=== PATIENT | male | born 1975 | race Caucasian/White ===

== ENCOUNTER 2020-06-22 15:18 | Emergency (ER) | payer OTHER, SELFPAY ==
--- NOTE | 2020-06-22 | CT_ITS ---
EXAMINATION: CT HEAD WITHOUT CONTRAST CLINICAL INFORMATION: Dizziness. COMPARISON: CT head 04/28/2017 TECHNIQUE: Contiguous axial imaging was performed from the skull base to vertex without intravenous administration of contrast. Coronal and sagittal reformatted images are performed at the CT scanner This CT examination was performed using dose optimization techniques as appropriate, variously including the following: *Automated exposure control *Adjustment of mA and/or kV according to patient size (this includes techniques or standardized protocols for targeted exams where dose is matched to indication/reason for exam; i.e. extremities or head) *Use of iterative reconstruction technique DLP: 735 mGy-cm FINDINGS: There is no evidence of acute intracranial hemorrhage or territorial infarction. No abnormal mass effect or midline shift is seen. Flanagan to white matter differentiation is well preserved. No extra-axial fluid collections are identified. The ventricles are normal in size. There is no abnormal attenuation within the brain parenchyma. The osseous structures and soft tissues are normal. The mastoid air cells and visualized portions of the paranasal sinuses are well aerated. IMPRESSION: No acute intracranial pathology.
--- NOTE | 2020-06-22 | XR_ITS ---
EXAMINATION: PORTABLE CHEST 1 VIEW CLINICAL INFORMATION: dizziness . COMPARISON: 08/10/2018. TECHNIQUE: Portable frontal view of the chest was obtained. FINDINGS: The lungs are well expanded. No focal infiltrate, effusion, edema, or pneumothorax. Cardiac and mediastinal silhouettes are within normal limits for technique. No acute bony abnormality seen. IMPRESSION: No evidence of acute disease.
[2020-06-22 16:04] VITALS: BP 139/82; PULSE 79; RESP 16; TEMP 36.7; O2SAT 97; BMI 32.8
--- NOTE | 2020-06-22 16:35 | ED.DIZZY ---
HPI - Dizziness General Chief Complaint: Dizziness Stated Complaint: DIZZINESS Time Seen by Provider: 06/22/20 16:27 Source: patient Mode of arrival: ambulatory Limitations: no limitations History of Present Illness HPI Narrative: Patient states for the past 2-3 weeks has been feeling off. Patient states has been feeling dizzy as in walking unsteady. Denies wanting to pass out. Occasionally for the past couple weeks has also been having substernal chest pain nonradiating. Denies diaphoresis denies nausea vomiting or fevers. Patient states dizziness onset could occur while sitting or standing. Has not passed out or feeling of passing out MD elicited complaint: dizziness and disequilibrium Onset (ago): week(s) ( 2 weeks) Severity: mild Description: sense of movement History of similar symptoms: No Exacerbating factors: nothing Relieving factors: nothing Related Data Previous Rx's Medication Instructions Recorded meclizine 12.5 mg PO BID #10 tab 06/22/20 Allergies Allergy/AdvReac Type Severity Reaction Status Date / Time No Known Allergies Allergy Unverified 06/07/20 14:56 [No Known Allergies*] Codeine Sulfate Allergy Unknown Uncoded 01/24/20 00:00 none Allergy Unknown Uncoded 01/18/20 00:00 Review of Systems Review of Systems: Constitutional : No Weight loss, No Fever, No Chills, No Night Sweats, No Fatigue, No Malaise ENT/Mouth : No Hearing loss, No Ear Pain, No Nasal Congestion, No Sinus Pain, No Hoarseness, No sore throat, No Rhinorrhea, No Swallowing Difficulty Eyes: No Eye Pain, No Swelling, No Redness, No Foreign Body, No Discharge, No Vision Changes Cardiovascular : No Chest Pain, No SOB, No Dyspnea on Exertion, No Orthopnea, No Edema, No Palpitations Respiratory : No Cough, No Sputum, No Wheezing, No Smoke Exposure, No Dyspnea Gastrointestinal : No Nausea, No Vomiting, No Diarrhea, No Constipation, No abdominal Pain, No Hematochezia, No Melena Genitourinary : no irregular bleeding, No Dysuria, No Urinary Frequency, No Hematuria, No Urinary Incontinence, No Urgency, No Flank Pain, No Urinary Flow Changes, No Hesitancy Musculoskeletal : No joint pain, No Myalgias, No Joint Swelling Skin : No Skin Lesions, No rash Neuro : No Weakness, No Numbness, No Paresthesias, No Loss of Consciousness, No Dizziness, No Headache Psych : No Anxiety/Panic, No Depression, No SI/HI/AH/VH, No Social Issues, Heme/Lymph: No Bruising, No Bleeding,No Lymphadenopathy Endocrine : No Polyuria, No Polydipsia, No Temperature Intolerance Neurologic: Reports Abnormal speech present [facility] Past Medical History Medical History Anxiety Depressed High cholesterol HTN (hypertension) Social History Social History Alcohol intake: never Smoking Status: Never smoker Use of substances other than those prescribed or required for medical reasons: No Advance Directives: No Advance Directives Information Provided: No Physical Exam Vital Signs and I&O and Narrative: Vital Signs and I&O: Vital Signs Temp 98.0 F 06/22/20 16:04 Pulse 71 06/22/20 17:09 Resp 16 06/22/20 17:16 BP 125/73 06/22/20 17:09 Pulse Ox 97 06/22/20 16:04 Intake & Output 06/22/20 06/22/20 06/23/20 06:59 18:59 06:59 Weight 106.594 kg Body Mass Index 32.8 reviewed Const: General: cooperative, healthy appearing and comfortable; No ill appearing Nutritional Appearance: underweight Limitations: no limitations HENMT: Head: Yes normal to inspection, No No palpable skull fracture present, No Acrocyanosis present and No Albarado's sign Ears: TM's normal bilaterally Eyes: General: appearance normal, both eyes and all related structures Visual Gerber: normal visual gerber by confrontation Pupils: Equal, round and reactive pupils present Neck: Neck: Yes normal visual inspection Chest: Chest palpation & inspection: normal inspection of the chest and normal palpation of entire chest wall Resp: Effort & Inspection: normal respiratory effort, not able to speak in complete sentences and no cough Cardio: Jugular venous distension: no JVD Palpation: PMI normal Rate: regular rate Rhythm: regular rhythm Peripheral pulses: Peripheral pulses 2+ throughout GI: Inspection: Yes normal to inspection and Yes abdominal wall ecchymosis Back/Spine/Pelvis: Cervical Spine: normal cervical lordosis Skin: Lesions: no lesions Rashes: no rashes Neuro: General: CN's II-XI intact bilaterally Cranial nerves: Yes CN's II-XII intact bilaterally and Yes Equal, round and reactive pupils present Cognition (Neuro): normal cognition Speech: Abnormal speech present Gait exam (Neuro): Normal gait present Motor exam (neuro): 5/5 motor strength present throughout Extrem: General: Yes normal to inspection Psych: Appearance: grossly normal Course Course Hospital Course: throughout hospital stay patient had normal orthostatics. Laboratory work within normal limits. Laboratory work and x-rays negative. I discussed with the patient reasons to return to the emergency department. Patient reassured and feeling much better. MDM - Dizziness Lab Data Result diagrams: 06/22/20 17:08 Labs: Lab Results 06/22/20 06/22/20 06/22/20 Range/Units 17:08 17:08 17:08 WBC 5.8 (4.8-10.8) X10*3/uL RBC 5.12 (4.60-5.80) X10*6/uL Hgb 15.1 (14.0-18.0) g/dl Hct 44.9 (42-52) % MCV 87.7 (80-98) fL MCH 29.5 (27.0-33.0) pg MCHC 33.6 (31.0-36.0) g/dl RDW 12.2 (11.0-16.0) % Plt Count 212 (160-400) X10*3/uL MPV 10.2 (9.4-12.4) fL Immature Gran % (Auto) 0.2 (0.0-0.4) % Neut % (Auto) 52.4 (45-73) % Lymph % (Auto) 36.3 (20-40) % [place] % (Auto) 7.8 (2-11) % Eos % (Auto) 2.6 (0-4) % Baso % (Auto) 0.7 (0-2) % Neut # (Auto) 3.0 (2.0-8.3) X10*3/uL Lymph # (Auto) 2.1 (1.2-4.9) X10*3/uL [place] # (Auto) 0.5 (0.1-1.2) X10*3/uL Eos # (Auto) 0.2 (0.0-0.4) X10*3/uL Baso # (Auto) 0.0 (0.0-0.2) X10*3/uL Abs Immat Gran (auto) 0.01 (0.00-0.03) X10*3/uL Absolute Nucleated RBC 0.000 (0.0-0.012) X10*3/uL Nucleated RBC % (auto) 0.0 (0.0-0.2) /100WBC Total Bilirubin 0.8 (0.0-1.0) mg/dL Direct Bilirubin 0.3 (0.0-0.5) mg/dL AST 22 (5-37) U/L ALT 39 (0-40) U/L Alkaline Phosphatase 62 (39-117) U/L Troponin I High Sens < 3.5 (<3.5-35.0) ng/L Total Protein 6.9 (6.5-8.0) g/dL Albumin 4.6 (3.5-5.0) g/dL Lipase 22 (8-78) U/L ECG Data Attestation: I personally reviewed and interpreted this ECG as follows: Interpretation: EKG normal sinus rhythm at 75, normal axis. Normal S T segment. No STEMI normal NE intervals. Discharge Plan Discharge Clinical Impression: Benign paroxysmal positional vertigo Qualifiers: Laterality: bilateral Qualified Code(s): H81.13 - Benign paroxysmal vertigo, bilateral Patient Disposition: Home, Self-Care Instructions: Benign Paroxysmal Positional Vertigo (ED) Prescriptions: New meclizine 12.5 mg tablet 12.5 mg PO BID Qty: 10 RF: 0 Referrals: Po,Zulema Barrera MD [Primary Care Provider] - 2 days EKG EKG All charges added?: Yes EKG interpretations EKG EKG results cardiology: interpreted by DG Dysrhythmias Sinus rhythms and dysrhythmias: sinus rhythm (75)
[2020-06-22 17:09] VITALS: BP 125/73; PULSE 71
--- NOTE | 2020-06-22 17:15 | ECG_ITS ---
Test Reason : DIZZINESS Blood Pressure : / mmHG Vent. Rate : 075 BPM Atrial Rate : 075 BPM P-R Int : 192 ms QRS Dur : 112 ms QT Int : 390 ms P-R-T Axes : 065 031 049 degrees QTc Int : 435 ms Normal sinus rhythm Normal ECG When compared with ECG of 18-AUG-2018 08:58, No significant change was found Referred By: Petey Olguin Electronically Signed By:MUNIR CARR
[2020-06-22 17:16] VITALS: RESP 16
[2020-06-22 17:17] LABS: MANUAL DIFF FLAG NO
[2020-06-22 17:19] LABS: Basophils Percent Auto 0.7 % (0-2); Eosinophils Absolute Auto 0.2 X10*3/uL (0.0-0.4); Eosinophils Percent Auto 2.6 % (0-4); Hematocrit 44.9 % (42-52); Hemoglobin 15.1 g/dl (14.0-18.0); Imm Gran Abs Auto 0.01 X10*3/uL (0.00-0.03); Imm Gran Pct Auto 0.2 % (0.0-0.4); Lymphocytes Absolute Auto 2.1 X10*3/uL (1.2-4.9); Lymphocytes Percent Auto 36.3 % (20-40); Mean Corpuscular HGB Conc 33.6 g/dl (31.0-36.0); Mean Corpuscular Hemoglobin 29.5 pg (27.0-33.0); Mean Corpuscular Volume 87.7 fL (80-98); Mean Platelet Volume 10.2 fL (9.4-12.4); Monocytes Absolute Auto 0.5 X10*3/uL (0.1-1.2); Monocytes Percent Auto 7.8 % (2-11); Neutrophils Percent Auto 52.4 % (45-73); Platelet Count 212 X10*3/uL (160-400); Red Blood Count 5.12 X10*6/uL (4.60-5.80); Red Cell Distribution Width 12.2 % (11.0-16.0); White Blood Count 5.8 X10*3/uL (4.8-10.8)
[2020-06-22 17:45] LABS: Alanine Aminotransferase 39 U/L (0-40); Albumin Level 4.6 g/dL (3.5-5.0); Alkaline Phosphatase 62 U/L (39-117); Aspartate Amino Transferase 22 U/L (5-37); Bilirubin Direct 0.3 mg/dL (0.0-0.5); Bilirubin Total 0.8 mg/dL (0.0-1.0); Lipase 22 U/L (8-78); Total Protein 6.9 g/dL (6.5-8.0)
[2020-06-22 17:49] LABS: Troponin-I High Sensitivity < 3.5 ng/L (<3.5-35.0)
--- NOTE | 2020-06-22 18:34 | PC.NURSE ---
pt drinking po fluids instead of ivf per request of pt aware
== END 2020-06-22 20:05 | disposition home or self-care (01) ==
PROVIDERS: Emergency Provider Emergency Medicine; PCP Internal Medicine
DX: H81.13 Benign paroxysmal vertigo, bilateral (principal); I10 Essential (primary) hypertension
CPT/HCPCS: 36415; 70450; 71045; 80076; 83690; 84484; 85025; 93005; 93010; 99284

== ENCOUNTER 2020-08-13 09:32 | Outpatient (REF) | payer OTHER, SELFPAY | END 2020-08-13 09:33 | disposition home or self-care (01) | LOC: HO.LAB 09:32 | PROVIDERS: Visit Provider Internal Medicine | DX: Z20.828 Contact with and (suspected) exposure to other viral communicable diseases (principal) | CPT/HCPCS: C9803; U0003 ==

== ENCOUNTER 2020-10-16 15:31 | Outpatient (REF) | payer OTHER, SELFPAY ==
--- NOTE | 2020-10-16 15:36 | XR_ITS ---
EXAMINATION: XR WRIST, RIGHT CLINICAL INFORMATION: Pain. COMPARISON: Previous x-rays most recent November 2019 TECHNIQUE: Four views of the right wrist. FINDINGS: There is a volar placed plate and screws transfixing a right distal radius fracture. Orthopedic hardware appears intact. Distal radius fracture is appears healed. There is a nondisplaced ulnar styloid fracture that appears unchanged. There is an oblique lucency seen in the midportion of the scaphoid bone that is unchanged from multiple old exams. It is uncertain whether this could represent evidence of old remote trauma to the scaphoid bone. No acute fracture is seen. Carpal bones are otherwise normal. Soft tissues are normal. XR/XR wrist RT 2V IMPRESSION: ORIF of right distal radius fracture. Distal radius fracture appears healed. Ununited ulnar styloid fracture.
== END 2020-10-16 15:32 | disposition home or self-care (01) ==
LOC: HO.XRAY 15:31
PROVIDERS: PCP Internal Medicine; Visit Provider Internal Medicine
DX: M25.531 Pain in right wrist (principal)
CPT/HCPCS: 73100

== ENCOUNTER 2020-10-22 09:57 | Outpatient (REF) | payer OTHER, SELFPAY ==
[2020-10-22 10:22] LABS: MANUAL DIFF FLAG NO
[2020-10-22 10:26] LABS: Basophils Percent Auto 0.6 % (0-2); Eosinophils Absolute Auto 0.2 X10*3/uL (0.0-0.4); Eosinophils Percent Auto 2.9 % (0-4); Hemoglobin 16.2 g/dl (14.0-18.0); Imm Gran Abs Auto 0.01 X10*3/uL (0.00-0.03); Imm Gran Pct Auto 0.2 % (0.0-0.4); Lymphocytes Absolute Auto 1.8 X10*3/uL (1.2-4.9); Lymphocytes Percent Auto 33.6 % (20-40); Mean Corpuscular HGB Conc 33.8 g/dl (31.0-36.0); Mean Corpuscular Hemoglobin 29.5 pg (27.0-33.0); Mean Corpuscular Volume 87.4 fL (80-98); Mean Platelet Volume 10.3 fL (9.4-12.4); Monocytes Absolute Auto 0.5 X10*3/uL (0.1-1.2); Monocytes Percent Auto 8.6 % (2-11); Neutrophils Absolute Auto 2.8 X10*3/uL (2.0-8.3); Neutrophils Percent Auto 54.1 % (45-73); Platelet Count 239 X10*3/uL (160-400); Red Blood Count 5.49 X10*6/uL (4.60-5.80); Red Cell Distribution Width 12.1 % (11.0-16.0); White Blood Count 5.2 X10*3/uL (4.8-10.8)
[2020-10-22 11:28] LABS: Thyroid Stimulating Hormone 0.47 uIU/mL (0.32-4.0)
[2020-10-22 11:31] LABS: Alanine Aminotransferase 32 U/L (0-40); Albumin Level 4.7 g/dL (3.5-5.0); Alkaline Phosphatase 64 U/L (39-117); Anion Gap 12 (12-20); Aspartate Amino Transferase 18 U/L (5-37); Bilirubin Total 1.1 mg/dL (0.0-1.0); Blood Urea Nitrogen 8 mg/dL (9-16); Calcium 9.2 mg/dL (8.4-10.2); Carbon Dioxide 31 mmol/L (22-29); Chloride 101 mmol/L (96-108); Cholesterol 204 mg/dL; Estimated Glomerular Filt Rate > 60; Glucose Random 92 mg/dL (60-115); HDL Cholesterol 44 mg/dL; LDL Cholesterol Calculated 134 mg/dl; Sodium 140 mmol/L (135-145); Triglycerides 131 mg/dL
[2020-10-22 18:38] LABS: Folate 9.6 ng/mL (> or = 4.0); Vitamin B12 281 pg/mL (200-900)
== END 2020-10-22 09:58 | disposition home or self-care (01) ==
LOC: HO.LAB 09:57
PROVIDERS: PCP Internal Medicine; Visit Provider Internal Medicine
DX: I10 Essential (primary) hypertension (principal); E78.00 Pure hypercholesterolemia, unspecified
CPT/HCPCS: 36415; 80053; 80061; 82607; 82746; 84439; 84443; 85025

== ENCOUNTER 2020-10-23 15:03 | Outpatient (RCR) | payer OTHER, SELFPAY ==
[2020-10-23 15:07] VITALS: BP 128/90; PULSE 113; RESP 20
--- NOTE | 2020-10-23 16:27 | MHC.PT.EP ---
[facility] [place] Office [place] Office [place] Office [address] Grayson Vaughan [address] [phone] F: [phone] F: [phone] F: [phone] F: [phone] Physical Therapy Plan of Care Date of Evaluation: 10/23/20 Date of Surgery: Diagnosis: Dizziness and giddiness Assessment: 44 year old male referred for dizziness and giddiness . Pt reports of having symptoms of vertigo for the last 2-3 years. He describes his symptoms as feeling unsteady and occasional room spinning dizziness every time he moves from supine to sit, sit to supine, rolls in the bed and looks up or down. He also has occasional nausea. Per pt once his symptoms comes on they do not stop/ go away. He denies having any recent ear or sinus infection. Examination reveals smooth pursuit, saccades, visual tracking, static and dynamic balance WNL. His DVA was 3 lines (significant). Pt was negative in B [place] pikes and B roll test for nystagmus and vertigo. Pt is independent with all ADLs but does them slowly when he has severs symptoms. Pt's symptoms suggestive of mild vestibular hypofunction. He would benefit from therapy for vestibular rehab. Frequency and Duration: The patient will be seen 2/week for 5 weeks Short Term Goals: 1. Pt will be able to get in and out of the bed without any dizziness in 2 weeks. 2. Pt will be able to bend forward, look up and down without symptoms of unsteadiness in 3 weeks Cardiac Cath Lab Technologist Goals: 1. Pt will be able to perform all ADLS without symptoms of unsteadiness in 4 weeks. 2. Pt will return to PLOF in 5 weeks. Treatment Plan: Modalities to reduce pain, spasms and effusion. Manual therapy to restore motion and function. Therapeutic exercise to improve strength and flexibility. Neuromuscular re-education for posture and balance. Therapeutic activities to return to functional activities of daily living. Electronically signed by: Loren Andre DPT Please sign and return to therapist. Thank you for your referral.
--- NOTE | 2020-11-27 10:41 | MHC.PT.DC ---
[facility] [place] Office [place] Office [place] Office [address] Grayson Vaughan [address] [phone] F: [phone] F: [phone] F: [phone] F: [phone] Physical Therapy Discharge Report Diagnosis: Dizziness and giddiness Date of Surgery: Date of Evaluation: 10/23/20 Date of Discharge: 11/27/20 Treatments to Date: 1 Cancellations to Date: 0 No Shows to Date: 2 Discharge Status: Visit Non-compliance Discharge Summary: Pt d/c from therapy as he no showed for his appointments. Electronically signed by: Loren Andre DPT Please sign and return to therapist. Thank you for your referral.
== END 2020-11-27 10:42 | disposition other institution (70) ==
LOC: HO.PT 15:03
PROVIDERS: Visit Provider Internal Medicine
DX: R42 Dizziness and giddiness (principal)
CPT/HCPCS: 97112; 97161

== ENCOUNTER 2021-03-29 08:32 | Outpatient (REF) | payer OTHER, SELFPAY ==
--- NOTE | ~2021-03-29 | FL_ITS ---
EXAMINATION: FL UPPER GI SERIES CLINICAL INFORMATION: K21.9 - Gastro-esophageal reflux disease without esophagitis. Patient notes heartburn symptoms greatest at night. No difficulty swallowing. COMPARISON: Report upper GI series 07/12/2007. TECHNIQUE: Upper GI series is performed using fluoroscopic evaluation in addition to multiple fluoroscopic spot views. The patient is imaged both upright and prone and using both thick and thin barium sulfate along with effervescent granules. Fluoroscopy time: 1.5 minutes DAP: 16.038 Gycm2 Fluoroscopic spot images: 17 FINDINGS: There is normal esophageal motility. There is no obstruction, stricture, ulceration, or hernia. No gastroesophageal reflux is demonstrated. There is mild uniform thickening of the proximal to mid gastric body folds suggested on the double contrast images. There is no nodularity or ulcer crater. No gastric outlet obstruction. The pyloroduodenal region and post bulbar duodenum are unremarkable. FL/FL upper GI w air IMPRESSION: 1. Mild nonspecific thickening proximal to mid gastric body folds suggested on double contrast images, possibly related to gastritis. No ulcer crater. Unremarkable pyloroduodenum. 2. Unremarkable esophagus. No ulceration, stricture, hiatal hernia, or reflux during fluoroscopy.
== END 2021-03-29 08:33 | disposition home or self-care (01) ==
LOC: HO.XRAY 08:32
PROVIDERS: PCP Internal Medicine; Visit Provider Internal Medicine
DX: K21.9 Gastro-esophageal reflux disease without esophagitis (principal)
CPT/HCPCS: 74246

== ENCOUNTER 2021-06-14 04:29 | Inpatient (IN) | payer OTHER, SELFPAY ==
--- NOTE | ~2021-06-14 | CT_ITS ---
EXAMINATION: CT ABDOMEN AND PELVIS WITH CONTRAST CLINICAL INFORMATION: Elevated LFTs and. Evaluate for stone. COMPARISON: Ultrasound abdomen 06/14/2021 performed earlier today TECHNIQUE: Multidetector volumetric images were obtained from the superior aspect of the liver through the pubic symphysis following administration 85 mL of Omnipaque 350 intravenous contrast. Sagittal and coronal reformatted images were obtained on the technologist's workstation. Oral contrast: No This CT examination was performed using dose optimization techniques as appropriate, variously including the following: *Automated exposure control *Adjustment of mA and/or kV according to patient size (this includes techniques or standardized protocols for targeted exams where dose is matched to indication/reason for exam; i.e. extremities or head) *Use of iterative reconstruction technique DLP: 1132 mGy-cm FINDINGS: LUNG BASES: The visualized lung bases are unremarkable. LIVER, GALLBLADDER, AND BILIARY TREE: The liver is normal in size, shape, and diminished attenuation. There is a 7 mm hypodensity in the right hepatic lobe. No additional lesions seen.. There is mild thickening of the gallbladder wall with suspicion for radiolucent stones. No pericholecystic fluid collection seen. PANCREAS: Unremarkable. SPLEEN: Unremarkable. ADRENAL GLANDS: Unremarkable. KIDNEYS AND URETERS: The kidneys are normal in size, shape, and attenuation. No hydronephrosis, hydroureter, or calculi seen. No perinephric stranding. BLADDER: Unremarkable. GASTROINTESTINAL TRACT: The small and large bowel are unremarkable. The appendix is unremarkable. ABDOMINAL WALL: There is a small lumbar canal hernia containing fat. LYMPH NODES: Normal. VASCULAR: Unremarkable. PELVIC VISCERA: Unremarkable. OSSEOUS STRUCTURES: No lytic or sclerotic process seen. CT/CT abdomen pelvis w con IMPRESSION: No acute intra-abdominal process. There is a punctate hypodensity right hepatic lobe probable cysts. Suspect mild hepatic steatosis.
--- NOTE | ~2021-06-14 | US_ITS ---
EXAMINATION: US ABDOMEN LIMITED CLINICAL INFORMATION: Epigastric pain, elevated LFTs.. COMPARISON: None TECHNIQUE: Real-time imaging of the right upper quadrant abdominal viscera. FINDINGS: PANCREAS: Normal. LIVER: The liver is normal in size. The liver contour is normal. There is anechoic cyst right hepatic lobe measuring 0.7 x 0.5 x 0.7 cm. Parenchymal echogenicity is increased. No focal hepatic lesion. There is no intrahepatic biliary duct dilatation seen. GALLBLADDER: There are multiple echogenic stones and echogenic sludge ball. There is no wall thickening or pericholecystic fluid collection. Gallbladder wall thickness is 0.1 cm. COMMON BILE DUCT: Normal in caliber measuring 1.0 cm in diameter. RIGHT KIDNEY: Normal. No hydronephrosis. No renal calculi or focal parenchymal lesions. The kidney measures 11.8 cm in maximum dimension. FREE FLUID: None. US/US abdomen limited IMPRESSION: Diffuse hepatic steatosis without focal lesion. There is a small anechoic cyst right hepatic lobe measuring 0.7 cm. Gallstones, echogenic sludge without wall thickening. Rest of the visualized abdominal ultrasound is unremarkable.
--- NOTE | ~2021-06-14 | MR_ITS ---
EXAMINATION: MR ABDOMEN WITHOUT CONTRAST CLINICAL INFORMATION: Abdominal pain. Elevated liver function tests. Gallstones. Rule out common bile duct obstruction. COMPARISON: Previous CT of the abdomen and pelvis and abdominal ultrasound both from yesterday TECHNIQUE: MR abdomen is performed without gadolinium contrast. MRCP sequences were also performed. FINDINGS: LUNG BASES: The visualized lung bases are unremarkable. LIVER, GALLBLADDER, AND BILIARY TREE: The liver is normal in size and shape. There is mild fatty infiltration of the liver. There is a small low signal on T1 and high signal on T2-weighted sequences lesion in the right lobe the liver probably representing a cyst. This measures 8 x 8 x 1 cm. There are gallstones in the gallbladder. The gallbladder wall appears slightly thickened and edematous. The gallbladder is normal in size. The cystic duct appears markedly dilated measuring up to 1.3 cm. A stone in the cystic duct is not appreciated. A dilated cystic duct abuts the common hepatic duct however no intra or hepatic biliary duct dilatation is seen/evidence of Mirizzi syndrome. The common bile duct measures 4 mm. No common bile duct stone is seen. PANCREAS: Unremarkable. SPLEEN: Unremarkable. ADRENAL GLANDS: Unremarkable. KIDNEYS AND URETERS: The kidneys are normal in size and shape. No hydronephrosis. No perinephric stranding. GASTROINTESTINAL TRACT: No bowel obstruction. No ascites or fluid collection. ABDOMINAL WALL: No significant hernia is appreciated. LYMPH NODES: No lymphadenopathy. VASCULAR: Unremarkable. OSSEOUS STRUCTURES: Marrow signal normal. MR/MR MRCP IMPRESSION: Gallstones. Thickened edematous gallbladder wall suggestive of cholecystitis. The cystic duct is markedly dilated measuring up to 1.3 cm. A stone in the cystic duct is not seen. Normal caliber intrahepatic and extrahepatic bile ducts. No common bile duct stone seen. Mild fatty infiltration of the liver.
[2021-06-14 06:03] VITALS: BP 118/74; PULSE 70; RESP 16; TEMP 36.8; O2SAT 99; BMI 31.9
--- NOTE | 2021-06-14 06:19 | ED_ITS ---
HPI - Abdominal Pain General Chief Complaint: Abdominal Pain <Wily Tan MD - Last Filed: 06/14/21 07:23> Stated Complaint: stomach, back and ear pain <Wily Tan MD - Last Filed: 06/14/21 07:23> Time Seen by Provider: 06/14/21 06:19 <Wily Tan MD - Last Filed: 06/14/21 07:23> Source: patient <Wily Tan MD - Last Filed: 06/14/21 07:23> Mode of arrival: ambulatory <Wily Tan MD - Last Filed: 06/14/21 07:23> Limitations: no limitations <Wily Tan MD - Last Filed: 06/14/21 07:23> History of Present Illness HPI narrative: Patient with gastritis. Tonight started with epigastric pain that went up and then into his back. The feeling lasted for 20 minutes <Wily Tan MD - Last Filed: 06/14/21 07:23> MD elicited complaint: abdominal pain <Wily Tan MD - Last Filed: 06/14/21 07:23> Onset (ago): minute(s) <Wily Tan MD - Last Filed: 06/14/21 07:23> Pain Consistency: intermittent <Wily Tan MD - Last Filed: 06/14/21 07:23> Location: epigastric <Wily Tan MD - Last Filed: 06/14/21 07:23> Severity: mild <Wily Tan MD - Last Filed: 06/14/21 07:23> Migration to: no migration <Wily Tan MD - Last Filed: 06/14/21 07:23> Exacerbating factors: nothing <Wily Tan MD - Last Filed: 06/14/21 07:23> Relieving factors: nothing <Wily Tan MD - Last Filed: 06/14/21 07:23> Associated symptoms: denies other symptoms <Wily Tan MD - Last Filed: 06/14/21 07:23> Related Data Home Medications: Home Medications Medication Instructions Recorded Confirmed cyanocobalamin (vitamin B-12) 50 50 mcg PO DAILY 12/27/20 03/04/21 mcg tablet digestive enzymes 1 tab PO DAILY 12/27/20 03/04/21 lactobacillus comb no.10 20 20,000 mmu cells PO DAILY 12/27/20 03/04/21 billion cell capsule (Probiotic) Previous Rx's Medication Instructions Recorded meclizine 12.5 mg tablet 12.5 mg PO BID #30 tab 10/29/20 omeprazole 40 mg capsule,delayed 40 mg PO DAILY #30 cap 10/29/20 release blood pressure monitor #1 ea 12/27/20 fexofenadine 180 mg tablet 180 mg PO DAILY #90 tab 12/27/20 (Sun Allergy) fluticasone propionate 50 2 spray INTRANASAL DAILY #16 g 03/20/21 mcg/actuation nasal spray,suspension (Flonase Allergy Relief) clonazepam 0.5 mg tablet 0.5 mg PO BEDTIME #30 tab 04/09/21 escitalopram oxalate 10 mg tablet 10 mg PO DAILY 90 Days #90 tab 04/09/21 <Wily Tan MD - Last Filed: 06/14/21 07:23> Allergies/Adverse Reactions: Allergies Allergy/AdvReac Type Severity Reaction Status Date / Time codeine Allergy Unknown Unknown Verified 05/17/21 14:29 <Wily Tan MD - Last Filed: 06/14/21 07:23> Review of Systems Constitutional: Reports no additional constitutional complaints <Wily Tan MD - Last Filed: 06/14/21 07:23> Eyes: Reports no additional eye complaints <Wily Tan MD - Last Filed: 06/14/21 07:23> Denies dizziness <Wily Tan MD - Last Filed: 06/14/21 07:23> Cardiovascular: Reports no additional cardiovascular complaints <Wily Tan MD - Last Filed: 06/14/21 07:23> Respiratory: Reports as per HPI <Wily Tan MD - Last Filed: 06/14/21 07:23> Gastrointestinal: Reports no additional gastrointestinal complaints <Wily Tan MD - Last Filed: 06/14/21 07:23> Musculoskeletal: Reports no additional musculoskeletal complaints <Wily Tan MD - Last Filed: 06/14/21 07:23> Skin/Breast: Denies rash <Wily Tan MD - Last Filed: 06/14/21 07:23> Reports system reviewed and no additional complaints, except as documented, Denies dizziness and Denies Sensory deficit (Neuro) <Wily Tan MD - Last Filed: 06/14/21 07:23> Psychiatric: Denies anxiety <Wily Tan MD - Last Filed: 06/14/21 07:23> Physical Exam Vital Signs: Vital Signs: Last Vital Signs Temp 98.0 F 06/14/21 09:56 Pulse 70 06/14/21 09:56 Resp 14 06/14/21 09:56 BP 101/52 L 06/14/21 09:56 Pulse Ox 98 06/14/21 09:56 Body Mass Index 31.9 <Wily Tan MD - Last Filed: 06/14/21 07:23> Vital Signs: Last Vital Signs Temp 98.0 F 06/14/21 09:56 Pulse 70 06/14/21 09:56 Resp 14 06/14/21 09:56 BP 101/52 L 06/14/21 09:56 Pulse Ox 98 06/14/21 09:56 Body Mass Index 31.9 <Vida Webb DO - Last Filed: 06/14/21 10:34> Const: General: healthy appearing <Wily Tan MD - Last Filed: 06/14/21 07:23> Nutritional Appearance: average body habitus <Wily Tan MD - Last Filed: 06/14/21 07:23> Orientation/consciousness: oriented to person and patient oriented x3 <Wily Tan MD - Last Filed: 06/14/21 07:23> Limitations: no limitations <Wily Tan MD - Last Filed: 06/14/21 07:23> HENMT: Head: Yes normal to inspection <Wily Tan MD - Last Filed: 06/14/21 07:23> Ears: external ears normal <Wily Tan MD - Last Filed: 06/14/21 07:23> General nose exam: Normal external nose present <Wily Tan MD - Last Filed: 06/14/21 07:23> Mouth: Normal oral and palatal mucosa present and oropharynx normal <Wily Tan MD - Last Filed: 06/14/21 07:23> Throat: Yes posterior oropharynx normal <Wily Tan MD - Last Filed: 06/14/21 07:23> Eyes: General: appearance normal, both eyes and all related structures <Wily Tan MD - Last Filed: 06/14/21 07:23> Neck: Other: supple <Wily Tan MD - Last Filed: 06/14/21 07:23> Neck: Yes normal visual inspection <Wily Tan MD - Last Filed: 06/14/21 07:23> Chest: Chest palpation & inspection: normal inspection of the chest <Wily Tan MD - Last Filed: 06/14/21 07:23> Resp: Auscultation: clear to auscultation bilaterally <Wily Tan MD - Last Filed: 06/14/21 07:23> Cardio: Jugular venous distension: no JVD <Wily Tan MD - Last Filed: 06/14/21 07:23> Rate: regular rate <Wily Tan MD - Last Filed: 06/14/21 07:23> Rhythm: regular rhythm <Wily Tan MD - Last Filed: 06/14/21 07:23> Heart sounds: S1 normal heart sound present and S2 normal heart sound present <Wily Tan MD - Last Filed: 06/14/21 07:23> GI: Inspection: Yes normal to inspection <Wily Tan MD - Last Filed: 06/14/21 07:23> Palpation (GI): Soft to palpation, nontender and No hepatosplenomegaly present <Wily Tan MD - Last Filed: 06/14/21 07:23> Auscultation: normal bowel sounds <Wily Tan MD - Last Filed: 06/14/21 07:23> : General: Yes no CVA tenderness <Wily Tan MD - Last Filed: 06/14/21 07:23> Back/Spine/Pelvis: Back: no CVA tenderness <Wily Tan MD - Last Filed: 06/14/21 07:23> Skin: General skin exam: no rashes or lesions noted <Wily Tan MD - Last Filed: 06/14/21 07:23> Neuro: General: oriented to person and patient oriented x3 <Wily Tan MD - Last Filed: 06/14/21 07:23> Cranial nerves: Yes CN's II-XII intact bilaterally <Wily Tan MD - Last Filed: 06/14/21 07:23> Motor exam (neuro): 5/5 motor strength present throughout <Wily Tan MD - Last Filed: 06/14/21 07:23> Sensory Exam: No Sensory deficit (Neuro) <Wily Tan MD - Last Filed: 06/14/21 07:23> Extrem: General: Yes normal to inspection <Wily Tan MD - Last Filed: 06/14/21 07:23> Psych: Appearance: grossly normal <Wily Tan MD - Last Filed: 06/14/21 07:23> Course Course Course Narrative: assumed care - elevated LFTs, US gallstones and dilated CBD I am ordering CT scan to evaluate for possible duct stone, started on IVF, pain controlled at this time message sent to General surgery given GB findings as well as elevated LFTs - Dr. Pierre will admit for general surgery at this time <Vida Webb DO - Last Filed: 06/14/21 10:34> Reevaluation(s) Reevaluation #1: EKG normal no ischemia waiting on labs. patient feeling better on GI cocktail <Wily Tan MD - Last Filed: 06/14/21 07:23> Time: 07:21 <Wily Tan MD - Last Filed: 06/14/21 07:23> MDM - Abdominal Pain Lab Data Result diagrams: : 06/14/21 07:17 06/14/21 07:17 <Wiyl Tan MD - Last Filed: 06/14/21 07:23> Labs: Lab Results 06/14/21 06/14/21 06/14/21 Range/Units 07:17 07:17 09:56 WBC 7.4 (4.8-10.8) X10*3/uL RBC 4.89 (4.60-5.80) X10*6/uL Hgb 14.6 (14.0-18.0) g/dl Hct 43.3 (42-52) % MCV 88.5 (80-98) fL MCH 29.9 (27.0-33.0) pg MCHC 33.7 (31.0-36.0) g/dl RDW 12.6 (11.0-16.0) % Plt Count 196 (160-400) X10*3/uL MPV 9.9 (9.4-12.4) fL Immature Gran % (Auto) 0.4 (0.0-0.4) % Neut % (Auto) 82.7 H (45-73) % Lymph % (Auto) 9.6 L (20-40) % Hancock % (Auto) 6.9 (2-11) % Eos % (Auto) 0.1 (0-4) % Baso % (Auto) 0.3 (0-2) % Lymph # (Auto) 0.7 L (1.2-4.9) X10*3/uL Hancock # (Auto) 0.5 (0.1-1.2) X10*3/uL Eos # (Auto) 0.0 (0.0-0.4) X10*3/uL Baso # (Auto) 0.0 (0.0-0.2) X10*3/uL Abs Immat Gran (auto) 0.03 (0.00-0.03) X10*3/uL Absolute Neuts (auto) 6.1 (2.0-8.3) X10*3/uL Absolute Nucleated RBC 0.000 (0.0-0.012) X10*3/uL Nucleated RBC % (auto) 0.0 (0.0-0.2) /100WBC Sodium 140 (135-145) mmol/L Potassium 4.1 (3.3-5.1) mmol/L Chloride 105 (96-108) mmol/L Carbon Dioxide 29 (22-29) mmol/L Anion Gap 10 L (12-20) BUN 11 (9-16) mg/dL Creatinine 0.88 (0.5-1.4) mg/dL Estim Creat Clear Calc 130.0 Estimated GFR > 60 Random Glucose 82 (60-115) mg/dL Calcium 9.1 (8.4-10.2) mg/dL Total Bilirubin 2.3 H (0.0-1.0) mg/dL AST 370 H (5-37) U/L ALT 404 H (0-40) U/L Alkaline Phosphatase 77 D (39-117) U/L Total Protein 6.6 (6.5-8.0) g/dL Albumin 4.4 (3.5-5.0) g/dL Lipase 58 (8-78) U/L COVID-19 ([facility]) Negative (Negative) COVID-19 Clin Com See Note <Wily Tan MD - Last Filed: 06/14/21 07:23> Lab Results 06/14/21 06/14/21 06/14/21 Range/Units 07:17 07:17 09:56 WBC 7.4 (4.8-10.8) X10*3/uL RBC 4.89 (4.60-5.80) X10*6/uL Hgb 14.6 (14.0-18.0) g/dl Hct 43.3 (42-52) % MCV 88.5 (80-98) fL MCH 29.9 (27.0-33.0) pg MCHC 33.7 (31.0-36.0) g/dl RDW 12.6 (11.0-16.0) % Plt Count 196 (160-400) X10*3/uL MPV 9.9 (9.4-12.4) fL Immature Gran % (Auto) 0.4 (0.0-0.4) % Neut % (Auto) 82.7 H (45-73) % Lymph % (Auto) 9.6 L (20-40) % Hancock % (Auto) 6.9 (2-11) % Eos % (Auto) 0.1 (0-4) % Baso % (Auto) 0.3 (0-2) % Lymph # (Auto) 0.7 L (1.2-4.9) X10*3/uL Hancock # (Auto) 0.5 (0.1-1.2) X10*3/uL Eos # (Auto) 0.0 (0.0-0.4) X10*3/uL Baso # (Auto) 0.0 (0.0-0.2) X10*3/uL Abs Immat Gran (auto) 0.03 (0.00-0.03) X10*3/uL Absolute Neuts (auto) 6.1 (2.0-8.3) X10*3/uL Absolute Nucleated RBC 0.000 (0.0-0.012) X10*3/uL Nucleated RBC % (auto) 0.0 (0.0-0.2) /100WBC Sodium 140 (135-145) mmol/L Potassium 4.1 (3.3-5.1) mmol/L Chloride 105 (96-108) mmol/L Carbon Dioxide 29 (22-29) mmol/L Anion Gap 10 L (12-20) BUN 11 (9-16) mg/dL Creatinine 0.88 (0.5-1.4) mg/dL Estim Creat Clear Calc 130.0 Estimated GFR > 60 Random Glucose 82 (60-115) mg/dL Calcium 9.1 (8.4-10.2) mg/dL Total Bilirubin 2.3 H (0.0-1.0) mg/dL AST 370 H (5-37) U/L ALT 404 H (0-40) U/L Alkaline Phosphatase 77 D (39-117) U/L Total Protein 6.6 (6.5-8.0) g/dL Albumin 4.4 (3.5-5.0) g/dL Lipase 58 (8-78) U/L COVID-19 ([facility]) Negative (Negative) COVID-19 Clin Com See Note <Vida Webb DO - Last Filed: 06/14/21 10:34> ECG Data Attestation: I personally reviewed and interpreted this ECG as follows: <Wily Tan MD - Last Filed: 06/14/21 07:23> Interpretation: normal sinus rate of [address] or twave changes <Wily Tan MD - Last Filed: 06/14/21 07:23> Discharge Plan Discharge Clinical Impression: GERD (gastroesophageal reflux disease), Gastritis and duodenitis, Gallstones, Elevated LFTs <Wily Tan MD - Last Filed: 06/14/21 07:23> Patient Disposition: Admitted As Inpatient <Wily Tan MD - Last Filed: 06/14/21 07:23> Instructions: Gastritis (ED), Duodenitis (ED) <Wily Tan MD - Last Filed: 06/14/21 07:23> Prescriptions: No Action meclizine 12.5 mg tablet 12.5 mg PO BID Qty: 30 RF: 1 omeprazole 40 mg capsule,delayed release(DR/EC) 40 mg PO DAILY Qty: 30 RF: 5 escitalopram oxalate 10 mg tablet 10 mg PO DAILY 90 Days Qty: 90 RF: 1 clonazepam 0.5 mg tablet 0.5 mg PO BEDTIME Qty: 30 RF: 2 fluticasone propionate [Flonase Allergy Relief] 50 mcg/actuation spray,suspension 2 spray intranasal DAILY Qty: 16 RF: 3 Probiotic 20 billion cell capsule 20,000 mmu cells PO DAILY RF: 0 cyanocobalamin (vitamin B-12) 50 mcg tablet 50 mcg PO DAILY RF: 0 digestive enzymes Tablet 1 tab PO DAILY RF: 0 fexofenadine [Sun Allergy] 180 mg tablet 180 mg PO DAILY Qty: 90 RF: 2 (DME) blood pressure monitor Kit See Rx Instructions .ROUTE .MEDSUPPLY Qty: 1 RF: 0 <Wily Tan MD - Last Filed: 06/14/21 07:23> Referrals: Gita Brink MD [Primary Care Provider] - 1 week <Wily Tan MD - Last Filed: 06/14/21 07:23> [facility] Past Medical History Medical History: Medical History Anxiety and depression Cervical disc disease Cyst of epididymis Foreign body in lower extremity Hypercholesterolemia Hypertension Insomnia Irritable bowel syndrome Obesity (BMI 30-39.9) Obstructive sleep apnea Overweight (BMI 25.0-29.9) Vitamin D deficiency Wrist pain, right <Wily Tan MD - Last Filed: 06/14/21 07:23> Surgical History: Surgical History Closed fracture distal radius and ulna History of tonsillectomy <Wily Tan MD - Last Filed: 06/14/21 07:23> Family History Family History: Family History Father Hypertension CVD (cardiovascular disease) S/P triple vessel bypass Mother Breast cancer Depression Anxiety CVD (cardiovascular disease) Hypertension Paternal Aunt Liver cancer Maternal Aunt Breast cancer Brother No problems noted. Sister In good health <iWly Tan MD - Last Filed: 06/14/21 07:23> Social History Social History: Social History Housing: House Alcohol intake: unknown Patient Tobacco Use Status: Never used Tobacco e-Cigarette/Vaping Use: Never Used Second Hand Smoke Exposure: No Use of substances other than those prescribed or required for medical reasons: No Advance Directives: No Advance Directives Information Provided: Yes service: No Current occupational status: employed <Wily Tan MD - Last Filed: 06/14/21 07:23>
--- NOTE | 2021-06-14 06:23 | ECG_ITS ---
Test Reason : ABD PAIN Blood Pressure : / mmHG Vent. Rate : 075 BPM Atrial Rate : 075 BPM P-R Int : 190 ms QRS Dur : 112 ms QT Int : 390 ms P-R-T Axes : 052 035 045 degrees QTc Int : 435 ms Normal sinus rhythm Incomplete right bundle branch block Borderline ECG When compared with ECG of 22-JUN-2020 15:30, No significant change was found Referred By: Wily Tan Electronically Signed By:MUNIR CARR
[2021-06-14] MEDS: PHENobarb/Hyoscy/Atropine/Scop 10 ML ELIXIR PO (06:42)
[2021-06-14] MEDS: Magnesium Hydrox/Alum Hydrox 30 ML ORAL.SUSP PO (06:42)
[2021-06-14] MEDS: Lidocaine HCl Viscous 2 % 15 ML SOLUTION MUCOUS MEM (06:42)
[2021-06-14 07:23] LABS: MANUAL DIFF FLAG NO
[2021-06-14 07:30] LABS: Basophils Percent Auto 0.3 % (0-2); Eosinophils Percent Auto 0.1 % (0-4); Hematocrit 43.3 % (42-52); Hemoglobin 14.6 g/dl (14.0-18.0); Imm Gran Abs Auto 0.03 X10*3/uL (0.00-0.03); Imm Gran Pct Auto 0.4 % (0.0-0.4); Lymphocytes Absolute Auto 0.7 X10*3/uL (1.2-4.9); Lymphocytes Percent Auto 9.6 % (20-40); Mean Corpuscular HGB Conc 33.7 g/dl (31.0-36.0); Mean Corpuscular Hemoglobin 29.9 pg (27.0-33.0); Mean Corpuscular Volume 88.5 fL (80-98); Mean Platelet Volume 9.9 fL (9.4-12.4); Monocytes Absolute Auto 0.5 X10*3/uL (0.1-1.2); Monocytes Percent Auto 6.9 % (2-11); Neutrophils Absolute Auto 6.1 X10*3/uL (2.0-8.3); Neutrophils Percent Auto 82.7 % (45-73); Platelet Count 196 X10*3/uL (160-400); Red Blood Count 4.89 X10*6/uL (4.60-5.80); Red Cell Distribution Width 12.6 % (11.0-16.0); White Blood Count 7.4 X10*3/uL (4.8-10.8)
[2021-06-14 07:42] LABS: Alanine Aminotransferase 404 U/L (0-40); Albumin Level 4.4 g/dL (3.5-5.0); Alkaline Phosphatase 77 U/L (39-117); Anion Gap 10 (12-20); Aspartate Amino Transferase 370 U/L (5-37); Bilirubin Total 2.3 mg/dL (0.0-1.0); Blood Urea Nitrogen 11 mg/dL (9-16); Calcium 9.1 mg/dL (8.4-10.2); Carbon Dioxide 29 mmol/L (22-29); Chloride 105 mmol/L (96-108); Estimated Glomerular Filt Rate > 60; Glucose Random 82 mg/dL (60-115); Lipase 58 U/L (8-78); Potassium 4.1 mmol/L (3.3-5.1); Sodium 140 mmol/L (135-145); Total Protein 6.6 g/dL (6.5-8.0)
[2021-06-14] MEDS: 0.9 % Sodium Chloride 1,000 ML 999 ML IV (08:50)
--- NOTE | 2021-06-14 09:07 | PC.NURSE ---
ambulated to and from ct scan w smooth steady gait
[2021-06-14] MEDS: iohexoL 350 MG/ML 100 ML INFUS..BTL 85 ML IV (09:12)
[2021-06-14 09:56] VITALS: BP 101/52; PULSE 70; RESP 14; TEMP 36.7; O2SAT 98
--- NOTE | 2021-06-14 10:03 | PC.NURSE ---
pt asked to remain npo following ct scan, awaiting consult, no questions at this time
[2021-06-14 10:21] LABS: COVID-19 Test Negative (Negative); IDNOW Serial# 9DD0AD1C
--- NOTE | 2021-06-14 11:10 | PHA.MEDREC ---
Pharmacy Consult ? Medication Reconciliation Pharmacy has completed the medication reconciliation. There are no remarkable issues for provider's attention. Nikole Obrien, WinnieD
[2021-06-14] MEDS: Dextrose 5 % and Lactated Ring 1,000 ML 125 ML IVCONT ×2 (11:45→21:10)
[2021-06-14 13:48] VITALS: BP 100/59; PULSE 63; RESP 16; O2SAT 98
--- NOTE | 2021-06-14 13:56 | PM.HPGS ---
History of Present Illness History of Present Illness Date of Service: 06/14/21 Chief complaint: acute cholecystitis, possible common bile duct sto Narrative: Kory Hall is a 45 year old male presenting with complaints of abdominal pain in the right upper quadrant, epigastrium and back which began during the night and increased in severity in the morning. He denied nausea, vomiting, fever, but did report chills. He denies a previous history of similar symptoms. Because of the severity of the pain he presented to the emergency department. Laboratories on admission revealed elevated liver function tests. Subsequent ultrasound revealed echogenic sludge within the gallbladder without wall thickening. A fatty liver was also identified. Common bile duct was measured at [address] of the abdomen and pelvis revealed mild wall thickening of the gallbladder with a possible radiolucent stones. Review of Systems Review of Systems: Yes all other systems are reviewed and are negative Constitutional: Constitutional: Reports anorexia, Reports chills and Denies fever(s) Cardiovascular: Cardiovascular: Denies chest pain, Reports Epigastric Pain, Denies rapid heart rate, Denies irregular heart rhythm, Denies leg edema and Denies dyspnea Respiratory: Respiratory: Denies cough, Denies dyspnea and Denies wheezing Gastrointestinal: Gastrointestinal: Reports abdominal pain, Reports heartburn, Denies diarrhea, Denies vomiting and Denies hematemesis Genitourinary: Genitourinary: Reports no additional male genitourinary complaints Psychiatric: Psychiatric: Reports anxiety and Reports depression Hematologic/Lymphatic: Hematologic/Lymphatic: Denies lymphadenopathy Allergic/Immunologic: Allergic/Immunologic: Denies wheezing PMFSH Past Medical History Medical History Anxiety and depression Cervical disc disease Cyst of epididymis Foreign body in lower extremity Hypercholesterolemia Hypertension Insomnia Irritable bowel syndrome Obesity (BMI 30-39.9) Obstructive sleep apnea Overweight (BMI 25.0-29.9) Vitamin D deficiency Wrist pain, right Family History Family History Father Hypertension CVD (cardiovascular disease) S/P triple vessel bypass Mother Breast cancer Depression Anxiety CVD (cardiovascular disease) Hypertension Paternal Aunt Liver cancer Maternal Aunt Breast cancer Brother No problems noted. Sister In good health Surgical History Surgical History Closed fracture distal radius and ulna History of tonsillectomy Social History Social History Housing: House Alcohol intake: unknown Patient Tobacco Use Status: Never used Tobacco e-Cigarette/Vaping Use: Never Used Second Hand Smoke Exposure: No Use of substances other than those prescribed or required for medical reasons: No Advance Directives: No Advance Directives Information Provided: Yes service: No Current occupational status: employed Meds Allergies Allergy/AdvReac Type Severity Reaction Status Date / Time codeine Allergy Unknown Unknown Verified 05/17/21 14:29 Active Medications: Current Medications Acetaminophen (Acetaminophen Supp 650 Mg Supp.Rect) 650 mg AK Q6H PRN PRN Reason: Pain, Mild (Pain Scale 1-3) Dextrose/Lactated Ringer's (D5lr) 1,000 mls @ 125 mls/hr IVCONT .Q8H LORI Last Admin: 06/14/21 11:45 Dose: 125 mls/hr Documented by: Magnesium Hydroxide (Milk Of Magnesia 30 Ml Oral.Susp) 30 ml PO DAILY PRN PRN Reason: Constipation Morphine Sulfate (Morphine Sulfate 4 Mg/Ml Cartridge) 4 mg IVPUSH Q4H PRN; Protocol PRN Reason: Pain, Severe (Pain Scale 7-10) Ondansetron HCl (Ondansetron Hcl 4 Mg/2 Ml Vial) 4 mg IVPUSH Q8H PRN PRN Reason: Nausea and Vomiting Pharmacy Consult (Consult Rx Perform Med Rec) 1 each MISCELLANE ONCE PRN PRN Reason: Consult order Sodium Chloride (0.9 % Sodium Chloride Flush 3 Ml Syringe) 3 ml IVFLUSH QSHIFT [facility] Zolpidem Tartrate (Zolpidem Tartrate 5 Mg Tablet) 5 mg PO BEDTIME PRN PRN Reason: Insomnia Home Medications Medication Instructions Recorded Confirmed Last Taken Type cyanocobalamin (vitamin B-12) 50 50 mcg PO DAILY 12/27/20 06/14/21 06/13/21 History mcg tablet lactobacillus comb no.10 20 20,000 mmu cells PO DAILY 12/27/20 06/14/21 06/13/21 History billion cell capsule (Probiotic) clonazepam 0.5 mg tablet 0.5 mg PO BEDTIME PRN 06/14/21 06/14/21 06/13/21 History ibuprofen 200 mg capsule (Advil 400 mg PO Q6H PRN 06/14/21 06/14/21 06/13/21 History Liqui-Gel) multivitamin 1 tab PO DAILY 06/14/21 06/14/21 06/13/21 History Physical Exam Vital Signs: Vital Signs: Last Vital Signs Temp 98.0 F 06/14/21 09:56 Pulse 63 06/14/21 13:48 Resp 16 06/14/21 13:48 BP 100/59 L 06/14/21 13:48 Pulse Ox 98 06/14/21 13:48 Body Mass Index 31.9 Const: General: cooperative, comfortable and no acute distress Nutritional Appearance: well nourished Orientation/consciousness: patient oriented x3 Limitations: no limitations HENMT: Head: Yes normal to inspection, Yes normocephalic and Yes atraumatic Ears: hearing grossly normal bilaterally Neck: Neck: Yes trachea midline and Yes supple Resp: Effort & Inspection: normal respiratory effort, no audible wheezes and no cough GI: Inspection: Yes normal to inspection, No Abdominal wall edema and No incision Palpation (GI): Soft to palpation, nontender, no guarding, not rigid and No Rebound tenderness present Auscultation: normal bowel sounds Skin: General skin exam: no rashes or lesions noted Neuro: General: patient oriented x3 Extrem: General: Yes normal to inspection, Yes full ROM and Yes no clubbing, cyanosis or edema Results Results Labs: Short CBC 06/14/21 Range/Units 07:17 WBC 7.4 (4.8-10.8) X10*3/uL Hgb 14.6 (14.0-18.0) g/dl Hct 43.3 (42-52) % Plt Count 196 (160-400) X10*3/uL BMP 06/14/21 07:17 Sodium 140 Potassium 4.1 Chloride 105 Carbon Dioxide 29 BUN 11 Creatinine 0.88 Calcium 9.1 Liver Function 06/14/21 Range/Units 07:17 Total Bilirubin 2.3 H (0.0-1.0) mg/dL AST 370 H (5-37) U/L ALT 404 H (0-40) U/L Alkaline Phosphatase 77 D (39-117) U/L Albumin 4.4 (3.5-5.0) g/dL Assessment and Plan (1) Elevated LFTs: Status: Acute (2) Gallstones: Status: Acute (3) Gastritis and duodenitis: Status: Acute 45-year-old male patient presenting with complaints of epigastric abdominal pain extending into the back which began during the night. Evaluation in the emergency department revealed tenderness in the right upper quadrant and epigastric region. Laboratories revealed elevated bilirubin and transaminases. Subsequent ultrasound revealed biliary sludge and CT of the abdomen revealed thickened gallbladder wall with possible radiolucent stones. Patient's abdominal pain is now improved after receiving pain medication however with the elevated LFTs it may be best to trend his laboratories. GI consultation will be requested. (he is scheduled to see Dr. Larios for gastritis next month). Quality Stroke Does the patient have a stroke diagnosis?: No VTE Prior VTE?: No VTE Risk Level:: Surgical - moderate VTE Device Contraindication: N/A - Device Ordered VTE Drug Contraindication: Treatment Not Indicated Procedures Date of Service Date of Service: 06/14/21
[2021-06-14 15:09] VITALS: BP 108/70; PULSE 63; RESP 14; TEMP 36.4; O2SAT 99
[2021-06-14 16:55] VITALS: BP 128/73; PULSE 77; RESP 19; TEMP 36.8; O2SAT 100
--- NOTE | 2021-06-14 17:27 | PM.GICN ---
History of Present Illness Data of Consult Service Date: 06/14/21 Requesting physician: Timothy Pierre Primary Care Provider: Gita Mcclure MD HPI Reason for consult: abd pain, Elevated LFTs, gallstones 45 YM came to [facility] ED this morning with RUQ and epigastric pain radiating to the back since last night. Pain was constant, stabbing in character and 10/10 in intensity. Pain was accompanied by chills and nausea without vomiting. He noted worsening pain this morning and came to the ED.? He denied fever or a previous history of similar symptoms.? Labs revealed elevated liver function tests.? Pain improved to 2-3/10 today. Patient complains of foul smelling diarrhea and gas for the past few yrs. He has 3-4 loose to soft bowel movements a day. He has been taking probiotics for his symptoms. He also notes intermittent constipation. His symptoms have been attributed to IBS and he is scheduled to see Dr Larios on 07/10/21 for further evaluation and to schedule a screening colonoscopy. he admits to recent wt loss. Patient denies major cardiac or pulmonary problems, loud snoring or sleep apnea Denies problems with anesthesia in the past. Denies being on chronic anticoagulation. Two of his sisters had colon polyps and had their gallbladder removed due to gallstones. Patient denies known family history of colon cancer or other GI malignancies. Pt works for [employer] in [place] and has no children. IMAGING STUDIES: 06/14/[address] SCAN SHOWED: No acute intra-abdominal process. There is a punctate hypodensity right hepatic lobe probable cysts. Suspect mild hepatic steatosis.? 06/14/21 ABD US SHOWED: Diffuse hepatic steatosis without focal lesion. There is a small anechoic cyst right hepatic lobe measuring 0.7 cm. Gallstones, echogenic sludge without wall thickening. PAST GI HISTORY BY REVIEW OF MEDICAL RECORDS: Pt was seen in the past by ELZI Woody for GERD and IBS and treated with Vancomycin for equivocal stool C Diff toxin Review of Systems Constitutional: Constitutional: Denies fever(s), Reports headache(s) and Denies weight loss Eyes: Eyes: Denies eye discharge and Denies irritation ENT: Reports Normal hearing present, Denies dysphagia, Denies dizziness and Reports headache(s) Cardiovascular: Cardiovascular: Denies chest pain, Denies leg edema and Denies dyspnea on exertion Respiratory: Respiratory: Denies cough, Denies dyspnea on exertion and Denies wheezing Gastrointestinal: Gastrointestinal: Reports abdominal pain, Denies change in bowel habits, Denies dysphagia and Denies heartburn Genitourinary: Genitourinary: Denies dysuria Musculoskeletal: Musculoskeletal: Reports back pain, Reports arthralgias and Reports other (neck pain) Integumentary/Breasts: Skin/Breast: Denies pruritus, Denies rash and Denies jaundice Neurologic: Reports Normal hearing present, Denies Abnormal speech present, Denies dizziness, Reports headache(s) and Denies seizure-like activity Psychiatric: Psychiatric: Reports anxiety, Reports depression and Denies panic attacks Endocrine: Endocrine: Denies cold intolerance, Denies flushing and Denies heat intolerance Hematologic/Lymphatic: Hematologic/Lymphatic: Denies easy bleeding and Denies easy bruising Allergic/Immunologic: Allergic/Immunologic: Denies wheezing PMFSH Past Medical History Medical History Anxiety and depression Cervical disc disease Cyst of epididymis Foreign body in lower extremity Hypercholesterolemia Hypertension Insomnia Irritable bowel syndrome Obesity (BMI 30-39.9) Obstructive sleep apnea Overweight (BMI 25.0-29.9) Vitamin D deficiency Wrist pain, right Family History Family History Father Hypertension CVD (cardiovascular disease) S/P triple vessel bypass Mother Breast cancer Depression Anxiety CVD (cardiovascular disease) Hypertension Paternal Aunt Liver cancer Maternal Aunt Breast cancer Brother No problems noted. Sister In good health Surgical History Surgical History Closed fracture distal radius and ulna History of tonsillectomy Social History Social History Household Members: Family Housing: House Do you presently have visiting nurse or other home services: No Alcohol intake: unknown Patient Tobacco Use Status: Never used Tobacco e-Cigarette/Vaping Use: Never Used Second Hand Smoke Exposure: No service: No Current occupational status: employed Meds Allergies Allergy/AdvReac Type Severity Reaction Status Date / Time codeine Allergy Unknown Unknown Verified 05/17/21 14:29 Active Medications: Current Medications Acetaminophen (Acetaminophen Supp 650 Mg Supp.Rect) 650 mg [place] Q6H PRN PRN Reason: Pain, Mild (Pain Scale 1-3) Dextrose/Lactated Ringer's (D5lr) 1,000 mls @ 125 mls/hr IVCONT .Q8H [facility] Last Admin: 06/14/21 11:45 Dose: 125 mls/hr Documented by: Magnesium Hydroxide (Milk Of Magnesia 30 Ml Oral.Susp) 30 ml PO DAILY PRN PRN Reason: Constipation Morphine Sulfate (Morphine Sulfate 4 Mg/Ml Cartridge) 4 mg IVPUSH Q4H PRN; Protocol PRN Reason: Pain, Severe (Pain Scale 7-10) Ondansetron HCl (Ondansetron Hcl 4 Mg/2 Ml Vial) 4 mg IVPUSH Q8H PRN PRN Reason: Nausea and Vomiting Pharmacy Consult (Consult Rx Perform Med Rec) 1 each MISCELLANE ONCE PRN PRN Reason: Consult order Sodium Chloride (0.9 % Sodium Chloride Flush 3 Ml Syringe) 3 ml IVFLUSH QSHIFT [facility] Last Admin: 06/14/21 15:29 Dose: Not Given Documented by: Zolpidem Tartrate (Zolpidem Tartrate 5 Mg Tablet) 5 mg PO BEDTIME PRN PRN Reason: Insomnia Home Medications Medication Instructions Recorded Confirmed Last Taken Type cyanocobalamin (vitamin B-12) 50 50 mcg PO DAILY 12/27/20 06/14/21 06/13/21 History mcg tablet lactobacillus comb no.10 20 20,000 mmu cells PO DAILY 12/27/20 06/14/21 06/13/21 History billion cell capsule (Probiotic) clonazepam 0.5 mg tablet 0.5 mg PO BEDTIME PRN 06/14/21 06/14/21 06/13/21 History ibuprofen 200 mg capsule (Advil 400 mg PO Q6H PRN 06/14/21 06/14/21 06/13/21 History Liqui-Gel) multivitamin 1 tab PO DAILY 06/14/21 06/14/21 06/13/21 History Physical Exam Vital Signs: Vital Signs: Last Vital Signs Temp 98.3 F 06/14/21 16:55 Pulse 77 06/14/21 16:55 Resp 19 06/14/21 16:55 BP 128/73 06/14/21 16:55 Pulse Ox 100 06/14/21 16:55 Body Mass Index 31.9 Const: General: healthy appearing and no acute distress Nutritional Appearance: obese Orientation/consciousness: patient oriented x3 Limitations: no limitations HENMT: Head: Yes normal to inspection Ears: hearing grossly normal bilaterally Mouth: Normal oral and palatal mucosa present Eyes: Sclerae: sclerae normal Pupils: Equal, round and reactive pupils present Neck: Neck: Yes normal visual inspection Chest: Chest palpation & inspection: normal inspection of the chest Resp: Effort & Inspection: normal respiratory effort Auscultation: clear to auscultation bilaterally Cardio: Palpation: normal PMI Rate: regular rate Rhythm: regular rhythm Heart sounds: S1 normal heart sound present, S2 normal heart sound present and no murmurs GI: Palpation (GI): Soft to palpation, Tenderness to palpation present (GI) (mild to moderate epigastric and RUQ tenderness) and No hepatosplenomegaly present Auscultation: normal bowel sounds Rectal Exam - Male: Yes deferred Skin: General skin exam: no rashes or lesions noted Neuro: General: patient oriented x3, gait normal and moves all extremities Cranial nerves: Yes Equal, round and reactive pupils present and Yes Normal hearing present Speech: No Abnormal speech present Psych: Appearance: grossly normal Mental Status: mental status grossly normal Results Labs CBC & Chem 7: 06/14/21 07:17 06/14/21 07:17 Labs: Short CBC 06/14/21 Range/Units 07:17 WBC 7.4 (4.8-10.8) X10*3/uL Hgb 14.6 (14.0-18.0) g/dl Hct 43.3 (42-52) % Plt Count 196 (160-400) X10*3/uL BMP 06/14/21 07:17 Sodium 140 Potassium 4.1 Chloride 105 Carbon Dioxide 29 BUN 11 Creatinine 0.88 Calcium 9.1 Liver Function 06/14/21 Range/Units 07:17 Total Bilirubin 2.3 H (0.0-1.0) mg/dL AST 370 H (5-37) U/L ALT 404 H (0-40) U/L Alkaline Phosphatase 77 D (39-117) U/L Albumin 4.4 (3.5-5.0) g/dL Assessment and Plan (1) Elevated LFTs: Status: Acute (2) Gallstones: Status: Acute (3) GERD (gastroesophageal reflux disease): Qualifiers: Esophagitis presence: with esophagitis Esophagitis bleeding: without hemorrhage Qualified Code(s): K21.00 - Gastro-esophageal reflux disease with esophagitis, without bleeding Status: Acute 45 YM with htn, GERD, IBS, JAE admitted with upper abd pain with chills. Labs reveal elevated LFTs. Imaging studies showed fatty liver, gallstones echogenic sludge without wall thickening. Elevated LFTs are likely due to CBD obstruction from stone or sludge (he had normal LFTs in the past). RECOMMENDATIONS: 1. Repeat LFTs in the am - if LFTs improve indicating passage of stone or sludge, he can proceed with Lap Pat 2. If LFTs remain elevated, advise obtaining an MRCP for further evaluation. Procedures Date of Service Date of Service: 06/14/21
[2021-06-14 19:37] VITALS: BP 119/75; PULSE 66; RESP 18; TEMP 36.8; O2SAT 98
[2021-06-14] MEDS: 0.9 % Sodium Chloride Flush 3 ML SYRINGE IVFLUSH (21:10)
[2021-06-14] MEDS: Acetaminophen 325 MG TABLET 650 MG PO (22:09)
[2021-06-14] MEDS: clonazePAM 0.5 MG TABLET PO (22:09)
[2021-06-15] VITALS: BP 98/55; PULSE 67; RESP 16; TEMP 36.6; O2SAT 96
[2021-06-15 03:46] VITALS: BP 112/70; PULSE 65; RESP 18; TEMP 36.6; O2SAT 98
[2021-06-15] MEDS: Dextrose 5 % and Lactated Ring 1,000 ML 125 ML IVCONT ×2 (06:11→13:08)
[2021-06-15 08:00] VITALS: BP 127/77; PULSE 64; RESP 18; TEMP 36.3; O2SAT 98
--- NOTE | 2021-06-15 08:31 | MHC.CM.PN ---
PATIENT LIVES WITH FAMILY. NO DME OR VNA SERVICES. HE IS FULLY INDEPENDENT WITH ADLS. HE HOPES TO RETURN HOME - SELF CARE CASE MANAGEMENT FOLLOWING. HE IS AWARE THAT CASE MANAGEMENT CAN ASSIST WITH HCP IF HE DECIDES TO DESIGNATE AN AGENT.
[2021-06-15] MEDS: Escitalopram Oxalate 10 MG TABLET PO (09:52)
[2021-06-15] MEDS: Cyanocobalamin (Vitamin B-12) 100 MCG TABLET 50 MCG PO (09:52)
[2021-06-15] MEDS: Fluticasone Propionate Nasal 16 GM SPRAY 2 SPRAY NOSTRIL-B (09:53)
[2021-06-15 11:49] VITALS: BP 128/80; PULSE 68; RESP 18; TEMP 37.1; O2SAT 96
--- NOTE | 2021-06-15 12:05 | P.PNGS_ITS ---
Subjective Subjective Date of Service: 06/15/21 Interval history: feels better, still some flank pain, no n/v Physical Exam Vital Signs: Vital Signs: Last Vital Signs Temp 98.8 F 06/15/21 11:49 Pulse 68 06/15/21 11:49 Resp 18 06/15/21 11:49 BP 128/80 06/15/21 11:49 Pulse Ox 96 06/15/21 11:49 Body Mass Index 31.9 Const: General: cooperative, healthy appearing, comfortable and no acute distress Eyes: Sclerae: sclerae normal GI: Other: soft mild tenderness mid abdomen but no guarding or rebound or peritoneal signs Skin: Other: nonicteric Procedures Date of Service Date of Service: 06/15/21 Progress Note: A&P Assessment and plan (1) Gallstones: Status: Acute Assessment and Plan: 45 charito old male with probalbe choledocholithiasis doing better clinically - lab work not back yet but sx are improved - ? passed a stone. need to fu on his labs, on clear liquid diet, plan to do mrcp as per GI consult if labs still elevated. pt understands and agrees with plan. DW Dr Sorto as well Fall Risk Details Current Medications: Current Medications Acetaminophen (Acetaminophen Supp 650 Mg Supp.Rect) 650 mg [place] Q6H PRN PRN Reason: Pain, Mild (Pain Scale 1-3) Acetaminophen (Acetaminophen 325 Mg Tablet) 650 mg PO Q6H PRN PRN Reason: Pain, Moderate (Pain Scale 4-6 Last Admin: 06/14/21 22:09 Dose: 650 mg Documented by: Clonazepam (Clonazepam 0.5 Mg Tablet) 0.5 mg PO BEDTIME PRN PRN Reason: Insomnia Last Admin: 06/14/21 22:09 Dose: 0.5 mg Documented by: Cyanocobalamin (Cyanocobalamin (Vitamin B-12) 100 Mcg Tablet) 50 mcg PO DAILY [facility] Last Admin: 06/15/21 09:52 Dose: 50 mcg Documented by: Escitalopram Oxalate (Escitalopram Oxalate 10 Mg Tablet) 10 mg PO DAILY [facility] Last Admin: 06/15/21 09:52 Dose: 10 mg Documented by: Fluticasone Propionate (Fluticasone Propionate Nasal 16 Gm [place]) 2 spray NOSTRIL-B DAILY [facility] Last Admin: 06/15/21 09:53 Dose: 2 spray Documented by: Dextrose/Lactated Ringer's (D5lr) 1,000 mls @ 125 mls/hr IVCONT .Q8H [facility] Last Admin: 06/15/21 06:11 Dose: 125 mls/hr Documented by: Magnesium Hydroxide (Milk Of Magnesia 30 Ml Oral.Susp) 30 ml PO DAILY PRN PRN Reason: Constipation Morphine Sulfate (Morphine Sulfate 4 Mg/Ml Cartridge) 4 mg IVPUSH Q4H PRN; Protocol PRN Reason: Pain, Severe (Pain Scale 7-10) Ondansetron HCl (Ondansetron Hcl 4 Mg/2 Ml Vial) 4 mg IVPUSH Q8H PRN PRN Reason: Nausea and Vomiting Pharmacy Consult (Consult Rx Perform Med Rec) 1 each MISCELLANE ONCE PRN PRN Reason: Consult order Sodium Chloride (0.9 % Sodium Chloride Flush 3 Ml Syringe) 3 ml IVFLUSH QSHIFT [facility] Last Admin: 06/15/21 09:53 Dose: Not Given Documented by: Zolpidem Tartrate (Zolpidem Tartrate 5 Mg Tablet) 5 mg PO BEDTIME PRN PRN Reason: Insomnia Time Spent With Patient Time: Total time spent is greater than 50% in coordination of care (as documented) at patient's floor/unit and/or counseling patient: Time with patient: Greater than 35 minutes Quality Stroke Does the patient have a stroke diagnosis?: No VTE Prior VTE?: No VTE Risk Level:: Surgical - moderate VTE Device Contraindication: N/A - Device Ordered VTE Drug Contraindication: Treatment Not Indicated
[2021-06-15 13:03] LABS: MANUAL DIFF FLAG NO
[2021-06-15 13:04] LABS: Basophils Percent Auto 0.7 % (0-2); Eosinophils Absolute Auto 0.2 X10*3/uL (0.0-0.4); Eosinophils Percent Auto 4.2 % (0-4); Hematocrit 41.8 % (42-52); Hemoglobin 13.7 g/dl (14.0-18.0); Imm Gran Abs Auto 0.01 X10*3/uL (0.00-0.03); Imm Gran Pct Auto 0.2 % (0.0-0.4); Lymphocytes Absolute Auto 1.6 X10*3/uL (1.2-4.9); Lymphocytes Percent Auto 38.2 % (20-40); Mean Corpuscular HGB Conc 32.8 g/dl (31.0-36.0); Mean Corpuscular Hemoglobin 29.5 pg (27.0-33.0); Mean Corpuscular Volume 89.9 fL (80-98); Mean Platelet Volume 10.3 fL (9.4-12.4); Monocytes Absolute Auto 0.5 X10*3/uL (0.1-1.2); Monocytes Percent Auto 10.8 % (2-11); Neutrophils Absolute Auto 1.9 X10*3/uL (2.0-8.3); Neutrophils Percent Auto 45.9 % (45-73); Platelet Count 205 X10*3/uL (160-400); Red Blood Count 4.65 X10*6/uL (4.60-5.80); Red Cell Distribution Width 12.9 % (11.0-16.0); White Blood Count 4.2 X10*3/uL (4.8-10.8)
[2021-06-15 13:21] LABS: Alanine Aminotransferase 476 U/L (0-40); Albumin Level 3.8 g/dL (3.5-5.0); Alkaline Phosphatase 73 U/L (39-117); Anion Gap 10 (12-20); Aspartate Amino Transferase 156 U/L (5-37); Bilirubin Total 1.5 mg/dL (0.0-1.0); Blood Urea Nitrogen 5 mg/dL (9-16); Calcium 8.4 mg/dL (8.4-10.2); Carbon Dioxide 28 mmol/L (22-29); Chloride 107 mmol/L (96-108); Creatinine Clr Calc Pharmacy 144.8; Estimated Glomerular Filt Rate > 60; Glucose Random 80 mg/dL (60-115); Potassium 4.2 mmol/L (3.3-5.1); Sodium 141 mmol/L (135-145); Total Protein 5.8 g/dL (6.5-8.0)
[2021-06-15 15:21] VITALS: BP 125/75; PULSE 72; RESP 18; TEMP 36.9; O2SAT 96
[2021-06-15 20:00] VITALS: BP 130/76; PULSE 70; RESP 16; TEMP 36.6; O2SAT 98
[2021-06-15] MEDS: clonazePAM 0.5 MG TABLET PO (22:25)
[2021-06-15] MEDS: Acetaminophen 325 MG TABLET 650 MG PO (22:25)
[2021-06-16] VITALS: BP 123/73; PULSE 67; RESP 16; TEMP 36.2; O2SAT 98
[2021-06-16] MEDS: Dextrose 5 % and Lactated Ring 1,000 ML 125 ML IVCONT ×3 (00:53→17:41)
[2021-06-16 04:00] VITALS: BP 130/80; PULSE 65; RESP 16; TEMP 36.7; O2SAT 98
[2021-06-16 06:32] LABS: Alanine Aminotransferase 331 U/L (0-40); Albumin Level 3.6 g/dL (3.5-5.0); Alkaline Phosphatase 66 U/L (39-117); Anion Gap 10 (12-20); Aspartate Amino Transferase 68 U/L (5-37); Bilirubin Total 1.1 mg/dL (0.0-1.0); Blood Urea Nitrogen 4 mg/dL (9-16); Calcium 8.5 mg/dL (8.4-10.2); Carbon Dioxide 28 mmol/L (22-29); Chloride 108 mmol/L (96-108); Creatinine Clr Calc Pharmacy 144.8; Estimated Glomerular Filt Rate > 60; Glucose Random 94 mg/dL (60-115); Lipase 13 U/L (8-78); Potassium 3.8 mmol/L (3.3-5.1); Sodium 142 mmol/L (135-145); Total Protein 5.6 g/dL (6.5-8.0)
[2021-06-16 07:39] VITALS: BP 147/87; PULSE 65; RESP 18; TEMP 36.8; O2SAT 97
[2021-06-16] MEDS: Cyanocobalamin (Vitamin B-12) 100 MCG TABLET 50 MCG PO (09:29)
[2021-06-16] MEDS: Escitalopram Oxalate 10 MG TABLET PO (09:29)
[2021-06-16] MEDS: Fluticasone Propionate Nasal 16 GM SPRAY 2 SPRAY NOSTRIL-B (09:36)
--- NOTE | 2021-06-16 09:58 | PM.PNGS ---
Subjective Subjective Date of Service: 06/16/21 Interval history: feeling well, hungry Physical Exam Vital Signs: Vital Signs: Last Vital Signs Temp 98.2 F 06/16/21 07:39 Pulse 65 06/16/21 07:39 Resp 18 06/16/21 07:39 BP 147/87 H 06/16/21 07:39 Pulse Ox 97 06/16/21 07:39 Body Mass Index 31.9 GI: Other: abdo soft nontender nondistended passing gas and bowel sounds present Procedures Date of Service Date of Service: 06/16/21 Progress Note: A&P Assessment and plan (1) Gallstones: Status: Acute Assessment and Plan: labs improving and clinical exam is improving too. tolerating clear liquids . discussed with GI and they suggest MRCP to r.o bile duct stone - labs trending down is a good sign it passed. no evidence of cholecystitis . will advance his diet for today and see how he responds. (2) Elevated LFTs: Status: Acute Fall Risk Details Current Medications: Current Medications Acetaminophen (Acetaminophen Supp 650 Mg Supp.Rect) 650 mg [place] Q6H PRN PRN Reason: Pain, Mild (Pain Scale 1-3) Acetaminophen (Acetaminophen 325 Mg Tablet) 650 mg PO Q6H PRN PRN Reason: Pain, Moderate (Pain Scale 4-6 Last Admin: 06/15/21 22:25 Dose: 650 mg Documented by: Clonazepam (Clonazepam 0.5 Mg Tablet) 0.5 mg PO BEDTIME PRN PRN Reason: Insomnia Last Admin: 06/15/21 22:25 Dose: 0.5 mg Documented by: Cyanocobalamin (Cyanocobalamin (Vitamin B-12) 100 Mcg Tablet) 50 mcg PO DAILY [facility] Last Admin: 06/16/21 09:29 Dose: 50 mcg Documented by: Escitalopram Oxalate (Escitalopram Oxalate 10 Mg Tablet) 10 mg PO DAILY [facility] Last Admin: 06/16/21 09:29 Dose: 10 mg Documented by: Fluticasone Propionate (Fluticasone Propionate Nasal 16 Gm [place]) 2 spray NOSTRIL-B DAILY [facility] Last Admin: 06/16/21 09:36 Dose: 2 spray Documented by: Dextrose/Lactated Ringer's (D5lr) 1,000 mls @ 125 mls/hr IVCONT .Q8H [facility] Last Admin: 06/16/21 09:32 Dose: 125 mls/hr Documented by: Magnesium Hydroxide (Milk Of Magnesia 30 Ml Oral.Susp) 30 ml PO DAILY PRN PRN Reason: Constipation Morphine Sulfate (Morphine Sulfate 4 Mg/Ml Cartridge) 4 mg IVPUSH Q4H PRN; Protocol PRN Reason: Pain, Severe (Pain Scale 7-10) Ondansetron HCl (Ondansetron Hcl 4 Mg/2 Ml Vial) 4 mg IVPUSH Q8H PRN PRN Reason: Nausea and Vomiting Pharmacy Consult (Consult Rx Perform Med Rec) 1 each MISCELLANE ONCE PRN PRN Reason: Consult order Sodium Chloride (0.9 % Sodium Chloride Flush 3 Ml Syringe) 3 ml IVFLUSH QSHIFT [facility] Last Admin: 06/16/21 09:22 Dose: Not Given Documented by: Zolpidem Tartrate (Zolpidem Tartrate 5 Mg Tablet) 5 mg PO BEDTIME PRN PRN Reason: Insomnia Time Spent With Patient Time: Total time spent is greater than 50% in coordination of care (as documented) at patient's floor/unit and/or counseling patient: Time with patient: 25 - 35 minutes Quality Stroke Does the patient have a stroke diagnosis?: No VTE Prior VTE?: No VTE Risk Level:: Surgical - moderate VTE Device Contraindication: N/A - Device Ordered VTE Drug Contraindication: Treatment Not Indicated
[2021-06-16 11:45] VITALS: BP 131/84; PULSE 63; RESP 18; TEMP 36.6
[2021-06-16 15:23] VITALS: BP 142/82; PULSE 78; RESP 17; TEMP 37.2; O2SAT 96
--- NOTE | 2021-06-16 16:04 | P.EN_ITS ---
Event Note Date of Service: 06/16/21 Event Note: ? 45 YM with htn, GERD, IBS, JAE admitted with upper abd pain with chills. Labs reveal elevated LFTs.? Imaging studies showed fatty liver, gallstones? echogenic sludge without wall thickening. Elevated LFTs are likely due to CBD obstruction from stone or sludge (he had normal LFTs in the past). Pt notes improvement in abdominal pain. LFTs have improved:(TB 1.1 from 2.3 on admission) RECOMMENDATIONS: 1.? Schedule for an MRCP in the am - order placed. 2.? If MRCP does not show any CBD stone/obstruction , he can proceed with Lap Pat Pt prefers to have surgery during present hospitalization.
[2021-06-16 20:00] VITALS: BP 136/79; PULSE 78; RESP 17; TEMP 37; O2SAT 97
[2021-06-16] MEDS: clonazePAM 0.5 MG TABLET PO (23:24)
[2021-06-16] MEDS: Acetaminophen 325 MG TABLET 650 MG PO (23:24)
[2021-06-17] VITALS: BP 137/78; PULSE 76; RESP 17; TEMP 36.6; O2SAT 98
[2021-06-17] MEDS: Dextrose 5 % and Lactated Ring 1,000 ML 125 ML IVCONT ×2 (01:11→11:02)
[2021-06-17 04:00] VITALS: BP 135/75; PULSE 61; RESP 17; TEMP 36.1; O2SAT 97
[2021-06-17 05:36] LABS: Alanine Aminotransferase 220 U/L (0-40); Albumin Level 3.6 g/dL (3.5-5.0); Alkaline Phosphatase 64 U/L (39-117); Anion Gap 9 (12-20); Aspartate Amino Transferase 30 U/L (5-37); Bilirubin Total 0.7 mg/dL (0.0-1.0); Blood Urea Nitrogen 5 mg/dL (9-16); Calcium 8.6 mg/dL (8.4-10.2); Carbon Dioxide 29 mmol/L (22-29); Chloride 107 mmol/L (96-108); Estimated Glomerular Filt Rate > 60; Glucose Random 96 mg/dL (60-115); Potassium 3.6 mmol/L (3.3-5.1); Sodium 141 mmol/L (135-145); Total Protein 5.6 g/dL (6.5-8.0)
[2021-06-17] MEDS: Cyanocobalamin (Vitamin B-12) 100 MCG TABLET 50 MCG PO (07:24)
[2021-06-17] MEDS: Escitalopram Oxalate 10 MG TABLET PO (07:25)
[2021-06-17] MEDS: Fluticasone Propionate Nasal 16 GM SPRAY 2 SPRAY NOSTRIL-B (07:25)
[2021-06-17 07:41] VITALS: BP 122/86; PULSE 65; RESP 18; TEMP 36.4; O2SAT 97
--- NOTE | 2021-06-17 09:39 | PM.PNGS ---
Subjective Subjective Date of Service: 06/17/21 <Thelma Villegas PA-C - Last Filed: 06/17/21 09:44> 06/17/21 <Timothy Pierre MD - Last Filed: 06/17/21 14:08> Interval history: Patient feels ok this morning. Was given solid food yesterday and had some RUQ/right flank pain following dinner last night. Awaiting MRCP. <Thelma Villegas PA-C - Last Filed: 06/17/21 09:44> Physical Exam Vital Signs: Vital Signs: Last Vital Signs Temp 97.5 F 06/17/21 07:41 Pulse 65 06/17/21 07:41 Resp 18 06/17/21 07:41 BP 122/86 06/17/21 07:41 Pulse Ox 97 06/17/21 07:41 Body Mass Index 31.9 <Thelma Villegas PA-C - Last Filed: 06/17/21 09:44> Const: General: comfortable, no acute distress and alert <Thelma Villegas PA-C - Last Filed: 06/17/21 09:44> Orientation/consciousness: patient oriented x3 <VIRGINIA Hanson Last Filed: 06/17/21 09:44> Eyes: Sclerae: sclerae normal <VIRGINIA Hanson Last Filed: 06/17/21 09:44> Resp: Effort & Inspection: normal respiratory effort <Thelma Villegas PA-C - Last Filed: 06/17/21 09:44> GI: Inspection: No distended <Thelma Villegas PA-C - Last Filed: 06/17/21 09:44> Palpation (GI): Soft to palpation, Tenderness to palpation present (GI) (mild, RUQ/right flank) Negative for Kirk's sign negative, no guarding and not rigid <VIRGINIA Hanson Last Filed: 06/17/21 09:44> Percussion: Yes normal to percussion <VIRGINIA Hanson Last Filed: 06/17/21 09:44> Skin: Other: normal color, warm and dry <Thelma Villegas PA-Chao Hanna Last Filed: 06/17/21 09:44> General skin exam: no rashes or lesions noted <Thelma CazaresdeauAUDELIAChao Hanna Last Filed: 06/17/21 09:44> Neuro: General: patient oriented x3 <Thelma CazaresdeauAUDELIAChao Hanna Last Filed: 06/17/21 09:44> Procedures Date of Service Date of Service: 06/17/21 <Thelma MccollumbodeauAUDELIAChao - Last Filed: 06/17/21 09:44> Progress Note: A&P Assessment and plan (1) Elevated LFTs: Status: Acute <Thelma CazaresAUDELIA rothmanChao Hanna Last Filed: 06/17/21 09:44> (2) Gallstones: Status: Acute <Thelma CazaresAUDELIA rotmhanChao Hanna Last Filed: 06/17/21 09:44> (3) Gastritis and duodenitis: Status: Acute <Thelma MccollumELIZ danielleJaja Hanna Last Filed: 06/17/21 09:44> Assessment and Plan: 45 year old male admitted with epigastric pain associated with elevated LFTs, gallbladder wall thickening on CT. His LFTs have downtrended and bilirubin has normalized. Seen by GI who recommended MRCP which will happen today. Likely has passed stone/sludge. Patient would like to proceed with CCY during this stay. Further plan dependent on MRCP results. <Thelma Mccollumshashi V[place]IA - Last Filed: 06/17/21 09:44> 45 year old male admitted with epigastric pain associated with elevated LFTs, gallbladder wall thickening on CT. His LFTs have downtrended and bilirubin has normalized. Seen by GI who recommended MRCP which will happen today. Likely has passed stone/sludge. Patient would like to proceed with CCY during this stay. Further plan dependent on MRCP results. I reviewed the MRCP which revealed a dilated cystic duct without evidence of a gallstone. Common bile duct is also normal without intrahepatic or extrahepatic stones. Liver functions continue to improve as noted above. Overall the patient feels much improved but did have some increased pain after eating yesterday. I discussed proceeding to a laparoscopic or possible open cholecystectomy. After discussion of the procedure, risks, and alternatives, he consents to the laparoscopic or possible open cholecystectomy. He will be added onto the operative schedule for tomorrow. He should be NPO after midnight tonight. <Timothy Pierre MD - Last Filed: 06/17/21 14:08> Fall Risk Details Current Medications: Current Medications Acetaminophen (Acetaminophen Supp 650 Mg Supp.Rect) 650 mg NM Q6H PRN PRN Reason: Pain, Mild (Pain Scale 1-3) Acetaminophen (Acetaminophen 325 Mg Tablet) 650 mg PO Q6H PRN PRN Reason: Pain, Moderate (Pain Scale 4-6 Last Admin: 06/16/21 23:24 Dose: 650 mg Documented by: Clonazepam (Clonazepam 0.5 Mg Tablet) 0.5 mg PO BEDTIME PRN PRN Reason: Insomnia Last Admin: 06/16/21 23:24 Dose: 0.5 mg Documented by: Cyanocobalamin (Cyanocobalamin (Vitamin B-12) 100 Mcg Tablet) 50 mcg PO DAILY [facility] Last Admin: 06/17/21 07:24 Dose: 50 mcg Documented by: Escitalopram Oxalate (Escitalopram Oxalate 10 Mg Tablet) 10 mg PO DAILY [facility] Last Admin: 06/17/21 07:25 Dose: 10 mg Documented by: Fluticasone Propionate (Fluticasone Propionate Nasal 16 Gm [place]) 2 spray NOSTRIL-B DAILY [facility] Last Admin: 06/17/21 07:25 Dose: 2 spray Documented by: Dextrose/Lactated Ringer's ([email or web address]) 1,000 mls @ 125 mls/hr IVCONT .Q8H [facility] Last Admin: 06/17/21 01:11 Dose: 125 mls/hr Documented by: Magnesium Hydroxide (Milk Of Magnesia 30 Ml Oral.Susp) 30 ml PO DAILY PRN PRN Reason: Constipation Morphine Sulfate (Morphine Sulfate 4 Mg/Ml Cartridge) 4 mg IVPUSH Q4H PRN; Protocol PRN Reason: Pain, Severe (Pain Scale 7-10) Ondansetron HCl (Ondansetron Hcl 4 Mg/2 Ml Vial) 4 mg IVPUSH Q8H PRN PRN Reason: Nausea and Vomiting Pharmacy Consult (Consult Rx Perform Med Rec) 1 each MISCELLANE ONCE PRN PRN Reason: Consult order Sodium Chloride (0.9 % Sodium Chloride Flush 3 Ml Syringe) 3 ml IVFLUSH QSHIFT [facility] Last Admin: 06/17/21 07:26 Dose: Not Given Documented by: Zolpidem Tartrate (Zolpidem Tartrate 5 Mg Tablet) 5 mg PO BEDTIME PRN PRN Reason: Insomnia <VIRGINIA Hanson Last Filed: 06/17/21 09:44> Time Spent With Patient Time: Total time spent is greater than 50% in coordination of care (as documented) at patient's floor/unit and/or counseling patient: <Thelma Villegas PA-C - Last Filed: 06/17/21 09:44> Time with patient: 15 - 24 minutes <VIRGINIA Hanson Last Filed: 06/17/21 09:44> Quality Stroke Does the patient have a stroke diagnosis?: No <VIRGINIA Hanson Last Filed: 06/17/21 09:44> VTE Prior VTE?: No <VIRGINIA Hanson Last Filed: 06/17/21 09:44> VTE Risk Level:: Surgical - moderate <VIRGINIA Hanson Last Filed: 06/17/21 09:44> VTE Device Contraindication: N/A - Device Ordered <VIRGINIA Hanson Last Filed: 06/17/21 09:44> VTE Drug Contraindication: Treatment Not Indicated <VIRGINIA Hanson Last Filed: 06/17/21 09:44>
--- NOTE | 2021-06-17 11:48 | MHC.CLN ---
NUTRITION WEIGHT LOSS OF 2-13# REPORTED UPON ADMISSION. REVEIW OF RECENT WEIGHT HX SHOWS 2# WEIGHT LOSS X 4 MONTHS.
[2021-06-17 11:57] VITALS: BP 127/83; PULSE 62; RESP 18; TEMP 36.2; O2SAT 97
[2021-06-17 15:26] VITALS: BP 126/78; PULSE 77; RESP 17; TEMP 36.4; O2SAT 97
--- NOTE | 2021-06-17 18:07 | PC.NURSE ---
1445 Unable to obtain accurate BP reading. Dr Little at bedside and also Dr Lanier Ordered IV Narcan for her lethargy, and is diff to arrouse. IV Narcan given 0.8 with some effect. Able to answer a few questions and open eyes. F/C inserted for accurate I@O. Draining sm amt of yellow urine. Did not void all shift. prior to zhong. 1600 Dr Davila at bedside with Dr Little. Still unable to get accurate BP. Will be transferred to ICU. at bedside and aware.
[2021-06-17] MEDS: Omeprazole 40 MG CAPSULE.DR PO (18:23)
[2021-06-17 19:45] VITALS: BP 132/88; PULSE 76; RESP 18; TEMP 36.6; O2SAT 97
[2021-06-17] MEDS: 0.9 % Sodium Chloride Flush 3 ML SYRINGE IVFLUSH (20:51)
[2021-06-17] MEDS: clonazePAM 0.5 MG TABLET PO (22:07)
[2021-06-18] VITALS (13 sets, daily range): BP systolic 116–149; BP diastolic 69–98; PULSE 62–109; RESP 14–18; TEMP 36.1–37.2; O2SAT 94–99
--- NOTE | 2021-06-18 07:43 | MHC.SHP ---
Pre-Procedural Eval Section A Date of Service: 06/18/21 The patient is an INPATIENT: Yes Changes since office visit: Yes Patient answered all questions; No Cold of Flu in the past 2 weeks, No New Medical Problems and No Changes in Medication Section B Chief Complaint: acute cholecystitis, possible common bile duct sto Allergies: Allergies Allergy/AdvReac Type Severity Reaction Status Date / Time codeine Allergy Unknown Unknown Verified 05/17/21 14:29 Plan Diagnosis/Plan: Unchanged I have reviewed the history and physical and performed a pertinent physical examination on my patient. No changes have occurred unless specified.
[2021-06-18] MEDS: 0.9 % Sodium Chloride Flush 3 ML SYRINGE IVFLUSH ×2 (07:59→16:39)
[2021-06-18] MEDS: Fluticasone Propionate Nasal 16 GM SPRAY 2 SPRAY NOSTRIL-B (07:59)
[2021-06-18] MEDS: Lactated Ringers 1,000 ML 100 ML IVCONT (13:20)
--- NOTE | 2021-06-18 13:49 | P.CONAN_ITS ---
[facility] Active Problems Active Problems: All Active Problems (Updated 06/14/21 @ 10:34 by Vida marcus DO) Elevated LFTs (Acute) Gastritis and duodenitis (Acute) Gallstones (Acute) Colon cancer screening (Acute) Generalized anxiety disorder (Acute) Overweight (BMI 25.0-29.9) (Acute) Allergic rhinitis (Acute) Acute sinusitis (Acute) Lightheaded (Acute) Vitamin B12 deficiency (Acute) Ingrown toenail (Acute) Anxiety and depression (Acute) Vertigo (Acute) Obesity (BMI 30-39.9) (Acute) Hypercholesterolemia (Acute) Hypertension (Acute) Wrist pain, right (Acute) GERD (gastroesophageal reflux disease) (Acute) Past Medical History Medical History Anxiety and depression Cervical disc disease Cyst of epididymis Foreign body in lower extremity Hypercholesterolemia Hypertension Insomnia Irritable bowel syndrome Obesity (BMI 30-39.9) Obstructive sleep apnea Overweight (BMI 25.0-29.9) Vitamin D deficiency Wrist pain, right Family History Family History Father Hypertension CVD (cardiovascular disease) S/P triple vessel bypass Mother Breast cancer Depression Anxiety CVD (cardiovascular disease) Hypertension Paternal Aunt Liver cancer Maternal Aunt Breast cancer Brother No problems noted. Sister In good health Family history of problems with anesthesia: No Surgical History Surgical History Closed fracture distal radius and ulna History of tonsillectomy History of Problems with Anesthesia: No Social History Social History Household Members: Family Housing: House Do you presently have visiting nurse or other home services: No Alcohol intake: unknown Patient Tobacco Use Status: Never used Tobacco e-Cigarette/Vaping Use: Never Used Second Hand Smoke Exposure: No service: No Current occupational status: employed Meds Allergies Allergy/AdvReac Type Severity Reaction Status Date / Time codeine Allergy Unknown Unknown Verified 05/17/21 14:29 Active Medications: Current Medications Acetaminophen (Acetaminophen Supp 650 Mg Supp.Rect) 650 mg MA Q6H PRN PRN Reason: Pain, Mild (Pain Scale 1-3) Acetaminophen (Acetaminophen 325 Mg Tablet) 650 mg PO Q6H PRN PRN Reason: Pain, Moderate (Pain Scale 4-6 Last Admin: 06/16/21 23:24 Dose: 650 mg Documented by: Acetaminophen (Acetaminophen 325 Mg Tablet) 650 mg PO ONCE PRN PRN Reason: Pain, Mild (Pain Scale 1-3) Clonazepam (Clonazepam 0.5 Mg Tablet) 0.5 mg PO BEDTIME PRN PRN Reason: Insomnia Last Admin: 06/17/21 22:07 Dose: 0.5 mg Documented by: Cyanocobalamin (Cyanocobalamin (Vitamin B-12) 100 Mcg Tablet) 50 mcg PO DAILY [facility] Last Admin: 06/18/21 08:03 Dose: Not Given Documented by: Escitalopram Oxalate (Escitalopram Oxalate 10 Mg Tablet) 10 mg PO DAILY [facility] Last Admin: 06/18/21 08:03 Dose: Not Given Documented by: Fentanyl (Fentanyl Citrate/Pf 100 Mcg/2 Ml Vial) 50 mcg IVPUSH Q5M PRN; Protocol PRN Reason: Pain, Severe (Pain Scale 7-10) Fluticasone Propionate (Fluticasone Propionate Nasal 16 Gm [place]) 2 spray NOSTRIL-B DAILY [facility] Last Admin: 06/18/21 07:59 Dose: 2 spray Documented by: Lactated Ringer's (Lr) 1,000 mls @ 100 mls/hr IVCONT .Q10H [facility] Magnesium Hydroxide (Milk Of Magnesia 30 Ml Oral.Susp) 30 ml PO DAILY PRN PRN Reason: Constipation Morphine Sulfate (Morphine Sulfate 4 Mg/Ml Cartridge) 4 mg IVPUSH Q4H PRN; Protocol PRN Reason: Pain, Severe (Pain Scale 7-10) Omeprazole (Omeprazole 40 Mg Capsule.Dr) 40 mg PO DAILY@0630 [facility] Last Admin: 06/18/21 05:50 Dose: Not Given Documented by: Ondansetron HCl (Ondansetron Hcl 4 Mg/2 Ml Vial) 4 mg IVPUSH Q8H PRN PRN Reason: Nausea and Vomiting Ondansetron HCl (Ondansetron Hcl 4 Mg/2 Ml Vial) 4 mg IVPUSH ONCE PRN PRN Reason: Nausea and Vomiting Pharmacy Consult (Consult Rx Perform Med Rec) 1 each MISCELLANE ONCE PRN PRN Reason: Consult order Sodium Chloride (0.9 % Sodium Chloride Flush 3 Ml Syringe) 3 ml IVFLUSH QSHIFT [facility] Last Admin: 06/18/21 07:59 Dose: 3 ml Documented by: Zolpidem Tartrate (Zolpidem Tartrate 5 Mg Tablet) 5 mg PO BEDTIME PRN PRN Reason: Insomnia Home Medications Medication Instructions Recorded Confirmed Last Taken Type cyanocobalamin (vitamin B-12) 50 50 mcg PO DAILY 12/27/20 06/14/21 06/13/21 History mcg tablet lactobacillus comb no.10 20 20,000 mmu cells PO DAILY 12/27/20 06/14/21 06/13/21 History billion cell capsule (Probiotic) clonazepam 0.5 mg tablet 0.5 mg PO BEDTIME PRN 06/14/21 06/14/21 06/13/21 History ibuprofen 200 mg capsule (Advil 400 mg PO Q6H PRN 06/14/21 06/14/21 06/13/21 History Liqui-Gel) multivitamin 1 tab PO DAILY 06/14/21 06/14/21 06/13/21 History Exam Exam Date and Time: June 18, 2021 1349 Height,Weight and Vital Signs: Height 5 ft 11 in Weight 103.873 kg Last Vital Signs Temp 98.1 F 06/18/21 12:58 Pulse 71 06/18/21 12:58 Resp 16 06/18/21 12:58 BP 147/87 H 06/18/21 12:58 Pulse Ox 98 06/18/21 12:58 Pertinent Lab Results Pertinent Lab Results: Laboratory Tests 06/14/21 06/14/21 06/14/21 07:17 07:17 09:56 WBC 7.4 RBC 4.89 Hgb 14.6 Hct 43.3 MCV 88.5 MCH 29.9 MCHC 33.7 RDW 12.6 Plt Count 196 MPV 9.9 Immature Gran % (Auto) 0.4 Neut % (Auto) 82.7 H Lymph % (Auto) 9.6 L [place] % (Auto) 6.9 Eos % (Auto) 0.1 Baso % (Auto) 0.3 Lymph # (Auto) 0.7 L [place] # (Auto) 0.5 Eos # (Auto) 0.0 Baso # (Auto) 0.0 Abs Immat Gran (auto) 0.03 Absolute Neuts (auto) 6.1 Absolute Nucleated RBC 0.000 Nucleated RBC % (auto) 0.0 Sodium 140 Potassium 4.1 Chloride 105 Carbon Dioxide 29 Anion Gap 10 L BUN 11 Creatinine 0.88 Estim Creat Clear Calc 130.0 Estimated GFR > 60 Random Glucose 82 Calcium 9.1 Total Bilirubin 2.3 H AST 370 H ALT 404 H Alkaline Phosphatase 77 D Total Protein 6.6 Albumin 4.4 Lipase 58 COVID-19 (HERLINDA) Negative COVID-19 Clin Com See Note 06/15/21 06/15/21 06/16/21 12:09 12:09 05:36 WBC 4.2 L RBC 4.65 Hgb 13.7 L Hct 41.8 L MCV 89.9 MCH 29.5 MCHC 32.8 RDW 12.9 Plt Count 205 MPV 10.3 Immature Gran % (Auto) 0.2 Neut % (Auto) 45.9 Lymph % (Auto) 38.2 [place] % (Auto) 10.8 Eos % (Auto) 4.2 H Baso % (Auto) 0.7 Lymph # (Auto) 1.6 [place] # (Auto) 0.5 Eos # (Auto) 0.2 Baso # (Auto) 0.0 Abs Immat Gran (auto) 0.01 Absolute Neuts (auto) 1.9 L Absolute Nucleated RBC 0.000 Nucleated RBC % (auto) 0.0 Sodium 141 142 Potassium 4.2 3.8 Chloride 107 108 Carbon Dioxide 28 28 Anion Gap 10 L 10 L BUN 5 L D 4 L Creatinine 0.79 0.79 Estim Creat Clear Calc 144.8 144.8 Estimated GFR > 60 > 60 Random Glucose 80 94 Calcium 8.4 D 8.5 Total Bilirubin 1.5 H 1.1 H AST 156 H 68 H ALT 476 H 331 H Alkaline Phosphatase 73 66 Total Protein 5.8 L 5.6 L Albumin 3.8 3.6 Lipase 13 COVID-19 (HERLINDA) COVID-19 Clin Com 06/17/21 04:10 WBC RBC Hgb Hct MCV MCH MCHC RDW Plt Count MPV Immature Gran % (Auto) Neut % (Auto) Lymph % (Auto) [place] % (Auto) Eos % (Auto) Baso % (Auto) Lymph # (Auto) [place] # (Auto) Eos # (Auto) Baso # (Auto) Abs Immat Gran (auto) Absolute Neuts (auto) Absolute Nucleated RBC Nucleated RBC % (auto) Sodium 141 Potassium 3.6 Chloride 107 Carbon Dioxide 29 Anion Gap 9 L BUN 5 L Creatinine 0.86 Estim Creat Clear Calc 133.0 Estimated GFR > 60 Random Glucose 96 Calcium 8.6 Total Bilirubin 0.7 AST 30 D ALT 220 H Alkaline Phosphatase 64 Total Protein 5.6 L Albumin 3.6 Lipase COVID-19 (HERLINDA) COVID-19 Clin Com Airway Mallampati Class: I TM Dist: >3cm Neck ROM: Full Denture: Upper Loose/Missing/Broken Teeth: Yes and Lower Other: ok Assessment and Plan Assessment Anesthesia Assessment: Anesthesia Plan Discussed and Chart Reviewed Final Anesthetic Review Family History of Problems with Anesthesia: No History of Problems with Anesthesia: No NPO: Yes ASA Class: II Final Preanesthetic Review: No Changes in Pt Med Stat, Meds/Allgs Chart Reviewed, Consent Obtained/Reviewed and Anes Risks/Benef Reviewed Patient Risk: Low Procedure Risk: Intermediate Anesthetic Plan Anesthetic Plan: GA and Agree w/ Assess. and Plan Disposition: Standard PACU
--- NOTE | 2021-06-18 15:29 | W.PM.OPN ---
Operative Note Operative Note Date of Service: 06/18/21 Narrative: Preoperative diagnosis: Acute cholecystitis, cholelithiasis, choledocholithiasis Postoperative diagnosis: Same Procedure: Laparoscopic cholecystectomy Surgeon: Timothy Pierre MD Supervisor Residential: DENNYS Hanson Anesthesia: General endotracheal Indications for procedure: 45-year-old male patient presenting with abdominal pain in the epigastrium right upper quadrant found to have a thickened gallbladder wall with multiple gallstones. Patient also had elevated liver function tests suggestive of a passed stone. MRCP revealed a large cystic duct but normal common bile duct without obstruction. Operative findings: Evidence of acute and chronic cholecystitis with multiple gallstones. Specimen: Gallbladder Estimated blood loss: 10 mL Complications: None Procedure details: Patient was brought to the OR and placed in a supine position. After administering general anesthesia the patient's abdomen was prepped with ChloraPrep and draped in a sterile fashion. Local anesthesia consisting of 0.5% Sensorcaine without epinephrine was infiltrated in a periumbilical region. A 5 mm incision was made above the umbilicus in a transverse fashion. The Veress needle was then inserted while elevating abdominal cavity with towel clips. After positive drop test the abdomen was insufflated to a pressure of 15 mm of mercury. The Veress needle was then removed and a 5 mm trocar inserted. The camera was inserted in the abdomen explored. A 12 mm trocar was then placed in the epigastrium and 2 5 mm trocars placed in the right upper quadrant. The patient was placed in reverse Trendelenburg positioning and rotated to the left. The gallbladder was grasped with the fundus and retracted cephalad.. The infundibulum was then grasped and retracted away from the liver bed. The Dolphin dissected was then used to dissect the peritoneum off the infundibulum to reveal the junction with the cystic duct. Cystic artery was noted slightly medial and posterior to the cystic duct. After obtaining a critical view the cystic duct was doubly clipped and divided. The cystic artery was then doubly clipped and divided. The gallbladder was then dissected off the liver bed using electrocautery with an L hook. Hemostasis was assured all times using the electrocautery. When the gallbladder is completely dissected off the liver bed was placed in an Endo-Catch bag and brought out through the epigastric incision. The gallbladder was sent to pathology for further examination. The abdomen was then re-examined. The liver bed was irrigated and suctioned dry. No bleeding or bile leak could be identified. CO2 was then evacuated and all trocars removed. Fascia was closed at the epigastric incision using a [id number] 0 Polysorb suture. Skin was closed in all incisions using a subcuticular 4 0 Polysorb suture. Sterile dressings consisting of Steri-Strips, 2 x 2 gauze, and Tegaderm were then applied. The patient tolerated the procedure well. Sponge instrument and needle counts reported as correct. The patient was transferred to PACU in stable condition.
[2021-06-18] MEDS: ondansetron HCL 4 MG/2 ML VIAL IVPUSH (15:44)
[2021-06-18] MEDS: Morphine Sulfate 4 MG/ML CARTRIDGE IVPUSH ×2 (16:38→22:34)
[2021-06-19] MEDS: 0.9 % Sodium Chloride Flush 3 ML SYRINGE IVFLUSH ×3 (00:42→16:07)
[2021-06-19] MEDS: oxyCODONE HCl Immed Release 5 MG TABLET PO ×4 (02:34→19:38)
[2021-06-19 05:42] VITALS: BP 119/77; PULSE 104; RESP 16; TEMP 36.7; O2SAT 96
[2021-06-19] MEDS: Omeprazole 40 MG CAPSULE.DR PO (05:42)
[2021-06-19] MEDS: Morphine Sulfate 4 MG/ML CARTRIDGE IVPUSH ×2 (05:48→21:46)
[2021-06-19 08:00] VITALS: BP 152/88; PULSE 96; RESP 18; TEMP 36.7; O2SAT 96
--- NOTE | 2021-06-19 08:14 | PM.PNGS ---
Subjective Subjective Date of Service: 06/19/21 <Thelma Villegas PA-C - Last Filed: 06/19/21 08:18> 06/19/21 <Timothy Pierre MD - Last Filed: 06/19/21 08:22> Interval history: Feels very sore at incision sites, mainly in epigastric area. Tolerating solid diet. Has not been OOB yet. <Thelma Villegas PA-C - Last Filed: 06/19/21 08:18> Physical Exam Vital Signs: Vital Signs: Last Vital Signs Temp 98.1 F 06/19/21 08:00 Pulse 96 06/19/21 08:00 Resp 18 06/19/21 08:00 BP 152/88 H 06/19/21 08:00 Pulse Ox 96 06/19/21 08:00 Body Mass Index 31.9 <Thelma Villegas PA-C - Last Filed: 06/19/21 08:18> Const: General: healthy appearing, comfortable and alert <Thelma Villegas PA-C - Last Filed: 06/19/21 08:18> Orientation/consciousness: patient oriented x3 <Thelma Villegas PA-C - Last Filed: 06/19/21 08:18> Eyes: Sclerae: sclerae normal <VIRGINIA Hanson Last Filed: 06/19/21 08:18> Resp: Effort & Inspection: normal respiratory effort <Thelma Villegas PA-C - Last Filed: 06/19/21 08:18> GI: Inspection: No distended and Yes incision (dressings c/d/i) <Thelma Villegas PA-C - Last Filed: 06/19/21 08:18> Palpation (GI): Soft to palpation, Tenderness to palpation present (GI) (incisional), no guarding and not rigid <VIRGINIA Hanson Last Filed: 06/19/21 08:18> Percussion: Yes normal to percussion <VIRGINIA Hanson Last Filed: 06/19/21 08:18> Skin: General skin exam: no rashes or lesions noted <VIRGINIA Hanson Filed: 06/19/21 08:18> Neuro: General: patient oriented x3 <Thelma Villegas PA-C - Last Filed: 06/19/21 08:18> Extrem: General: Yes no clubbing, cyanosis or edema <Thelma Villegas PA-C - Last Filed: 06/19/21 08:18> Procedures Date of Service Date of Service: 06/19/21 <Thelma Villegas PA-C - Last Filed: 06/19/21 08:18> Progress Note: A&P Assessment and plan (1) Elevated LFTs: Status: Acute <VIRGINIA Hanson Last Filed: 06/19/21 08:18> (2) Gallstones: Status: Acute <VIRGINIA Hanson Last Filed: 06/19/21 08:18> (3) Status post laparoscopic cholecystectomy: Status: Acute <VIRGINIA Hanson Last Filed: 06/19/21 08:18> Assessment and Plan: 45 year old male admitted with acute cholecystitis, cholelithiasis, choledocolithiasis now POD #1 s/p lap mechelle. Patient doing well post op but only comfortable with morphine. Tolerating diet. VSS. Abd exam benign with appropriate post op tenderness, dressings c/d/i. Encouraged OOB/ambulation and IS use. Will reassess later today- if comfortable on PO analgesics, ambulating without difficulty, stable for discharge to home . <Thelma Villegas PA-C - Last Filed: 06/19/21 08:18> Fall Risk Details Current Medications: Current Medications Acetaminophen (Acetaminophen 325 Mg Tablet) 650 mg PO Q6H PRN PRN Reason: Pain, Moderate (Pain Scale 4-6 Last Admin: 06/16/21 23:24 Dose: 650 mg Documented by: Clonazepam (Clonazepam 0.5 Mg Tablet) 0.5 mg PO BEDTIME PRN PRN Reason: Insomnia Last Admin: 06/17/21 22:07 Dose: 0.5 mg Documented by: Cyanocobalamin (Cyanocobalamin (Vitamin B-12) 100 Mcg Tablet) 50 mcg PO DAILY LOR[facility] Last Admin: 06/18/21 08:03 Dose: Not Given Documented by: Escitalopram Oxalate (Escitalopram Oxalate 10 Mg Tablet) 10 mg PO DAILY [facility] Last Admin: 06/18/21 08:03 Dose: Not Given Documented by: Fluticasone Propionate (Fluticasone Propionate Nasal 16 Gm Baker) 2 spray NOSTRIL-B DAILY [facility] Last Admin: 06/18/21 07:59 Dose: 2 spray Documented by: Magnesium Hydroxide (Milk Of Magnesia 30 Ml Oral.Susp) 30 ml PO DAILY PRN PRN Reason: Constipation Morphine Sulfate (Morphine Sulfate 4 Mg/Ml Cartridge) 4 mg IVPUSH Q4H PRN; Protocol PRN Reason: Pain, Severe (Pain Scale 7-10) Last Admin: 06/19/21 05:48 Dose: 4 mg Documented by: Omeprazole (Omeprazole 40 Mg Capsule.Dr) 40 mg PO DAILY@0630 [facility] Last Admin: 06/19/21 05:42 Dose: 40 mg Documented by: Ondansetron HCl (Ondansetron Hcl 4 Mg/2 Ml Vial) 4 mg IVPUSH Q8H PRN PRN Reason: Nausea and Vomiting Ondansetron HCl (Ondansetron Hcl 4 Mg/2 Ml Vial) 4 mg IVPUSH ONCE PRN PRN Reason: Nausea and Vomiting Last Admin: 06/18/21 15:44 Dose: 4 mg Documented by: Oxycodone HCl (Oxycodone Hcl Immed Release 5 Mg Tablet) 5 mg PO Q4H PRN PRN Reason: Pain, Moderate (Pain Scale 4-6 Last Admin: 06/19/21 02:34 Dose: 5 mg Documented by: Pharmacy Consult (Consult Rx Perform Med Rec) 1 each MISCELLANE ONCE PRN PRN Reason: Consult order Sodium Chloride (0.9 % Sodium Chloride Flush 3 Ml Syringe) 3 ml IVFLUSH QSHIFT [facility] Last Admin: 06/19/21 00:42 Dose: 3 ml Documented by: Zolpidem Tartrate (Zolpidem Tartrate 5 Mg Tablet) 5 mg PO BEDTIME PRN PRN Reason: Insomnia <Thelma Villegas PA-C - Last Filed: 06/19/21 08:18> Time Spent With Patient Time: Total time spent is greater than 50% in coordination of care (as documented) at patient's floor/unit and/or counseling patient: <Thelma Villegas PA-C - Last Filed: 06/19/21 08:18> Time with patient: 15 - 24 minutes <Thelma Villegas PA-C - Last Filed: 06/19/21 08:18> Quality Stroke Does the patient have a stroke diagnosis?: No <Thelma Villegas PA-C - Last Filed: 06/19/21 08:18> VTE Prior VTE?: No <Thelma Villegas PA-C - Last Filed: 06/19/21 08:18> VTE Risk Level:: Surgical - moderate <Thelma Villegas PA-C - Last Filed: 06/19/21 08:18> VTE Device Contraindication: N/A - Device Ordered <Thelma Villegas PA-C - Last Filed: 06/19/21 08:18> VTE Drug Contraindication: Treatment Not Indicated <Thelma Villegas PA-C - Last Filed: 06/19/21 08:18>
--- NOTE | 2021-06-19 08:17 | PM.PNGS ---
Subjective Subjective Date of Service: 06/19/21 Interval history: Reports pain in the incision at the epigastric region. Has not gotten out of bed yet. Denies nausea or vomiting. Physical Exam Vital Signs: Vital Signs: Last Vital Signs Temp 98.1 F 06/19/21 08:00 Pulse 96 06/19/21 08:00 Resp 18 06/19/21 08:00 BP 152/88 H 06/19/21 08:00 Pulse Ox 96 06/19/21 08:00 Body Mass Index 31.9 Const: General: no acute distress Nutritional Appearance: well nourished Orientation/consciousness: patient oriented x3 Limitations: no limitations Eyes: Sclerae: sclerae normal EOM: EOMs intact bilaterally Resp: Effort & Inspection: normal respiratory effort GI: Other: Trocar incisions are clean, dry, and intact. Normal incisional tenderness especially in the epigastrium. Inspection: Yes normal to inspection Neuro: General: patient oriented x3 Extrem: General: Yes no clubbing, cyanosis or edema Procedures Date of Service Date of Service: 06/19/21 Progress Note: A&P Assessment and plan (1) Status post laparoscopic cholecystectomy: Status: Acute Assessment and Plan: 45-year-old male patient with acute cholecystitis due to cholelithiasis, choledocholithiasis, status post laparoscopic cholecystectomy postoperative day 1. I recommended patient ambulate in the hallways today. He will try a regular diet as well. I will check back later to see if he is ready for discharge. Fall Risk Details Current Medications: Current Medications Acetaminophen (Acetaminophen 325 Mg Tablet) 650 mg PO Q6H PRN PRN Reason: Pain, Moderate (Pain Scale 4-6 Last Admin: 06/16/21 23:24 Dose: 650 mg Documented by: Clonazepam (Clonazepam 0.5 Mg Tablet) 0.5 mg PO BEDTIME PRN PRN Reason: Insomnia Last Admin: 06/17/21 22:07 Dose: 0.5 mg Documented by: Cyanocobalamin (Cyanocobalamin (Vitamin B-12) 100 Mcg Tablet) 50 mcg PO DAILY [facility] Last Admin: 06/18/21 08:03 Dose: Not Given Documented by: Escitalopram Oxalate (Escitalopram Oxalate 10 Mg Tablet) 10 mg PO DAILY [facility] Last Admin: 06/18/21 08:03 Dose: Not Given Documented by: Fluticasone Propionate (Fluticasone Propionate Nasal 16 Gm [place]) 2 spray NOSTRIL-B DAILY [facility] Last Admin: 06/18/21 07:59 Dose: 2 spray Documented by: Magnesium Hydroxide (Milk Of Magnesia 30 Ml Oral.Susp) 30 ml PO DAILY PRN PRN Reason: Constipation Morphine Sulfate (Morphine Sulfate 4 Mg/Ml Cartridge) 4 mg IVPUSH Q4H PRN; Protocol PRN Reason: Pain, Severe (Pain Scale 7-10) Last Admin: 06/19/21 05:48 Dose: 4 mg Documented by: Omeprazole (Omeprazole 40 Mg Capsule.Dr) 40 mg PO DAILY@0630 [facility] Last Admin: 06/19/21 05:42 Dose: 40 mg Documented by: Ondansetron HCl (Ondansetron Hcl 4 Mg/2 Ml Vial) 4 mg IVPUSH Q8H PRN PRN Reason: Nausea and Vomiting Ondansetron HCl (Ondansetron Hcl 4 Mg/2 Ml Vial) 4 mg IVPUSH ONCE PRN PRN Reason: Nausea and Vomiting Last Admin: 06/18/21 15:44 Dose: 4 mg Documented by: Oxycodone HCl (Oxycodone Hcl Immed Release 5 Mg Tablet) 5 mg PO Q4H PRN PRN Reason: Pain, Moderate (Pain Scale 4-6 Last Admin: 06/19/21 02:34 Dose: 5 mg Documented by: Pharmacy Consult (Consult Rx Perform Med Rec) 1 each MISCELLANE ONCE PRN PRN Reason: Consult order Sodium Chloride (0.9 % Sodium Chloride Flush 3 Ml Syringe) 3 ml IVFLUSH QSHIFT [facility] Last Admin: 06/19/21 00:42 Dose: 3 ml Documented by: Zolpidem Tartrate (Zolpidem Tartrate 5 Mg Tablet) 5 mg PO BEDTIME PRN PRN Reason: Insomnia Time Spent With Patient Time: Total time spent is greater than 50% in coordination of care (as documented) at patient's floor/unit and/or counseling patient: Time with patient: 15 - 24 minutes Quality Stroke Does the patient have a stroke diagnosis?: No VTE Prior VTE?: No VTE Risk Level:: Surgical - moderate VTE Device Contraindication: N/A - Device Ordered VTE Drug Contraindication: Treatment Not Indicated
[2021-06-19] MEDS: Cyanocobalamin (Vitamin B-12) 100 MCG TABLET 50 MCG PO (08:25)
[2021-06-19] MEDS: Fluticasone Propionate Nasal 16 GM SPRAY 2 SPRAY NOSTRIL-B (08:25)
[2021-06-19] MEDS: Escitalopram Oxalate 10 MG TABLET PO (08:25)
--- NOTE | 2021-06-19 11:16 | HO.POSTANES ---
Post Anesthesia Evaluation Post Anesthesia Evaluation Vital Signs: Vital Signs Temp Pulse Resp BP Pulse Ox 06/19/21 08:00 98.1 F 96 18 152/88 H 96 06/19/21 05:42 98.1 F 104 H 16 119/77 96 06/18/21 23:55 97.3 F 109 H 16 143/85 H 95 Anesthesia: General Endotracheal-GETA Mental Status: Awake Pain Control: Satisfactory Nausea/Vomiting: None Hydration: Adequate Anesthesia-Related Issues: No Anes. Related Issues
[2021-06-19 11:59] VITALS: BP 136/75; PULSE 99; RESP 18; TEMP 36.3; O2SAT 96
[2021-06-19] MEDS: Acetaminophen 325 MG TABLET 650 MG PO (14:22)
[2021-06-19 15:41] VITALS: BP 134/74; PULSE 91; RESP 15; TEMP 36.6; O2SAT 96
[2021-06-19 19:33] VITALS: BP 124/83; PULSE 92; RESP 16; TEMP 37.2; O2SAT 98
[2021-06-20] VITALS: BP 139/78; PULSE 82; RESP 16; TEMP 36.7; O2SAT 98
[2021-06-20] MEDS: 0.9 % Sodium Chloride Flush 3 ML SYRINGE IVFLUSH ×2 (02:04→08:08)
[2021-06-20 04:00] VITALS: BP 110/58; PULSE 73; RESP 16; TEMP 36.6; O2SAT 98
[2021-06-20] MEDS: Omeprazole 40 MG CAPSULE.DR PO (07:04)
[2021-06-20] MEDS: oxyCODONE HCl Immed Release 5 MG TABLET PO (07:04)
[2021-06-20 07:54] VITALS: BP 135/80; PULSE 73; RESP 18; TEMP 36.1; O2SAT 98
[2021-06-20] MEDS: Fluticasone Propionate Nasal 16 GM SPRAY 2 SPRAY NOSTRIL-B (08:08)
[2021-06-20] MEDS: Escitalopram Oxalate 10 MG TABLET PO (08:08)
[2021-06-20] MEDS: Cyanocobalamin (Vitamin B-12) 100 MCG TABLET 50 MCG PO (08:08)
--- NOTE | 2021-06-20 08:42 | MHC.CM.PN ---
PATIENT IS DISCHARGED HOME - SELF CARE. HE IS ABLE TO ARRANGE TRANSPORTATION.
--- NOTE | 2021-06-20 10:37 | P.DS_ITS ---
DS: Providers Provider Date of Service: 06/20/21 Date of admission: 06/14/21 10:39 Primary care physician: Zulema Carrera MD Attending physician on admission: Timothy Pierre Consults: 06/14/21 10:34 Consult to General Surgery Routine Consulting Provider: Virgilio Larios Reason for consultation: abdominal pain, gallstones, elevated LFTs Has provider been notified: Yes 06/14/21 14:07 Consult to Gastroenterology Routine Consulting Provider: Virgilio Larios Reason for consultation: Elevated liver function tests, gallstones DS: Diagnosis Discharge Diagnosis (1) Elevated LFTs: Status: Acute (2) Gallstones: Status: Acute (3) Status post laparoscopic cholecystectomy: Status: Acute DS: Summary Hospital Course Hospital Course: BRIEF HPI:Kory Hall is a 45 year old male presenting with complaints of abdominal pain in the right upper quadrant, epigastrium and back which began during the night and increased in severity in the morning.? He denied nausea, vomiting, fever, but did report chills.? He denies a previous history of similar symptoms.? Because of the severity of the pain he presented to the emergency department.? Evaluation in the emergency department revealed tenderness in the right upper quadrant and epigastric region.?Laboratories on admission revealed e levated liver function tests.? Subsequent ultrasound revealed echogenic sludge within the gallbladder without wall thickening.? A fatty liver was also identified.? Common bile duct was measured at [address] of the abdomen and pelvis revealed mild wall thickening of the gallbladder with a possible radiolucent stones.? HOSPITAL COURSE: The patient was admitted to the surgical service for further e valuation and treatment of the cholelithiasis, elevated LFTs and to r/o CBD stone. He was started on IVF, analgesics PRN, and GI consult for evaluation, possible ERCP with plan to trend his live function studies.? During his stay, his abdominal pain improved and his LFTs slowly improved. He was seen by Dr. Sorto of GI who recommended MRCP. This was performed during his stay which revealed gallstones and a thickened, edematous gallbladder wall suggestive with a markedly dilated cystic duct and normal caliber intrahepatic and extrahepatic bile ducts without CBD stone. The patient wanted to proceed with cholecystectomy during his stay to prevent recurrence. Technique of the procedure and risks and benefits were discussed. He was added onto the OR schedule for the following day. On 06/18/21, a laparoscopic cholecystectomy was performed by Dr. Pierre without complication. The patient tolerated the procedure well, completed recovery in PACU and admitted back to the medical/surgical floor for observation post operatively. He had an uncomplicated recovery course. On POD #1, he was doing well but was very sore and required IV analgesics. His abdomen was benign with appropriate post op tenderness and dressings c/d/i. He was tolerating a solid diet without nausea or vomiting. He was ambulated. The following day he felt improved with better pain control. He was OOB without difficulty. His incisions were clean. He felt ready for discharge. He was discharged to home on 06/20/21 in stable condition. Status at Discharge Functional status at discharge: independent ambulation Overall status at discharge: patient is progressing back to baseline Time Spent with Patient Time attestation: Total time spent providing and/or coordinating discharge services: Discharge coordination time: Less than 30 minutes Quality: Stroke Does the patient have a stroke diagnosis?: No Physical Exam Vital Signs: Vital Signs: Last Vital Signs Temp 97.0 F 06/20/21 07:54 Pulse 73 06/20/21 07:54 Resp 18 06/20/21 07:54 BP 135/80 06/20/21 07:54 Pulse Ox 98 06/20/21 07:54 Body Mass Index 31.9 DS: Data Data Completed and Pending Pending studies at discharge: Pending at discharge 06/18/21 14:44 Surgical [PTH] Routine Discharge Plan Discharge Patient Disposition: Home, Self-Care Discharge Diagnosis: acute cholecystitis, cholelithiasis, choledocolithiasis Referrals: Timothy Pierre MD [Physician] - 1 Week Po,Zulema Barrera MD [Primary Care Provider] - 1 Week Gita Brink MD [Physician] - 1 week Discharge Medications: New docusate sodium [Colace] 100 mg capsule 100 mg PO BID Qty: 30 RF: 0 oxycodone 5 mg tablet 5 mg PO Q4H PRN (Reason: pain (scale score 7-10)) Qty: 24 RF: 0 Continued omeprazole 40 mg capsule,delayed release(DR/EC) 40 mg PO DAILY Qty: 30 RF: 5 escitalopram oxalate 10 mg tablet 10 mg PO DAILY 90 Days Qty: 90 RF: 1 multivitamin Tablet 1 tab PO DAILY RF: 0 ibuprofen [Advil Liqui-Gel] 200 mg Capsule 400 mg PO Q6H PRN (Reason: pain/fever) RF: 0 clonazepam 0.5 mg tablet 0.5 mg PO BEDTIME PRN (Reason: Insomnia) RF: 0 fluticasone propionate [Flonase Allergy Relief] 50 mcg/actuation spray,suspension 2 spray intranasal DAILY Qty: 16 RF: 3 Probiotic 20 billion cell capsule 20,000 mmu cells PO DAILY RF: 0 cyanocobalamin (vitamin B-12) 50 mcg tablet 50 mcg PO DAILY RF: 0 fexofenadine [Sun Allergy] 180 mg tablet 180 mg PO DAILY Qty: 90 RF: 2 (DME) blood pressure monitor Kit See Rx Instructions .ROUTE .MEDSUPPLY Qty: 1 RF: 0 Discharge Orders: Discharge Order (Routine); Ordered 06/20/21 Ordered By: Thelma Villegas Diet: low fat, low cholesterol Activity on Discharge: No heavy lifting Stand Alone Forms: Patient Portal Discharge page, Work/School Release Activity Restrictions/Additional Instructions: If the incision area is tender, you may apply an ice pack for short intervals (No more than 20 minutes on, followed by at least 20 minutes off). Do not apply heat. Do not use creams, lotions, or topical antibiotics unless instructed to do so by your surgeon. These can cause infection or allergic reaction. Ok to shower. Remove clear dressings 3 days following your procedure. You have steri strips (small white cloth strips) covering your incision- these will fall off ~1 week. No heavy lifting (>10lbs)! Follow up in office with Dr. Pierre in 1 week. ([phone]) Call Your Doctor If: -Your temperature exceeds 101.5? F -You experience excessive pain or swelling -You have an unexpected reaction to medication -You have excessive bleeding -You experience continued vomiting/nausea -Your incision begins to separate -Your incision shows signs of infection such as increased redness, swelling, excessive pain, drainage (light blood or clear fluid is normal) or heat Care Plan Goals: Return to baseline health and gradual return to activity following recovery period. Health Concerns: acute cholecystitis, s/p lap CCY Plan of Treatment: discharge to home, f/u in office Assessment: Doing well post op Patient Instructions: Gastritis (ED), Duodenitis (ED) Discharge Date/Time: 06/20/21 10:45
== END 2021-06-20 10:45 | disposition home or self-care (01) | DRG 263 ==
LOC: HO.ED 10:34 → HO.EDOVER 10:50 → HO.S3 16:19
PROVIDERS: Emergency Medicine; Surgery; Admitting Provider Surgery; Emergency Provider Emergency Medicine; PCP Internal Medicine; Visit Provider Surgery
PROC: 0FT44ZZ Resection of Gallbladder, Percutaneous Endoscopic Approach (ICD-10-PCS; CPT 47562; principal; 2021-06-18 13:40)
DX: K80.00 Calculus of gallbladder with acute cholecystitis without obstruction (principal); K21.00 Gastro-esophageal reflux disease with esophagitis, without bleeding; K29.70 Gastritis, unspecified, without bleeding; K29.80 Duodenitis without bleeding; Z20.822 Contact with and (suspected) exposure to COVID-19; Z23 Encounter for immunization; Z79.1 Long term (current) use of non-steroidal anti-inflammatories (NSAID); Z79.51 Long term (current) use of inhaled steroids; Z79.899 Other long term (current) drug therapy
CPT/HCPCS: 36415; 74177; 74181; 76705; 80053; 83690; 85025; 87086; 87635; 88304; 93005; 96360; 99024; 99285; J1100; J2250; J2270; J2405; J3010; Q9967

== ENCOUNTER → 2021-06-28 10:08 | Outpatient (BNVA) | payer OTHER, SELFPAY | PROVIDERS: PCP Internal Medicine; Referring Provider Internal Medicine; Visit Provider Surgery | DX: Z48.815 Encounter for surgical aftercare following surgery on the digestive system (principal); Z87.19 Personal history of other diseases of the digestive system | CPT/HCPCS: 99212 ==

== ENCOUNTER 2021-07-16 11:02 | Day surgery (SDC) | payer OTHER, SELFPAY ==
--- NOTE | 2021-07-15 11:45 | P.CONAN_ITS ---
Documented by User: Latisha Nolen NP 07/15/21 11:48 HPI - Anesthesia Eval Consult details Narrative: 45yo M for Upper Endoscopy and Colonoscopy s/p lap mechelle 06/18/21 with GETA - 7 [facility] Active Problems Active Problems: All Active Problems (Updated 07/02/21 @ 10:24 by DALE Berman-C) GERD (gastroesophageal reflux disease) (Acute) Wrist pain, right (Acute) Hypertension (Acute) Hypercholesterolemia (Acute) Anxiety and depression (Acute) Obesity (BMI 30-39.9) (Acute) Vertigo (Acute) Ingrown toenail (Acute) Vitamin B12 deficiency (Acute) Lightheaded (Acute) Acute sinusitis (Acute) Allergic rhinitis (Acute) Overweight (BMI 25.0-29.9) (Acute) Generalized anxiety disorder (Acute) Colon cancer screening (Acute) Gastritis and duodenitis (Acute) Status post cholecystectomy (Acute) Fatty liver (Acute) Past Medical History Medical History Anxiety and depression Cervical disc disease Cyst of epididymis Foreign body in lower extremity Hypercholesterolemia Hypertension Insomnia Irritable bowel syndrome Obesity (BMI 30-39.9) Obstructive sleep apnea Overweight (BMI 25.0-29.9) Vitamin D deficiency Wrist pain, right Family History Family History Father Hypertension CVD (cardiovascular disease) S/P triple vessel bypass Mother Breast cancer Depression Anxiety CVD (cardiovascular disease) Hypertension Paternal Aunt Liver cancer Maternal Aunt Breast cancer Brother No problems noted. Sister In good health Other Mental health disorder Family history of problems with anesthesia: No Surgical History Surgical History Closed fracture distal radius and ulna History of laparoscopic cholecystectomy History of tonsillectomy Status post laparoscopic cholecystectomy History of Problems with Anesthesia: No Social History Social History Household Members: Family Housing: House Do you presently have visiting nurse or other home services: No Alcohol intake: unknown Patient Tobacco Use Status: Never used Tobacco e-Cigarette/Vaping Use: Never Used Second Hand Smoke Exposure: No Use of substances other than those prescribed or required for medical reasons: No Are you DNR?: No Advance Directives: No Advance Directives Information Provided: Yes service: No Current occupational status: employed Meds Allergies Allergy/AdvReac Type Severity Reaction Status Date / Time codeine Allergy Unknown Unknown Verified 07/02/21 09:56 Home Medications Medication Instructions Recorded Confirmed Last Taken Type cyanocobalamin (vitamin B-12) 50 50 mcg PO DAILY 12/27/20 07/02/21 06/13/21 History mcg tablet lactobacillus comb no.10 20 20,000 mmu cells PO DAILY 12/27/20 07/02/21 06/13/21 History billion cell capsule (Probiotic) clonazepam 0.5 mg tablet 0.5 mg PO BEDTIME PRN 06/14/21 07/02/21 06/13/21 History ibuprofen 200 mg capsule (Advil 400 mg PO Q6H PRN 06/14/21 07/02/21 06/13/21 History Liqui-Gel) multivitamin 1 tab PO DAILY 06/14/21 07/02/21 06/13/21 History Exam Exam Date and Time: July 15, 2021 1145 Pertinent Lab Results Pertinent Lab Results: Laboratory Tests 06/15/21 06/17/21 12:09 04:10 WBC 4.2 L Hgb 13.7 L Hct 41.8 L Plt Count 205 Sodium 141 Potassium 3.6 Chloride 107 Carbon Dioxide 29 BUN 5 L Creatinine 0.86 Narrative Narrative: EKG 05/2021 Vent. Rate : 075 BPM ? ? Atrial Rate : 075 BPM ?? P-R Int : 190 ms? QRS Dur : 112 ms ? ? QT Int : 390 ms ? ? ? P-R-T Axes : 052 035 045 degrees ?? QTc Int : 435 ms ? Normal sinus rhythm Incomplete right bundle branch block Borderline ECG When compared with ECG of 22-JUN-2020 15:30, No significant change was found Assessment and Plan Assessment Anesthesia Assessment: Chart Reviewed Final Anesthetic Review Family History of Problems with Anesthesia: No History of Problems with Anesthesia: No Documented by User: Mejia Fontanez MD 07/16/21 11:42 [facility] Past Medical History Medical History Anxiety and depression Cervical disc disease Cyst of epididymis Foreign body in lower extremity Hypercholesterolemia Hypertension Insomnia Irritable bowel syndrome Obesity (BMI 30-39.9) Obstructive sleep apnea Overweight (BMI 25.0-29.9) Vitamin D deficiency Wrist pain, right Family History Family History Father Hypertension CVD (cardiovascular disease) S/P triple vessel bypass Mother Breast cancer Depression Anxiety CVD (cardiovascular disease) Hypertension Paternal Aunt Liver cancer Maternal Aunt Breast cancer Brother No problems noted. Sister In good health Other Mental health disorder Surgical History Surgical History Closed fracture distal radius and ulna History of laparoscopic cholecystectomy History of tonsillectomy Status post laparoscopic cholecystectomy Social History Social History Household Members: Family Housing: House Do you presently have visiting nurse or other home services: No Alcohol intake: unknown Patient Tobacco Use Status: Never used Tobacco e-Cigarette/Vaping Use: Never Used Second Hand Smoke Exposure: No Use of substances other than those prescribed or required for medical reasons: No Are you DNR?: No Advance Directives: No Advance Directives Information Provided: Yes service: No Current occupational status: employed Meds Allergies Allergy/AdvReac Type Severity Reaction Status Date / Time codeine Allergy Unknown Unknown Verified 07/02/21 09:56 Home Medications Medication Instructions Recorded Confirmed Last Taken Type cyanocobalamin (vitamin B-12) 50 50 mcg PO DAILY 12/27/20 07/02/21 06/13/21 History mcg tablet lactobacillus comb no.10 20 20,000 mmu cells PO DAILY 12/27/20 07/02/21 06/13/21 History billion cell capsule (Probiotic) clonazepam 0.5 mg tablet 0.5 mg PO BEDTIME PRN 06/14/21 07/02/21 06/13/21 History ibuprofen 200 mg capsule (Advil 400 mg PO Q6H PRN 06/14/21 07/02/21 06/13/21 History Liqui-Gel) multivitamin 1 tab PO DAILY 06/14/21 07/02/21 06/13/21 History Exam Airway Mallampati Class: II TM Dist: >3cm Neck ROM: Full Denture: Upper Assessment and Plan Final Anesthetic Review NPO: Yes ASA Class: III Final Preanesthetic Review: No Changes in Pt Med Stat, Meds/Allgs Chart Reviewed, Consent Obtained/Reviewed and Anes Risks/Benef Reviewed Patient Risk: Intermediate Procedure Risk: Low Anesthetic Plan Anesthetic Plan: MAC: Disposition: Standard PACU
[2021-07-16 11:34] VITALS: BP 125/81; PULSE 76; RESP 16; TEMP 36.3; O2SAT 96; BMI 32.6
[2021-07-16] MEDS: Lactated Ringers 1,000 ML 100 ML IVCONT (11:41)
--- NOTE | 2021-07-16 11:47 | MHC.SHP ---
Pre-Procedural Eval Section A Date of Service: 07/16/21 The patient is an INPATIENT: No Changes since office visit: No Cold of Flu in the past 2 weeks, No New Medical Problems, No Changes in Medication and No Patient answered all questions The History & Physical has been completed within 30 days and I have reviewed it.: Yes Section B Chief Complaint: Screening, GERD Allergies: Allergies Allergy/AdvReac Type Severity Reaction Status Date / Time codeine Allergy Unknown Unknown Verified 07/02/21 09:56 Plan I have reviewed the history and physical and performed a pertinent physical examination on my patient. No changes have occurred unless specified.
--- NOTE | 2021-07-16 12:24 | PM.OP ---
Brief Operative Note Date of Service: 07/16/21 Pre-op diagnosis: gerd,screening Post-op diagnosis: same (gastritis) Procedure: egd,colon Surgeon: Virgilio Larios Anesthesia: MAC Was an Polish Compounder used for this Procedure?: No Estimated blood loss (mL): 2 Pathology: other (multiple bxs) Condition: stable Disposition: PACU
[2021-07-16 12:26] VITALS: BP 100/66; PULSE 77; RESP 16; TEMP 36.6; O2SAT 96
[2021-07-16 12:41] VITALS: BP 109/69; PULSE 81; RESP 17; TEMP 36.6; O2SAT 96
--- NOTE | 2021-07-16 13:05 | OP_ITS ---
SURGEON: Virgilio Larios MD INDICATIONS: 1. Gastroesophageal reflux disease. 2. Colon cancer screening. PREOPERATIVE DIAGNOSIS: POSTOPERATIVE DIAGNOSIS: PROCEDURE PERFORMED: Upper endoscopy with biopsy, colonoscopy to the terminal ileum with biopsy. ESTIMATED BLOOD LOSS: COMPLICATIONS: ANESTHESIA: ASSISTANTS: SPECIMENS: MEDICATIONS: Monitored anesthesia care. DESCRIPTION OF PROCEDURE: History and physical performed. The risks and benefits of the procedure were explained to the patient. Informed consent was obtained. The patient was placed in the left lateral decubitus position. The Olympus video gastroscope was introduced into the esophagus, stomach, and duodenum. Examination was performed and the scope was removed. He was repositioned for colonoscopy. A digital rectal exam was performed and was found to be normal. The Olympus pediatric video colonoscope was introduced into the rectum and advanced to the cecum without difficulty. The cecum was identified by transillumination, palpation, and identification of ileocecal valve. Examination was performed and the scope was removed. He tolerated both procedures well and was taken to recovery area in stable condition. FINDINGS: UPPER ENDOSCOPY: Esophagus: The esophagus was normal. There was no esophagitis. Biopsies were obtained from the EG junction. Stomach: The stomach showed no evidence of masses or ulcers. Antral biopsies were obtained to rule out H pylori. There was mild erythema consistent with gastritis present in the body. There were 2 polyps identified in the fundus. Both measuring less than 5 mm that were biopsied. These appeared consistent with fundic gland polyps. Duodenum: The bulb and second portion were normal. This was biopsied. COLONOSCOPY: The terminal ileum was normal. The visualized colonic mucosa was within normal limits without evidence of masses or ulcers. The quality of the prep was good. Random sigmoid biopsies were obtained to rule out microscopic colitis given the patient's symptoms. No colitis was identified endoscopically. Quality of the prep was good. Retroflexed examination showed small internal hemorrhoids. IMPRESSION: 1. Gastritis. 2. Gastric polyps. 3. Normal colonoscopy. RECOMMENDATIONS: 1. Follow up the biopsy results. 2. Repeat colonoscopy is recommended in 10 years for average risk individuals. MD OWEN Burgess/MATTHEW / [id number]
== END 2021-07-16 13:37 | disposition home or self-care (01) ==
PROVIDERS: PCP Internal Medicine; Visit Provider Internal Medicine Gastroenterology
PROC: (CPT 45380; principal; 2021-07-16 12:00)
DX: Z12.11 Encounter for screening for malignant neoplasm of colon (principal); Z83.71 Family history of colonic polyps; K64.8 Other hemorrhoids; K92.89 Other specified diseases of the digestive system; K21.9 Gastro-esophageal reflux disease without esophagitis; K29.70 Gastritis, unspecified, without bleeding; K31.7 Polyp of stomach and duodenum; I10 Essential (primary) hypertension; Z90.49 Acquired absence of other specified parts of digestive tract; Z79.899 Other long term (current) drug therapy
CPT/HCPCS: 45380; 43239; 88305; 88342; J3010

== ENCOUNTER 2021-10-04 14:37 | Outpatient (REF) | payer OTHER, SELFPAY ==
[2021-10-05 13:20] LABS: Rubella IgG Antibody 6.83 Index; Rubeola IgG (Measles) >300.00 AU/mL
[2021-10-06 15:12] LABS: TS Negative Control Passed; TS Panel A 0; TS Panel B 1; TS Positive Control Passed; TSpotTB Negative (Negative)
[2021-10-07 05:08] LABS: HBc Num1 0.08 S/CO (0.00-0.79); HBsAGNum1 0.24 S/CO (0.00-0.99); Hepatitis B Core Antibody Nonreactive (Nonreactive); Hepatitis B Surface Antigen Negative (Negative); ~Hepatitis B Surface Antibody REACTIVE (Nonreactive)
== END 2021-10-04 14:38 | disposition home or self-care (01) ==
LOC: HO.LAB 14:37
PROVIDERS: PCP Internal Medicine; Visit Provider Internal Medicine
DX: Z01.84 Encounter for antibody response examination (principal)
CPT/HCPCS: 36415; 86481; 86704; 86706; 86735; 86762; 86765; 86787; 87340

== ENCOUNTER 2022-05-13 06:59 | Outpatient (REF) | payer OTHER, SELFPAY ==
[2022-05-13 07:14] LABS: MANUAL DIFF FLAG NO
[2022-05-13 07:28] LABS: Basophils Percent Auto 0.7 % (0-2); Eosinophils Absolute Auto 0.1 X10*3/uL (0.0-0.4); Eosinophils Percent Auto 3.1 % (0-4); Hematocrit 44.9 % (42.0-52.0); Hemoglobin 15.1 g/dl (14.0-18.0); Imm Gran Abs Auto 0.02 X10*3/uL (0.00-0.03); Imm Gran Pct Auto 0.4 % (0.0-0.4); Immature Retic Fraction 6.8 % (2.3-13.4); Lymphocytes Absolute Auto 1.6 X10*3/uL (1.2-4.9); Lymphocytes Percent Auto 36.4 % (20-40); Mean Corpuscular HGB Conc 33.6 g/dl (31.0-36.0); Mean Corpuscular Hemoglobin 29.9 pg (27.0-33.0); Mean Corpuscular Volume 88.9 fL (80.0-98.0); Mean Platelet Volume 10.2 fL (9.4-12.4); Monocytes Absolute Auto 0.4 X10*3/uL (0.1-1.2); Monocytes Percent Auto 9.8 % (2-11); Neutrophils Absolute Auto 2.2 x10*3/uL (2.0-8.3); Neutrophils Percent Auto 49.6 % (45-73); Platelet Count 229 X10*3/uL (160-400); Red Blood Count 5.05 X10*6/uL (4.60-5.80); Red Cell Distribution Width 12.7 % (11.0-16.0); Retic HGB Equivalent 35.1 pg (30.0-35.0); Reticulocyte Percent 1.5 % (0.5-1.8); Reticulocytes Absolute 0.075 X10*6/uL (0.026-0.095); White Blood Count 4.5 X10*3/uL (4.8-10.8)
[2022-05-13 08:05] LABS: Alanine Aminotransferase 47 U/L (0-40); Albumin Level 4.4 g/dL (3.5-5.0); Alkaline Phosphatase 59 U/L (39-117); Anion Gap 13 (12-20); Aspartate Amino Transferase 22 U/L (5-37); Bilirubin Total 0.9 mg/dL (0.0-1.0); Blood Urea Nitrogen 9 mg/dL (9-16); Calcium 9.2 mg/dL (8.4-10.2); Carbon Dioxide 29 mmol/L (22-29); Chloride 106 mmol/L (96-108); Cholesterol 213 mg/dL; Estimated Glomerular Filt Rate > 60; Glucose Random 97 mg/dL (60-115); HDL Cholesterol 53 mg/dL; Iron 111 mcg/dL (45-160); LDL Cholesterol Calculated 144 mg/dl; Percent Iron Saturation 34 % (15-50); Potassium 4.9 mmol/L (3.3-5.1); Sodium 143 mmol/L (135-145); Total Iron Binding Capacity 327 mcg/dL (228-428); Total Protein 6.7 g/dL (6.5-8.0); Triglycerides 81 mg/dL; Unsaturated Iron Binding 216 ug/dL
[2022-05-13 08:32] LABS: Ferritin 115 ng/mL (20-250); Free T4 (Free Thyroxine) 0.88 ng/dL (0.71-1.85); Thyroid Stimulating Hormone 1.07 uIU/mL (0.32-4.0)
[2022-05-13 09:18] LABS: Folate 16.1 ng/mL (> or = 4.0); Vitamin B12 545 pg/mL (200-900)
== END 2022-05-13 07:00 | disposition home or self-care (01) ==
LOC: HO.LAB 06:59
PROVIDERS: PCP Internal Medicine; Visit Provider Internal Medicine
DX: E78.00 Pure hypercholesterolemia, unspecified (principal); I10 Essential (primary) hypertension; K21.00 Gastro-esophageal reflux disease with esophagitis, without bleeding
CPT/HCPCS: 36415; 80053; 80061; 82607; 82728; 82746; 83540; 84439; 84443; 85025; 85045

== ENCOUNTER → 2022-07-28 10:22 | Outpatient (REF) | payer OTHER, SELFPAY ==
--- NOTE | 2022-07-28 10:26 | CA_ITS ---
Acquisition Time: 2022-07-28 10:30:10 Total Exercise Time: 00:06:50 Test Indications: Cough Medications: See H Protocol: VANDANA Max HR: 157 BPM 90% of Pred: 174 BPM Max BP: 170/084 mmHG Max Work Load: 8.2 METS Exercise stress test with exercise 6 min 50 sec of Vandana protocol, achieving 90% MPHR, 8.2 METs, with a constant ache discomfort in left chest at baseline and throughout test ( atypical for angina), with mild sob during exercise and occassional cough, without arrythmia, with normotensive response to exercise, without EKG changes meeting criteria for ischemia. Test reviewed with Dr Ley Referred By: Zulema Carrera Overread By: KIMANI DURAN
== END ==
LOC: HO.CARD 10:22
PROVIDERS: PCP Internal Medicine; Visit Provider Internal Medicine
DX: R05.9 Cough, unspecified (principal)
CPT/HCPCS: 93017

== ENCOUNTER 2023-10-13 10:19 | Emergency (ER) | payer OTHER, SELFPAY ==
[2023-10-13 10:24] VITALS: BP 127/95; PULSE 95; RESP 17; TEMP 36.6; O2SAT 97; BMI 33.8
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
== END 2023-10-13 14:03 | disposition home or self-care (01) ==
PROVIDERS: Emergency Provider Emergency Medicine Emergency Medical Services
DX: S16.1XXA Strain of muscle, fascia and tendon at neck level, initial encounter (principal); S46.912A Strain of unspecified muscle, fascia and tendon at shoulder and upper arm level, left arm, initial encounter; V43.52XA Car driver injured in collision with other type car in traffic accident, initial encounter; Y93.89 Activity, other specified; Y92.415 Exit ramp or entrance ramp of street or highway as the place of occurrence of the external cause; Y99.9 Unspecified external cause status
CPT/HCPCS: 99283; 99284

== ENCOUNTER 2023-10-18 15:24 | Emergency (ER) | payer OTHER, SELFPAY ==
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
[2023-10-18 15:36] VITALS: BP 156/87; PULSE 103; RESP 20; TEMP 36.6; O2SAT 96; BMI 27.4
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
[2023-10-18 17:26] VITALS: BP 137/90; PULSE 88; RESP 16; TEMP 36.8; O2SAT 97
== END 2023-10-18 19:06 | disposition home or self-care (01) ==
PROVIDERS: Emergency Provider Internal Medicine
DX: S13.4XXA Sprain of ligaments of cervical spine, initial encounter (principal); M54.2 Cervicalgia; M47.812 Spondylosis without myelopathy or radiculopathy, cervical region; M54.50 Low back pain, unspecified; M54.6 Pain in thoracic spine; V43.52XA Car driver injured in collision with other type car in traffic accident, initial encounter; Y93.9 Activity, unspecified; Y92.410 Unspecified street and highway as the place of occurrence of the external cause; Y99.8 Other external cause status
CPT/HCPCS: 72040; 72072; 72100; 99283

== ENCOUNTER 2023-11-08 13:49 | Emergency (ER) | payer OTHER, SELFPAY ==
--- NOTE | ~2023-11-08 | CT_ITS ---
EXAMINATION: CT ABDOMEN AND PELVIS WITHOUT CONTRAST CLINICAL INFORMATION: RLQ/LLQ pain. COMPARISON: 06/14/2021. TECHNIQUE: Multidetector volumetric imaging was performed from the superior aspect of the liver through the pubic symphysis without contrast per request. Sagittal and coronal reformatted images were obtained on the technologist workstation. This CT examination was performed using dose optimization techniques as appropriate, variously including the following: *Automated exposure control *Adjustment of mA and/or kV according to patient size (this includes techniques or standardized protocols for targeted exams where dose is matched to indication/reason for exam; i.e. extremities or head) *Use of iterative reconstruction technique DLP: 1149 mGy-cm. FINDINGS: LUNG BASES: The visualized lung bases are unremarkable. LIVER, GALLBLADDER, BILIARY TREE: The non-contrast liver is normal in size, shape, and attenuation. Tiny low-attenuation cyst in segment 5 again noted. No suspicious focal hepatic lesion or biliary ductal dilatation is present. The gallbladder surgically absent. PANCREAS: Unremarkable. SPLEEN: Unremarkable. ADRENAL GLANDS: Unremarkable. KIDNEYS AND URETERS: The kidneys are normal in size, shape, and attenuation. No hydronephrosis, hydroureter, or perinephric stranding. No calculi. BLADDER: Partially decompressed but otherwise unremarkable GASTROINTESTINAL TRACT: The small and large bowel are unremarkable. The appendix is unremarkable. ABDOMINAL WALL: No significant hernia is appreciated. LYMPHOVASCULAR STRUCTURES: No lymphadenopathy. The aorta is unremarkable. Incidental circumaortic left renal vein. PELVIC VISCERA: Unremarkable. OSSEUS STRUCTURES: Unremarkable. CT/CT abdomen pelvis wo IV con IMPRESSION: No acute intra-abdominal process seen.
[2023-11-08 14:26] VITALS: BP 118/79; PULSE 120; RESP 16; TEMP 36.8; O2SAT 98; BMI 34.6
--- NOTE | 2023-11-08 14:26 | ED.NAVMDI ---
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 He denies any associated fever, chills or dysuria Related Data Home Medications Medication Instructions Recorded Confirmed lactobacillus comb no.10 20 20,000 mmu cells PO DAILY 12/27/20 10/28/22 billion cell capsule (Probiotic) cetirizine 10 mg tablet 10 mg PO DAILY PRN 10/13/22 10/28/22 multivitamin 1 tab PO DAILY 10/13/22 10/28/22 vitamin b12 PO .QD 10/13/22 10/28/22 Previous Rx's Medication Instructions Recorded blood pressure monitor #1 ea 12/27/20 fluticasone propionate 50 2 spray intranasal DAILY #16 grams 03/20/21 mcg/actuation nasal spray,suspension (Flonase Allergy Relief) albuterol sulfate 90 mcg/actuation 2 puff inhalation Q6H PRN 06/13/22 aerosol inhaler shortness of breath or wheezing #6.7 grams benzonatate 200 mg capsule 200 mg PO BID-TID PRN cough #20 08/05/22 caps bupropion HCl 300 mg 24 hr tablet, 300 mg PO QAM 90 days #90 tabs 10/13/22 extended release escitalopram oxalate 20 mg tablet 20 mg PO DAILY #90 tabs 11/17/22 omeprazole 40 mg capsule,delayed 40 mg PO DAILY #90 caps 12/20/22 release clonazepam 0.5 mg tablet 0.5 mg PO BEDTIME PRN Insomnia #30 12/28/22 tabs cyclobenzaprine 5 mg tablet 5 mg PO TID PRN muscle spasm #10 10/13/23 tabs lidocaine 5 % topical patch 1 patch topical DAILY #15 ea 10/13/23 acetaminophen 500 mg tablet 500 mg PO .Q8 PRN pain 5 days #21 10/18/23 (Acetaminophen Extra Strength) tabs ondansetron 4 mg disintegrating 4 mg PO Q8H PRN nausea and 11/08/23 tablet vomiting 4 days #7 tabs Allergies Allergy/AdvReac Type Severity Reaction Status Date / Time codeine Allergy Unknown Unknown Verified 10/18/23 15:40 Review of Systems Review of Systems: Pertinent positives and negatives as stated in [facility] Past Medical History Source: nursing notes reviewed Medical History Annual physical exam Chest pain Cough Acute sinus infection Annual physical exam Gastritis and duodenitis Colon cancer screening Generalized anxiety disorder Overweight (BMI 25.0-29.9) Allergic rhinitis Acute sinusitis Lightheaded Ingrown toenail Vertigo Cyst of epididymis Foreign body in lower extremity Obstructive sleep apnea Cervical disc disease Irritable bowel syndrome Vitamin D deficiency Obesity (BMI 30-39.9) Insomnia Anxiety and depression Hypercholesterolemia Wrist pain, right Surgical History Status post laparoscopic cholecystectomy History of laparoscopic cholecystectomy History of tonsillectomy Closed fracture distal radius and ulna Family History Family History Father Hypertension CVD (cardiovascular disease) S/P triple vessel bypass Mother Breast cancer Depression Anxiety CVD (cardiovascular disease) Hypertension Paternal Aunt Liver cancer Maternal Aunt Breast cancer Brother No problems noted. Sister In good health Other Mental health disorder Social History Social History Household Members: Family Housing: House Do you presently have visiting nurse or other home services: No Alcohol intake: current Alcohol intake frequency: holidays/special occasions only Patient Tobacco Use Status: Never used Tobacco e-Cigarette/Vaping Use: Never Used Second Hand Smoke Exposure: No service: No Current occupational status: employed Cognitive needs: No Hearing needs: No Vision needs: Yes Physical Exam Vital Signs: Vital Signs: Last Vital Signs Temp 98.2 F 11/08/23 16:49 Pulse 132 H 11/08/23 16:49 Resp 16 11/08/23 16:49 BP 130/83 11/08/23 16:49 Pulse Ox 98 11/08/23 16:49 O2 Del Method Room Air 11/08/23 16:49 BMI result Body Mass Index 34.6 VITAL SIGNS: Reviewed. GENERAL: Well developed, well nourished, in no acute distress. HEAD: Normocephalic/atraumatic EYES: PERRLA, EOMI EARS: Ext canals without abnormality NOSE: Nares patent bilateral OROPHARYNX: no oral lesions noted, posterior pharynx clear NECK: Supple, no adenopathy LUNGS: Normal breath sounds. No adventitious sounds or accessory muscle use. SpO2<98> CARDIOVASCULAR: Regular rate and rhythm without noted murmurs ABDOMEN: Soft, lower abdominal discomfort with maximal pain at right lower quadrant, non-distended with bowel sounds. MUSCULOSKELETAL: No tenderness, deformities, or effusions noted on gross inspection. EXTREMITIES: No cyanosis, clubbing or edema. SKIN: Inspection of the skin reveals no rashes NEUROLOGIC: Alert and oriented x 4. Strength and sensation to light touch were grossly intact x 4. Course Course Course Narrative: RME:?47 yo male hx of GERD, JAE, here for eval of N/V/D since 0500 this morning. no sick contacts. ate [place] fries, mariel sticks and hot dog at his brothers house last night. brother had stomach flu last week. s/p mechelle. tachy to 130s in triage. ekg, viral swabs, labs ordered. Full HPI, ROS and PE to be performed by the primary ED provider. Medical Decision Making Medical Decision Making [facility] Narrative: 1744: 47-year-old male with history and clinical presentation,DDX: Viral gastroenteritis, renal colic, possible appendicitis or urinary tract infection. I reviewed all investigations and hematologic indices demonstrate a leukocytosis without anemia or thrombocytopenia. Chemistry indices negative for DANIELLE or electrolyte/liver enzyme derangements other than a slight bump in total bilirubin but is status post cholecystectomy and lipase values are within normal limits. Viral testing negative for influenza/RSV/COVID. CT scan negative for any acute intra-abdominal pathology and my interpretation is that patient has viral gastroenteritis and is currently tolerating oral intake and is otherwise discharged home with a prescription for Zofran and instructions to rehydrate. Heart rate is noted to still be somewhat elevated, patient given Tylenol/ibuprofen and suspect that the elevation heart rate is multifactorial as a combination of discomfort and mild dehydration though patient is tolerating oral intake at this time and will be sent home with a script for antinausea medication with strict return precautions. Differential Diagnosis Differential Diagnoses: The differential diagnosis associated with the presentation includes Please see the discussion above Admission/Observation Consideration of admission/observation: Escalation of care including admission/observation considered Please see the discussion above Lab Data MDM Lab Attestation statement: I reviewed the patient's lab results. Please see the discussion above 11/08/23 14:46 11/08/23 14:46 Labs: Lab Results 11/08/23 Range/Units 14:46 WBC 16.8 H (4.8-10.8) X10*3/uL RBC 5.62 (4.60-5.80) X10*6/uL Hgb 16.9 (14.0-18.0) g/dl Hct 48.8 (42.0-52.0) % MCV 86.8 (80.0-98.0) fL MCH 30.1 (27.0-33.0) pg MCHC 34.6 (31.0-36.0) g/dl RDW 12.8 (11.0-16.0) % Plt Count 252 (160-400) X10*3/uL MPV 9.7 (9.4-12.4) fL Immature Gran % (Auto) Cancelled Neut % (Auto) Cancelled Lymph % (Auto) Cancelled [place] % (Auto) Cancelled Eos % (Auto) Cancelled Baso % (Auto) Cancelled Lymph # (Auto) Cancelled [place] # (Auto) Cancelled Eos # (Auto) Cancelled Baso # (Auto) Cancelled Abs Immat Gran (auto) Cancelled Absolute Neuts (auto) Cancelled Absolute Nucleated RBC 0.000 (0.0-0.012) X10*3/uL Nucleated RBC % (auto) 0.0 (0.0-0.2) /100WBC Neutrophils % (Manual) 89 H (45-73) % Band Neutrophils % 3 (3-5) % Lymphocytes % (Manual) 2 L (20-40) % Monocytes % (Manual) 6 (2-11) % Abs Neuts (Manual) 15.5 H (2.0-8.3) X10*3/uL Lymphocytes # (Manual) 0.3 L (1.2-4.9) X10*3/uL Monocytes # (Manual) 1.0 (0.1-1.2) X10*3/uL Toxic Vacuolation PRESENT Platelet Estimate NORMAL (NORMAL) Plt Morphology Comment NORMAL RBC Morphology NORMAL Sodium 139 (135-145) mmol/L Potassium 3.7 (3.3-5.1) mmol/L Chloride 104 (96-108) mmol/L Carbon Dioxide 26 (22-29) mmol/L Anion Gap 13 (12-20) BUN 15 (9-16) mg/dL Creatinine 1.03 (0.5-1.4) mg/dL Estim Creat Clear Calc 113.0 Estimated GFR > 60 Random Glucose 147 H (60-115) mg/dL Calcium 8.8 (8.4-10.2) mg/dL Magnesium 1.7 (1.6-2.6) mg/dL Total Bilirubin 1.1 H (0.0-1.0) mg/dL AST 16 (5-37) U/L ALT 34 (0-40) U/L Alkaline Phosphatase 74 (39-117) U/L Total Protein 7.1 (6.5-8.0) g/dL Albumin 4.4 (3.5-5.0) g/dL Lipase 12 (8-78) U/L Influenza Type A (PCR) NEGATIVE (Negative) Influenza Type B (PCR) NEGATIVE (Negative) RSV RNA Qual (PCR) NEGATIVE (Negative) SARS-CoV-2 RNA (RT-PCR) NEGATIVE (Negative) Independent Interpretation I performed an independent interpretation of an: EKG Interpretation: Sinus tachycardia, HR-121, no STEMI, UT/QRS/QTC is within normal limits. Radiology Impression Discussion of test interpretation with radiology: I have reviewed the radiologist's reading. Radiologist Impression: Please see the discussion above External Record Review External record reviewed: Outpatient record, Prior outpatient labs and Prior outpatient radiology Critical Care Time Critical Care Time Critical Care Time: Yes Total Critical Care Time: 30 Attestation: I personally attest to this time spent taking care of the patient. Discharge Plan Discharge Clinical Impression: Viral gastroenteritis Patient Disposition: Home, Self-Care Instructions: Gastroenteritis (ED), Nutrition Tips for Relief of Diarrhea (ED) Additional Instructions: 1. Resume all home medications as prescribed. 2. Stick to a bland diet, continue to drink plenty of water. 3. I have provided you with a prescription for antinausea medication. 4. Follow-up with primary care doctor. Return to the ER for any worsening symptoms. Prescriptions: New ondansetron 4 mg tablet,disintegrating 4 mg PO Q8H PRN (Reason: nausea and vomiting) 4 Days Qty: 7 0RF No Action escitalopram oxalate 20 mg tablet 20 mg PO DAILY Qty: 90 0RF omeprazole 40 mg capsule,delayed release(DR/EC) 40 mg PO DAILY Qty: 90 3RF clonazepam 0.5 mg tablet 0.5 mg PO BEDTIME PRN (Reason: Insomnia) Qty: 30 1RF multivitamin Tablet 1 tab PO DAILY Rx Instructions: ULTRA 360 cyclobenzaprine 5 mg tablet 5 mg PO TID PRN (Reason: muscle spasm) Qty: 10 0RF lidocaine 5 % adhesive patch,medicated 1 patch topical DAILY Qty: 15 0RF Rx Instructions: leave on most painful area for up to 12 hrs acetaminophen [Acetaminophen Extra Strength] 500 mg tablet 500 mg PO .Q8 PRN (Reason: pain) 5 Days Qty: 21 0RF fluticasone propionate [Flonase Allergy Relief] 50 mcg/actuation spray,suspension 2 spray intranasal DAILY Qty: 16 3RF Rx Instructions: administer into each nostril Probiotic 20 billion cell capsule 20,000 mmu cells PO DAILY Rx Instructions: administer with a meal (DME) blood pressure monitor Kit See Rx Instructions .ROUTE .MEDSUPPLY Qty: 1 0RF Rx Instructions: As directed benzonatate 200 mg capsule 200 mg PO BID-TID PRN (Reason: cough) Qty: 20 0RF vitamin b12 2,500 mcg tablet PO .QD cetirizine 10 mg tablet 10 mg PO DAILY PRN bupropion HCl 300 mg tablet extended release 24 hr 300 mg PO QAM 90 Days Qty: 90 1RF albuterol sulfate 90 mcg/actuation HFA aerosol inhaler 2 puff inhalation Q6H PRN (Reason: shortness of breath or wheezing) Qty: 6.7 0RF
--- NOTE | 2023-11-08 14:29 | ECG_ITS ---
Test Reason : TACHY Blood Pressure : / mmHG Vent. Rate : 121 BPM Atrial Rate : 121 BPM P-R Int : 170 ms QRS Dur : 096 ms QT Int : 308 ms P-R-T Axes : 038 000 028 degrees QTc Int : 437 ms Sinus tachycardia Minimal voltage criteria for LVH, may be normal variant ( R in aVL ) Borderline ECG When compared with ECG of 14-JUN-2021 06:37, Vent. rate has increased BY 46 BPM Referred By: Lori Selby Electronically Signed By:CRISTOBAL BESS MD
[2023-11-08 14:52] LABS: Hematocrit 48.8 % (42.0-52.0)
[2023-11-08 14:56] LABS: Hemoglobin 16.9 g/dl (14.0-18.0); Mean Corpuscular HGB Conc 34.6 g/dl (31.0-36.0); Mean Corpuscular Hemoglobin 30.1 pg (27.0-33.0); Mean Corpuscular Volume 86.8 fL (80.0-98.0); Mean Platelet Volume 9.7 fL (9.4-12.4); Platelet Count 252 X10*3/uL (160-400); Red Blood Count 5.62 X10*6/uL (4.60-5.80); Red Cell Distribution Width 12.8 % (11.0-16.0)
[2023-11-08 14:57] LABS: WBC ABN SCTR FOR CBC 1
[2023-11-08 14:58] LABS: White Blood Count 16.8 X10*3/uL (4.8-10.8)
[2023-11-08 15:11] LABS: Alanine Aminotransferase 34 U/L (0-40); Albumin Level 4.4 g/dL (3.5-5.0); Alkaline Phosphatase 74 U/L (39-117); Anion Gap 13 (12-20); Aspartate Amino Transferase 16 U/L (5-37); Bilirubin Total 1.1 mg/dL (0.0-1.0); Blood Urea Nitrogen 15 mg/dL (9-16); Calcium 8.8 mg/dL (8.4-10.2); Carbon Dioxide 26 mmol/L (22-29); Chloride 104 mmol/L (96-108); Estimated Glomerular Filt Rate > 60; Glucose Random 147 mg/dL (60-115); Lipase 12 U/L (8-78); Magnesium 1.7 mg/dL (1.6-2.6); Potassium 3.7 mmol/L (3.3-5.1); Sodium 139 mmol/L (135-145); Total Protein 7.1 g/dL (6.5-8.0)
[2023-11-08 15:16] LABS: Band Neutrophils Percent 3 % (3-5); Lymphocytes Absolute Manual 0.3 X10*3/uL (1.2-4.9); Lymphocytes Percent Manual 2 % (20-40); Monocytes Percent Manual 6 % (2-11); Neutrophils Absolute Manual 15.5 X10*3/uL (2.0-8.3); Neutrophils Percent Manual 89 % (45-73); Platelet Estimate NORMAL (NORMAL); Platelet Morphology Comment NORMAL; RBC Morphology NORMAL; Toxic Vacuolation PRESENT
[2023-11-08 15:28] LABS: Influenza A PCR NEGATIVE (Negative); Influenza B PCR NEGATIVE (Negative); Resp Syncy Virus RNA Qual PCR NEGATIVE (Negative); SARS COV2 PCR INHOUSE NEGATIVE (Negative)
[2023-11-08 16:49] VITALS: BP 130/83; PULSE 132; RESP 16; TEMP 36.8; O2SAT 98
[2023-11-08 18:18] VITALS: BP 128/85; PULSE 113; RESP 18; TEMP 37; O2SAT 96
[2023-11-08] MEDS: Ibuprofen 400 MG TABLET PO (18:29)
[2023-11-08] MEDS: Acetaminophen 325 MG TABLET 975 MG PO (18:30)
== END 2023-11-08 18:58 | disposition home or self-care (01) ==
PROVIDERS: Physician Assistant Medical; Emergency Provider Student in an Organized Health Care Education/Training Program
DX: A08.4 Viral intestinal infection, unspecified (principal); R11.2 Nausea with vomiting, unspecified; R19.7 Diarrhea, unspecified; R10.31 Right lower quadrant pain; R00.0 Tachycardia, unspecified; Z11.52 Encounter for screening for COVID-19; Z20.828 Contact with and (suspected) exposure to other viral communicable diseases; E78.00 Pure hypercholesterolemia, unspecified; Z90.49 Acquired absence of other specified parts of digestive tract; Z79.899 Other long term (current) drug therapy
CPT/HCPCS: 0241U; 36415; 74176; 80053; 83690; 83735; 85007; 85025; 85027; 93005; 99284; 99285

== ENCOUNTER → 2023-11-08 14:29 | Outpatient (BNV) | payer OTHER, SELFPAY | PROVIDERS: Emergency Provider Student in an Organized Health Care Education/Training Program; Visit Provider Internal Medicine Cardiovascular Disease | DX: R00.0 Tachycardia, unspecified (principal) | CPT/HCPCS: 93010 ==

== ENCOUNTER 2023-11-30 20:08 | Emergency (ER) | payer OTHER, SELFPAY ==
[2023-11-30 20:28] VITALS: BP 151/92; PULSE 102; RESP 14; TEMP 36.7; O2SAT 98; BMI 35.0
--- NOTE | 2023-11-30 20:37 | ED.GENADULT ---
HPI - General Adult General Chief complaint: General Medical Stated complaint: throat pain History of Present Illness HPI narrative: Left without completiont of treatment Related Data Home Medications Medication Instructions Recorded Confirmed lactobacillus comb no.10 20 20,000 mmu cells PO DAILY 12/27/20 10/28/22 billion cell capsule (Probiotic) cetirizine 10 mg tablet 10 mg PO DAILY PRN 10/13/22 10/28/22 multivitamin 1 tab PO DAILY 10/13/22 10/28/22 vitamin b12 PO .QD 10/13/22 10/28/22 Previous Rx's Medication Instructions Recorded blood pressure monitor #1 ea 12/27/20 fluticasone propionate 50 2 spray intranasal DAILY #16 grams 03/20/21 mcg/actuation nasal spray,suspension (Flonase Allergy Relief) albuterol sulfate 90 mcg/actuation 2 puff inhalation Q6H PRN 06/13/22 aerosol inhaler shortness of breath or wheezing #6.7 grams benzonatate 200 mg capsule 200 mg PO BID-TID PRN cough #20 08/05/22 caps bupropion HCl 300 mg 24 hr tablet, 300 mg PO QAM 90 days #90 tabs 10/13/22 extended release escitalopram oxalate 20 mg tablet 20 mg PO DAILY #90 tabs 11/17/22 omeprazole 40 mg capsule,delayed 40 mg PO DAILY #90 caps 12/20/22 release clonazepam 0.5 mg tablet 0.5 mg PO BEDTIME PRN Insomnia #30 12/28/22 tabs cyclobenzaprine 5 mg tablet 5 mg PO TID PRN muscle spasm #10 10/13/23 tabs lidocaine 5 % topical patch 1 patch topical DAILY #15 ea 10/13/23 acetaminophen 500 mg tablet 500 mg PO .Q8 PRN pain 5 days #21 10/18/23 (Acetaminophen Extra Strength) tabs ondansetron 4 mg disintegrating 4 mg PO Q8H PRN nausea and 11/08/23 tablet vomiting 4 days #7 tabs Allergies Allergy/AdvReac Type Severity Reaction Status Date / Time codeine Allergy Unknown Unknown Verified 11/30/23 20:28 [facility] Past Medical History Medical History Annual physical exam Chest pain Cough Acute sinus infection Annual physical exam Gastritis and duodenitis Colon cancer screening Generalized anxiety disorder Overweight (BMI 25.0-29.9) Allergic rhinitis Acute sinusitis Lightheaded Ingrown toenail Vertigo Cyst of epididymis Foreign body in lower extremity Obstructive sleep apnea Cervical disc disease Irritable bowel syndrome Vitamin D deficiency Obesity (BMI 30-39.9) Insomnia Anxiety and depression Hypercholesterolemia Wrist pain, right Surgical History Status post laparoscopic cholecystectomy History of laparoscopic cholecystectomy History of tonsillectomy Closed fracture distal radius and ulna Family History Family History Father Hypertension CVD (cardiovascular disease) S/P triple vessel bypass Mother Breast cancer Depression Anxiety CVD (cardiovascular disease) Hypertension Paternal Aunt Liver cancer Maternal Aunt Breast cancer Brother No problems noted. Sister In good health Other Mental health disorder Social History Social History Household Members: Family Housing: House Do you presently have visiting nurse or other home services: No Alcohol intake: current Alcohol intake frequency: holidays/special occasions only Patient Tobacco Use Status: Never used Tobacco e-Cigarette/Vaping Use: Never Used Second Hand Smoke Exposure: No Advance Directives: No Advance Directives Information Provided: No service: No Current occupational status: employed Cognitive needs: No Hearing needs: No Vision needs: Yes Physical Exam ED Vital Signs: Vital Signs - 24 hr 11/30/23 20:28 Temperature 98.0 F Pulse Rate 102 H Respiratory Rate 14 Blood Pressure 151/92 H Pulse Oximetry 98 Oxygen Delivery Method Room Air BMI result Body Mass Index 35.0 Course Course Course Narrative: RME: 47-year-old male presents to ED for sore throat and bilateral ear pain. SARs strep test ordered. Patient not in distress. Medical Decision Making Lab Data Labs: Lab Results 11/30/23 Range/Units 20:45 Influenza Type A (PCR) NEGATIVE (Negative) Influenza Type B (PCR) NEGATIVE (Negative) RSV RNA Qual (PCR) NEGATIVE (Negative) SARS-CoV-2 RNA (RT-PCR) NEGATIVE (Negative) S. pyogenes GrpA KIEL Negative (Negative) Discharge Plan Discharge Clinical Impression: Diagnosis unknown Patient Disposition: Left W/O Completing Treatment Prescriptions: No Action escitalopram oxalate 20 mg tablet 20 mg PO DAILY Qty: 90 0RF omeprazole 40 mg capsule,delayed release(DR/EC) 40 mg PO DAILY Qty: 90 3RF clonazepam 0.5 mg tablet 0.5 mg PO BEDTIME PRN (Reason: Insomnia) Qty: 30 1RF multivitamin Tablet 1 tab PO DAILY Rx Instructions: ULTRA 360 cyclobenzaprine 5 mg tablet 5 mg PO TID PRN (Reason: muscle spasm) Qty: 10 0RF lidocaine 5 % adhesive patch,medicated 1 patch topical DAILY Qty: 15 0RF Rx Instructions: leave on most painful area for up to 12 hrs acetaminophen [Acetaminophen Extra Strength] 500 mg tablet 500 mg PO .Q8 PRN (Reason: pain) 5 Days Qty: 21 0RF ondansetron 4 mg tablet,disintegrating 4 mg PO Q8H PRN (Reason: nausea and vomiting) 4 Days Qty: 7 0RF fluticasone propionate [Flonase Allergy Relief] 50 mcg/actuation spray,suspension 2 spray intranasal DAILY Qty: 16 3RF Rx Instructions: administer into each nostril Probiotic 20 billion cell capsule 20,000 mmu cells PO DAILY Rx Instructions: administer with a meal (DME) blood pressure monitor Kit See Rx Instructions .ROUTE .MEDSUPPLY Qty: 1 0RF Rx Instructions: As directed benzonatate 200 mg capsule 200 mg PO BID-TID PRN (Reason: cough) Qty: 20 0RF vitamin b12 2,500 mcg tablet PO .QD cetirizine 10 mg tablet 10 mg PO DAILY PRN bupropion HCl 300 mg tablet extended release 24 hr 300 mg PO QAM 90 Days Qty: 90 1RF albuterol sulfate 90 mcg/actuation HFA aerosol inhaler 2 puff inhalation Q6H PRN (Reason: shortness of breath or wheezing) Qty: 6.7 0RF Discharge Date/Time: 12/01/23 00:05
[2023-11-30 21:07] LABS: IDNOW Serial# 6674DD1D; Strep A Nucleic Acid Negative (Negative)
[2023-11-30 21:36] LABS: Influenza A PCR NEGATIVE (Negative); Influenza B PCR NEGATIVE (Negative); Resp Syncy Virus RNA Qual PCR NEGATIVE (Negative); SARS COV2 PCR INHOUSE NEGATIVE (Negative)
== END 2023-12-01 00:05 | disposition left against medical advice (07) ==
PROVIDERS: Emergency Provider Emergency Medicine
DX: Z53.21 Procedure and treatment not carried out due to patient leaving prior to being seen by health care provider (principal); R07.0 Pain in throat
CPT/HCPCS: 0241U; 87651; 99281; 99283

== ENCOUNTER 2024-02-10 16:00 | Outpatient (RCR) | payer OTHER, SELFPAY | END 2024-02-11 07:45 | disposition home or self-care (01) | LOC: HO.PTCHIC 16:00 | PROVIDERS: PCP Internal Medicine Infectious Disease; Visit Provider Physician Assistant Medical | DX: M54.2 Cervicalgia (principal); M54.6 Pain in thoracic spine; M54.50 Low back pain, unspecified | CPT/HCPCS: 97012; 97014; 97110; 97140; 97162 ==

== ENCOUNTER 2024-03-09 12:05 | Emergency (ER) | payer OTHER, SELFPAY ==
--- NOTE | ~2024-03-09 | XR_ITS ---
EXAMINATION: XR CHEST CLINICAL INFORMATION: Chest pain. COMPARISON: Chest radiograph 06/22/2020. TECHNIQUE: Frontal view of the chest was obtained. FINDINGS: No significant abnormality is noted involving the heart, lungs, mediastinum, bony thorax or soft tissues. XR/XR chest 1V IMPRESSION: Unremarkable examination.
--- NOTE | 2024-03-09 12:08 | ECG_ITS ---
Test Reason : chest pain Blood Pressure : / mmHG Vent. Rate : 080 BPM Atrial Rate : 080 BPM P-R Int : 180 ms QRS Dur : 102 ms QT Int : 376 ms P-R-T Axes : 038 -01 032 degrees QTc Int : 433 ms Normal sinus rhythm Minimal voltage criteria for LVH, may be normal variant ( R in aVL ) Borderline ECG When compared with ECG of 08-NOV-2023 14:41, Vent. rate has decreased BY 41 BPM Referred By: Eden Carter Electronically Signed By:Blair Ley
[2024-03-09 12:19] VITALS: BP 137/86; PULSE 84; RESP 18; TEMP 36.6; O2SAT 98; BMI 34.0
--- NOTE | 2024-03-09 12:19 | ED.GENADULT ---
HPI - General Adult General Chief complaint: Chest Pain Stated complaint: CHEST PAIN SOB Time Seen by Provider: 03/09/24 13:52 Source: patient Mode of arrival: ambulatory Limitations: no limitations History of Present Illness ED Provider: Dr. Yordy Chaney HPI narrative: 48-year-old male with a history of depression, anxiety, GERD who presents emergency department for evaluation of chest tightness. The patient states that he woke up this morning at 09:30 hours with a tightness in the center of his chest. He states the pain was initially 6.5/10 and at the time my evaluation the patient's pain improved to 3 0.5/10. The patient did take ibuprofen 400 mg orally at home. Is a constant tightness. Associated with diaphoresis and lightheadedness. He denied so breath, dyspnea on exertion, nausea, vomiting, radiation of the pain to his neck, jaw or arms. He states that he had a similar episode of pain about 2 years ago and it was secondary to stress and anxiety. Patient states he has been under increased stress since his nephew who was in his 40s had an accidental narcotic overdose 2-3 weeks prior. His nephew use mother and sister also overdosed 7 years prior which is been stressful on the patient as well. Patient states he does not exercise regularly but he does lot of walking at work and states he has had no chest pain with exertion or significant shortness of breath with exertion. He states that occasionally when he walks up a hill he does get winded. Patient has not had any lower extremity pain or swelling in his not gone on any long trips recently. Related Data Home Medications ?Medication ?Instructions ?Recorded ?Confirmed lactobacillus comb no.10 20 20,000 mmu cells PO DAILY 12/27/20 10/28/22 billion cell capsule (Probiotic) cetirizine 10 mg tablet 10 mg PO DAILY PRN 10/13/22 10/28/22 multivitamin 1 tab PO DAILY 10/13/22 10/28/22 vitamin b12 PO .QD 10/13/22 10/28/22 Previous Rx's ?Medication ?Instructions ?Recorded blood pressure monitor #1 ea 12/27/20 fluticasone propionate 50 2 spray intranasal DAILY #16 grams 03/20/21 mcg/actuation nasal spray,suspension (Flonase Allergy Relief) albuterol sulfate 90 mcg/actuation 2 puff inhalation Q6H PRN 06/13/22 aerosol inhaler shortness of breath or wheezing #6.7 grams benzonatate 200 mg capsule 200 mg PO BID-TID PRN cough #20 08/05/22 caps bupropion HCl 300 mg 24 hr tablet, 300 mg PO QAM 90 days #90 tabs 10/13/22 extended release escitalopram oxalate 20 mg tablet 20 mg PO DAILY #90 tabs 11/17/22 omeprazole 40 mg capsule,delayed 40 mg PO DAILY #90 caps 12/20/22 release clonazepam 0.5 mg tablet 0.5 mg PO BEDTIME PRN Insomnia #30 12/28/22 tabs cyclobenzaprine 5 mg tablet 5 mg PO TID PRN muscle spasm #10 10/13/23 tabs lidocaine 5 % topical patch 1 patch topical DAILY #15 ea 10/13/23 acetaminophen 500 mg tablet 500 mg PO .Q8 PRN pain 5 days #21 10/18/23 (Acetaminophen Extra Strength) tabs ondansetron 4 mg disintegrating 4 mg PO Q8H PRN nausea and 11/08/23 tablet vomiting 4 days #7 tabs Allergies Allergy/AdvReac Type Severity Reaction Status Date / Time codeine Allergy Unknown Unknown Verified 03/09/24 12:21 Review of Systems Review of Systems: Yes all other systems are reviewed and are negative [facility] Past Medical History [facility] Narrative: Social history: Patient has had no history of previous tobacco use or current tobacco use. 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 He denies drug use. Medical History Annual physical exam Chest pain Cough Acute sinus infection Annual physical exam Gastritis and duodenitis Colon cancer screening Generalized anxiety disorder Overweight (BMI 25.0-29.9) Allergic rhinitis Acute sinusitis Lightheaded Ingrown toenail Vertigo Cyst of epididymis Foreign body in lower extremity Obstructive sleep apnea Cervical disc disease Irritable bowel syndrome Vitamin D deficiency Obesity (BMI 30-39.9) Insomnia Anxiety and depression Hypercholesterolemia Wrist pain, right Surgical History Status post laparoscopic cholecystectomy History of laparoscopic cholecystectomy History of tonsillectomy Closed fracture distal radius and ulna Family History Family History Father Hypertension CVD (cardiovascular disease) S/P triple vessel bypass Mother Breast cancer Depression Anxiety CVD (cardiovascular disease) Hypertension Paternal Aunt Liver cancer Maternal Aunt Breast cancer Brother No problems noted. Sister In good health Other Mental health disorder Social History Social History Household Members: Family Housing: House Do you presently have visiting nurse or other home services: No Alcohol intake: current Alcohol intake frequency: holidays/special occasions only Patient Tobacco Use Status: Never used Tobacco Smoked in Last 30 Days: No e-Cigarette/Vaping Use: Never Used Second Hand Smoke Exposure: No Advance Directives: No Advance Directives Information Provided: Yes service: No Current occupational status: employed Cognitive needs: No Hearing needs: No Vision needs: Yes Physical Exam ED Vital Signs: Vital Signs - 24 hr 03/09/24 12:19 03/09/24 13:58 Temperature 97.9 F 98.2 F Pulse Rate 84 77 Respiratory Rate 18 20 Blood Pressure 137/86 132/92 H Pulse Oximetry 98 99 Oxygen Delivery Method Room Air Room Air BMI result Body Mass Index 34.0 Vital signs were normal except for an elevated blood pressure of 137/86. Exam: General: Awake, alert in no distress Head: Normocephalic, atraumatic EENT: PERRL, Lids normal, sclera normal, conjunctiva normal, nose normal , ears normal, throat without erythema or exudates Neck: Supple, no adenopathy Lung: breath sounds symmetric, no wheezing, rales or rhonchi Chest: symmetric movement, nontender Heart: regular rate and rhythm, normal S1, S2 no murmurs or rubs Abdomen: soft, non-tender, nondistended, normal bowel sounds Back: no vertebral tenderness, no CVAT Extremities: no deformities, moves all extremities symmetrically Neuro: Awake, alert, oriented, normal speech, cranial nerves intact, moves all extremities symmetrically Psych: Pleasant, cooperative Course Course Course Narrative: This is an RME done by ELIZ Carter: Additional HPI, ROS, PE not included below will be deferred to primary provider. 48 year old male hx of obeisty, hld, gerd, anxiety presents w/ cp w/ radiation into back since this morning. Pain is constant in nautre and he describes it as a tightening ,Reports pain is 6/10. Denies n/v, jaw pain, abd pain, numbness, tingling, fevers, chills, URI sx. Medical Decision Making Medical Decision Making [facility] Narrative: 48-year-old male with a history of depression, anxiety, GERD who presents emergency department for evaluation of chest tightness. The patient states that he woke up this morning at 09:30 hours with a tightness in the center of his chest which she has been constant for at least 5 hours. The pain was associated with diaphoresis and lightheadedness, had no nausea, vomiting, radiation of the pain. He did take 400 mg of ibuprofen at home and his pain improved from 6.5/10 to 4.5/10 at the time of my evaluation. Patient had no reported dyspnea on exertion or chest pain with exertion. Patient's vital signs did reveal an elevated blood pressure otherwise was unremarkable. Differential diagnosis: ?Includes but is not limited to myocardial infarction, myocardial ischemia, pulmonary embolism, costochondritis, chest wall pain, anxiety, stress, anemia, electrolyte abnormalities Following evaluation was ordered: CBC, CMP, troponin, magnesium, PT/INR, BNP, chest x-ray one view, 12 EKG Course: 14:55 My interpretation patient's laboratory evaluation as follows: CBC was normal. CMP did reveal an elevated glucose of 142. High sensitive troponin I was below detectable limits (patient had approximately 3 hours of chest pain prior to this test). BNP was normal. Magnesium was normal. PT/INR was normal. Given the patient's 3 hours of constant chest pain and his negative workup especially his troponin which was below detectable limits I do not think that this pain is caused by myocardial infarction or myocardial injury. I did discuss this with the patient and the patient's pain is most likely caused by musculoskeletal/joint pain and may also be stress related. Patient was advised to take ibuprofen 40 mg every 6 hours as needed for pain. He was given printed and verbal instructions. Admission/Observation Consideration of admission/observation: Escalation of care including admission/observation considered Lab Data [facility] Lab Attestation statement: I reviewed the patient's lab results. 03/09/24 12:29 03/09/24 12:30 Labs: Lab Results 03/09/24 03/09/24 Range/Units 12:29 12:30 WBC 4.9 (4.8-10.8) X10*3/uL RBC 5.37 (4.60-5.80) X10*6/uL Hgb 15.7 (14.0-18.0) g/dl Hct 47.0 (42.0-52.0) % MCV 87.5 (80.0-98.0) fL MCH 29.2 (27.0-33.0) pg MCHC 33.4 (31.0-36.0) g/dl RDW 12.7 (11.0-16.0) % Plt Count 228 (160-400) X10*3/uL MPV 9.6 (9.4-12.4) fL Immature Gran % (Auto) 0.4 (0.0-0.4) % Neut % (Auto) 64.0 (45-73) % Lymph % (Auto) 26.3 (20-40) % [place] % (Auto) 5.6 (2-11) % Eos % (Auto) 2.9 (0-4) % Baso % (Auto) 0.8 (0-2) % Lymph # (Auto) 1.3 (1.2-4.9) X10*3/uL [place] # (Auto) 0.3 (0.1-1.2) X10*3/uL Eos # (Auto) 0.1 (0.0-0.4) X10*3/uL Baso # (Auto) 0.0 (0.0-0.2) X10*3/uL Abs Immat Gran (auto) 0.02 (0.00-0.03) X10*3/uL Absolute Neuts (auto) 3.1 (2.0-8.3) x10*3/uL Absolute Nucleated RBC 0.000 (0.0-0.012) X10*3/uL Nucleated RBC % (auto) 0.0 (0.0-0.2) /100WBC PT 11.6 (11.1-13.3) SEC INR 1.0 (0.9-1.1) Sodium 140 (135-145) mmol/L Potassium 4.2 (3.3-5.1) mmol/L Chloride 106 (96-108) mmol/L Carbon Dioxide 29 (22-29) mmol/L Anion Gap 9 L (12-20) BUN 11 (9-16) mg/dL Creatinine 0.98 (0.5-1.4) mg/dL Estim Creat Clear Calc 116.6 Estimated GFR > 60 Random Glucose 142 H (60-115) mg/dL Calcium 9.2 (8.4-10.2) mg/dL Magnesium 1.9 (1.6-2.6) mg/dL Total Bilirubin 0.9 (0.0-1.0) mg/dL AST 20 (5-37) U/L ALT 39 (0-40) U/L Alkaline Phosphatase 68 (39-117) U/L Troponin I High Sens < 2.7 (<3.5-35.0) ng/L B-Natriuretic Peptide 17 (<100) pg/mL Total Protein 7.0 (6.5-8.0) g/dL Albumin 4.4 (3.5-5.0) g/dL Independent Interpretation I performed an independent interpretation of an: EKG and Plain X-Ray Interpretation: My independent interpretation patient's one-view chest x-ray is as follows: No acute disease My independent interpretation of the patient's 12 EKG done at 12:20 hours is as follows: Normal sinus rhythm rate of 80, normal [place] interval, prolonged QRS of 102 milliseconds, normal QTC of [address] segment elevation, no ST segment depression, no Q-waves, no significant T-wave abnormalities, no PACs, no PVCs increased QRS complexes lead 1 and V1 through V5 consistent with LVH Radiology Impression Discussion of test interpretation with radiology: I have reviewed the radiologist's reading. Radiologist Impression: XR chest 1V IMPRESSION: Unremarkable examination. Dictated By: Susan Patrick Chronic Conditions Patient?s care impacted by: Other (Depression/anxiety) Discharge Plan Discharge Clinical Impression: Chest pain Patient Disposition: Home, Self-Care Instructions: Chest Pain (ED) Additional Instructions: You had a CBC (complete blood count) and CMP ( comprehensive metabolic panel) which were normal Your high sensitivity troponin (a marker of heart damage/heart) was below detectable limits which is reassuring Your chest x-ray was normal. Your EKG did not reveal any evidence for heart attack or heart ischemia (he has your heart not getting enough blood). At this time I do not think that your pain is due to heart pain. Heart pain is often more associated with pain with exertion or shortness of breath with exertion which then resolve with rest. If you start to get these symptoms then I would want you to return to the emergency department for re-evaluation. Take ibuprofen 200 mg pills, 2 pills every 6 hours as needed for pain Follow-up with your doctor in 2 days. Please return to the emergency department if your symptoms get worse or if you develop any symptoms that are concerning to you. Prescriptions: No Action escitalopram oxalate 20 mg tablet 20 mg PO DAILY Qty: 90 0RF omeprazole 40 mg capsule,delayed release(DR/EC) 40 mg PO DAILY Qty: 90 3RF clonazepam 0.5 mg tablet 0.5 mg PO BEDTIME PRN (Reason: Insomnia) Qty: 30 1RF multivitamin Tablet 1 tab PO DAILY Rx Instructions: ULTRA 360 cyclobenzaprine 5 mg tablet 5 mg PO TID PRN (Reason: muscle spasm) Qty: 10 0RF lidocaine 5 % adhesive patch,medicated 1 patch topical DAILY Qty: 15 0RF Rx Instructions: leave on most painful area for up to 12 hrs acetaminophen [Acetaminophen Extra Strength] 500 mg tablet 500 mg PO .Q8 PRN (Reason: pain) 5 Days Qty: 21 0RF ondansetron 4 mg tablet,disintegrating 4 mg PO Q8H PRN (Reason: nausea and vomiting) 4 Days Qty: 7 0RF fluticasone propionate [Flonase Allergy Relief] 50 mcg/actuation spray,suspension 2 spray intranasal DAILY Qty: 16 3RF Rx Instructions: administer into each nostril Probiotic 20 billion cell capsule 20,000 mmu cells PO DAILY Rx Instructions: administer with a meal (DME) blood pressure monitor Kit See Rx Instructions .ROUTE .MEDSUPPLY Qty: 1 0RF Rx Instructions: As directed benzonatate 200 mg capsule 200 mg PO BID-TID PRN (Reason: cough) Qty: 20 0RF vitamin b12 2,500 mcg tablet PO .QD cetirizine 10 mg tablet 10 mg PO DAILY PRN bupropion HCl 300 mg tablet extended release 24 hr 300 mg PO QAM 90 Days Qty: 90 1RF albuterol sulfate 90 mcg/actuation HFA aerosol inhaler 2 puff inhalation Q6H PRN (Reason: shortness of breath or wheezing) Qty: 6.7 0RF Print Language: Colombian
[2024-03-09 12:34] LABS: MANUAL DIFF FLAG NO
[2024-03-09 12:36] LABS: Basophils Percent Auto 0.8 % (0-2); Eosinophils Absolute Auto 0.1 X10*3/uL (0.0-0.4); Eosinophils Percent Auto 2.9 % (0-4); Hemoglobin 15.7 g/dl (14.0-18.0); Imm Gran Abs Auto 0.02 X10*3/uL (0.00-0.03); Imm Gran Pct Auto 0.4 % (0.0-0.4); Lymphocytes Absolute Auto 1.3 X10*3/uL (1.2-4.9); Lymphocytes Percent Auto 26.3 % (20-40); Mean Corpuscular HGB Conc 33.4 g/dl (31.0-36.0); Mean Corpuscular Hemoglobin 29.2 pg (27.0-33.0); Mean Corpuscular Volume 87.5 fL (80.0-98.0); Mean Platelet Volume 9.6 fL (9.4-12.4); Monocytes Absolute Auto 0.3 X10*3/uL (0.1-1.2); Monocytes Percent Auto 5.6 % (2-11); Neutrophils Absolute Auto 3.1 x10*3/uL (2.0-8.3); Platelet Count 228 X10*3/uL (160-400); Red Blood Count 5.37 X10*6/uL (4.60-5.80); Red Cell Distribution Width 12.7 % (11.0-16.0); White Blood Count 4.9 X10*3/uL (4.8-10.8)
[2024-03-09 12:50] LABS: Alanine Aminotransferase 39 U/L (0-40); Albumin Level 4.4 g/dL (3.5-5.0); Alkaline Phosphatase 68 U/L (39-117); Anion Gap 9 (12-20); Aspartate Amino Transferase 20 U/L (5-37); Bilirubin Total 0.9 mg/dL (0.0-1.0); Blood Urea Nitrogen 11 mg/dL (9-16); Calcium 9.2 mg/dL (8.4-10.2); Carbon Dioxide 29 mmol/L (22-29); Chloride 106 mmol/L (96-108); Creatinine Clr Calc Pharmacy 116.6; Estimated Glomerular Filt Rate > 60; Glucose Random 142 mg/dL (60-115); Magnesium 1.9 mg/dL (1.6-2.6); Potassium 4.2 mmol/L (3.3-5.1); Sodium 140 mmol/L (135-145)
[2024-03-09 12:56] LABS: B Type Natriuretic Peptide 17 pg/mL (<100)
[2024-03-09 12:57] LABS: Prothrombin Time 11.6 SEC (11.1-13.3)
[2024-03-09 12:59] LABS: Troponin-I High Sensitivity < 2.7 ng/L (<3.5-35.0)
[2024-03-09 13:58] VITALS: BP 132/92; PULSE 77; RESP 20; TEMP 36.8; O2SAT 99
[2024-03-09 14:07] VITALS: PULSE 78
--- NOTE | 2024-03-09 14:12 | PC.NURSE ---
Pt a/ox4, cp started this morning around 9-10 am with 4/10 pain that radiates mid sternal to back that feels like pressure and tightness. Denies dizziness, headache, n/v/d. Pt states he was SOB when this started. New stressors in life, recent family . Pt reporting he moved bedroom dresser yesterday less than 6 inches across the room, potential for muscular pull. Lung sounds cta bilat, S1 and S2 heard, abdomen soft, non-tender. Pt placed on electronic device monitor, normal sinus at this time. Awaiting further orders, call mccall within reach.
[2024-03-09 15:02] VITALS: BP 134/90; PULSE 72; RESP 19; TEMP 36.7; O2SAT 98
== END 2024-03-09 15:03 | disposition home or self-care (01) ==
PROVIDERS: Physician Assistant; Emergency Provider Emergency Medicine Emergency Medical Services
DX: R07.89 Other chest pain (principal); R06.02 Shortness of breath; Z79.899 Other long term (current) drug therapy
CPT/HCPCS: 36415; 71045; 80053; 83735; 83880; 84484; 85025; 85610; 93005; 99283; 99285

== ENCOUNTER → 2024-03-09 12:08 | Outpatient (BNV) | payer OTHER, SELFPAY | PROVIDERS: Emergency Provider Emergency Medicine Emergency Medical Services; Visit Provider Internal Medicine Cardiovascular Disease | DX: R07.9 Chest pain, unspecified (principal); R94.31 Abnormal electrocardiogram [ECG] [EKG] | CPT/HCPCS: 93010 ==

== ENCOUNTER 2024-05-31 12:38 | Outpatient (REF) | payer OTHER, SELFPAY ==
[2024-06-01 04:54] LABS: HBS Num1 86.83 mIU/mL (0-7.99); ~Hepatitis B Surface Antibody REACTIVE (Nonreactive)
[2024-06-01 13:39] LABS: Varicella IgG Antibody >4000.00 index
[2024-06-02 15:48] LABS: Rubella IgG Antibody 7.81 Index; Rubeola IgG (Measles) >300.00 AU/mL
[2024-06-03 09:12] LABS: TS Negative Control Passed; TS Panel A 0; TS Panel B 0; TS Positive Control Passed; TSpotTB Negative (Negative)
== END 2024-05-31 12:39 | disposition home or self-care (01) ==
LOC: HO.LNP 12:38
PROVIDERS: Visit Provider Internal Medicine
DX: Z02.1 Encounter for pre-employment examination (principal)
CPT/HCPCS: 86481; 86706; 86735; 86762; 86765; 86787

== ENCOUNTER 2024-06-02 10:06 | Outpatient (AMB) | payer OTHER, SELFPAY ==
[2024-06-02 10:10] VITALS: BP 130/80; PULSE 120; O2SAT 98; BMI 34.0
--- NOTE | 2024-06-02 10:10 | MHC.OFFWIV ---
Intake Vital Signs 06/02/24 10:10 Height 5 ft 11 in Weight 244 lb BMI 34.0 BP 130/80 Blood Pressure Location Lt brachial Position Sitting Pulse 120 H Pulse Source Pulse Oximeter Pulse Oximetry (%) 98 Oxygen Delivery Method Room Air Intake Visit Reasons: EP-swollen button lip/pain Intake Note: Patient here for swollen bottom lip which has been present for a couple of days. Patient Tobacco Use Status: Never used Tobacco Allergies codeine Allergy (Unknown, Verified 06/02/24 10:15) Unknown Do you need a note to return to daycare/school/sports/work: No HPI HPI Comments History of Present Illness Details 48 y/o male patient who presents to the walk in clinic with c/o lower/bottom lip swelling and redness. He noticed the swelling ~ 2 weeks ago, and thinks it might be getting worse. He has been treating the area with Abreva OTC and rubbing Alcohol with no improvement. Denies facial swelling or Tongue. Denies fevers or chills. Denies any changes to his diet, medications or cosmetic products. The bottom lip is tender and swollen. [facility] Medical History Annual physical exam Chest pain Cough Acute sinus infection Annual physical exam Gastritis and duodenitis Colon cancer screening Generalized anxiety disorder Overweight (BMI 25.0-29.9) Allergic rhinitis Acute sinusitis Lightheaded Ingrown toenail Vertigo Cyst of epididymis Foreign body in lower extremity Obstructive sleep apnea Cervical disc disease Irritable bowel syndrome Vitamin D deficiency Obesity (BMI 30-39.9) Insomnia Anxiety and depression Hypercholesterolemia Wrist pain, right Surgical History Status post laparoscopic cholecystectomy History of laparoscopic cholecystectomy History of tonsillectomy Closed fracture distal radius and ulna Family History Father Hypertension CVD (cardiovascular disease) S/P triple vessel bypass Mother Breast cancer Depression Anxiety CVD (cardiovascular disease) Hypertension Paternal Aunt Liver cancer Maternal Aunt Breast cancer Brother No problems noted. Sister In good health Other Mental health disorder Social History Household Members: Family Housing: House Do you presently have visiting nurse or other home services: No Alcohol intake: current Alcohol intake frequency: holidays/special occasions only Patient Tobacco Use Status: Never used Tobacco e-Cigarette/Vaping Use: Never Used Second Hand Smoke Exposure: No service: No Current occupational status: employed Cognitive needs: No Hearing needs: No Vision needs: Yes Review of Systems Const All systems reviewed & are unremarkable except as noted in HPI and below Physical Exam Vital Signs: Last Vital Signs Pulse 120 H 06/02/24 10:10 BP 130/80 06/02/24 10:10 Pulse Ox 98 06/02/24 10:10 Oxygen Delivery Method Room Air 06/02/24 10:10 BMI result Body Mass Index 34.0 Const Orientation/consciousness: patient oriented x3 HEENT Head: Yes normocephalic Nose image: 1. Swelling and redness, tender to touch, dry and no drainage. Face and sinus: Yes sinuses nontender and Yes erythema Mouth: tongue normal and moist mucous membranes Teeth and gingiva: dentures Throat: Yes postnasal drainage Resp Effort & Inspection: normal respiratory effort Auscultation: clear to auscultation bilaterally Cardio Heart sounds: S1 normal heart sound present and S2 normal heart sound present Neuro General: patient oriented x3, gait normal and moves all extremities Psych Speech and movement: Normal speech and movement present Assessment & Plan Assessment & Plan (1) Oral cellulitis: Code(s): K12.2 - Cellulitis and abscess of mouth Plan: Will treat as Cellulitis for now, ordered Keflex Ordered Prednisone for swelling RTC if develops facial, tongue and mouth swelling. Medications: New cephalexin 500 mg PO BID 7 days 14 caps 0RF K12.2 - Cellulitis and abscess of mouth prednisone 50 mg PO DAILY 5 days 5 tabs 0RF K12.2 - Cellulitis and abscess of mouth Coding Level of Care Code Est Pt Level 3 (70266) Diagnoses Oral cellulitis K12.2 Time Spent (min) 15
== END 2024-06-02 10:50 | disposition home or self-care (01) ==
PROVIDERS: Visit Provider Nurse Practitioner Family
DX: K12.2 Cellulitis and abscess of mouth (principal)
CPT/HCPCS: 99213

== ENCOUNTER 2024-06-30 12:33 | Outpatient (AMB) | payer OTHER, SELFPAY ==
--- NOTE | 2024-06-30 12:36 | MHC.OFFWIV ---
Intake Vital Signs 06/30/24 12:38 Height 5 ft 11 in Weight 248 lb BMI 34.6 BP 120/82 Blood Pressure Location Rt brachial Position Sitting Pulse 104 H Pulse Source Pulse Oximeter Pulse Oximetry (%) 98 Oxygen Delivery Method Room Air Intake Visit Reasons: EP Stomach (feeling on fire) Intake Note: Patient here for fire sensation in stomach, he did mention he does not currently have a pcp so he is unable to get his regular meds. He would also like to talk about a cough that has been present on and off for a few weeks. Patient Tobacco Use Status: Never used Tobacco Allergies codeine Allergy (Unknown, Verified 06/02/24 10:15) Unknown Do you need a note to return to daycare/school/sports/work: Yes HPI EP Stomach (feeling on fire) HPI Details This note is constructed using voice recognition software. While every effort has been made to ensure accuracy, pension examiner errors may have been included. The patient is a 48 year old male who presents to the clinic today with fire sensation in his abdomen as well as cough for the past 3-4 weeks since rapidly stopping his omeprazole. He stopped his omeprazole because of a primary care change and not having access to a prescriber. He recently started working for the hospital and has obtained the insurance here, as well as signed up for a new primary care provider. He reports having a history of the gallbladder being removed several years ago. He denies fever, chills, nausea, vomiting. REPLACED BY [facility] Medical History Annual physical exam Chest pain Cough Acute sinus infection Annual physical exam Gastritis and duodenitis Colon cancer screening Generalized anxiety disorder Overweight (BMI 25.0-29.9) Allergic rhinitis Acute sinusitis Lightheaded Ingrown toenail Vertigo Cyst of epididymis Foreign body in lower extremity Obstructive sleep apnea Cervical disc disease Irritable bowel syndrome Vitamin D deficiency Obesity (BMI 30-39.9) Insomnia Anxiety and depression Hypercholesterolemia Wrist pain, right Surgical History Status post laparoscopic cholecystectomy History of laparoscopic cholecystectomy History of tonsillectomy Closed fracture distal radius and ulna Family History Father Hypertension CVD (cardiovascular disease) S/P triple vessel bypass Mother Breast cancer Depression Anxiety CVD (cardiovascular disease) Hypertension Paternal Aunt Liver cancer Maternal Aunt Breast cancer Brother No problems noted. Sister In good health Other Mental health disorder Social History Household Members: Family Housing: House Do you presently have visiting nurse or other home services: No Alcohol intake: current Alcohol intake frequency: holidays/special occasions only Patient Tobacco Use Status: Never used Tobacco e-Cigarette/Vaping Use: Never Used Second Hand Smoke Exposure: No service: No Current occupational status: employed Cognitive needs: No Hearing needs: No Vision needs: Yes Review of Systems Const All systems reviewed & are unremarkable except as noted in HPI and below Physical Exam Vital Signs: Last Vital Signs Pulse 104 H 06/30/24 12:38 BP 120/82 06/30/24 12:38 Pulse Ox 98 06/30/24 12:38 Oxygen Delivery Method Room Air 06/30/24 12:38 BMI result Body Mass Index 34.6 Const General: cooperative, healthy appearing, comfortable, no acute distress and alert Orientation/consciousness: patient oriented x3 Limitations: no limitations HEENT Head: Yes normal to inspection and Yes normocephalic Ears: hearing grossly normal bilaterally General nose exam: Normal external nose present Face and sinus: Yes normal facial exam and Yes sinuses nontender Mouth: Normal oral and palatal mucosa present and tongue normal Teeth and gingiva: dentition normal Throat: Yes posterior oropharynx normal Eyes General: appearance normal, both eyes and all related structures Neck Neck: Yes normal visual inspection, Yes full ROM and Yes no lymphadenopathy Resp Effort & Inspection: normal respiratory effort and able to speak in complete sentences Auscultation: clear to auscultation bilaterally Cardio Jugular venous distension: no JVD Palpation: normal PMI Rate: regular rate Heart sounds: S1 normal heart sound present, S2 normal heart sound present, no click, no gallops, no murmurs and no rubs Bruits: no abdominal aortic bruits GI Inspection: Yes normal to inspection Palpation (GI): No Abdominal aortic bruit present, Soft to palpation and Tenderness to palpation present (GI) in the epigastrum (Mild) Percussion: Yes normal to percussion Auscultation: normal bowel sounds Skin General skin exam: no rashes or lesions noted, elasticity normal and turgor normal Neuro General: patient oriented x3 Psych Appearance: grossly normal Mental Status: mental status grossly normal Speech and movement: Normal speech and movement present Affect: normal affect Assessment & Plan Assessment & Plan (1) GERD (gastroesophageal reflux disease): Code(s): K21.9 - Gastro-esophageal reflux disease without esophagitis Qualifiers: Esophagitis presence: with esophagitis Esophagitis bleeding: without hemorrhage Qualified Code(s): K21.00 - Gastro-esophageal reflux disease with esophagitis, without bleeding Plan: History and physical examination consistent with ongoing GERD, likely worsened by sudden cessation of PPI. Cough likely also related given lack of coordinating symptoms of any URI. We will restart his omeprazole, and advised him to follow up with his new primary care in terms of ongoing monitoring of his symptoms. Advised patient that should he have any instances where he is running out of his omeprazole, that this is a medication he may also obtain [id number]. Plan See above for full details and plan. Medications: Refilled omeprazole 40 mg PO DAILY 30 caps 0RF K21.9 - Gastro-esophageal reflux disease without esophagitis Coding Level of Care Code Est Pt Level 3 (76836) Diagnoses Gastroesophageal reflux disease without esophagitis K21.00 Esophagitis presence: with esophagitis Esophagitis bleeding: without hemorrhage
[2024-06-30 12:38] VITALS: BP 120/82; PULSE 104; O2SAT 98; BMI 34.6
== END 2024-06-30 12:58 | disposition home or self-care (01) ==
PROVIDERS: Visit Provider Registered Nurse
DX: K21.00 Gastro-esophageal reflux disease with esophagitis, without bleeding (principal)

== ENCOUNTER → 2024-06-30 12:33 | Outpatient (BNVA) | payer OTHER, SELFPAY | PROVIDERS: Visit Provider Registered Nurse ==

== ENCOUNTER 2024-07-18 15:32 | Outpatient (AMB) | payer OTHER, SELFPAY ==
--- NOTE | 2024-07-18 15:43 | MHC.PC.OV ---
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 Intake Note: New patient visit Literacy Specialist Required: No Allergies codeine Allergy (Unknown, Verified 07/18/24 15:43) Unknown Tobacco use date assessed: 07/18/24 Dental Screening Dental Screen Date: 07/18/24 Did you have a dental visit in the last 12 months?: No Did you have a dental problem in the last 6 months where you did not have access to dental care?: No Was dental information given to patient?: Patient declined HPI HPI Comments History of Present Illness Details 48 year old male with pmhx hypertension, hyperlipidemia, vitamin B12 deficiency, fatty liver, GERD generalized anxiety disorder presenting to [facility]-internal transfer Depression/anxiety: feels less than optimal control of symptoms. Currently not on any medications. Tells me he has tried multiple SSRIs in the past. Is having significant trouble sleeping through the night. GI: GERD, fatty liver. Very PPI dependent. Still getting some break through symptoms on the medication ROS see HPI PHYSICAL EXAM: GENERAL: Alert and oriented x 3. NAD EYES: EOMI. Anicteric. HENT: Moist mucous membranes. No scleral icterus. No cervical lymphadenopathy. LUNGS: Clear to auscultation bilaterally. CARDIOVASCULAR: Regular rate and rhythm. No murmur. No JVD. ABDOMEN: Soft, non-tender +bs EXTREMITIES: No edema. Non-tender. SKIN: No rashes or lesions. Warm. NEUROLOGIC: No focal neurological deficits. CN II-XII grossly intact PSYCHIATRIC: Cooperative. Appropriate mood and affect [facility] Medical History Annual physical exam Chest pain Cough Acute sinus infection Annual physical exam Gastritis and duodenitis Colon cancer screening Generalized anxiety disorder Overweight (BMI 25.0-29.9) Allergic rhinitis Acute sinusitis Lightheaded Ingrown toenail Vertigo Cyst of epididymis Foreign body in lower extremity Obstructive sleep apnea Cervical disc disease Irritable bowel syndrome Vitamin D deficiency Obesity (BMI 30-39.9) Insomnia Anxiety and depression Hypercholesterolemia Wrist pain, right Surgical History Status post laparoscopic cholecystectomy History of laparoscopic cholecystectomy History of tonsillectomy Closed fracture distal radius and ulna Family History Father Hypertension CVD (cardiovascular disease) S/P triple vessel bypass Mother Breast cancer Depression Anxiety CVD (cardiovascular disease) Hypertension Paternal Aunt Liver cancer Maternal Aunt Breast cancer Brother No problems noted. Sister In good health Other Mental health disorder Social History Household Members: Family Housing: House Do you presently have visiting nurse or other home services: No Alcohol intake: current Alcohol intake frequency: holidays/special occasions only Patient Tobacco Use Status: Never used Tobacco e-Cigarette/Vaping Use: Never Used Second Hand Smoke Exposure: No service: No Current occupational status: employed Cognitive needs: No Hearing needs: No Vision needs: Yes Questionnaire PHQ-9 Over the last 2 weeks, how often have you been bothered by any of the following problems? 1. Little interest or pleasure in doing things: more than half the days 2. Feeling down, depressed, or hopeless: more than half the days 3. Trouble falling or staying asleep, or sleeping too much: more than half the days 4. Feeling tired or having little energy: more than half the days 5. Poor appetite or overeating: more than half the days 6. Feeling bad about yourself - or that you are a failure or have let yourself or your family down: more than half the days 7. Trouble concentrating on things, such as reading the newspaper or watching television: more than half the days 8. Moving or speaking so slowly that other people could have noticed. Or the opposite - being so fidgety or restless that you have been moving around a lot more than usual: more than half the days 9. Thoughts that you would be better off or of hurting yourself in some way: several days Total score: 17 Depression Screening Interpretation: Positive Depression Screening Follow-up: New Medication prescribed and Community Mental Health Worker F/U Depression Screening Done: Yes 81004 - PHQ-9 Billing: Yes Source: Developed by Drs. Salvatore Art, Eduardo Mondragon and colleagues, with an educational chantel from [employer] Thrive Questionnaire Date Thrive assessed: 07/15/24 I am a: Patient What is your living situation today?: I have a steady place to live Within the past 12 months, did the food you bought not last and you didn't have the money to get more?: Sometimes True Within the past 12 months, did you worry whether your food would run out before you got money to buy more?: Never true Do you have trouble paying for medicines?: No Do you have trouble getting transportation to medical appointments?: No Do you have trouble paying your heating and electricity bill?: No Do you have trouble taking care of your child, family member or friend?: No Do you have trouble with day-to-day activities such as bathing, preparing meals, shopping, managing finances, etc.?: No Are you currently unemployed and looking for a job?: No Are you interested in more education?: No Please select the resources that you would like help with: None Currently or been in a relationship where the following occur: I choose not to answer THRIVE Score: 1 AUDIT C Alcohol Use Questionnaire (AUDIT-C) 1. How often do you have a drink containing alcohol?: Monthly or less 2. How many drinks containing alcohol do you have on a typical day when you are drinking?: 1 or 2 3. How often do you have six or more drinks on one occasion?: Never Total Score: 1 JAE-7 AMB Questionnaire JAE-7 Date JAE - 7 assessed: 07/18/24 Feeling nervous, anxious, or on edge: 3 = Nearly every day Not being able to stop or control worryin = Nearly every day Worrying too much about different things: 3 = Nearly every day Trouble relaxin = Nearly every day Being so restless that it is hard to sit still: 3 = Nearly every day Becoming easily annoyed or irritable: 0 = Not at all Feeling afraid as if something awful might happen: 3 = Nearly every day Total JAE-7 score (0-4 normal; 5-9 mild; 10-14 moderate; 15-21 severe): 18 Source: Developed by Drs. Salvatore Art, Eduardo Mondragon and colleagues, with an educational chantel from [employer] JAE-7 Assessment Billing JAE-7 Assessment Tool: JAE-7 Assessment 73517 Physical exam (Primary Care) Vital Signs: Last Vital Signs Pulse 111 H 07/18/24 15:47 BP 118/88 07/18/24 15:47 Pulse Ox 98 07/18/24 15:47 Oxygen Delivery Method Room Air 07/18/24 15:47 BMI result Body Mass Index 34.7 Tobacco/Smoking Status: Tobacco use Status Tobacco use date assessed 07/18/24 07/18/24 15:47 Patient Tobacco Use Status Never used Tobacco 07/18/24 15:47 e-Cigarette/Vaping Use Never Used 07/18/24 15:47 PHQ-9: PHQ-9 Score PHQ-9: Total score 17 07/21/24 10:15 Depression Screening Interpretation: Positive Depression Screening Follow-up: New Medication prescribed and Community Mental Health Worker F/U Thrive Assessment: Date of Thrive Assessment Date Thrive assessed 07/15/24 07/18/24 15:47 Currently or been in a relationship where the following occur: I choose not to answer Coding Level of Care Code Est Pt Level 4 (32879) Diagnoses Moderate episode of recurrent major depressive disorder F33.1 Active/Remission status: currently active Major depression episode severity: moderate Major depression recurrence: recurrent Gastroesophageal reflux disease without esophagitis K21.00 Esophagitis bleeding: without hemorrhage Esophagitis presence: with esophagitis Additional Codes JAE-7 Assessment Billing - JAE-7 Assessment Tool: JAE-7 Assessment 33467 ([id number]) Assessment & Plan Assessment & Plan (1) MDD (major depressive disorder): Code(s): F32.9 - Major depressive disorder, single episode, unspecified Category: Medical Qualifiers: Active/Remission status: currently active Major depression episode severity: moderate Major depression recurrence: recurrent Qualified Code(s): F33.1 - Major depressive disorder, recurrent, moderate Plan: start prozac-10mg x one week then increase to 20mg daily Start trazodone nightly clonazepam sparing (2) GERD (gastroesophageal reflux disease): Code(s): K21.9 - Gastro-esophageal reflux disease without esophagitis Category: Medical Qualifiers: Esophagitis bleeding: without hemorrhage Esophagitis presence: with esophagitis Qualified Code(s): K21.00 - Gastro-esophageal reflux disease with esophagitis, without bleeding Plan: continue PPI referral to GI Orders: Orders Hemoglobin A1c 07/18/24 R73.09 - Other abnormal glucose Lipid Panel 07/18/24 E53.8 - Deficiency of other specified B group vitamins, E78.00 - Pure hypercholesterolemia, unspecified, F41.1 - Generalized anxiety disorder TSH reflex Free T4 07/18/24 E53.8 - Deficiency of other specified B group vitamins, E78.00 - Pure hypercholesterolemia, unspecified, F41.1 - Generalized anxiety disorder Vitamin B12 and Folate 07/18/24 E53.8 - Deficiency of other specified B group vitamins, E78.00 - Pure hypercholesterolemia, unspecified, F41.1 - Generalized anxiety disorder Referrals Gastroenterology Referral K21.00 - Gastro-esophageal reflux disease with esophagitis, without bleeding Psychiatry Referral F32.9 - Major depressive disorder, single episode, unspecified, F41.1 - Generalized anxiety disorder Medications: New fluoxetine 10 mg PO DAILY 7 tabs 0RF 7 days clonazepam 0.5 mg PO BID PRN 45 tabs 0RF anxiety fluoxetine 20 mg PO DAILY 90 tabs 3RF trazodone 50 - 100 mg (1 - 2 x 50 mg) PO BEDTIME PRN 180 tabs 0RF sleep 90 days Refilled omeprazole 40 mg PO DAILY 90 caps 3RF K21.9 - Gastro-esophageal reflux disease without esophagitis
[2024-07-18 15:47] VITALS: BP 118/88; PULSE 111; O2SAT 98; BMI 34.7
== END 2024-07-18 16:24 | disposition home or self-care (01) ==
LOC: HO.HMCFM 15:33
PROVIDERS: PCP Internal Medicine; Visit Provider Internal Medicine
DX: F33.1 Major depressive disorder, recurrent, moderate (principal); K21.00 Gastro-esophageal reflux disease with esophagitis, without bleeding

== ENCOUNTER → 2024-07-18 15:32 | Outpatient (BNVA) | payer OTHER, SELFPAY | PROVIDERS: PCP Nurse Practitioner Family; Visit Provider Internal Medicine | DX: F33.1 Major depressive disorder, recurrent, moderate (principal); K21.00 Gastro-esophageal reflux disease with esophagitis, without bleeding; Z79.899 Other long term (current) drug therapy | CPT/HCPCS: 96127 ==

== ENCOUNTER 2024-07-30 07:05 | Outpatient (REF) | payer OTHER, SELFPAY ==
[2024-07-30 08:12] LABS: Estimated Average Glucose 103 mg/dL; Hemoglobin A1C 140.7104 umol/L; Hemoglobin A1c % 5.2 % (<6.0); Total Hemoglobin (HGBA1C) 4223.8246 umol/L
[2024-07-30 08:43] LABS: Cholesterol 190 mg/dL (<200); HDL Cholesterol 46 mg/dL (>40); LDL Cholesterol Calculated 124 mg/dL (<100); Triglycerides 102 mg/dL (<150)
[2024-07-30 09:07] LABS: Folate 7.2 ng/mL (> or = 4.0); Vitamin B12 327 pg/mL (200-900)
== END 2024-07-30 07:06 | disposition home or self-care (01) ==
LOC: HO.LAB 07:05
PROVIDERS: PCP Internal Medicine; Visit Provider Internal Medicine
DX: R73.09 Other abnormal glucose (principal); F41.1 Generalized anxiety disorder; E53.8 Deficiency of other specified B group vitamins; E78.00 Pure hypercholesterolemia, unspecified
CPT/HCPCS: 36415; 80061; 82607; 82746; 83036; 84443

== ENCOUNTER 2024-09-23 08:08 | Outpatient (AMB) | payer OTHER, SELFPAY ==
--- NOTE | 2024-09-23 08:52 | A.OFFPC_ITS ---
Intake Visit Reasons: Sinus infection. Allergies codeine Allergy (Unknown, Verified 07/18/24 15:43) Unknown Tobacco use date assessed: 07/18/24 Dental Screening Dental Screen Date: 07/18/24 HPI HPI Comments History of Present Illness Details 48 year old male with pmhx hypertension, hyperlipidemia, vitamin B12 deficiency, fatty liver, GERD generalized anxiety disorder presenting for sinus congestion Patient had sinus congestion, pain, low grade temp for the past two weeks. Started on doxycycline last week with improvement in symptoms. Depression/anxiety: some interval improvement of prozac which he is tolerating well but still having anxiety and depression . He was having significant trouble sleeping through the night and trazodone has helped tremendously GI: GERD, fatty liver. Very PPI dependent. Still getting some break through symptoms on the medication. Was referred to GI. stable ROS see HPI PHYSICAL EXAM: Telehealth [facility] Medical History Annual physical exam Chest pain Cough Acute sinus infection Annual physical exam Gastritis and duodenitis Colon cancer screening Generalized anxiety disorder Overweight (BMI 25.0-29.9) Allergic rhinitis Acute sinusitis Lightheaded Ingrown toenail Vertigo Cyst of epididymis Foreign body in lower extremity Obstructive sleep apnea Cervical disc disease Irritable bowel syndrome Vitamin D deficiency Obesity (BMI 30-39.9) Insomnia Anxiety and depression Hypercholesterolemia Wrist pain, right Surgical History Status post laparoscopic cholecystectomy History of laparoscopic cholecystectomy History of tonsillectomy Closed fracture distal radius and ulna Family History Father Hypertension CVD (cardiovascular disease) S/P triple vessel bypass Mother Breast cancer Depression Anxiety CVD (cardiovascular disease) Hypertension Paternal Aunt Liver cancer Maternal Aunt Breast cancer Brother No problems noted. Sister In good health Other Mental health disorder Social History Household Members: Family Housing: House Do you presently have visiting nurse or other home services: No Alcohol intake: current Alcohol intake frequency: holidays/special occasions only Patient Tobacco Use Status: Never used Tobacco e-Cigarette/Vaping Use: Never Used Second Hand Smoke Exposure: No service: No Current occupational status: employed Cognitive needs: No Hearing needs: No Vision needs: Yes Questionnaire Thrive Questionnaire Date Thrive assessed: 07/15/24 JAE-7 AMB Questionnaire JAE-7 Date JAE - 7 assessed: 07/18/24 Source: Developed by Drs. Salvatore Art, Brianna Fuentes, Eduardo Brady and colleagues, with an educational chantel from [employer]. Physical exam (Primary Care) Tobacco/Smoking Status: Tobacco use Status Tobacco use date assessed 07/18/24 09/23/24 08:54 Patient Tobacco Use Status Never used Tobacco 09/23/24 08:54 e-Cigarette/Vaping Use Never Used 09/23/24 08:54 Thrive Assessment: Date of Thrive Assessment Date Thrive assessed 07/15/24 09/23/24 08:54 Telehealth Telehealth Telehealth Platform: [facility] Location of provider rendering services: practice address Location of patient: address on file Patient Identification confirmed using: Name, : Yes Telehealth method: voice only Patient verbally consented to treatment: Yes Patient verbally consented to billing insurance company: Yes Patient informed of any privacy concerns related to visit: Yes Minutes spent on Phone/Video with Pt.: 25 Coding Level of Care Code Tele Est Pt Level 3 (81597) Diagnoses Acute non-recurrent maxillary sinusitis J01.00 Sinusitis location: maxillary Chronicity: acute Recurrence: non-recurrent Assessment & Plan Assessment & Plan (1) Sinusitis: Code(s): J32.9 - Chronic sinusitis, unspecified Category: Medical Qualifiers: Sinusitis location: maxillary Chronicity: acute Recurrence: non- recurrent Qualified Code(s): J01.00 - Acute maxillary sinusitis, unspecified Plan: Complete doxycycline course. Call for persistent or worsening symptoms
== END 2024-09-23 09:10 | disposition home or self-care (01) ==
LOC: HO.HMCFM 08:08
PROVIDERS: PCP Internal Medicine; Visit Provider Internal Medicine
DX: J01.00 Acute maxillary sinusitis, unspecified (principal)

== ENCOUNTER → 2024-09-23 08:08 | Outpatient (BNVA) | payer OTHER, SELFPAY | PROVIDERS: PCP Internal Medicine; Visit Provider Internal Medicine ==

== ENCOUNTER 2024-10-06 13:33 | Outpatient (AMB) | payer OTHER, SELFPAY ==
--- NOTE | 2024-10-06 14:20 | MHC.OFFWIV ---
Intake Vital Signs 10/06/24 14:21 Height 5 ft 11 in Weight 249 lb BMI 34.7 BP 138/84 Blood Pressure Location Lt brachial Position Sitting Pulse 91 Pulse Source Pulse Oximeter Temp 98.5 F Temp Source Oral Pulse Oximetry (%) 97 Oxygen Delivery Method Room Air Intake Visit Reasons: EP-cough, chest congestion, headaches Intake Note: Pt is here today for a walk in visit. Pt c/o cough, congestion, headaches for couple days. Pt also states that he has tingling sensation in his nose. Patient Tobacco Use Status: Never used Tobacco Allergies codeine Allergy (Unknown, Verified 10/06/24 14:23) Unknown HPI HPI Comments History of Present Illness Details History - The patient is a 48-year-old male presenting with symptoms of ear and sinus infections and a recent history of a sinus infection. - He has experienced sore throat, cough with sputum, sinus pain, and ear pain, following a recent sinus infection. - Multiple household members have respiratory symptoms; no testing has been performed for COVID-19, influenza, or RSV. 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 - Reports chronic history of ear and sinus infections, with ongoing ear pain and headaches, and a family history of ear infections requiring interventions such as ear tubes. - Current symptomatic treatment involves [id number] cold remedies, and he avoids unnecessary medications due to his history as a recovering alcoholic. Physical Exam General: Cooperative, healthy appearing, comfortable and no acute distress Orientation/consciousness: Patient oriented x3 Limitations: No limitations Head: Normal to inspection Ears: Hearing grossly normal bilaterally, external ears infected and TM's with erythema, bulging TM and purulent effusions Nose: Normal external nose present, Normal nares present and clear nasal discharge present Face and sinus: Normal facial exam and Sinuses tender Mouth: Normal oral and palatal mucosa present and moist mucous membranes Throat: Yes tonsils normal, Yes uvula midline. Posterior oropharynx erythema, no exudates Eyes: Appearance normal, both eyes and all related structures Neck: Normal visual inspection Respiratory: Clear to auscultation bilaterally. Normal respiratory effort, able to speak in complete sentences, Actively coughing, no respiratory distress, not tachypneic, no tripod positioning and no use of accessory muscles Cardiovascular: Regular rate and rhythm. Normal S1 and S2 Skin: No rashes or lesions noted Neuro: Patient oriented x3 Extremities: Normal to inspection and Yes no clubbing, cyanosis or edema PFSH Medical History Annual physical exam Chest pain Cough Acute sinus infection Annual physical exam Gastritis and duodenitis Colon cancer screening Generalized anxiety disorder Overweight (BMI 25.0-29.9) Allergic rhinitis Acute sinusitis Lightheaded Ingrown toenail Vertigo Cyst of epididymis Foreign body in lower extremity Obstructive sleep apnea Cervical disc disease Irritable bowel syndrome Vitamin D deficiency Obesity (BMI 30-39.9) Insomnia Anxiety and depression Hypercholesterolemia Wrist pain, right Surgical History Status post laparoscopic cholecystectomy History of laparoscopic cholecystectomy History of tonsillectomy Closed fracture distal radius and ulna Family History Father Hypertension CVD (cardiovascular disease) S/P triple vessel bypass Mother Breast cancer Depression Anxiety CVD (cardiovascular disease) Hypertension Paternal Aunt Liver cancer Maternal Aunt Breast cancer Brother No problems noted. Sister In good health Other Mental health disorder Social History Household Members: Family Housing: House Do you presently have visiting nurse or other home services: No Alcohol intake: current Alcohol intake frequency: holidays/special occasions only Patient Tobacco Use Status: Never used Tobacco e-Cigarette/Vaping Use: Never Used Second Hand Smoke Exposure: No service: No Current occupational status: employed Cognitive needs: No Hearing needs: No Vision needs: Yes Review of Systems Const All systems reviewed & are unremarkable except as noted in HPI and below Physical Exam Vital Signs: Last Vital Signs Temp 98.5 F 10/06/24 14:21 Pulse 107 H 10/06/24 14:21 BP 138/84 10/06/24 14:21 Pulse Ox 97 10/06/24 14:21 Oxygen Delivery Method Room Air 10/06/24 14:21 BMI result Body Mass Index 34.7 Assessment & Plan Assessment & Plan (1) URI, acute: Code(s): J06.9 - Acute upper respiratory infection, unspecified Plan: An expanded viral panel test will be administered to check for influenza, COVID-19, and RSV due to the patient?s work environment and family health concerns. Antibiotic therapy with Augmentin is prescribed to treat the acute otitis media and any bacterial component of the sinusitis. The upper respiratory tract symptoms are suspected to be predominantly viral, but bacterial coverage through Augmentin will aid in the ear infection. Patient was informed and verbally consented to the use of an ambient scribe for clinic note documentation during this visit (2) Otitis media: Code(s): H66.90 - Otitis media, unspecified, unspecified ear Qualifiers: Otitis media type: mucoid Chronicity: acute Laterality: bilateral Qualified Code(s): H65.193 - Other acute nonsuppurative otitis media, bilateral Plan: as above Orders: [place]ogen [place] [facility] [place] J06.9 - Acute upper respiratory infection, unspecified Medications: New amoxicillin-pot clavulanate 875-125 mg 1 tab PO Q12H 14 tabs 0RF Coding Level of Care Code Est Pt Level 3 (52019) Diagnoses URI, acute J06.9 Acute mucoid otitis media of both ears H65.193 Otitis media type: mucoid Chronicity: acute Laterality: bilateral
[2024-10-06 14:21] VITALS: BP 138/84; PULSE 91; TEMP 36.9; O2SAT 97; BMI 34.7
== END 2024-10-06 15:12 | disposition home or self-care (01) ==
PROVIDERS: PCP Internal Medicine; Visit Provider Physician Assistant
DX: J06.9 Acute upper respiratory infection, unspecified (principal); H65.193 Other acute nonsuppurative otitis media, bilateral

== ENCOUNTER 2024-10-13 12:22 | Outpatient (AMB) | payer OTHER, SELFPAY ==
[2024-10-13 12:49] VITALS: BP 121/80; PULSE 121; TEMP 36.8; O2SAT 98
--- NOTE | 2024-10-13 12:49 | MHC.OFFWIV ---
Intake Vital Signs 10/13/24 12:49 Weight 245 lb BP 121/80 Blood Pressure Location Rt brachial Position Sitting Pulse 121 H Pulse Source Pulse Oximeter Temp 98.2 F Temp Source Oral Pulse Oximetry (%) 98 Oxygen Delivery Method Room Air Intake Visit Reasons: EP Bad cough Intake Note: Patient here for severe cough that has been present for 1 week. Patient Tobacco Use Status: Never used Tobacco Allergies codeine Allergy (Unknown, Verified 10/13/24 12:59) Unknown Do you need a note to return to daycare/school/sports/work: Yes HPI HPI Comments History of Present Illness Details 48 y/o male patient who presents to the walk in clinic with c/o Persistent cough. Pt was diagnosed with RSV back in 10/06/24. He was also diagnosed with Otitis media, and treated with Augmentin. [facility] Medical History Annual physical exam Chest pain Cough Acute sinus infection Annual physical exam Gastritis and duodenitis Colon cancer screening Generalized anxiety disorder Overweight (BMI 25.0-29.9) Allergic rhinitis Acute sinusitis Lightheaded Ingrown toenail Vertigo Cyst of epididymis Foreign body in lower extremity Obstructive sleep apnea Cervical disc disease Irritable bowel syndrome Vitamin D deficiency Obesity (BMI 30-39.9) Insomnia Anxiety and depression Hypercholesterolemia Wrist pain, right Surgical History Status post laparoscopic cholecystectomy History of laparoscopic cholecystectomy History of tonsillectomy Closed fracture distal radius and ulna Family History Father Hypertension CVD (cardiovascular disease) S/P triple vessel bypass Mother Breast cancer Depression Anxiety CVD (cardiovascular disease) Hypertension Paternal Aunt Liver cancer Maternal Aunt Breast cancer Brother No problems noted. Sister In good health Other Mental health disorder Social History Household Members: Family Housing: House Do you presently have visiting nurse or other home services: No Alcohol intake: current Alcohol intake frequency: holidays/special occasions only Patient Tobacco Use Status: Never used Tobacco e-Cigarette/Vaping Use: Never Used Second Hand Smoke Exposure: No service: No Current occupational status: employed Cognitive needs: No Hearing needs: No Vision needs: Yes Review of Systems Const All systems reviewed & are unremarkable except as noted in HPI and below Physical Exam Vital Signs: Last Vital Signs Temp 98.2 F 10/13/24 12:49 Pulse 121 H 10/13/24 12:49 BP 121/80 10/13/24 12:49 Pulse Ox 98 10/13/24 12:49 Oxygen Delivery Method Room Air 10/13/24 12:49 Const General: cooperative and no acute distress Nutritional Appearance: obese Orientation/consciousness: patient oriented x3 HEENT Head: Yes normocephalic Ears: external ears normal and TM abnormal with fluid behind the TM bilateral General nose exam: Nasal discharge present Face and sinus: Yes sinuses nontender Mouth: moist mucous membranes Resp Effort & Inspection: normal respiratory effort, able to speak in complete sentences and Actively coughing Auscultation: clear to auscultation bilaterally, no crackles, no rales, no rhonchi and no wheezes Cardio Heart sounds: S1 normal heart sound present and S2 normal heart sound present Neuro General: patient oriented x3, gait normal and moves all extremities Psych Speech and movement: Normal speech and movement present Assessment & Plan Assessment & Plan (1) Cough: Code(s): R05.9 - Cough, unspecified Qualifiers: Cough type: acute Qualified Code(s): R05.1 - Acute cough Plan: Warm fluids with Honey Ordered Cough remedies Ordered Prednisone Rest. (2) RSV (respiratory syncytial virus infection): Code(s): B33.8 - Other specified viral diseases Qualifiers: RSV infection type: acute bronchitis Qualified Code(s): J20.5 - Acute bronchitis due to respiratory syncytial virus Plan: Warm fluids with Honey Ordered Cough remedies Ordered Prednisone Rest. Medications: New prednisone 20 mg PO DAILY 10 tabs 0RF R05.1 - Acute cough benzonatate 100 mg PO TID 90 caps 0RF R05.1 - Acute cough dextromethorphan-guaifenesin 5-100 mg/5 mL (Robitussin Cough-Chest Congestion DM) 10 mL PO Q4-8H PRN 500 mL 0RF cough J20.5 - Acute bronchitis due to respiratory syncytial virus, R05.1 - Acute cough Coding Level of Care Code Est Pt Level 3 (34693) Diagnoses Acute cough R05.1 Cough type: acute Respiratory syncytial virus (RSV) as cause of acute bronchitis J20.5 RSV infection type: acute bronchitis Time Spent (min) 15
== END 2024-10-13 13:30 | disposition home or self-care (01) ==
PROVIDERS: PCP Internal Medicine; Visit Provider Nurse Practitioner Family
DX: R05.1 Acute cough (principal); J20.5 Acute bronchitis due to respiratory syncytial virus

== ENCOUNTER 2024-10-18 13:31 | Outpatient (AMB) | payer OTHER, SELFPAY ==
--- NOTE | 2024-10-18 14:16 | MHC.PC.OV ---
Intake Visit Reasons: Tested positive for rsv Allergies codeine Allergy (Unknown, Verified 10/13/24 12:59) Unknown Tobacco use date assessed: 07/18/24 Dental Screening Dental Screen Date: 07/18/24 HPI HPI Comments History of Present Illness Details 48 year old male with pmhx hypertension, hyperlipidemia, vitamin B12 deficiency, fatty liver, GERD generalized anxiety disorder presenting for RSV, recent illness Patient has been sick for the past month started last week of Aug Initially had sinus infection-seen 09/23/23-Patient had sinus congestion, pain, low grade temp for the past two weeks. Completed doxycycline course Seen in 10/06/24 with cough, bilateral otitis and treated with antibiotics at that time Then evaluated 10/13/24 at walk in and tested positive for RSV. Prescribed 10 day prednisone course. He has used up his one week of sick time but tells me he has been advised not to return to work until his symptoms improve. He plans to start the prednisone tomorrow for 5 days. It agitates his mood. Depression/anxiety: some interval improvement of prozac which he is tolerating well but still having anxiety and depression . He was having significant trouble sleeping through the night and trazodone has helped tremendously GI: GERD, fatty liver. Very PPI dependent. Still getting some break through symptoms on the medication. Was referred to GI. stable ROS see HPI PHYSICAL EXAM: Telehealth [facility] Medical History Annual physical exam Chest pain Cough Acute sinus infection Annual physical exam Gastritis and duodenitis Colon cancer screening Generalized anxiety disorder Overweight (BMI 25.0-29.9) Allergic rhinitis Acute sinusitis Lightheaded Ingrown toenail Vertigo Cyst of epididymis Foreign body in lower extremity Obstructive sleep apnea Cervical disc disease Irritable bowel syndrome Vitamin D deficiency Obesity (BMI 30-39.9) Insomnia Anxiety and depression Hypercholesterolemia Wrist pain, right Surgical History Status post laparoscopic cholecystectomy History of laparoscopic cholecystectomy History of tonsillectomy Closed fracture distal radius and ulna Family History Father Hypertension CVD (cardiovascular disease) S/P triple vessel bypass Mother Breast cancer Depression Anxiety CVD (cardiovascular disease) Hypertension Paternal Aunt Liver cancer Maternal Aunt Breast cancer Brother No problems noted. Sister In good health Other Mental health disorder Social History Household Members: Family Housing: House Do you presently have visiting nurse or other home services: No Alcohol intake: current Alcohol intake frequency: holidays/special occasions only Patient Tobacco Use Status: Never used Tobacco e-Cigarette/Vaping Use: Never Used Second Hand Smoke Exposure: No service: No Current occupational status: employed Cognitive needs: No Hearing needs: No Vision needs: Yes Questionnaire Thrive Questionnaire Date Thrive assessed: 07/15/24 JAE-7 AMB Questionnaire JAE-7 Date JAE - 7 assessed: 07/18/24 Source: Developed by Drs. Salvatore Art, Brianna Fuentes, Eduardo Brady and colleagues, with an educational chantel from [employer]. Physical exam (Primary Care) Tobacco/Smoking Status: Tobacco use Status Tobacco use date assessed 07/18/24 10/18/24 14:16 Patient Tobacco Use Status Never used Tobacco 10/18/24 14:16 e-Cigarette/Vaping Use Never Used 10/18/24 14:16 Thrive Assessment: Date of Thrive Assessment Date Thrive assessed 07/15/24 10/18/24 14:16 Telehealth Telehealth Telehealth Platform: [facility] Location of provider rendering services: practice address Location of patient: address on file Patient Identification confirmed using: Name, : Yes Telehealth method: voice only Patient verbally consented to treatment: Yes Patient verbally consented to billing insurance company: Yes Patient informed of any privacy concerns related to visit: Yes Minutes spent on Phone/Video with Pt.: 35 Coding Level of Care Code Tele Est Pt Level 4 (04849) Diagnoses URI, acute J06.9 Acute mucoid otitis media of both ears H65.193 Otitis media type: mucoid Chronicity: acute Laterality: bilateral Assessment & Plan Assessment & Plan (1) URI, acute: Code(s): J06.9 - Acute upper respiratory infection, unspecified Category: Medical Plan: Prolonged/recurrent illness. He will take 5 of 10 days of prescribed prednisone while he is still at home recovering. He may need to apply for FMLA or similar. He has had prior issues with frequent ear infections-referral to ENT will be placed (2) Otitis media: Code(s): H66.90 - Otitis media, unspecified, unspecified ear Category: Medical Qualifiers: Otitis media type: mucoid Chronicity: acute Laterality: bilateral Qualified Code(s): H65.193 - Other acute nonsuppurative otitis media, bilateral Plan: see above
== END 2024-10-18 14:23 | disposition home or self-care (01) ==
LOC: HO.HMCFM 13:31
PROVIDERS: PCP Internal Medicine; Visit Provider Internal Medicine
DX: J06.9 Acute upper respiratory infection, unspecified (principal); H65.193 Other acute nonsuppurative otitis media, bilateral

== ENCOUNTER → 2024-10-18 13:31 | Outpatient (BNVA) | payer OTHER, SELFPAY | PROVIDERS: PCP Internal Medicine; Visit Provider Internal Medicine ==

== ENCOUNTER 2024-10-24 12:01 | Outpatient (RCR) | payer OTHER, SELFPAY ==
--- NOTE | 2024-09-26 14:13 | MHC.PT.EP ---
[facility] [place] Office [place] Office [place] Office [address] Grayson Vaughan [address] [phone] F: [phone] F: [phone] F: [phone] F: [phone] Physical Therapy Plan of Care Date of Evaluation: 09/26/24 Date of Surgery: n/a Diagnosis: Radiculopathy, cervical region Cervical radiculopathy Assessment: Pt is a pleasant and motivated 48yo M who presents to PT with neck pain radiating into L UE. He presents to PT with current impairments in pain, decreased ROM, decreased strength, soft tissue restrictions, and impaired posture. He is limited functionally by driving, bending, and lifting. He is a good candidate for skilled PT in order to address current impairments to facilitate return to PLOF. He is recommended to be seen 2x/week for 4 weeks and will be reassessed at that time Frequency and Duration: The patient will be seen 2x/week for 4 weeks Short Term Goals: Pt will be I with HEP to promote self management of symptoms Pt will demonstrate improvements in postural awareness throughout the day Pt will have centralization of symptoms Umbrella Repairer Goals: Pt will achieve full ROM all planes of cervical spine to assist with functional tasks Pt will drive > 30 minutes without pain or radicular symptoms Pt will demonstrate improvements in function as evidenced by statistically significant improvement in Neck Pain Disability Index Questionnaire Treatment Plan: Modalities to reduce pain, spasms and effusion. Manual therapy to restore motion and function. Therapeutic exercise to improve strength and flexibility. Neuromuscular re-education for posture and balance. Therapeutic activities to return to functional activities of daily living. Electronically signed by: Jessika Sexton, PT, DPT Please sign and return to therapist. Thank you for your referral.
== END 2024-12-05 08:28 | disposition home or self-care (01) ==
LOC: HO.PT 12:01
PROVIDERS: PCP Internal Medicine; Visit Provider Internal Medicine
DX: M54.12 Radiculopathy, cervical region (principal)
CPT/HCPCS: 97110; 97140; 97161

== ENCOUNTER 2024-11-04 15:47 | Outpatient (AMB) | payer OTHER, SELFPAY ==
--- OUTSIDE RECORDS SUMMARY | 2024-11-04 15:49 | XMS_ITS ---
Author Organization [facility] Address [address] [place] [id number] Care Team Providers Care Tin Can Feeder Name Role Phone Marzena Daugherty M.D. Primary Care Provider Yue Larios JrVirgilio Unavailable [phone] 3 ALLERGIES No Known Allergies REASON FOR VISIT Patient presents today for gerd, MEDICATIONS Medication SIG (Take, Route, Fr equency, Duration) Notes Start Date End Date Status traZODone HCl 50 MG Oral for 90 Active clonazePAM 0.5 MG Oral for 23 Active Omeprazole 40 MG 1 capsule 30 minutes before morning meal Orally Once a day for 30 day(s) Active Prozac 40 mg 2 tab Oral for 14 days Active SOCIAL HISTORY Tobacco Use: Social History Observation Description Date Details (start date - stop date) Never Smoker NA - NA Sex Assigned At : Social History Observation Description Sex Assigned At Unknown Tobacco Use/Smoking Question Answer Notes Patient is a nonsmoker Alcohol Screen Question Answer Notes Did you have a drink contain ing alcohol in the past year? Yes How often did you have a dri nk containing alcohol in the past year? Monthly or less (1 point) How many drinks did you have on a typical day when you were drinking in the past year? 1 or 2 drinks (0 point) How often did you have 6 or more drinks on one occasion in the past year? Never (0 point) Points 1 Interpretation Negative PROBLEMS Problem Type ICD Code Onset Dates Problem Status W/U Status Risk SNOMED Code Notes Problem Gastroesophageal reflux disease, unspecified whether esophagitis present (K21.9) Active confirmed [id number] VITAL SIGNS BMI 34.10 kg/m2 10/27/2024 Blood pressure systolic 000 mm Hg 10/27/19 25 Blood pressure diastolic 00 mm Hg 025 Height 71 in 10/27/2024 Temperature 98.4 degrees Fahrenheit 10/27/19 25 Weight 244 lb 8 oz lbs 10/27/2024 Encounters Encounter Location Date Provider Diagnosis [facility] [address] [place] [address] 10/27/2024 Virgilio Larios Jr Gastroesophageal reflux disease, unspecified whether esophagitis present K21.9 and Colon cancer screening Z12.11 ASSESSMENTS Encounter Date Diagnosis Assessment Notes Treatment Notes Treatment Clinical Notes 10/27/2024 Gastroesophageal reflux disease, unspecified whether esophagitis present (ICD-10 - K21.9) Fecal immunochemical test (FIT) material was printed 10/27/2024 Colon cancer screeni ng (ICD-10 - Z12.11) PLAN OF TREATMENT Treatment Notes Assessment Notes Gastroesophageal reflux dise ase, unspecified whether esophagitis present Fecal immunochemical test (FIT) material was printed Next Appt Details Follow Up: 1 Year, Reason: Provider Name:Virgilio aquino Jr, 10/30/2025 10:20:00 AM, [address], [address], [place], [address], Progress Notes * Examination Category Sub-Category Detail Notes General Examination GENERAL APPEARANCE: in no ac [place] distress HEAD: normocephalic EYES: sclera non-icteric NECK/THYROID: no lymphadenopathy HEART: S1, S2 normal, no mu rmurs CHEST: normal shape and exp ansion LUNGS: clear to auscultatio n bilaterally ABDOMEN: soft, nontender, non distended, bowel sounds present, no organomegaly SKIN: anicteric EXTREMITIES: no clubbing, cyanosi s, or edema PSYCH: cognitive function i ntact ORAL CAVITY: mucosa moist
--- NOTE | 2024-11-04 15:59 | MHC.PC.OV ---
Vital Signs 11/04/24 16:03 Height 5 ft 11 in Weight 246 lb 2 oz BMI 34.3 BP 116/78 Blood Pressure Location Rt brachial Position Sitting Pulse 96 Pulse Source Pulse Oximeter Pulse Oximetry (%) 95 Oxygen Delivery Method Room Air Intake Visit Reasons: f/u meds Intake Note: Medication follow up. Would like help with housing. Pl [employer] Required: No Allergies codeine Allergy (Unknown, Verified 11/04/24 15:59) Unknown Tobacco use date assessed: 07/18/24 Dental Screening Dental Screen Date: 07/18/24 HPI HPI Comments History of Present Illness Details 48 year old male with pmhx hypertension, hyperlipidemia, vitamin B12 deficiency, fatty liver, GERD generalized anxiety disorder presenting for follow up Depression/anxiety: Feeling well on prozac. Still has some bad days at times. Trazodone has aided sleep. Uses clonazepam sparingly as needed. GI: GERD, fatty liver. Very PPI dependent. Still getting some break through symptoms on the medication. Was referred to GI. stable Patient had prolonged illness mid August to late September. He is finally feeling back to baseline health Initially had sinus infection-seen 09/23/23-Patient had sinus congestion, pain, low grade temp for the past two weeks. Completed doxycycline course Seen in 10/06/24 with cough, bilateral otitis and treated with antibiotics at that time Then evaluated 10/13/24 at walk in and tested positive for RSV. Prescribed 10 day prednisone course. He has used up his one week of sick time but tells me he has been advised not to return to work until his symptoms improve. He plans to start the prednisone tomorrow for 5 days. It agitates his mood. Back to work. ROS see HPI PHYSICAL EXAM: GENERAL: Alert and oriented x 3. NAD EYES: EOMI. Anicteric. HENT: Moist mucous membranes. No scleral icterus. No cervical lymphadenopathy. LUNGS: Clear to auscultation bilaterally. CARDIOVASCULAR: Regular rate and rhythm. No murmur. No JVD. ABDOMEN: Soft, non-tender +bs EXTREMITIES: No edema. Non-tender. SKIN: No rashes or lesions. Warm. NEUROLOGIC: No focal neurological deficits. CN II-XII grossly intact PSYCHIATRIC: Cooperative. Appropriate mood and affect [facility] Medical History (Updated 11/06/24 @ 11:27 by Marzena Daugherty MD) Cough Annual physical exam Chest pain Acute sinus infection Annual physical exam Gastritis and duodenitis Colon cancer screening Generalized anxiety disorder Overweight (BMI 25.0-29.9) Allergic rhinitis Acute sinusitis Lightheaded Ingrown toenail Vertigo Cyst of epididymis Foreign body in lower extremity Obstructive sleep apnea Cervical disc disease Irritable bowel syndrome Vitamin D deficiency Obesity (BMI 30-39.9) Insomnia Anxiety and depression Hypercholesterolemia Wrist pain, right Surgical History Status post laparoscopic cholecystectomy History of laparoscopic cholecystectomy History of tonsillectomy Closed fracture distal radius and ulna Family History Father Hypertension CVD (cardiovascular disease) S/P triple vessel bypass Mother Breast cancer Depression Anxiety CVD (cardiovascular disease) Hypertension Paternal Aunt Liver cancer Maternal Aunt Breast cancer Brother No problems noted. Sister In good health Other Mental health disorder Social History Household Members: Family Housing: House Do you presently have visiting nurse or other home services: No Alcohol intake: current Alcohol intake frequency: holidays/special occasions only Patient Tobacco Use Status: Never used Tobacco e-Cigarette/Vaping Use: Never Used Second Hand Smoke Exposure: No Use of substances other than those prescribed or required for medical reasons: No service: No Current occupational status: employed Cognitive needs: No Hearing needs: No Vision needs: Yes Questionnaire PHQ-9 Over the last 2 weeks, how often have you been bothered by any of the following problems? 1. Little interest or pleasure in doing things: several days 2. Feeling down, depressed, or hopeless: more than half the days 3. Trouble falling or staying asleep, or sleeping too much: more than half the days 4. Feeling tired or having little energy: more than half the days 5. Poor appetite or overeating: more than half the days 6. Feeling bad about yourself - or that you are a failure or have let yourself or your family down: more than half the days 7. Trouble concentrating on things, such as reading the newspaper or watching television: more than half the days 8. Moving or speaking so slowly that other people could have noticed. Or the opposite - being so fidgety or restless that you have been moving around a lot more than usual: more than half the days 9. Thoughts that you would be better off or of hurting yourself in some way: more than half the days Total score: 17 Depression Screening Interpretation: Positive Depression Screening Done: Yes 12280 - PHQ-9 Billing: Yes Source: Developed by Drs. Salvatore Art, Brianna Fuentes, Eduardo Brady and colleagues, with an educational chantel from [employer]. Thrive Questionnaire Date Thrive assessed: 11/04/24 I am a: Patient What is your living situation today?: I have a place to live, but I am worried about losing it in the future Within the past 12 months, did the food you bought not last and you didn't have the money to get more?: Sometimes True Within the past 12 months, did you worry whether your food would run out before you got money to buy more?: Sometimes True Do you have trouble paying for medicines?: No Do you have trouble getting transportation to medical appointments?: No Do you have trouble paying your heating and electricity bill?: No Do you have trouble taking care of your child, family member or friend?: No Do you have trouble with day-to-day activities such as bathing, preparing meals, shopping, managing finances, etc.?: No Are you currently unemployed and looking for a job?: No Are you interested in more education?: No Please select the resources that you would like help with: None Currently or been in a relationship where the following occur: No concerns reported THRIVE Score: 3 AUDIT C Alcohol Use Questionnaire (AUDIT-C) 1. How often do you have a drink containing alcohol?: 2-4 times a month 2. How many drinks containing alcohol do you have on a typical day when you are drinking?: 1 or 2 3. How often do you have six or more drinks on one occasion?: Never Total Score: 2 JAE-7 AMB Questionnaire JAE-7 Date JAE - 7 assessed: 07/27/24 Feeling nervous, anxious, or on edge: 2 = More than half the days Not being able to stop or control worryin = More than half the days Worrying too much about different things: 2 = More than half the days Trouble relaxin = More than half the days Being so restless that it is hard to sit still: 2 = More than half the days Becoming easily annoyed or irritable: 2 = More than half the days Feeling afraid as if something awful might happen: 0 = Not at all Total JAE-7 score (0-4 normal; 5-9 mild; 10-14 moderate; 15-21 severe): 12 Source: Developed by Drs. Salvatore Art, Brianna Fuentes, Eduardo Brady and colleagues, with an educational chantel from [facility] [facility]. JAE-7 Assessment Billing JAE-7 Assessment Tool: JAE-7 Assessment 03807 Physical exam (Primary Care) Vital Signs: Last Vital Signs Pulse 96 11/04/24 16:03 BP 116/78 11/04/24 16:03 Pulse Ox 95 11/04/24 16:03 Oxygen Delivery Method Room Air 11/04/24 16:03 BMI result Body Mass Index 34.3 Tobacco/Smoking Status: Tobacco use Status Tobacco use date assessed 07/18/24 11/04/24 16:08 Patient Tobacco Use Status Never used Tobacco 11/04/24 16:08 e-Cigarette/Vaping Use Never Used 11/04/24 16:08 PHQ-9: PHQ-9 Score PHQ-9: Total score 17 11/06/24 11:28 Depression Screening Interpretation: Positive Thrive Assessment: Date of Thrive Assessment Date Thrive assessed 11/04/24 11/04/24 16:08 Currently or been in a relationship where the following occur: No concerns reported Coding Level of Care Code Est Pt Level 4 (11726) Diagnoses Recurrent major depressive disorder, in partial remission F33.41 Active/Remission status: in partial remission Major depression recurrence: recurrent Subacute cough R05.2 Cough type: subacute Additional Codes JAE-7 Assessment Billing - JAE-7 Assessment Tool: JAE-7 Assessment 56592 ([id number]) PHQ-9 - 72497 - PHQ-9 Billing: Yes ([id number]) Assessment & Plan Assessment & Plan (1) MDD (major depressive disorder): Code(s): F32.9 - Major depressive disorder, single episode, unspecified Category: Medical Qualifiers: Active/Remission status: in partial remission Major depression recurrence: recurrent Qualified Code(s): F33.41 - Major depressive disorder, recurrent, in partial remission Plan: stable on current medications. Still has some breakthrough flare in symptoms. (2) Cough: Code(s): R05.9 - Cough, unspecified Category: Medical Qualifiers: Cough type: subacute Qualified Code(s): R05.2 - Subacute cough Plan: Improving. Close to baseline Orders: Orders Complete Blood Count Auto Diff 11/04/24 E53.8 - Deficiency of other specified B group vitamins, E78.00 - Pure hypercholesterolemia, unspecified, F33.1 - Major depressive disorder, recurrent, moderate, K21.00 - Gastro-esophageal reflux disease with esophagitis, without bleeding, R73.09 - Other abnormal glucose, Z12.5 - Encounter for screening for malignant neoplasm of prostate Comprehensive Met. Panel 11/04/24 E53.8 - Deficiency of other specified B group vitamins, E78.00 - Pure hypercholesterolemia, unspecified, F33.1 - Major depressive disorder, recurrent, moderate, K21.00 - Gastro-esophageal reflux disease with esophagitis, without bleeding, R73.09 - Other abnormal glucose, Z12.5 - Encounter for screening for malignant neoplasm of prostate Prostate Specific Antigen 11/04/24 E53.8 - Deficiency of other specified B group vitamins, E78.00 - Pure hypercholesterolemia, unspecified, F33.1 - Major depressive disorder, recurrent, moderate, K21.00 - Gastro-esophageal reflux disease with esophagitis, without bleeding, R73.09 - Other abnormal glucose, Z12.5 - Encounter for screening for malignant neoplasm of prostate Hemoglobin A1c 11/04/24 E53.8 - Deficiency of other specified B group vitamins, E78.00 - Pure hypercholesterolemia, unspecified, F33.1 - Major depressive disorder, recurrent, moderate, K21.00 - Gastro-esophageal reflux disease with esophagitis, without bleeding, R73.09 - Other abnormal glucose, Z12.5 - Encounter for screening for malignant neoplasm of prostate Lipid Panel 11/04/24 E53.8 - Deficiency of other specified B group vitamins, E78.00 - Pure hypercholesterolemia, unspecified, F33.1 - Major depressive disorder, recurrent, moderate, K21.00 - Gastro-esophageal reflux disease with esophagitis, without bleeding, R73.09 - Other abnormal glucose, Z12.5 - Encounter for screening for malignant neoplasm of prostate Medications: Refilled clonazepam 0.5 mg PO BID PRN 45 tabs 0RF anxiety
[2024-11-04 16:03] VITALS: BP 116/78; PULSE 96; O2SAT 95; BMI 34.3
== END 2024-11-04 16:32 | disposition home or self-care (01) ==
PROVIDERS: PCP Internal Medicine; Visit Provider Internal Medicine
DX: F33.41 Major depressive disorder, recurrent, in partial remission (principal); R05.2 Subacute cough

== ENCOUNTER → 2024-11-04 15:47 | Outpatient (BNVA) | payer OTHER, SELFPAY | PROVIDERS: PCP Internal Medicine; Visit Provider Internal Medicine | DX: F33.41 Major depressive disorder, recurrent, in partial remission (principal); R05.2 Subacute cough; F41.1 Generalized anxiety disorder; I10 Essential (primary) hypertension; Z79.899 Other long term (current) drug therapy | CPT/HCPCS: 96127 ==

== ENCOUNTER 2025-01-29 15:10 | Emergency (ER) | payer OTHER, SELFPAY ==
--- NOTE | ~2025-01-29 | XR_ITS ---
CLINICAL HISTORY: chest pain Two views of the chest. COMPARISON: None FINDINGS: Normal heart and mediastinal contours. No consolidation. No pleural effusion or pneumothorax. No fracture identified. IMPRESSION: 1. No consolidation. This document has been electronically signed by: Luis Salas MD on 01/29/2025 17:07:42
--- NOTE | 2025-01-29 15:14 | ECG_ITS ---
Test Reason : chest pain Blood Pressure : */* mmHG Vent. Rate : 77 BPM Atrial Rate : 77 BPM P-R Int : 204 ms QRS Dur : 98 ms QT Int : 374 ms P-R-T Axes : 51 2 27 degrees QTcB Int : 423 ms Normal sinus rhythm Normal ECG When compared with ECG of 09-Mar-2024 12:20, No significant change was found Referred By: Vicenta Rubio Electronically Signed By: CRISTOBAL BESS MD
[2025-01-29 15:19] VITALS: BP 141/88; PULSE 79; RESP 18; TEMP 36.6; O2SAT 98; BMI 34.1
--- NOTE | 2025-01-29 15:21 | ED.GENADULT ---
HPI - General Adult General Chief complaint: Chest Pain Stated complaint: chest pain Time Seen by Provider: 01/29/25 16:06 Source: patient Mode of arrival: ambulatory Limitations: no limitations History of Present Illness ED Provider: STEFANY NEVAREZ PA-C HPI narrative: 49 year old male with pmhx significant for anxiety, depression, GERD presents to the ED today for evaluation of chest discomfort x3 days. Reports a tightness to the mid to left chest without radiation. No clear exacerbating or relieving factors. Pain is not worse with exertion, positional changes or deep breathing. Admits to increased stress recently related to work and housing situation. Has been taking his anxiety and depression medication as prescribed. He also has a therapist who he meets with regularly. Denies any SI or HI. Denies any illicit substance use. Reports history of ETOH abuse however has not consumed alcohol in years. No recent travel or long car rides. No calf pain. No shortness of breath or wheezing. No blunt injury or trauma to the chest. Also endorses sweats throat discomfort x2 days. Admits to history of sinus infections. No known sick contacts. Denies difficulty swallowing, fever, chills, nausea or vomiting. Admits to history of GERD. Takes omeprazole and Tums as prescribed. Related Data Previous Rx's ?Medication ?Instructions ?Recorded blood pressure monitor #1 ea 12/27/20 cyclobenzaprine 5 mg tablet 5 mg PO TID PRN muscle spasm #10 10/13/23 tabs omeprazole 40 mg capsule,delayed 40 mg PO DAILY #90 caps 07/18/24 release trazodone 50 mg tablet 50 - 100 mg (1 - 2 x 50 mg) PO 07/18/24 BEDTIME PRN sleep 90 days #180 tabs fluoxetine 40 mg capsule 40 mg PO DAILY #90 caps 08/30/24 dextromethorphan-guaifenesin 5 10 ml PO Q4-8H PRN cough #500 mL 10/13/24 mg-100 mg/5 mL oral liquid (Robitussin Cough-Chest Congestion DM) clonazepam 0.5 mg tablet 0.5 mg PO BID PRN anxiety #45 tabs 11/04/24 Allergies Allergy/AdvReac Type Severity Reaction Status Date / Time codeine Allergy Unknown Unknown Verified 01/29/25 15:20 Review of Systems Review of Systems: Yes all other systems are reviewed and are negative PMFSH Past Medical History Attestation statement: The following information was validated with the patient. Source: old records reviewed and nursing notes reviewed Medical History Cough Annual physical exam Chest pain Acute sinus infection Annual physical exam Gastritis and duodenitis Colon cancer screening Generalized anxiety disorder Overweight (BMI 25.0-29.9) Allergic rhinitis Acute sinusitis Lightheaded Ingrown toenail Vertigo Cyst of epididymis Foreign body in lower extremity Obstructive sleep apnea Cervical disc disease Irritable bowel syndrome Vitamin D deficiency Obesity (BMI 30-39.9) Insomnia Anxiety and depression Hypercholesterolemia Wrist pain, right Surgical History Status post laparoscopic cholecystectomy History of laparoscopic cholecystectomy History of tonsillectomy Closed fracture distal radius and ulna Family History Family History Father Hypertension CVD (cardiovascular disease) S/P triple vessel bypass Mother Breast cancer Depression Anxiety CVD (cardiovascular disease) Hypertension Paternal Aunt Liver cancer Maternal Aunt Breast cancer Brother No problems noted. Sister In good health Other Mental health disorder Social History Social History Household Members: Family Housing: House Do you presently have visiting nurse or other home services: No Alcohol intake: current Alcohol intake frequency: holidays/special occasions only Patient Tobacco Use Status: Never used Tobacco e-Cigarette/Vaping Use: Never Used Second Hand Smoke Exposure: No Advance Directives: No Advance Directives Information Provided: Yes Do you have a plan to hurt others: No Plan service: No Current occupational status: employed Cognitive needs: No Hearing needs: No Vision needs: Yes Physical Exam ED Vital Signs: Vital Signs - 24 hr 01/29/25 15:19 01/29/25 16:24 Temperature 98 F 97.2 F Pulse Rate 79 75 Respiratory Rate 18 14 Blood Pressure 141/88 H 130/74 Pulse Oximetry 98 95 Oxygen Delivery Method Room Air Room Air BMI result Body Mass Index 34.1 Hypertensive, not hypoxic, not tachycardic, afebrile General: Well appearing, in no acute distress. Skin: Warm, dry, intact. No rashes or lesions. Head: Normocephalic, atraumatic. EENT: Hearing is intact b/l. Conjunctiva clear. Sclera is anicteric. PERRLA. EOM intact. Moist mucous membranes.?Posterior oropharynx without erythema or edema, no tonsillar exudates, no peritonsillar masses, uvula midline, controlling secretions, speaking complete sentences. Neck: Supple without LAD Cardiac: Chest wall symmetric. RRR, no reproducible tenderness to palpation of chest wall Lungs: Normal respiratory effort without accessory muscle use. CTA bilaterally. Abdomen: Soft, non-tender, non-distended. No rebound tenderness or guarding. Positive BS x4. Back: No midline spinous or paraspinal tenderness. No step off deformity. Ext: Upper and lower extremities atraumatic, without tenderness, deformity, swelling or erythema. No pitting edema or calf tenderness bilaterally. Neuro: AOx3. Normal speech. Ambulating with steady gait. Course Course Course Narrative: RME performed by Vicenta Rubio PA-C. Patient is a 49 year old assigned male at presenting to the emergency department with chest pain and a sore throat. Detailed physical exam and review of systems are deferred to the painter aircraft. EKG, labs, imaging, swabs ordered. Patient placed back in the waiting room pending room availability and results. Reevaluation(s) Reevaluation #1: Patient's workup is unremarkable. CBC without leukocytosis or left shift. No anemia. H&H stable. Chemistry without acute electrolyte abnormality requiring intervention. No DANIELLE. Random glucose WNL. Liver function and lipase WNL. Troponin undetectable. Given onset of symptoms and timing to presentation, delta trop not warranted at this time. Negative COVID, flu, RSV, strep throat. Chest x-ray without infiltrate or consolidation to suggest pneumonia. No cardiomegaly. EKG showing normal sinus rhythm without acute ischemic changes. PERC 0 -PE unlikely, D-dimer not warranted at this time as I have low suspicion. > symptoms likely related to anxiety/recent stressors. Advised outpatient follow up. He was treated with Tylenol and Motrin in the ED today with good effect. Patient has remained stable throughout ED visit today. Discussed worrisome signs and symptoms and when to return to the ED. All questions answered at this time. Patient is agreeable with disposition and stable for discharge. Medications Administered Discontinued Medications Generic Name Dose Route Start Last Admin Trade Name Freq PRN Reason Stop Dose Admin Acetaminophen 975 mg 01/29/25 17:12 01/29/25 17:32 Acetaminophen 325 Mg Tablet PO 01/29/25 17:13 975 mg ONCE ONE Administration Ibuprofen 600 mg 01/29/25 17:39 01/29/25 17:45 Ibuprofen 600 Mg Tablet PO 01/29/25 17:40 600 mg ONCE ONE Administration Medical Decision Making Medical Decision Making [facility] Narrative: 49 year old male with pmhx significant for anxiety, depression, GERD presents to the ED today for evaluation of chest discomfort x3 days and sore throat x2 days. History without high risk features (not substernal, no exertional component, not relieved with rest).? Minimal CAD risk factors (including age). Exam without evidence of volume overload. EKG without signs of active ischemia. HEART score: 1. ? Given the timing of pain to ED presentation, plan to send single troponin to evaluate for NSTEMI. Differential diagnosis also includes anemia, electrolyte abnormality, costochondritis, msk pain, pneumonia, pleurisy, anxiety, strep throat, viral syndrome, pharyngitis. Presentation not consistent with acute PE (PERC 0), pneumothorax, thoracic aortic dissection, cardiac effusion or tamponade, myocarditis, pericarditis Plan for viral/ strep swabs, labs, ekg, cxr, pain control and re-evaluation. Differential Diagnosis Differential Diagnoses: The differential diagnosis associated with the presentation includes as above. Admission/Observation not indicated. Lab Data [facility] Lab Attestation statement: I reviewed the patient's lab results. as above. 01/29/25 15:37 01/29/25 15:37 Labs: Lab Results 01/29/25 01/29/25 Range/Units 15:37 17:08 WBC 5.6 (4.8-10.8) X10*3/uL RBC 5.00 (4.60-5.80) X10*6/uL Hgb 15.0 (14.0-18.0) g/dl Hct 43.6 (42.0-52.0) % MCV 87.2 (80.0-98.0) fL MCH 30.0 (27.0-33.0) pg MCHC 34.4 (31.0-36.0) g/dl RDW 12.9 (11.0-16.0) % Plt Count 229 (160-400) X10*3/uL MPV 10.0 (9.4-12.4) fL Immature Gran % (Auto) 0.2 (0.0-0.4) % Neut % (Auto) 51.0 (45-73) % Lymph % (Auto) 36.9 (20-40) % [place] % (Auto) 8.3 (2-11) % Eos % (Auto) 3.2 (0-4) % Baso % (Auto) 0.4 (0-2) % Lymph # (Auto) 2.1 (1.2-4.9) X10*3/uL [place] # (Auto) 0.5 (0.1-1.2) X10*3/uL Eos # (Auto) 0.2 (0.0-0.4) X10*3/uL Baso # (Auto) 0.0 (0.0-0.2) X10*3/uL Abs Immat Gran (auto) 0.01 (0.00-0.03) X10*3/uL Absolute Neuts (auto) 2.9 (2.0-8.3) x10*3/uL Absolute Nucleated RBC 0.000 (0.0-0.012) X10*3/uL Nucleated RBC % (auto) 0.0 (0.0-0.2) /100WBC Sodium 141 (135-145) mmol/L Potassium 4.1 (3.3-5.1) mmol/L Chloride 106 (96-108) mmol/L Carbon Dioxide 25 (22-29) mmol/L Anion Gap 14 (12-20) BUN 11 (9-16) mg/dL Creatinine 0.94 (0.5-1.4) mg/dL Estim Creat Clear Calc 120.4 Estimated GFR > 60 Random Glucose 95 (60-115) mg/dL Calcium 9.1 (8.4-10.2) mg/dL Magnesium 2.0 (1.6-2.6) mg/dL Total Bilirubin 0.7 (0.0-1.0) mg/dL AST 27 (5-37) U/L ALT 54 H (0-40) U/L Alkaline Phosphatase 65 (39-117) U/L Troponin I High Sens < 2.7 (<3.5-35.0) ng/L Total Protein 6.8 (6.5-8.0) g/dL Albumin 4.3 (3.5-5.0) g/dL Lipase 19 (8-78) U/L Influenza Type A (PCR) NEGATIVE (Negative) Influenza Type B (PCR) NEGATIVE (Negative) RSV RNA Qual (PCR) NEGATIVE (Negative) SARS-CoV-2 RNA (RT-PCR) NEGATIVE (Negative) S. pyogenes GrpA KIEL Negative (Negative) Independent Interpretation I performed an independent interpretation of an: EKG and Plain X-Ray Interpretation: cxr without infiltrate or consolidation ekg showing NSR w/ rate of 77 bpm, no acute ischemic changes or st elevations Radiology Impression Discussion of test interpretation with radiology: I have reviewed the radiologist's reading. Radiologist Impression: Procedure(s): XR chest 2V Accession Number(s): [id number] cc: Vicenta Rubio; Marzena Daugherty MD~ CLINICAL HISTORY: chest pain Two views of the chest. COMPARISON: None FINDINGS: Normal heart and mediastinal contours. No consolidation. No pleural effusion or pneumothorax. No fracture identified. IMPRESSION: 1. No consolidation. External Record Review External record reviewed: Inpatient record Prescription Management I considered prescription management with: Pain Medication (tylenol/motrin) Chronic Conditions Patient?s care impacted by: Other (anxiety/depression) Social Determinants Patient?s care significantly limited by Social Determinants of Health including: Other Social Determinant of Health Critical Care Time Critical Care Time Critical Care Time: No Discharge Plan Discharge Clinical Impression: Atypical chest pain Patient Disposition: Home, Self-Care Instructions: Noncardiac Chest Pain (ED) Additional Instructions: You were evaluated in the Emergency Department today for chest pain. Your evaluation has shown no signs of medical conditions requiring emergent intervention at this time. I recommend that you follow up with your primary care provider or your patient safety tech as soon as possible for further testing as an outpatient. If you do not have one, a referral has been provided. Please call them to make an appointment, they will not call you. Return to the Emergency Department if you experience worsening or uncontrolled chest pain, shortness of breath, light headedness, feeling faint, nausea, vomiting, or any other concerning symptoms. Prescriptions: No Action cyclobenzaprine 5 mg tablet 5 mg PO TID PRN (Reason: muscle spasm) Qty: 10 0RF (DME) blood pressure monitor Kit See Rx Instructions .ROUTE .MEDSUPPLY Qty: 1 0RF Rx Instructions: As directed omeprazole 40 mg capsule,delayed release(DR/EC) 40 mg PO DAILY Qty: 90 3RF trazodone 50 mg tablet 50 - 100 mg PO BEDTIME PRN (Reason: sleep) 90 Days Qty: 180 0RF fluoxetine 40 mg capsule 40 mg PO DAILY Qty: 90 3RF clonazepam 0.5 mg tablet 0.5 mg PO BID PRN (Reason: anxiety) Qty: 45 0RF dextromethorphan-guaifenesin [Robitussin Cough-Chest Rashid DM] 5-100 mg/5 mL liquid 10 ml PO Q4-8H PRN (Reason: cough) Qty: 500 0RF Referrals: [facility] [Provider Group] [facility] [Provider Group] [facility], Yevgeniy [Provider Group] [facility], Ricardo [Provider Group] Stand Alone Forms: Work/School Release Interventions: ED Discharge Assessment Last Done: 01/29/25 18:05 Print Language: Nicaraguan
[2025-01-29 15:48] LABS: MANUAL DIFF FLAG NO
[2025-01-29 15:56] LABS: Basophils Percent Auto 0.4 % (0-2); Eosinophils Absolute Auto 0.2 X10*3/uL (0.0-0.4); Eosinophils Percent Auto 3.2 % (0-4); Hematocrit 43.6 % (42.0-52.0); Imm Gran Abs Auto 0.01 X10*3/uL (0.00-0.03); Imm Gran Pct Auto 0.2 % (0.0-0.4); Lymphocytes Absolute Auto 2.1 X10*3/uL (1.2-4.9); Lymphocytes Percent Auto 36.9 % (20-40); Mean Corpuscular HGB Conc 34.4 g/dl (31.0-36.0); Mean Corpuscular Volume 87.2 fL (80.0-98.0); Monocytes Absolute Auto 0.5 X10*3/uL (0.1-1.2); Monocytes Percent Auto 8.3 % (2-11); Neutrophils Absolute Auto 2.9 x10*3/uL (2.0-8.3); Platelet Count 229 X10*3/uL (160-400); Red Cell Distribution Width 12.9 % (11.0-16.0); White Blood Count 5.6 X10*3/uL (4.8-10.8)
[2025-01-29 16:04] LABS: Alanine Aminotransferase 54 U/L (0-40); Albumin Level 4.3 g/dL (3.5-5.0); Alkaline Phosphatase 65 U/L (39-117); Anion Gap 14 (12-20); Aspartate Amino Transferase 27 U/L (5-37); Bilirubin Total 0.7 mg/dL (0.0-1.0); Blood Urea Nitrogen 11 mg/dL (9-16); Calcium 9.1 mg/dL (8.4-10.2); Carbon Dioxide 25 mmol/L (22-29); Chloride 106 mmol/L (96-108); Creatinine Clr Calc Pharmacy 120.4; Estimated Glomerular Filt Rate > 60; Glucose Random 95 mg/dL (60-115); Potassium 4.1 mmol/L (3.3-5.1); Sodium 141 mmol/L (135-145); Total Protein 6.8 g/dL (6.5-8.0)
[2025-01-29 16:19] LABS: Troponin-I High Sensitivity < 2.7 ng/L (<3.5-35.0)
[2025-01-29 16:24] VITALS: BP 130/74; PULSE 75; RESP 14; TEMP 36.2; O2SAT 95
[2025-01-29 16:28] LABS: Influenza A PCR NEGATIVE (Negative); Influenza B PCR NEGATIVE (Negative); Resp Syncy Virus RNA Qual PCR NEGATIVE (Negative); SARS COV2 PCR INHOUSE NEGATIVE (Negative)
[2025-01-29 16:30] LABS: Lipase 19 U/L (8-78)
[2025-01-29 17:23] LABS: IDNOW Serial# 55D5AD1C; Strep A Nucleic Acid Negative (Negative)
[2025-01-29] MEDS: Acetaminophen 325 MG TABLET 975 MG PO (17:32)
[2025-01-29] MEDS: Ibuprofen 600 MG TABLET PO (17:45)
[2025-01-29 18:05] VITALS: BP 130/74; PULSE 75; RESP 14; TEMP 36.2; O2SAT 95
== END 2025-01-29 18:06 | disposition home or self-care (01) ==
PROVIDERS: Physician Assistant Medical; Emergency Provider Emergency Medicine Emergency Medical Services; PCP Internal Medicine
DX: R07.89 Other chest pain (principal); J02.9 Acute pharyngitis, unspecified; Z79.899 Other long term (current) drug therapy; Z03.818 Encounter for observation for suspected exposure to other biological agents ruled out
CPT/HCPCS: 0241U; 71046; 80053; 83690; 83735; 84484; 85025; 87651; 93005; 99283; 99285

== ENCOUNTER → 2025-01-29 15:14 | Outpatient (BNV) | payer OTHER, SELFPAY | PROVIDERS: Emergency Provider Emergency Medicine Emergency Medical Services; PCP Internal Medicine; Visit Provider Internal Medicine Cardiovascular Disease | DX: R07.9 Chest pain, unspecified (principal) | CPT/HCPCS: 93010 ==

== ENCOUNTER → 2025-01-29 15:21 | Outpatient (BNV) | payer OTHER, SELFPAY | PROVIDERS: Emergency Provider Emergency Medicine Emergency Medical Services; PCP Internal Medicine; Visit Provider Radiology Diagnostic Radiology | DX: R07.9 Chest pain, unspecified (principal) | CPT/HCPCS: 71046 ==

== ENCOUNTER 2025-02-07 07:09 | Outpatient (REF) | payer OTHER, SELFPAY ==
--- OUTSIDE RECORDS SUMMARY | 2025-02-07 07:11 | XMS_ITS ---
Author Organization [facility] Address [address] [place] [id number] Care Team Providers Care Speech And Language Clinician Name Role Phone Marzena Daugherty M.D. Primary Care Provider Yue Larios JrVirgilio Unavailable Allergies No Known Allergies REASON FOR VISIT Patient presents today for gerd, Medications Medication SIG (Take, Route, Fr equency, Duration) Notes Start Date End Date Status traZODone HCl 50 MG Oral for 90 Active clonazePAM 0.5 MG Oral for 23 Active Omeprazole 40 MG 1 capsule 30 minutes before morning meal Orally Once a day for 30 day(s) Active Prozac 40 mg 2 tab Oral for 14 days Active Social History Tobacco Use: Social History Observation Description Date Details (start date - stop date) Never Smoker NA - NA Tobacco Use/Smoking Question Answer Notes Patient is [...] Never (0 point) Points 1 Interpretation Negative Problems Problem Type SNOMED Code ICD Code Onset Dates Problem Status W/U Status Risk Notes Problem [id number] Gastroesophageal reflux disease, unspecified whether esophagitis present (K21.9) Active confirmed Vital Signs Temperature 98.4 degrees Fahrenheit 10/27/19 25 Blood pressure systolic 000 mm Hg 10/27/19 25 Blood pressure diastolic 00 mm Hg 025 Height 71 in 10/27/2024 Weight 244 lb 8 oz lbs 10/27/2024 BMI 34.10 kg/m2 10/27/2024 Encounters Encounter Location Date Provider Diagnosis [facility] [address] [place] [address] 10/27/2024 Virgilio Larios Jr Gastroesophageal reflux disease, unspecified whether esophagitis present K21.9 and Colon cancer screening Z12.11 Assessments Encounter Date Diagnosis (ICD Code) Assessment Notes Treatment Notes Treatment Clinical Notes Section Notes 10/27/2024 Gastroesophageal reflux disease, unspecified whether esophagitis present (ICD-10 - K21.9) Fecal immunochemical test (FIT) material was printed We discussed gastroesophageal reflux disease today. We discussed colon cancer screening today. We discussed diet, lifestyle modifications, and weight management regarding the treatment of reflux. We discussed what to do for breakthrough symptoms, including OTC antacids as needed. We'll arrange followup office visit in one year. 10/27/2024 Colon cancer screening (ICD-10 - Z12.11) We discussed gastroesophageal reflux disease today. We discussed colon cancer screening today. We discussed diet, lifestyle modifications, and weight management regarding the treatment of reflux. We discussed what to do for breakthrough symptoms, including OTC antacids as needed. We'll arrange followup office visit in one year. Plan Of Treatment Treatment Notes Assessment Notes Gastroesophageal reflux dise ase, unspecified whether esophagitis present Fecal immunochemical test (FIT) material was printed Next Appt Details Follow Up: 1 Year, Reason: Provider Name:Virgilio aquino Jr, 10/30/2025 10:20:00 AM, [address], [address], [place], [address], Progress Notes * PEARL DALEYDOB:[birth year] (48 yo M)Acc No.[id number]:10/27/2024 Progress Notes Patient:?PEARL DALEY Provider:?Virgilio Larios MD :1975???Age:48 Y???Sex:Male Walt e:10/27/2024 Address:[address] [place] [address] Pcp:Marzena Daugherty M.D. Subjective: * Chief Complaints: * ???1. Patient presents today for gerd,. * HPI: ???New symptom(s):? The patient is a pleasant 48-year-old man seen today in consultation. He has a history of gastroesophageal reflux disease with substernal burning precipitated by typical foods. This concludes spicy foods and fatty foods. He has helped improve his symptoms but dietary measures including discontinuing carbonated beverages. He takes 40 mg of omeprazole daily basis. This controls his reflux symptoms well. He gets occasional breakthrough symptoms but denies dysphagia, hematemesis, or melena. Weight and appetite have been stable. ?Previous evaluation has included upper endoscopy and colonoscopy. Endoscopy showed gastritis but no H. pylori. Gastric polyps were benign. Colonoscopy was normal. We reviewed this today. He has no lower GI symptoms. * ROS:?General/Constitutional:?Change in appetite?denies.?Fatigue?denies.?ENT:?Patient denies?difficulty swallowing.?Respiratory:?Patient denies?shortness of breath.?Cardiovascular:?Patient denies?chest pain.?Gastrointestinal:?Comments?See HPI for details.?Genitourinary:?Difficulty urinating?denies.?Incontinence?denies.?Musculoskeletal:?Patient denies?muscle aches.?Skin:?Patient denies?pruritis.?Neurologic:?Patient denies?low back pain.?Psychiatric:?Patient denies?mental or physical abuse.? * Medical History:?Hypertensio n, Hyperlipidemia, Gastroesophageal reflux disease, EGD 2020, gastritis,, Anxiety/depression, Environmental allergies, Colonoscopy 2020, normal, ten-year followup. * Surgical History:?Cholecyste ctomy 2020, ORIF wrist 2009. * Family History:?Father: mathew marcus, diagnosed with Colon polyps, HTN (hypertension).?Mother: , diagnosed with HTN (hypertension), Colon polyps.? No family history of colon cancer. Father's sister had liver cancer. * Social History:?Tobacco Use:?Tobacco Use/Smoking?Patient is a?nonsmoker.?Drugs/Alcohol:?Alcohol Screen?Did you have a drink containing alcohol in the past year??Yes,?How often did you have a drink containing alcohol in the past year??Monthly or less (1 point), How many drinks did you have on a typical day when you were drinking in the past year??1 or 2 drinks (0 point),?How often did you have 6 or more drinks on one occasion in the past year??Never (0 point),?Points?1,?Interpretation?Negative.?Miscellaneous:?Marital status: single. Occupation: works full-time. * Medications:?Taking Prozac 4 0 mg 2 tab Oral , Taking Omeprazole 40 MG Capsule Delayed Release 1 capsule 30 minutes before morning meal Orally Once a day, Taking clonazePAM 0.5 MG Tablet Oral , Taking traZODone HCl 50 MG Tablet Oral , Discontinued Allergy (Cetirizine) 10 MG Tablet 1 tablet Orally Once a day, Discontinued Lorazepam 1 tab Oral , Discontinued Probiotic - Tablet Chewable as directed Orally , Discontinued B12 Fast Dissolve 5000 MCG Tablet Disintegrating as directed Orally , Discontinued Multivitamin - Tablet 1 tablet Orally Once a day, Discontinued MiraLax (colon prep) 17 GM/SCOOP Powder mixed with Gatorade or Crystal Light Orally begin at 5:00 p.m. the day before the procedure, Medication List reviewed and reconciled with the patient * Allergies:?N.K.D.A. Objective: * Vitals:?Wt: 244 lb 8 oz, Ht: 71 in, BMI:34.10 Index, BP: 000/00 mm Hg, Temp: 98.4. * Examination: ???General Examination: ?GENERAL APPEARANCE:?in no acute distress.?HEAD:?normocephalic.?EYES:?sclera non-icteric.?ORAL CAVITY:?mucosa moist.?NECK/THYROID:?no lymphadenopathy.?SKIN:?anicteric.?HEART:?S1, S2 normal, no murmurs.?LUNGS:?clear to auscultation bilaterally.?CHEST:?normal shape and expansion.?ABDOMEN:?soft, nontender, nondistended, bowel sounds present, no organomegaly .?EXTREMITIES:?no clubbing, cyanosis, or edema.?PSYCH:?cognitive function intact.? Assessment: * Assessment: 1.?Gastroesophageal reflux d isease, unspecified whether esophagitis present - K21.9 (Primary)?2.?Colon cancer screening - Z12.11? We discussed gastroesophagea l reflux disease today. We discussed colon cancer screening today. We discussed diet, lifestyle modifications, and weight management regarding the treatment of reflux. We discussed what to do for breakthrough symptoms, including OTC antacids as needed. We'll arrange followup office visit in one year. Plan: * Treatment: * Procedure Codes:?3017F COLOR ECTAL CA SCREEN DOC REV, G9903 Pt scrn tbco id as non user, G9744 PATIENT NOT ELIG D/T ACTIVE DX HTN * Preventive Medicine:? ??Counseling:?Care goal follow-up plan:?Above Normal BMI Follow-up?Giving encouragement to exercise,?BMI management provided?Yes.? * Follow Up:?1 Year * * Sign off status: Completed true * Provider:?Virgilio Larios MD Date:?0 10/27/2024 Generated for Zoey reeves/Suze/Mindy on:?02/07/2025 07:11 AM EDT History and Physical Notes * HPI (History of Present Illness) Category Sub-Category Detail Notes Category Not es New symptom(s) The patient is a pleasant 48-year-old man seen today in consultation. He has a history of gastroesophageal reflux disease with substernal burning precipitated by typical foods. This concludes spicy foods and fatty foods. He has helped improve his symptoms but dietary measures including discontinuing carbonated beverages. He takes 40 mg of omeprazole daily basis. This controls his reflux symptoms well. He gets occasional breakthrough symptoms but denies dysphagia, hematemesis, or melena. Weight and appetite have been stable. Previous evaluation has included upper endoscopy and colonoscopy. Endoscopy showed gastritis but no H. pylori. Gastric polyps were benign. Colonoscopy was normal. We reviewed this today. He has no lower GI symptoms. Examination Category Sub-Category Detail Notes Category Not es General Examination GENERAL APPEARANCE: in no acute di stress HEAD: normocephalic EYES: sclera non-icteric NECK/THYROID: no lymphadenopathy HEART: S1, S2 normal, no mu rmurs CHEST: normal shape and exp ansion LUNGS: clear to auscultatio n bilaterally ABDOMEN: soft, nontender, non distended, bowel sounds present, no organomegaly SKIN: anicteric EXTREMITIES: no clubbing, cyanosi s, or edema PSYCH: cognitive function i ntact ORAL CAVITY: mucosa moist
--- OUTSIDE RECORDS SUMMARY | 2025-02-07 07:11 | XMS_ITS | Clinical Summary ---
Author Organization 175 [facility] Address [address] [place] [address] Phone Care Team Providers Care Segment Block Layer Name Role Phone Zulema Carrera MD Primary Care Provider [phone] Allergies No known active allergies Medications silver sulfADIAZINE (SILVADENE, SSD) 1 % cream Apply topically to nail bed daily 2 Active meclizine (ANTIVERT) 12.5 mg tablet Take by mouth. Activ e omeprazole (PriLOSEC) [address] capsule Take 40 mg by mouth daily. Active escitalopram (LEXAPRO) 10 mg tablet Take 10 mg by mouth daily. Active clonazePAM (KlonoPIN) 0.5 mg tablet Take 0.5 mg by mouth 2 times daily as needed. Active CYANOCOBALAMIN, VITAMIN B-12, ORAL Take by mouth. Activ e enzymes,digestive (DIGESTIVE ENZYMES ORAL) Take by mouth. A ctive Lactobacillus acidophilus (PROBIOTIC ORAL) Take by mouth. Active Active Problems Problem Noted Date Diagnosed Date Ingrowing nail 01/04/2025 Disease of skin and subcutaneous tissue 01/05/20 25 Scar tissue 01/04/2025 Allergic rhinitis 11/26/2006 Esophageal reflux 10/16/2006 Asthma 09/19/2005 Encounters Date Type Department Care Team Description 01/04/2025 3:00 PM EDT Office Visit Orthopedic Surgery [facility] [address] [facility] [address] [place] [address] Shawn Vaughn, DPM Ingrowing nail (Primary Dx); Disease of skin and subcutaneous tissue; Scar tissue from Last 3 Months Surgical History Surgery Date Site/Laterality Comments TONSILLECTOMY PROCEDURE: HISTORICAL TONSILLECTOMY Medical History Medical History Date Comments Unspecified asthma(493.90) 09/19/2005 DX:Un specified asthma(493.90) Allergic rhinitis, cause unspecified 11/26/2006 DX:Allergic rhinitis, cause unspecified Family History Medical History Relation Name Comments Breast cancer Aunt 1 2 Breast cancer Mother Other: prostate cancer Paternal Grandfather Relation Name Status Comments Aunt 1 Aunt 2 Mother Paternal Grandfather Social History Tobacco Use Types Packs/Day Years Used Date Smoking Tobacco: Never Smokeless Tobacco: Never Alcohol Use Standard Drinks/Week Comments Not Asked 0 (1 standard drink = 0.6 oz pur e alcohol) Sex and Gender Information Value Date Recorded Sex Assigned at Not on file Legal Sex Male 10:56 AM EST Gender Identity Not on file Sexual Orientation Not on file Obstetrics History Last Filed Vital Signs Vital Sign Reading Time Taken Comments Blood Pressure - - Pulse - - Temperature - - Respiratory Rate - - Oxygen Saturation - - Inhaled Oxygen Concentration - - Weight 104 kg (230 lb) 01/04/2025 3:06 PM EDT Height 180.3 cm (5' 10.98 ) 01/04/2025 3:06 PM E DT Body Mass Index 32.09 01/04/2025 3:06 PM EDT Plan of Treatment Scheduled Procedures Name Priority Associated Diagnoses Date/Ti me EXCISION FINGERNAIL/TOENAIL Ingrowing nail Disease of skin and subcutaneous tissue Scar tissue Health Maintenance Due Date Last Done Comments Hepatitis B Vaccines (1 of 3 - 19+ 3-dose series) 12/17/1994 Pneumococcal Vaccine: Pediatrics (0 to 5 Years) and At-Risk Patients (6 to 64 Years) (1 of 2 - PCV) 12/17/1994 Cholesterol Screening (Lipid Panel) 08/19/2022 Colorectal Cancer Screening: Colonoscopy 08/19/2022 Depression Screening 08/19/2022 Hepatitis C Screening 08/19/2022 Social Influencers of Health Screening 08/19/2022 COVID-19 Vaccine ( season) 2024 09/17/2021, 01/26/2021, 01/05/2021 DTaP,Tdap,and Td Vaccines (2 - Td or Tdap) 08/14/2025 08/14/2015 HIV Screening Completed 11/26/2006 Influenza Vaccine Completed 06/24/2024, , 10/24/2021, Additional history exists HIB Vaccines Aged Out No longer eligi ble based on patient's age to complete this topic HPV Vaccines Aged Out No longer eligi ble based on patient's age to complete this topic Hepatitis A Vaccines Aged Out No long er eligible based on patient's age to complete this topic IPV Vaccines Aged Out No longer eligi ble based on patient's age to complete this topic MMR Vaccines Aged Out No longer eligi ble based on patient's age to complete this topic Meningococcal ACWY Vaccine Aged Out N o longer eligible based on patient's age to complete this topic Meningococcal B Vaccine Aged Out No l onger eligible based on patient's age to complete this topic RSV Immunization Patients Under 20 months Aged Out No longer eligible based on patient's age to complete this topic Varicella Vaccines Aged Out No longer eligible based on patient's age to complete this topic Procedures Procedure Name Priority Date/Time Associated Diagnosis Comments HIV SCREENING Routine 11/26/2006 from Last 3 Months or Most Recently Relevant to Health Maintenance Results * HIV Screening (11/26/2006) Pathologist [facility] HIV Screening ABSTRACTED Historical Provider HEALTH MAINTENANCE Final Result from Last 3 Months or Most Recently Relevant to Health Maintenance Insurance BENEFIT [facility] Care Teams Segment Block Layer Relationship Specialty Start Date End Date Zulema Carrera MD [address] [place] [address] [address] [facility] [place] [address] PCP - General Internal Medicine 11/12/20
--- OUTSIDE RECORDS SUMMARY | 2025-02-07 07:11 | XMS_ITS | Patient Health Record ---
Author Organization [facility] Address [address] [place] [address] Care Team Providers Care Car Sales Representative Name Role Phone Marzena Daugherty M.D. Primary Care Provider Unavail yaron Larios Jr Virgilio Unavailable Allergies No Known Allergies Reason For Referral No Information Medications Medication SIG (Take, Route, Fr equency, Duration) Notes Start Date End Date Status traZODone HCl 50 MG Oral for 90 Active clonazePAM 0.5 MG Oral for 23 Active Omeprazole 40 MG 1 capsule 30 minutes before morning meal Orally Once a day for 30 day(s) Active Prozac 40 mg 2 tab Oral for 14 days Active Immunizations Vaccine Route Administration Date Status Comme nts Influenza Unknown 07/03/2021 Administered Influenza Unknown 08/16/2024 Administered Social History Tobacco Use: Social History Observation [...] Problem Status W/U Status Risk Notes Problem 256996397 Colon cancer screening (Z12.11) Active confirmed Problem Gastritis (1167823) Gastritis (K29.70) Active confirmed Problem 504456818 Gas bloat syndro me (K92.89) Active confirmed Problem 233835669 Gastroesophageal reflux disease, unspecified whether esophagitis present (K21.9) Active confirmed Vital Signs Temperature 98.4 degrees Fahrenheit 10/27/2024 Blood pressure diastolic 00 mm Hg 10/27/2024 Height 71 in 10/27/2024 Blood pressure systolic 000 mm Hg 10/27/2024 Weight 244 lb 8 oz lbs 10/27/2024 BMI 34.10 kg/m2 10/27/2024 Encounters Encounter Location Date Provider Diagnosis [facility] [address] [place] [address] 10/27/2024 Virgilio Larios Jr Gastroesophageal reflux disease, unspecified whether esophagitis present K21.9 and Colon cancer screening Z12.11 Assessments Encounter Date Diagnosis (ICD Code) Assessment Notes Treatment Notes Treatment Clinical Notes Section Notes 10/27/2024 Colon cancer screening (ICD-10 - Z12.11) We discussed gastroesophageal reflux disease today. We discussed colon cancer screening today. We discussed diet, lifestyle modifications, and weight management regarding the treatment of reflux. We discussed what to do for breakthrough symptoms, including OTC antacids as needed. We'll arrange followup office visit in one year. 10/27/2024 Gastroesophageal reflux disease, unspecified whether esophagitis [...] visit in one year. Plan Of Treatment Future Test Test Name Order Date UPPER GI ENDOSCOPY 07/10/2021 COLONOSCOPY 07/10/2021 Next Appt Details Provider Name:Virgilio aquino Jr, 10/30/2025 10:20:00 AM, [address], [address], [place], [address], Insurance Providers Payer Name Payer Address Payer Phone Subscriber Number Group Number Insured Name Patient Relationship to Insured Coverage Start Date Coverage End Date [employer] [place] [address] [address] [place] [address] [id number] Self - patient is the insured Medical (General) History Medical History History ICD Code Hypertension Hyperlipidemia Gastroesophageal reflux disease, EGD , gastritis, Anxiety/depression Environmental allergies Colonoscopy 2020, normal, ten-year follo wup Surgical History Surgery Date(Month/Year) Cholecystectomy 2020 ORIF wrist 2009 Hospitalization History Reason Date(Month/Year)
[2025-02-07 07:22] LABS: MANUAL DIFF FLAG NO
[2025-02-07 07:54] LABS: Basophils Percent Auto 0.6 % (0-2); Eosinophils Absolute Auto 0.2 X10*3/uL (0.0-0.4); Eosinophils Percent Auto 3.6 % (0-4); Hematocrit 46.1 % (42.0-52.0); Hemoglobin 15.9 g/dl (14.0-18.0); Imm Gran Abs Auto 0.02 X10*3/uL (0.00-0.03); Imm Gran Pct Auto 0.3 % (0.0-0.4); Lymphocytes Absolute Auto 2.1 X10*3/uL (1.2-4.9); Mean Corpuscular HGB Conc 34.5 g/dl (31.0-36.0); Mean Corpuscular Hemoglobin 29.5 pg (27.0-33.0); Mean Corpuscular Volume 85.5 fL (80.0-98.0); Mean Platelet Volume 10.3 fL (9.4-12.4); Monocytes Absolute Auto 0.6 X10*3/uL (0.1-1.2); Monocytes Percent Auto 8.6 % (2-11); Neutrophils Absolute Auto 3.4 x10*3/uL (2.0-8.3); Neutrophils Percent Auto 53.9 % (45-73); Platelet Count 198 X10*3/uL (160-400); Red Blood Count 5.39 X10*6/uL (4.60-5.80); Red Cell Distribution Width 12.8 % (11.0-16.0); White Blood Count 6.4 X10*3/uL (4.8-10.8)
[2025-02-07 07:58] LABS: Estimated Average Glucose 103 mg/dL; Hemoglobin A1C 137.0328 umol/L; Hemoglobin A1c % 5.2 % (<6.0); Total Hemoglobin (HGBA1C) 4144.7569 umol/L
[2025-02-07 08:17] LABS: Alanine Aminotransferase 46 U/L (0-40); Albumin Level 4.7 g/dL (3.5-5.0); Alkaline Phosphatase 72 U/L (39-117); Anion Gap 11 (12-20); Aspartate Amino Transferase 25 U/L (5-37); Bilirubin Total 0.6 mg/dL (0.0-1.0); Blood Urea Nitrogen 12 mg/dL (9-16); Calcium 9.2 mg/dL (8.4-10.2); Carbon Dioxide 29 mmol/L (22-29); Chloride 103 mmol/L (96-108); Cholesterol 193 mg/dL (<200); Estimated Glomerular Filt Rate > 60; Glucose Random 88 mg/dL (60-115); HDL Cholesterol 44 mg/dL (>40); LDL Cholesterol Calculated 124 mg/dL (<100); Potassium 3.9 mmol/L (3.3-5.1); Sodium 139 mmol/L (135-145); Total Protein 7.3 g/dL (6.5-8.0); Triglycerides 127 mg/dL (<150)
== END 2025-02-07 07:10 | disposition home or self-care (01) ==
LOC: HO.LAB 07:09
PROVIDERS: PCP Internal Medicine; Visit Provider Internal Medicine
DX: E78.00 Pure hypercholesterolemia, unspecified (principal); F33.1 Major depressive disorder, recurrent, moderate; K21.00 Gastro-esophageal reflux disease with esophagitis, without bleeding; E53.8 Deficiency of other specified B group vitamins; R73.09 Other abnormal glucose; Z12.5 Encounter for screening for malignant neoplasm of prostate
CPT/HCPCS: 36415; 80053; 80061; 83036; 84153; 85025

== ENCOUNTER 2025-02-07 11:02 | Outpatient (AMB) | payer OTHER, SELFPAY ==
--- NOTE | 2025-02-07 11:08 | A.OFFPC_ITS ---
Vital Signs 02/07/25 11:09 Height 5 ft 11 in Weight 243 lb 6 oz BMI 33.9 BP 110/88 Blood Pressure Location Lt brachial Position Sitting Pulse 76 Pulse Source Pulse Oximeter Pulse Oximetry (%) 97 Oxygen Delivery Method Room Air Intake Visit Reasons: ED Follow-up /[facility] Intake Note: Emergency room follow up. Lab results, done today. Still getting heart burn, and feeling of food being stuck. [employer] Required: No Allergies codeine Allergy (Unknown, Verified 02/07/25 11:12) Unknown Tobacco use date assessed: 02/07/25 Dental Screening Dental Screen Date: 02/07/25 Did you have a dental visit in the last 12 months?: Yes Did you have a dental problem in the last 6 months where you did not have access to dental care?: No Was dental information given to patient?: Patient has dentist HPI HPI Comments History of Present Illness Details 48 year old male with pmhx hypertension, hyperlipidemia, vitamin B12 deficiency, fatty liver, GERD generalized anxiety disorder presenting for ER follow up Recently seen in [facility] for chest pain. ACS rule out. still having some GERD, chest pain. High anxiety-working 60+ hours weekly Depression/anxiety: Feeling well on prozac. Still has some bad days at times. Trazodone has aided sleep. Uses clonazepam sparingly as needed. GI: GERD, fatty liver. Very PPI dependent. Still getting some break through symptoms on the medication. Was referred to GI. stable Patient had prolonged illness mid August to late September. He is finally feeling back to baseline health Initially had sinus infection-seen 09/23/23-Patient had sinus congestion, pain, low grade temp for the past two weeks. Completed doxycycline course Seen in 10/06/24 with cough, bilateral otitis and treated with antibiotics at that time Then evaluated 10/13/24 at walk in and tested positive for RSV. Prescribed 10 day prednisone course. He has used up his one week of sick time but tells me he has been advised not to return to work until his symptoms improve. He plans to start the prednisone tomorrow for 5 days. It agitates his mood. Back to work. ROS see HPI PHYSICAL EXAM: GENERAL: Alert and oriented x 3. NAD EYES: EOMI. Anicteric. HENT: Moist mucous membranes. No scleral icterus. No cervical lymphadenopathy. LUNGS: Clear to auscultation bilaterally. CARDIOVASCULAR: Regular rate and rhythm. No murmur. No JVD. ABDOMEN: Soft, non-tender +bs EXTREMITIES: No edema. Non-tender. SKIN: No rashes or lesions. Warm. NEUROLOGIC: No focal neurological deficits. CN II-XII grossly intact PSYCHIATRIC: Cooperative. Appropriate mood and affect [facility] Medical History Chest pain Gastritis and duodenitis Cough Annual physical exam Acute sinus infection Annual physical exam Colon cancer screening Generalized anxiety disorder Overweight (BMI 25.0-29.9) Allergic rhinitis Acute sinusitis Lightheaded Ingrown toenail Vertigo Cyst of epididymis Foreign body in lower extremity Obstructive sleep apnea Cervical disc disease Irritable bowel syndrome Vitamin D deficiency Obesity (BMI 30-39.9) Insomnia Anxiety and depression Hypercholesterolemia Wrist pain, right Surgical History Status post laparoscopic cholecystectomy History of laparoscopic cholecystectomy History of tonsillectomy Closed fracture distal radius and ulna Family History Father Hypertension CVD (cardiovascular disease) S/P triple vessel bypass Mother Breast cancer Depression Anxiety CVD (cardiovascular disease) Hypertension Paternal Aunt Liver cancer Maternal Aunt Breast cancer Brother No problems noted. Sister In good health Other Mental health disorder Social History Household Members: Family Housing: House Do you presently have visiting nurse or other home services: No Alcohol intake: current Alcohol intake frequency: holidays/special occasions only Patient Tobacco Use Status: Never used Tobacco e-Cigarette/Vaping Use: Never Used Second Hand Smoke Exposure: No service: No Current occupational status: employed Cognitive needs: No Hearing needs: No Vision needs: Yes Questionnaire Thrive Questionnaire Date Thrive assessed: 02/07/25 I am a: Patient What is your living situation today?: I have a place to live, but I am worried about losing it in the future Within the past 12 months, did the food you bought not last and you didn't have the money to get more?: Sometimes True Within the past 12 months, did you worry whether your food would run out before you got money to buy more?: Sometimes True Do you have trouble paying for medicines?: No Do you have trouble getting transportation to medical appointments?: No Do you have trouble paying your heating and electricity bill?: No Do you have trouble taking care of your child, family member or friend?: No Do you have trouble with day-to-day activities such as bathing, preparing meals, shopping, managing finances, etc.?: No Are you currently unemployed and looking for a job?: No Are you interested in more education?: No Please select the resources that you would like help with: None Currently or been in a relationship where the following occur: No concerns reported THRIVE Score: 3 JAE-7 AMB Questionnaire JAE-7 Date JAE - 7 assessed: 07/27/24 Feeling afraid as if something awful might happen: 1 = Several days Source: Developed by Drs. Salvatore Art, Brianna Fuentes, Eduardo Brady and colleagues, with an educational chantel from [employer]. Physical exam (Primary Care) Vital Signs: Last Vital Signs Pulse 76 02/07/25 11:09 BP 110/88 02/07/25 11:09 Pulse Ox 97 02/07/25 11:09 Oxygen Delivery Method Room Air 02/07/25 11:09 BMI result Body Mass Index 33.9 Tobacco/Smoking Status: Tobacco use Status Tobacco use date assessed 02/07/25 02/07/25 11:09 Patient Tobacco Use Status Never used Tobacco 02/07/25 11:09 e-Cigarette/Vaping Use Never Used 02/07/25 11:09 Thrive Assessment: Date of Thrive Assessment Date Thrive assessed 02/07/25 02/07/25 11:09 Currently or been in a relationship where the following occur: No concerns reported Coding Level of Care Code Est Pt Level 4 (19172) Diagnoses Chest pain, unspecified type R07.9 Chest pain type: unspecified Generalized anxiety disorder F41.1 Gastroesophageal reflux disease without esophagitis K21.00 Esophagitis presence: with esophagitis Esophagitis bleeding: without hemorrhage Assessment & Plan Assessment & Plan (1) Chest pain: Code(s): R07.9 - Chest pain, unspecified Category: Medical Qualifiers: Chest pain type: unspecified Qualified Code(s): R07.9 - Chest pain, unspecified (2) Generalized anxiety disorder: Comment: Private therapist Code(s): F41.1 - Generalized anxiety disorder Category: Medical (3) GERD (gastroesophageal reflux disease): Code(s): K21.9 - Gastro-esophageal reflux disease without esophagitis Category: Medical Qualifiers: Esophagitis presence: with esophagitis Esophagitis bleeding: without hemorrhage Qualified Code(s): K21.00 - Gastro-esophageal reflux disease with esophagitis, without bleeding Plan 49 y/o for ER follow up Intermittent chest pain-stress test ordered Anxiety-add propranolol GERD-continue omeprazole. Dietary changes. Orders: Orders CA stress test Today R07.9 - Chest pain, unspecified Medications: New propranolol 10 mg PO BID PRN 180 tabs 3RF anxiety
[2025-02-07 11:09] VITALS: BP 110/88; PULSE 76; O2SAT 97; BMI 33.9
--- OUTSIDE RECORDS SUMMARY | 2025-02-07 12:21 | XMS_ITS | Clinical Summary ---
Author Organization 175 [facility] Address [address] [place] [address] Phone Care Team Providers Care Electric Power Line Examiner Name Role Phone Zulema Carrera MD Primary Care Provider [phone] Allergies No known active allergies Medications silver [...] 3:00 PM EDT Office Visit Orthopedic Surgery [facility] [address] [facility] [address] [place] [address] Shawn Vaughn, DPM Ingrowing nail [...] Maintenance Results * HIV Screening (11/26/2006) Pathologist [facility] HIV Screening ABSTRACTED Historical Provider HEALTH MAINTENANCE Final Result from Last 3 Months or Most Recently Relevant to Health Maintenance Insurance BENEFIT [facility] Care Teams Electric Power Line Examiner Relationship Specialty Start Date End Date Zulema Carrera MD [address] [place] [address] [address] [facility] [place] [address] PCP - General Internal Medicine 11/12/20
== END 2025-02-07 11:56 | disposition home or self-care (01) ==
LOC: HO.HMCFM 11:02
PROVIDERS: PCP Internal Medicine; Visit Provider Internal Medicine
DX: R07.9 Chest pain, unspecified (principal); F41.1 Generalized anxiety disorder; K21.00 Gastro-esophageal reflux disease with esophagitis, without bleeding

== ENCOUNTER 2025-03-14 08:20 | Outpatient (AMB) | payer OTHER, SELFPAY ==
--- NOTE | 2025-03-14 08:24 | MHC.PC.OV ---
Vital Signs 03/14/25 08:29 Height 5 ft 11 in Weight 249 lb 2 oz BMI 34.7 BP 126/88 Blood Pressure Location Lt brachial Position Sitting Respiration 16 Pulse 77 Pulse Source Pulse Oximeter Temp 98.5 F Temp Source Oral Pulse Oximetry (%) 98 Oxygen Delivery Method Room Air Intake Visit Reasons: cpe Intake Note: Physical. Hurt lower back at work last week. Pain at left hip down to the left knee. Experiencing fatigued and achy for about a week. Banquet Houseperson Required: No Allergies codeine Allergy (Unknown, Verified 03/14/25 08:27) Unknown Tobacco use date assessed: 03/14/25 Dental Screening Dental Screen Date: 02/07/25 HPI HPI Comments History of Present Illness Details 48 year old male with pmhx hypertension, hyperlipidemia, vitamin B12 deficiency, fatty liver, GERD generalized anxiety disorder presenting for physical exam CV: On propranolol for anxiety. He was seen last year in [facility] for chest pain. ACS rule out. still having some GERD, chest pain. High anxiety-working 60+ hours weekly Depression/anxiety: Feeling well on prozac, propranolol. Still has some bad days at times. Trazodone has aided sleep. Uses clonazepam sparingly as needed. Is looking for a new apartment, trying to work through financial issues. GI: GERD, fatty liver. Very PPI dependent. Still getting some break through symptoms on the medication. Was referred to GI. stable Patient had prolonged illness mid August to late September. Back to baseline Initially had sinus infection-seen 09/23/23-Patient had sinus congestion, pain, low grade temp for the past two weeks. Completed doxycycline course Seen in 10/06/24 with cough, bilateral otitis and treated with antibiotics at that time Then evaluated 10/13/24 at walk in and tested positive for RSV. Prescribed 10 day prednisone course. He has used up his one week of sick time but tells me he has been advised not to return to work until his symptoms improve. He plans to start the prednisone tomorrow for 5 days. It agitates his mood. Back to work. Colonoscopy 2020-has appt with GI October Tdap due 07/2025 ROS see HPI PHYSICAL EXAM: GENERAL: Alert and oriented x 3. NAD EYES: EOMI. Anicteric. HENT: Moist mucous membranes. No scleral icterus. No cervical lymphadenopathy. LUNGS: Clear to auscultation bilaterally. CARDIOVASCULAR: Regular rate and rhythm. No murmur. No JVD. ABDOMEN: Soft, non-tender +bs EXTREMITIES: No edema. Non-tender. SKIN: No rashes or lesions. Warm. NEUROLOGIC: No focal neurological deficits. CN II-XII grossly intact PSYCHIATRIC: Cooperative. Appropriate mood and affect [facility] Medical History Chest pain Gastritis and duodenitis Cough Annual physical exam Acute sinus infection Annual physical exam Colon cancer screening Generalized anxiety disorder Overweight (BMI 25.0-29.9) Allergic rhinitis Acute sinusitis Lightheaded Ingrown toenail Vertigo Cyst of epididymis Foreign body in lower extremity Obstructive sleep apnea Cervical disc disease Irritable bowel syndrome Vitamin D deficiency Obesity (BMI 30-39.9) Insomnia Anxiety and depression Hypercholesterolemia Wrist pain, right Surgical History Status post laparoscopic cholecystectomy History of laparoscopic cholecystectomy History of tonsillectomy Closed fracture distal radius and ulna Family History Father Hypertension CVD (cardiovascular disease) S/P triple vessel bypass Mother Breast cancer Depression Anxiety CVD (cardiovascular disease) Hypertension Paternal Aunt Liver cancer Maternal Aunt Breast cancer Brother No problems noted. Sister In good health Other Mental health disorder Social History Household Members: Family Housing: House Do you presently have visiting nurse or other home services: No Alcohol intake: current Alcohol intake frequency: holidays/special occasions only Patient Tobacco Use Status: Never used Tobacco e-Cigarette/Vaping Use: Never Used Second Hand Smoke Exposure: No service: No Current occupational status: employed Cognitive needs: No Hearing needs: No Vision needs: Yes Questionnaire Thrive Questionnaire Date Thrive assessed: 11/04/24 I am a: Patient What is your living situation today?: I have a place to live, but I am worried about losing it in the future Within the past 12 months, did the food you bought not last and you didn't have the money to get more?: Sometimes True Within the past 12 months, did you worry whether your food would run out before you got money to buy more?: Sometimes True Do you have trouble paying for medicines?: No Do you have trouble getting transportation to medical appointments?: No Do you have trouble paying your heating and electricity bill?: No Do you have trouble taking care of your child, family member or friend?: No Do you have trouble with day-to-day activities such as bathing, preparing meals, shopping, managing finances, etc.?: No Are you currently unemployed and looking for a job?: No Are you interested in more education?: No Please select the resources that you would like help with: None Currently or been in a relationship where the following occur: No concerns reported THRIVE Score: 3 AUDIT C Alcohol Use Questionnaire (AUDIT-C) 1. How often do you have a drink containing alcohol?: Never 3. How often do you have six or more drinks on one occasion?: Never Total Score: 0 JAE-7 AMB Questionnaire JAE-7 Date JAE - 7 assessed: 07/27/24 Source: Developed by Drs. Salvatore Art, Brianna Fuentes, Eduardo Brady and colleagues, with an educational chantel from [employer]. Physical exam (Primary Care) Vital Signs: Last Vital Signs Temp 98.5 F 03/14/25 08:29 Pulse 77 03/14/25 08:29 Resp 16 03/14/25 08:29 BP 126/88 03/14/25 08:29 Pulse Ox 98 03/14/25 08:29 Oxygen Delivery Method Room Air 03/14/25 08:29 BMI result Body Mass Index 34.7 Tobacco/Smoking Status: Tobacco use Status Tobacco use date assessed 03/14/25 03/14/25 08:32 Patient Tobacco Use Status Never used Tobacco 03/14/25 08:32 e-Cigarette/Vaping Use Never Used 03/14/25 08:32 Thrive Assessment: Date of Thrive Assessment Date Thrive assessed 11/04/24 03/14/25 08:25 Currently or been in a relationship where the following occur: No concerns reported Coding Level of Care Code Est Pt Prev Care 40-64y(17850) Diagnoses Physical exam Z00.00 Recurrent major depressive disorder, in partial remission F33.41 Major depression recurrence: recurrent Active/Remission status: in partial remission Generalized anxiety disorder F41.1 Gastroesophageal reflux disease without esophagitis K21.00 Esophagitis presence: with esophagitis Esophagitis bleeding: without hemorrhage Assessment & Plan Assessment & Plan (1) Physical exam: Code(s): Z00.00 - Encounter for general adult medical examination without abnormal findings (2) MDD (major depressive disorder): Code(s): F32.9 - Major depressive disorder, single episode, unspecified Category: Medical Qualifiers: Major depression recurrence: recurrent Active/Remission status: in partial remission Qualified Code(s): F33.41 - Major depressive disorder, recurrent, in partial remission (3) Generalized anxiety disorder: Comment: Private therapist Code(s): F41.1 - Generalized anxiety disorder Category: Medical (4) GERD (gastroesophageal reflux disease): Code(s): K21.9 - Gastro-esophageal reflux disease without esophagitis Category: Medical Qualifiers: Esophagitis presence: with esophagitis Esophagitis bleeding: without hemorrhage Qualified Code(s): K21.00 - Gastro-esophageal reflux disease with esophagitis, without bleeding Plan CPE Interval history reviewed. Preventive measures for age discussed Depression/anxiety/insomnia is stable GERD-awaiting GI. Fairly stable on PPI Orders: Orders Vitamin B12 and Folate Today L60.9 - Nail disorder, unspecified Medications: New lidocaine 5% leave on most painful area for up to 12 hrs 1 patch topical DAILY 30 ea 3RF M54.50 - Low back pain, unspecified prednisone 40 mg (2 x 20 mg) PO DAILY 10 tabs 0RF
[2025-03-14 08:29] VITALS: BP 126/88; PULSE 77; RESP 16; TEMP 36.9; O2SAT 98; BMI 34.7
--- OUTSIDE RECORDS SUMMARY | 2025-03-14 08:30 | XMS_ITS | Patient Health Record ---
Author Organization [facility] Address [address] [place] [address] Care Team Providers Care Ware Server Name Role Phone Marzena Daugherty M.D. Primary [...] Problem Status W/U Status Risk Notes Problem [id number] Colon cancer screening (Z12.11) Active confirmed Problem Gastritis (3616935) Gastritis (K29.70) Active confirmed Problem 825919509 Gas bloat syndro me (K92.89) Active confirmed Problem 651684126 Gastroesophageal reflux disease, unspecified whether esophagitis present (K21.9) Active confirmed Vital Signs Temperature 98.4 degrees Fahrenheit 10/27/2024 Blood pressure diastolic 00 mm Hg 10/27/2024 Height 71 in 10/27/2024 Blood pressure systolic 000 mm Hg 10/27/2024 Weight 244 lb 8 oz lbs 10/27/2024 BMI 34.10 kg/m2 10/27/2024 Encounters Encounter Location Date Provider Diagnosis [facility] [address] [place] [address] 10/27/2024 Virgilio Larios Jr Gastroesophageal reflux disease, [...] Name:Virgilio aquino Jr, 10/30/2025 10:20:00 AM, [address], [address], [place], [address], Insurance Providers Payer Name Payer Address Payer Phone Subscriber Number Group Number Insured Name Patient Relationship to Insured Coverage Start Date Coverage End Date [employer] OF [place] [address] [address] [place] [address] [id number] Self - patient is the insured Medical (General) History Medical History History ICD Code Hypertension Hyperlipidemia Gastroesophageal reflux disease, EGD , gastritis, Anxiety/depression Environmental allergies Colonoscopy 2020, normal, ten-year follo wup Surgical History Surgery Date(Month/Year) Cholecystectomy 2020 ORIF wrist 2009 Hospitalization History Reason Date(Month/Year)
== END 2025-03-14 09:00 | disposition home or self-care (01) ==
LOC: HO.HMCFM 08:20
PROVIDERS: PCP Internal Medicine; Visit Provider Internal Medicine
DX: Z00.00 Encounter for general adult medical examination without abnormal findings (principal); F33.41 Major depressive disorder, recurrent, in partial remission; F41.1 Generalized anxiety disorder; K21.00 Gastro-esophageal reflux disease with esophagitis, without bleeding

== ENCOUNTER → 2025-03-21 07:41 | Outpatient (REF) | payer OTHER, SELFPAY ==
--- OUTSIDE RECORDS SUMMARY | 2025-02-28 09:00 | XMS_ITS ---
Author Organization [facility] [place] Address [address] [place] [address] Care Team Providers Care Fish Net Stringer Name Role Phone ChinaMarzena lewis Primary Care Provider UnavailYumiko Brown Unavailable [phone] Anastacio Amato Unavailable [phone] Medications Medication SIG (Take, Route, Fr equency, [...] 02/28/2025 Encounters Encounter Location Date Provider Diagnosis [facility] [place] [address] [place] [address] 02/28/2025 Anastacio Amato Plan Of Treatment Next Appt Details Provider Name:Yumiko benson, 03/30/2025 08:30:00 AM, [address] [place], [address], Progress Notes * Kory HALLDOB:[birth year] (49 yo M)Acc No.[id number]:02/28/2025 Progress Notes Patient: Kory MCLEAN Provider: Pamela Amato DPM :1975 A ge:49 Y S ex:Male Date:02/28/2025 Address:[address] [place], [place] [address] Pcp:Marzena Atkinson Subjective: * Chief Complaints: * [...] enies. C ardiovascular: Pacemaker d enies. M SECURITY TEST ENGINEER d enies. W PW d enies. C [...] Pending * Provider: Pamela Amato DPM Date: 02/28/2025 Generated for Zoey Abraham on: 03/21/2025 07:43 AM EDT
--- OUTSIDE RECORDS SUMMARY | 2025-03-21 07:43 | XMS_ITS | Encounter Summary ---
Author Organization [facility] Address [address] [place] [address] Care Team Providers Care Child Care Leader Name Role Phone Zulema Carrera MD Primary Care Provider [phone] Reason for Visit * Reason Onset Date Comments Surgical Scheduling 03/01/2025 Encounter Details Date Type Department Care Team (Late st Contact Info) Description 03/01/2025 Telephone Orthopedic Surgery - [place] [address] [phone] Shawn Vaughn, DPM [address] [address] Surgical Scheduling Social History Tobacco Use Types Packs/Day Years Used Date Smoking Tobacco: Never Smokeless Tobacco: Never Alcohol Use Standard Drinks/Week Comments Not Asked 0 (1 standard drink = 0.6 oz pur e alcohol) Sex and Gender Information Value Date Recorded Sex Assigned at Not on file Legal Sex Male 10:56 AM EST Gender Identity Not on file Sexual Orientation Not on file documented as of this encounter Progress Notes * Gala Vaughn - 03/10/2025 3:43 PM EDT I tried reaching him again with no success. I will try again. * Gala Vaughn - 03/01/2025 4:10 PM EDT I tried calling him to schedule his surgery. Both phones do not have any voicemails. I will try again. documented in this encounter Plan of Treatment Scheduled Procedures Name Priority Associated Diagnoses Date/Ti me EXCISION FINGERNAIL/TOENAIL Ingrowing nail Disease of skin and subcutaneous tissue Scar tissue documented as of this encounter Visit Diagnoses Not on filedocumented in this encounter Care Teams Child Care Leader Relationship Specialty Start Date End Date Deandre, MD Zulema [address] [place] [address] Dr [address] [facility] [place] [address] PCP - General Internal Medicine 11/12/20 documented as of this encounter
--- OUTSIDE RECORDS SUMMARY | 2025-03-21 07:43 | XMS_ITS | Patient Health Record ---
Author Organization [facility] Address [address] [place] [address] Care Team Providers Care Professor Of Engineering Name Role Phone Marzena Daugherty M.D. Primary Care Provider Unavail yaron Larios Jr Virgilio Unavailable [phone] Allergies No Known Allergies Reason For Referral [...] Problem Status W/U Status Risk Notes Problem [id number] Colon cancer screening (Z12.11) Active confirmed Problem Gastritis (6223427) Gastritis (K29.70) Active confirmed Problem 145021104 Gas bloat syndro me (K92.89) Active confirmed Problem 690576439 Gastroesophageal reflux disease, unspecified whether esophagitis present (K21.9) Active confirmed Vital Signs Temperature 98.4 degrees Fahrenheit 10/27/2024 Blood pressure diastolic 00 mm Hg 10/27/2024 Height 71 in 10/27/2024 Blood pressure systolic 000 mm Hg 10/27/2024 Weight 244 lb 8 oz lbs 10/27/2024 BMI 34.10 kg/m2 10/27/2024 Encounters Encounter Location Date Provider Diagnosis [facility] [address] [place] [address] 10/27/2024 Virgiilo Larios Jr Gastroesophageal reflux disease, unspecified whether [...] Name:Virgilio aquino Jr, 10/30/2025 10:20:00 AM, [address], [address], [place], [address], Insurance Providers Payer Name Payer Address Payer Phone Subscriber Number Group Number Insured Name Patient Relationship to Insured Coverage Start Date Coverage End Date [employer] [place] [address] [address] [place] [address] [id number] Self - patient is the insured Medical (General) History Medical History History ICD Code Hypertension Hyperlipidemia Gastroesophageal reflux disease, EGD , gastritis, Anxiety/depression Environmental allergies Colonoscopy 2020, normal, ten-year follo wup Surgical History Surgery Date(Month/Year) Cholecystectomy 2020 ORIF wrist 2009 Hospitalization History Reason Date(Month/Year)
--- NOTE | 2025-03-21 07:45 | CA_ITS ---
Acquisition Time: 2025-03-21 08:04:40 Total Exercise Time: 00:08:08 Test Indications: CP Medications: Protocol: VANDANA Max HR: 139 BPM 81% of Pred: 171 BPM Max BP: 158/84 mmHG Max Work Load: 7.7 METS Exercise stress test with exercise 8 mins 8 secs of Vandana Protocol, reduced speed at 2.5mph, achieving 81% MPHR, with reports of SOB, 4/10 left sided chest tightness, and lightheadedness, without any arrythmias, with normotensive response to exercise. Without EKG changes meeting criteria for ischemia. In recovery, chest tightness gradually improved and breathing returned to baseline. Will recommend nuclear stress test. Test reviewed with Dr. Mckinnon. Referred By: Marzena Daugherty Electronically Signed By: David Roy
== END ==
LOC: HO.CARD 07:41
PROVIDERS: PCP Internal Medicine; Visit Provider Internal Medicine
DX: R07.9 Chest pain, unspecified (principal)
CPT/HCPCS: 93017

== ENCOUNTER → 2025-03-21 07:45 | Outpatient (BNV) | payer OTHER, SELFPAY | PROVIDERS: PCP Internal Medicine | DX: R07.2 Precordial pain (principal); R06.02 Shortness of breath | CPT/HCPCS: 93016; 93018 ==

== ENCOUNTER → 2025-05-23 08:36 | Outpatient (REF) | payer OTHER, SELFPAY ==
--- OUTSIDE RECORDS SUMMARY | 2025-02-28 09:00 | XMS_ITS ---
Author Organization [facility] [place] Address [address] [place] [address] Care Team Providers Care Manufacturing Leader Name Role Phone ChinaMarzena lewis Primary Care Provider UnavailYumiko Brown Unavailable [phone] Anastacio Amato Unavailable [phone] Medications Medication SIG (Take, Route, Fr equency, [...] 02/28/2025 Encounters Encounter Location Date [facility] [address] [place] [address] 02/28/2025 Anastacio Amato Plan Of Treatment No Information Progress Notes * Kory HALLDOB:[birth year] (49 yo M)Acc No.[id number]:02/28/2025 Progress Notes Patient: Kory MCLEAN Provider: Pamela Amato DPM :1975 A ge:49 Y S ex:Male Date:02/28/2025 Address:[address] [place] [phone] Pcp:Marzena Atkinson Subjective: * Chief Complaints: * [...] enies. C ardiovascular: Pacemaker d enies. M CHANGE ROOM ATTENDANT d enies. W PW d enies. C [...] 0 02/28/2025 Generated for Zoey reeves/Suze/eTransmitting on: 0 05/23/2025 09:18 AM EDT
--- NOTE | ~2025-05-23 | NM_ITS ---
EXERCISE MYOCARDIAL PERFUSION STUDY INDICATION: Chest pain TECHNIQUE: The patient was brought in for an exercise perfusion study on 05/23/2025. Patient performed exercise as per Rich protocol and was injected 40 mCi of sestamibi once target heart rate was achieved. Images were obtained using the SPECT gamma camera interlaced with the gating device. Images were obtained in supine position. Resting perfusion study was performed on 05/24/2025. Patient was administered 40 mCi of sestamibi intravenously at rest. Images were then obtained in supine position. Total DLP 107 mGy-cm. Images were processed with the software and compared side to side in short axis, horizontal long axis and vertical long axis views. FINDINGS: Raw aquisition reviewed. The stress perfusion study showed mildly depressed tracer uptake in the distal lateral wall. With CT attenuation correction, there is some improvement suggestive of possibly soft tissue attenuation artifact. The gated study shows normal LV systolic function with calculated LVEF of 59%. LV cavity is normal in size. The gated study shows normal wall thickening and contraction of segments. Resting study shows mildly depressed tracer uptake in the distal part of lateral wall. Improvement with CT attenuation correction suggestive of soft tissue attenuation artifact. Gating at rest reveals normal wall motion with ejection fraction at 57%. The findings are consistent with mild partially reversible distal lateral defect. Possibly artifactual. Cannot exclude ischemia. NM/NM cardiolite stress test IMPRESSION: 1. Myocardial perfusion imaging study shows mild, partially reversible defect in the distal lateral wall. Possibly artifactual but cannot exclude small area of ischemia. 2. Gated LVEF is 59% during stress and 57% during rest. 3. Transient ischemic dilatation not present. EKG component of the test reported separately. Electronically signed by: Asa Reese MD 05/25/2025 12:28 PM EDT
--- NOTE | 2025-05-23 08:39 | CA_ITS ---
Acquisition Time: 2025-05-23 08:48:40 Total Exercise Time: 00:07:05 Test Indications: CP Medications: SEE H&P Protocol: VANDANA Max HR: 157 BPM 91% of Pred: 171 BPM Max BP: 172/80 mmHG Max Work Load: 8.6 METS Exercise stress test with exercise 7 mins 5 secs of Vandana Protocol, achieving 91% MPHR, with reports of 2/10 mid chest pressure adn SOB, with isolated PACs, with normotensive response to exercise. Without any EKG changes meeting criteria for ischemia. In recovery, breathing improved and chest pressure resolved. Nuclear images pending. Test reviewed with Dr. Ley. Referred By: Marzena Daugherty Electronically Signed By: David Roy
--- OUTSIDE RECORDS SUMMARY | 2025-05-23 09:18 | XMS_ITS | Patient Health Record ---
Author Organization [facility] chelsea [place] Address [address] [place] [address] Care Team Providers Care Forensic Pathologist Name Role Phone Marzena Atkinson Primary Care Provider Yumiko Mora Unavailable [phone] Anastacio Amato Unavailable [phone] Allergies No Known Allergies Reason For Referral No Information Medications Medication SIG (Take, Route, Fr equency, Duration) Notes Start Date End Date Status clonazePAM Active Propranolol HCl Acti ve traZODone HCl Active Omeprazole Active Fluoxetine Active Immunizations Vaccine Route Administration Date Status Comme nts Influenza Unknown 06/21/2024 Administered Social History Tobacco Use: Social History Observation Description Date Details (start date - stop date) Never Smoker NA - NA Tobacco use other than smoking: Question Answer Notes Are you an other tobacco user? No Tobacco Control (Standard) Question Answer Notes Tobacco use: Nonsmoker AUDIT-C (Standard) Question Answer Notes Did you have a drink contain ing alcohol in the past year? Yes How often did you have a dri nk containing alcohol in the past year? Never (0 point) How many drinks did you have on a typical day when you were drinking in the past year? 1 or 2 drinks (0 point) How often did you have six o r more drinks on one occasion in the past year? Never (0 point) Points 0 Interpretation Negative Problems Problem Type SNOMED Code ICD Code Onset Dates Problem Status W/U Status Risk Notes Problem Acquired hallux valgus (22556387) Hallux valgus (acquired), right foot (M20.11) Active confirmed Problem Skin ulcer of toe of right foot with fat layer exposed (L97.512) Active confirmed Problem Skin ulcer of toe of left foot with fat layer exposed (L97.522) Active confirmed Vital Signs Blood pressure diastolic 65 mm Hg 05/04/2025 Height 6ft in 05/04/2025 Blood pressure systolic 128 mm Hg 05/04/2025 Weight 248 lbs 05/04/2025 BMI 33.63 kg/m2 05/04/2025 Procedures Procedure Date Ordered Date Performed Result Body Sit e 61450-LKD 03/30/2025 N/A [id number] 04/13/2025 N/A [id number] SKIN/TISSUE 04/13/2025 N/A 20309-FLP 05/04/2025 N/A [id number] SKIN/TISSUE 05/04/2025 N/A Encounters Encounter Location Date Provider Diagnosis [address] [address] 03/30/2025 Yumiko Begum Ingrown nail L60.0 ; Pain in right foot M79.671 ; Pain in right ankle and joints of right foot M25.571 ; Bursitis of right foot M77.51 and Hallux valgus (acquired), right foot M20.[address] [address] 04/13/2025 Yumiko Begum Ingrown nail L60.0 and Skin ulcer of toe of right foot with fat layer exposed L97.[address] [address] 05/04/2025 Yumiko Begum Ingrown nail L60.0 and Skin ulcer of toe of left foot with fat layer exposed L97.[address] [address] 02/08/2025 Yumiko Begum [address] [address] 02/28/2025 Yumiko Begum [address] [address] 05/02/2025 Yumiko Begum [address] [address] 05/04/2025 Yumiko Begum Assessments Encounter Date Diagnosis (ICD Code) Assessment Notes Treatment Notes Treatment Clinical Notes Section Notes 03/30/2025 Pain in right foot (ICD-10 - M79.671) 03/30/2025 Ingrown nail (ICD-10 - L60.0) 04/13/2025 Ingrown nail (ICD-10 - L60.0) 05/04/2025 Ingrown nail (ICD-10 - L60.0) 05/04/2025 Skin ulcer of toe of left foot with fat layer exposed (ICD-10 - L97.522) Patient Educated with: WOUND CARE INSTRUCTIONS.p df (WOUND CARE INSTRUCTIONS.p df) 04/13/2025 Skin ulcer of toe of right foot with fat layer exposed (ICD-10 - L97.512) Patient Educated with: WOUND CARE INSTRUCTIONS.p df (WOUND CARE INSTRUCTIONS.p df) 03/30/2025 Pain in right ankle and joints of right foot (ICD-10 - M25.571) 03/30/2025 Bursitis of right foot (ICD-10 - M77.51) 03/30/2025 Hallux valgus (acquired), right foot (ICD-10 - M20.11) 04/13/2025 Other Patient Educated with: WOUND CARE INSTRUCTIONS.p df (WOUND CARE INSTRUCTIONS.p df) Plan Of Treatment Pending Test Test Name Order Date X ray : Foot, right 3V 03/30/2025 [id number] 04/13/2025 [id number] 05/04/2025 [id number] 03/30/2025 [id number] SKIN/TISSUE 05/04/2025 [id number] SKIN/TISSUE 04/13/2025 Insurance Providers Payer Name Payer Address Payer Phone Subscriber Number Group Number Insured Name Patient Relationship to Insured Coverage Start Date Coverage End Date Blue Benefits [address] [address] [place] [address] [phone] [id number] Self - patient is the insured Medical (General) History Medical History History ICD Code Anxiety Broken bones covid-19 Depression Gall bladder problems sinusitis Chicken pox Joint implants/screws Surgical History Surgery Date(Month/Year) Right wrist 09/12/2019 Gall bladder removal 05/2021
--- OUTSIDE RECORDS SUMMARY | 2025-05-23 09:18 | XMS_ITS | Patient Health Record ---
Author Organization [facility] Address [address] [place] [address] Care Team Providers Care Assistant Statistician Name Role Phone Marzena Daugherty M.D. Primary Care Provider Unavail yaron Larios Jr Virgilio Unavailable [phone] Allergies No Known Allergies Reason For Referral [...] Problem Status W/U Status Risk Notes Problem [id number] Colon cancer screening (Z12.11) Active confirmed Problem Gastritis (2641764) Gastritis (K29.70) Active confirmed Problem 294555929 Gas bloat syndro me (K92.89) Active confirmed Problem 854371349 Gastroesophageal reflux disease, unspecified whether esophagitis present (K21.9) Active confirmed Vital Signs Temperature 98.4 degrees Fahrenheit 10/27/2024 Blood pressure diastolic 00 mm Hg 10/27/2024 Height 71 in 10/27/2024 Blood pressure systolic 000 mm Hg 10/27/2024 Weight 244 lb 8 oz lbs 10/27/2024 BMI 34.10 kg/m2 10/27/2024 Encounters Encounter Location Date Provider Diagnosis [facility] [address] [place] [address] 10/27/2024 Virgilio Larios Jr Gastroesophageal reflux disease, [...] Name:Virgilio aquino Jr, 10/30/2025 10:20:00 AM, [address], [address], [place], [address], Insurance Providers Payer Name Payer Address Payer Phone Subscriber Number Group Number Insured Name Patient Relationship to Insured Coverage Start Date Coverage End Date [employer] [place] [address] [address] [place] [address] [id number] Self - patient is the insured Medical (General) History Medical History History ICD Code Hypertension Hyperlipidemia Gastroesophageal reflux disease, EGD , gastritis, Anxiety/depression Environmental allergies Colonoscopy 2020, normal, ten-year follo wup Surgical History Surgery Date(Month/Year) Cholecystectomy 2020 ORIF wrist 2009 Hospitalization History Reason Date(Month/Year)
--- OUTSIDE RECORDS SUMMARY | 2025-05-23 09:19 | XMS_ITS | Clinical Summary ---
Author Organization [address] [facility] Address [address] [place] [address] Phone Care Team Providers Care Can Bander Operator Name Role Phone Zulema Carrera MD Primary Care Provider [phone] Allergies No known active allergies Medications silver [...] Encounters Date Type Department Care Team Description 03/15/2025 Telephone Orthopedic Surgery [facility] [address] [facility] [address] [place] [address] Praris Bravo 03/01/2025 Telephone Orthopedic Surgery [facility] [address] [facility] [address] [place] [address] Shawn Vaughn DPM from Last 3 Months Surgical History Surgery [...] 01/04/2025 3:06 PM EDT Plan of Treatment Health Maintenance Due Date Last Done Comments Hepatitis B Vaccines (1 of 3 - 19+ 3-dose series) 12/17/1994 Pneumococcal Vaccine: Pediatrics (0 to 5 Years) and At-Risk Patients (6 to 49 Years) (1 of 2 - PCV) 12/17/1994 Cholesterol Screening (Lipid Panel) 08/19/2022 Colorectal Cancer Screening: Colonoscopy 08/19/2022 Hepatitis C Screening 08/19/2022 Social Influencers of Health Screening 08/19/2022 COVID-19 Vaccine ( season) 2024 09/17/2021, 01/26/2021, 01/05/2021 Depression Screening 09/21/2024 Influenza Vaccine (#1) 2025 , 07/23/2023, 10/24/2021, Additional history exists DTaP,Tdap,and Td Vaccines (2 - Td or Tdap) 08/14/2025 08/14/2015 HIV Screening Completed 11/26/2006 HIB Vaccines Aged Out No longer eligi [...] Health Maintenance Results * HIV Screening (11/26/2006) [facility] HIV Screening ABSTRACTED Historical Provider HEALTH MAINTENANCE Final Result from Last 3 Months or Most Recently Relevant to Health Maintenance Insurance BENEFIT [facility] Care Teams Can Bander Operator Relationship Specialty Start Date End Date Zulema Carrera MD [address] [place] [address] [address] [facility] [place] [address] PCP - General Internal Medicine 11/12/20
== END ==
LOC: HO.CARD 08:36
PROVIDERS: PCP Internal Medicine; Visit Provider Internal Medicine
DX: R94.39 Abnormal result of other cardiovascular function study (principal); R07.9 Chest pain, unspecified
CPT/HCPCS: 78452; 93017; A9500; J0280; J2785

== ENCOUNTER → 2025-05-23 08:39 | Outpatient (BNV) | payer OTHER, SELFPAY | PROVIDERS: PCP Internal Medicine | DX: R07.9 Chest pain, unspecified (principal) | CPT/HCPCS: 78452; 93016; 93018 ==

== ENCOUNTER 2025-05-27 11:03 | Outpatient (AMB) | payer OTHER, SELFPAY ==
--- OUTSIDE RECORDS SUMMARY | 2025-02-28 09:00 | XMS_ITS ---
Author Organization [facility] [place] Address [address] [place] [address] Care Team Providers Care Rn Transitional Care Name Role Phone ChinaMarzena lewis Primary Care Provider UnavailYumiko Brown Unavailable [phone] Anastacio Amato Unavailable [phone] Medications Medication SIG (Take, Route, Fr equency, [...] 02/28/2025 Encounters Encounter Location Date [facility] [address] [place] [address] 02/28/2025 Anastacio Amato Plan Of Treatment No Information Progress Notes * Kory HALLDOB:[birth year] (49 yo M)Acc No.[id number]:02/28/2025 Progress Notes Patient: Kory MCLEAN Provider: Pamela Amato DPM :1975 A ge:49 Y S ex:Male Date:02/28/2025 Address:[address] [place] [phone] Pcp:Marzena Atkinson Subjective: * Chief Complaints: * [...] enies. C ardiovascular: Pacemaker d enies. M ARTIFICIAL FLOWERS STARCHER d enies. W PW d enies. C [...] 02/28/2025 Generated for Zoey reeves/Suze/eTransmitting on: 0 05/27/2025 11:06 AM EDT
--- OUTSIDE RECORDS SUMMARY | 2025-05-27 11:06 | XMS_ITS | Patient Health Record ---
Author Organization [facility] Address [address] [place] [address] Care Team Providers Care Bowling Floor Manager Name Role Phone Marzena Daugherty M.D. Primary [...] Problem Status W/U Status Risk Notes Problem [id number] Colon cancer screening (Z12.11) Active confirmed Problem Gastritis (0095662) Gastritis (K29.70) Active confirmed Problem 931759499 Gas bloat syndro me (K92.89) Active confirmed Problem 981642760 Gastroesophageal reflux disease, unspecified whether esophagitis present (K21.9) Active confirmed Vital Signs Temperature 98.4 degrees Fahrenheit 10/27/2024 Blood pressure diastolic 00 mm Hg 10/27/2024 Height 71 in 10/27/2024 Blood pressure systolic 000 mm Hg 10/27/2024 Weight 244 lb 8 oz lbs 10/27/2024 BMI 34.10 kg/m2 10/27/2024 Encounters Encounter Location Date Provider Diagnosis [facility] [address] [place] [address] 10/27/2024 Virgilio Larios Jr Gastroesophageal reflux disease, [...] Name:Virgilio aquino Jr, 10/30/2025 10:20:00 AM, [address], [address], [place], [address], Insurance Providers Payer Name Payer Address Payer Phone Subscriber Number Group Number Insured Name Patient Relationship to Insured Coverage Start Date Coverage End Date [employer] [place] [address] [address] [place] [address] [id number] Self - patient is the insured Medical (General) History Medical History History ICD Code Hypertension Hyperlipidemia Gastroesophageal reflux disease, EGD , gastritis, Anxiety/depression Environmental allergies Colonoscopy 2020, normal, ten-year follo wup Surgical History Surgery Date(Month/Year) Cholecystectomy 2020 ORIF wrist 2009 Hospitalization History Reason Date(Month/Year)
--- OUTSIDE RECORDS SUMMARY | 2025-05-27 11:07 | XMS_ITS | Clinical Summary ---
Author Organization [address] [facility] Address [address] [place] [address] Phone Care Team Providers Care Poultry Husbandman Name Role Phone Zulema Carrera MD Primary Care Provider [phone] Allergies No known active allergies Medications silver [...] Care Team Description 03/15/2025 Telephone Orthopedic Surgery [facility] [address] [facility] [address] [place] [address] Parris Bravo 03/01/2025 Telephone Orthopedic Surgery [facility] 250 [address] [facility] [address] [place] [address] Shawn Vaughn DPM from Last [...] 08/19/2022 Social Influencers of Health Screening 08/19/2022 Depression Screening 09/21/2024 COVID-19 Vaccine ( season) 2025 09/17/2021, 01/26/2021, 01/05/2021 Influenza Vaccine (#1) 2025 , 07/23/2023, 10/24/2021, [...] Health Maintenance Results * HIV Screening (11/26/2006) [facility] HIV Screening ABSTRACTED Historical Provider HEALTH MAINTENANCE Final Result from Last 3 Months or Most Recently Relevant to Health Maintenance Insurance BENEFIT [facility] [address] Care Teams Poultry Husbandman Relationship Specialty Start Date End Date Zulema Carrera MD [address] [place] [address] [address] [facility] [place] [address] PCP - General Internal Medicine 11/12/20
--- OUTSIDE RECORDS SUMMARY | 2025-05-27 11:07 | XMS_ITS | Patient Health Record ---
Author Organization [facility] [place]sea [place] Address [address] [place] [address] Care Team Providers Care Paper Bag Machine Operator Name Role Phone Marzena Atkinson Primary Care Provider Yumiko Mora Unavailable [phone] Anastacio Amato Unavailable [phone] Allergies No Known Allergies Reason For Referral [...] Status Risk Notes Problem Acquired hallux valgus (66447808) Hallux valgus (acquired), right foot (M20.11) Active [...] Ordered Date Performed Result Body Sit e 34503-PIW 03/30/2025 N/A [id number] 04/13/2025 N/A [id number] SKIN/TISSUE 04/13/2025 N/A [id number] 05/04/2025 N/A [id number] SKIN/TISSUE 05/04/2025 N/A Encounters Encounter Location Date Provider Diagnosis [address] [address] 03/30/2025 Yumiko Begum Ingrown nail L60.0 ; Pain in right foot M79.671 ; Pain in right ankle and joints of right foot M25.571 ; Bursitis of right foot M77.51 and Hallux valgus (acquired), right foot M20.[address] [address] 04/13/2025 Yumiko Begum Ingrown nail L60.0 and Skin ulcer of toe of right foot with fat layer exposed L97.[address] [address] 05/04/2025 Yumiko Begum Ingrown nail L60.0 and Skin ulcer of toe of left foot with fat layer exposed L97.[address] [address] 02/08/2025 Yumiko Begum [address] [address] 02/28/2025 Yumiko Begum [address] [address] 05/02/2025 Yumiko Begum [address] [address] 05/04/2025 Yumiko Begum Assessments Encounter Date Diagnosis [...] X ray : Foot, right 3V 03/30/2025 [id number] 04/13/2025 [id number] 05/04/2025 [id number] 03/30/2025 [id number] SKIN/TISSUE 05/04/2025 [id number] SKIN/TISSUE 04/13/2025 Insurance Providers Payer Name Payer Address Payer Phone Subscriber Number Group Number Insured Name Patient Relationship to Insured Coverage Start Date Coverage End Date Blue Benefits [address] [address] [place] [address] [phone] [id number] Self - patient is the insured Medical (General) History Medical History History ICD Code Anxiety Broken bones covid-19 Depression Gall bladder problems sinusitis Chicken pox Joint implants/screws Surgical History Surgery Date(Month/Year) Right wrist 09/12/2019 Gall bladder removal 05/2021
[2025-05-27 11:09] VITALS: BP 100/72; PULSE 82; RESP 15; TEMP 36.7; O2SAT 98; BMI 35.4
--- NOTE | 2025-05-27 11:09 | AM.OFFWIN_ITS ---
Intake Vital Signs 3 05/27/25 11:09 Height 5 ft 11 in Weight 254 lb BMI 35.4 BP 100/72 Blood Pressure Location Lt brachial Position Sitting Respiration 15 Pulse 82 Pulse Source Pulse Oximeter Temp 98.0 F Temp Source Oral Pulse Oximetry (%) 98 Oxygen Delivery Method Room Air Intake Visit Reasons: EP - swollen lip Intake Note: Pt is here today c/o lower lip red and swollen x3days Patient Tobacco Use Status: Never used Tobacco Allergies codeine Allergy (Unknown, Verified 05/27/25 11:36) Unknown Medication List - Last Reconciled 05/27/25 by DALE Baird- blood pressure monitor As directed clonazepam 0.5 mg PO BID PRN fluoxetine 40 mg PO DAILY lidocaine 5% 1 patch topical DAILY omeprazole 40 mg PO DAILY propranolol 10 mg PO BID PRN trazodone 50 - 100 mg (1 - 2 x 50 mg) PO BEDTIME PRN 90 days HPI HPI Comments 2 History of Present Illness0 Details History of Present Illness - The patient is a 49-year-old male pres enting with swelling of the lower lip - Lip swelling onset was three days ago, with a possible related cut and initial thought of a cold sore. - Cold sore history, generally at lip co rners. - Possible irritation from razor use cau sing small cuts. - No new medications; denies difficulty swallowing or breathing. - Reports diminished taste and smell, in itially considering mild sinus infection or allergies. - Uses Abreva for symptomatic relief; no ticed tingling. - Wearing a mask due to self-consciousne ss about appearance. - Due for Tdap Review of Systems - Skin: Reports swelling and cut on lips . - Head/Ears/Nose/Throat: Denies difficul ty swallowing or breathing; reports altered taste and smell. - Respiratory: Denies difficulty breathi ng. - Allergies/Immunological: Known allergy to codeine. Physical Exam General: Well developed, well nourished, in no acute distress. Appears stated age. Head: Normocephalic, atraumatic. MMM, see image below. Pharynx WNL. Nares patent Eyes: Pupils are equal, round and reactive to light and accommodation. Conjunctivae are clear. Vision grossly normal. Lungs: Clear to auscultation bilaterally. No rales, rhonchi or wheeze noted. Good air flow in all lamb. Heart: Regular rate and rhythm. No murmurs, click, rubs or gallops are noted. Psych: Mood and affect appropriate. Discussion Notes We discussed the treatment plan, including the use of prednisone to decrease swelling and cephalexin to address any bacterial infection risk. I advised the dosing regimen for both medications and explained the importance of completing the antibiotic course. The patient was informed about Valacyclovir as an option to treat cold sores effectively. We discussed obtaining vaccines, including a tetanus shot, and I clarified the pharmacy options for pickup as it is not avail. today at the walk in. I advised the patient to follow up with his primary care provider, Dr. Marzena Daugherty, if symptoms worsen. Patient was given time to ask questions. All questions were answered to their satisfaction. Assessment and Plan - Start prednisone 50 mg daily for 5 day s with food. - Prescribe Valacyclovir. - Continue Abreva for sores. - Prescribe cephalexin 500 mg bid for 7 days. - Obtain tetanus @ pharmacy - Follow up with Dr. Daugherty if worsening Patient Instructions - Take prednisone with food once a day f or 5 days to help with swelling. - Take antibiotics as prescribed to prev ent infection; finish all the pills. - Use Abreva on cold sores; start Valacy clovir if needed for outbreak. - Check if the tetanus shot is available at your pharmacy. - If symptoms worsen or you have new pro blems, contact Dr. Daugherty or visit walk- in. Consent Patient was informed and verbally consented to the use of an ambient scribe for clinic note documentation during this visit. [facility] Medical History Chest pain Gastritis and duodenitis Cough Annual physical exam Acute sinus infection Annual physical exam Colon cancer screening Generalized anxiety disorder Overweight (BMI 25.0-29.9) Allergic rhinitis Acute sinusitis Lightheaded Ingrown toenail Vertigo Cyst of epididymis Foreign body in lower extremity Obstructive sleep apnea Cervical disc disease Irritable bowel syndrome Vitamin D deficiency Obesity (BMI 30-39.9) Insomnia Anxiety and depression Hypercholesterolemia Wrist pain, right Surgical History Status post laparoscopic cholecystectomy History of laparoscopic cholecystectomy History of tonsillectomy Closed fracture distal radius and ulna Family History Father Hypertension CVD (cardiovascular disease) S/P triple vessel bypass Mother Breast cancer Depression Anxiety CVD (cardiovascular disease) Hypertension Paternal Aunt Liver cancer Maternal Aunt Breast cancer Brother No problems noted. Sister In good health Other Mental health disorder Social History Household Members: Family Housing: House Do you presently have visiting nurse or other home services: No Alcohol intake: current Alcohol intake frequency: holidays/special occasions only Patient Tobacco Use Status: Never used Tobacco e-Cigarette/Vaping Use: Never Used Second Hand Smoke Exposure: No service: No Current occupational status: employed Cognitive needs: No Hearing needs: No Vision needs: Yes Physical Exam Vital Signs: Last Vital Signs Temp 98.0 F 05/27/25 11:09 Pulse 82 05/27/25 11:09 Resp 15 05/27/25 11:09 BP 100/72 05/27/25 11:09 Pulse Ox 98 05/27/25 11:09 Oxygen Delivery Method Room Air 05/27/25 11:09 BMI result Body Mass Index 35.4 Assessment & Plan Assessment & Plan (1) Lip swelling: Code(s): R22.0 - Localized swelling, mass and lump, head (2) Herpes: Code(s): B00.9 - Herpesviral infection, unspecified (3) Need for Tdap vaccination: Code(s): Z23 - Encounter for immunization Plan . Medications: New 2 prednisone 50 mg PO DAILY 5 tabs 0RF 5 days cephalexin 500 mg PO Q12H 14 caps 0RF 7 days valacyclovir 1,000 mg PO Q8H 21 tabs 0RF 7 days Coding Level of Care Code Est Pt Level 3 (19318) Diagnoses Lip swelling R22.0 Herpes B00.9 Need for Tdap vaccination Z23
== END 2025-05-27 11:53 | disposition home or self-care (01) ==
LOC: HO.HMCWIC 11:03
PROVIDERS: PCP Internal Medicine; Visit Provider Nurse Practitioner Family
DX: R22.0 Localized swelling, mass and lump, head (principal); B00.9 Herpesviral infection, unspecified; Z23 Encounter for immunization

== ENCOUNTER 2025-06-13 09:58 | Outpatient (AMB) | payer OTHER, SELFPAY ==
--- OUTSIDE RECORDS SUMMARY | 2025-02-28 09:00 | XMS_ITS ---
Author Organization [facility] [place] Address [address] [place] [address] Care Team Providers Care Refractory Tile Helper Name Role Phone ChinaMarzena lewis Primary Care Provider UnavailYumiko Brown Unavailable [phone] Anastacio Amato Unavailable [phone] Medications Medication SIG (Take, Route, Fr equency, [...] 02/28/2025 Encounters Encounter Location Date [facility] [address] [place] [address] 02/28/2025 Anastacio Amato Plan Of Treatment No Information Progress Notes * Kory HALLDOB:[birth year] (49 yo M)Acc No.[id number]:02/28/2025 Progress Notes Patient: Kory MCLEAN Provider: Pamela Amato DPM :1975 A ge:49 Y S ex:Male Date:02/28/2025 Address:[address] [place] [address] Pcp:Marzena Atkinson Subjective: * Chief Complaints: * [...] enies. C ardiovascular: Pacemaker d enies. M ACCOUNTS RECEIVABLE ACCOUNTANT d enies. W PW d enies. C [...] 02/28/2025 Generated for Zoey reeves/Suze/eTransmitting on: 0 06/13/2025 12:02 PM EDT
--- NOTE | 2025-06-13 10:13 | A.OFFPC_ITS ---
Vital Signs 06/13/25 10:14 Height 5 ft 11.2 in Weight 253 lb 2 oz BMI 35.1 BP 120/78 Blood Pressure Location Rt brachial Position Sitting Respiration 16 Pulse 73 Pulse Source Pulse Oximeter Pulse Oximetry (%) 97 Oxygen Delivery Method Room Air Intake Visit Reasons: stress test results Intake Note: Discuss stress test results. Moving Van Driver Required: No Allergies codeine Allergy (Unknown, Verified 06/13/25 10:15) Unknown Tobacco use date assessed: 06/13/25 Dental Screening Dental Screen Date: 02/07/25 HPI HPI Comments History of Present Illness Details 48 year old male with pmhx hypertension, hyperlipidemia, vitamin B12 deficiency, fatty liver, GERD generalized anxiety disorder presenting for follow up We reviewed his recent nuclear stress test results IMPRESSION: 1. Myocardial perfusion imaging study s hows mild, partially reversible defect in the distal lateral wall. Possibly artifactual but cannot exclude small area of ischemia. 2. Gated LVEF is 59% during stress and 57% during rest. 3. Transient ischemic dilatation not pre sent. CV: On propranolol for anxiety. He was seen last year in [facility] for chest pain. ACS rule out. still having some GERD, chest pain. High anxiety-working 60+ hours weekly Depression/anxiety: Feeling well on prozac, propranolol. Still has some bad days at times. Trazodone has aided sleep. Uses clonazepam sparingly as needed. Is looking for a new apartment, trying to work through financial issues. GI: GERD, fatty liver. Very PPI dependent. Still getting some break through symptoms on the medication. Was referred to GI. stable Patient had prolonged illness mid August to late September. Back to baseline Initially had sinus infection-seen 09/23/23-Patient had sinus congestion, pain, low grade temp for the past two weeks. Completed doxycycline course Seen in 10/06/24 with cough, bilateral otitis and treated with antibiotics at that time Then evaluated 10/13/24 at walk in and tested positive for RSV. Prescribed 10 day prednisone course. He has used up his one week of sick time but tells me he has been advised not to return to work until his symptoms improve. He plans to start the prednisone tomorrow for 5 days. It agitates his mood. Back to work. Colonoscopy 2020-has appt with GI October Tdap due 07/2025 ROS see HPI PHYSICAL EXAM: GENERAL: Alert and oriented x 3. NAD EYES: EOMI. Anicteric. HENT: Moist mucous membranes. No scleral icterus. No cervical lymphadenopathy. LUNGS: Clear to auscultation bilaterally. CARDIOVASCULAR: Regular rate and rhythm. No murmur. No JVD. ABDOMEN: Soft, non-tender +bs EXTREMITIES: No edema. Non-tender. SKIN: No rashes or lesions. Warm. NEUROLOGIC: No focal neurological deficits. CN II-XII grossly intact PSYCHIATRIC: Cooperative. Appropriate mood and affect [facility] Medical History Chest pain Gastritis and duodenitis Cough Annual physical exam Acute sinus infection Annual physical exam Colon cancer screening Generalized anxiety disorder Overweight (BMI 25.0-29.9) Allergic rhinitis Acute sinusitis Lightheaded Ingrown toenail Vertigo Cyst of epididymis Foreign body in lower extremity Obstructive sleep apnea Cervical disc disease Irritable bowel syndrome Vitamin D deficiency Obesity (BMI 30-39.9) Insomnia Anxiety and depression Hypercholesterolemia Wrist pain, right Surgical History Status post laparoscopic cholecystectomy History of laparoscopic cholecystectomy History of tonsillectomy Closed fracture distal radius and ulna Family History Father Hypertension CVD (cardiovascular disease) S/P triple vessel bypass Mother Breast cancer Depression Anxiety CVD (cardiovascular disease) Hypertension Paternal Aunt Liver cancer Maternal Aunt Breast cancer Brother No problems noted. Sister In good health Other Mental health disorder Social History (Updated 06/13/25 @ 10:20 by Zakia Dao CMA) Household Members: Family Housing: House Do you presently have visiting nurse or other home services: No Alcohol intake: current Alcohol intake frequency: holidays/special occasions only Patient Tobacco Use Status: Never used Tobacco e-Cigarette/Vaping Use: Never Used Second Hand Smoke Exposure: No Use of substances other than those prescribed or required for medical reasons: No service: No Current occupational status: employed Cognitive needs: No Hearing needs: No Vision needs: Yes Questionnaire Thrive Questionnaire Date Thrive assessed: 11/04/24 I am a: Patient What is your living situation today?: I have a place to live, but I am worried about losing it in the future Within the past 12 months, did the food you bought not last and you didn't have the money to get more?: Sometimes True Within the past 12 months, did you worry whether your food would run out before you got money to buy more?: Sometimes True Do you have trouble paying for medicines?: No Do you have trouble getting transportation to medical appointments?: No Do you have trouble paying your heating and electricity bill?: No Do you have trouble taking care of your child, family member or friend?: No Do you have trouble with day-to-day activities such as bathing, preparing meals, shopping, managing finances, etc.?: No Are you currently unemployed and looking for a job?: No Are you interested in more education?: No Please select the resources that you would like help with: None Currently or been in a relationship where the following occur: No concerns reported THRIVE Score: 3 JAE-7 AMB Questionnaire JAE-7 Date JAE - 7 assessed: 07/27/24 Source: Developed by Drs. Salvatore Art, Brianna Fuentes, Eduardo Brady and colleagues, with an educational chantel from [employer]. Physical exam (Primary Care) Vital Signs: Last Vital Signs Pulse 73 06/13/25 10:14 Resp 16 06/13/25 10:14 BP 120/78 06/13/25 10:14 Pulse Ox 97 06/13/25 10:14 Oxygen Delivery Method Room Air 06/13/25 10:14 BMI result Body Mass Index 35.1 Tobacco/Smoking Status: Tobacco use Status Tobacco use date assessed 06/13/25 06/13/25 10:22 Patient Tobacco Use Status Never used Tobacco 06/13/25 10:20 e-Cigarette/Vaping Use Never Used 06/13/25 10:20 Thrive Assessment: Date of Thrive Assessment Date Thrive assessed 11/04/24 06/13/25 10:15 Currently or been in a relationship where the following occur: No concerns reported Coding Level of Care Code Est Pt Level 4 (89292) Diagnoses Abnormal stress test R94.39 Assessment & Plan Assessment & Plan (1) Abnormal stress test: Code(s): R94.39 - Abnormal result of other cardiovascular function study Category: Medical Plan 49 year old with h/o chest pain, GERD Reviewed recent nuclear stress test Will refer to cardiology to discuss further management Orders: Referrals Cardiology Referral R94.39 - Abnormal result of other cardiovascular function study
[2025-06-13 10:14] VITALS: BP 120/78; PULSE 73; RESP 16; O2SAT 97; BMI 35.1
--- OUTSIDE RECORDS SUMMARY | 2025-06-13 12:03 | XMS_ITS | Patient Health Record ---
Author Organization [facility] Address [address] [place] [address] Care Team Providers Care Edge Stainer Name Role Phone Marzena Daugherty M.D. Primary [...] Problem Status W/U Status Risk Notes Problem [id number] Colon cancer screening (Z12.11) Active confirmed Problem Gastritis (7830127) Gastritis (K29.70) Active confirmed Problem 539151772 Gas bloat syndro me (K92.89) Active confirmed Problem 027645981 Gastroesophageal reflux disease, unspecified whether esophagitis present (K21.9) Active confirmed Vital Signs Temperature 98.4 degrees Fahrenheit 10/27/2024 Blood pressure diastolic 00 mm Hg 10/27/2024 Height 71 in 10/27/2024 Blood pressure systolic 000 mm Hg 10/27/2024 Weight 244 lb 8 oz lbs 10/27/2024 BMI 34.10 kg/m2 10/27/2024 Encounters Encounter Location Date Provider Diagnosis [facility] [address] [place] [address] 10/27/2024 Virgilio Larios Jr Gastroesophageal reflux disease, [...] Name:Virgilio aquino Jr, 10/30/2025 10:20:00 AM, [address], [address], [place], [address], Insurance Providers Payer Name Payer Address Payer Phone Subscriber Number Group Number Insured Name Patient Relationship to Insured Coverage Start Date Coverage End Date [employer] [place] [address] [address] [place] [address] [id number] Self - patient is the insured Medical (General) History Medical History History ICD Code Hypertension Hyperlipidemia Gastroesophageal reflux disease, EGD , gastritis, Anxiety/depression Environmental allergies Colonoscopy 2020, normal, ten-year follo wup Surgical History Surgery Date(Month/Year) Cholecystectomy 2020 ORIF wrist 2009 Hospitalization History Reason Date(Month/Year)
--- OUTSIDE RECORDS SUMMARY | 2025-06-13 12:03 | XMS_ITS | Clinical Summary ---
Author Organization [address] [place] [address] Address [address] [place] [address] Phone Care Team Providers Care Machine Castings Plasterer Name Role Phone Zulema Carrera MD Primary Care Provider [phone] Allergies No known active allergies Medications silver [...] Care Team Description 03/15/2025 Telephone Orthopedic Surgery - [address] [address] Parris Bravo from Last 3 Months Surgical History Surgery [...] Health Maintenance Results * HIV Screening (11/26/2006) [facility] HIV Screening ABSTRACTED Historical Provider MD HEALTH MAINTENANCE Final Result from Last 3 Months or Most Recently Relevant to Health Maintenance Insurance Care Teams Machine Castings Plasterer Relationship Specialty Start Date End Date Zulema Carrera MD [address] [place] [address] [address] [facility] [place] [address] PCP - General Internal Medicine 11/12/20
--- OUTSIDE RECORDS SUMMARY | 2025-06-13 12:03 | XMS_ITS | Patient Health Record ---
Author Organization [facility] chelsea [place] Address [address] [place] [address] Care Team Providers Care Magazine Publisher Name Role Phone Marzena Atkinson Primary Care Provider Yumiko Mroa Unavailable [phone] Anastacio Amato Unavailable [phone] Allergies No Known Allergies Reason For Referral [...] Status Risk Notes Problem Acquired hallux valgus (64792224) Hallux valgus (acquired), right foot (M20.11) Active [...] Ordered Date Performed Result Body Sit e 73831-AGT 03/30/2025 N/A 24646-LFR 04/13/2025 N/A 33895-DPIKIEP SKIN/TISSUE 04/13/2025 N/A 71546-CJJ 05/04/2025 N/A 28605-WUBCCZF SKIN/TISSUE 05/04/2025 N/A Encounters Encounter Location Date Provider Diagnosis [address] [address] 03/30/2025 Yumiko Begum Ingrown nail L60.0 ; Pain in right foot M79.671 ; Pain in right ankle and joints of right foot M25.571 ; Bursitis of right foot M77.51 and Hallux valgus (acquired), right foot M20.[address] [address] 04/13/2025 Yumiko Begum Ingrown nail L60.0 and Skin ulcer of toe of right foot with fat layer exposed L97.[address] [address] 05/04/2025 Yumiko Begum Ingrown nail L60.0 and Skin ulcer of toe of left foot with fat layer exposed L97.[address] [address] 02/08/2025 Yumiko Begum [address] [address] 02/28/2025 Yumiko Begum [address] [address] 05/02/2025 Yumiko Begum [address] [address] 05/04/2025 [facility] [place] [address] [facility] [address] [place] [address] 05/30/2025 Yumiko Begum Assessments Encounter Date Diagnosis (ICD [...] X ray : Foot, right 3V 03/30/2025 61084-MNU 04/13/2025 74624-PRF 05/04/2025 43053-LHB 03/30/2025 05675-[id number] SKIN/TISSUE 05/04/2025 31712-[id number] SKIN/TISSUE 04/13/2025 Insurance Providers Payer Name Payer Address Payer Phone Subscriber Number Group Number Insured Name Patient Relationship to Insured Coverage Start Date Coverage End Date Blue Benefits [address] [address] [place] [address] [id number] Self - patient is the insured Medical (General) History Medical History History ICD Code Anxiety Broken bones covid-19 Depression Gall bladder problems sinusitis Chicken pox Joint implants/screws Surgical History Surgery Date(Month/Year) Right wrist 09/12/2019 Gall bladder removal 05/2021
== END 2025-06-13 11:22 | disposition home or self-care (01) ==
LOC: HO.HMCFM 09:59
PROVIDERS: PCP Internal Medicine; Visit Provider Internal Medicine
DX: Z23 Encounter for immunization (principal); R94.39 Abnormal result of other cardiovascular function study

== ENCOUNTER → 2025-06-13 09:58 | Outpatient (BNVA) | payer OTHER, SELFPAY | PROVIDERS: PCP Internal Medicine; Visit Provider Internal Medicine | DX: Z23 Encounter for immunization (principal); R94.39 Abnormal result of other cardiovascular function study | CPT/HCPCS: 90471; 90656 ==

== ENCOUNTER 2025-06-23 12:27 | Outpatient (AMB) | payer OTHER, SELFPAY ==
--- OUTSIDE RECORDS SUMMARY | 2025-02-28 09:00 | XMS_ITS ---
Author Organization [facility] [place] Address [address] [place] [address] Care Team Providers Care Metal Stud Framer Name Role Phone ChinaMarzena lewis Primary Care Provider UnavailYumiko Brown Unavailable [phone] Anastacio Amato Unavailable [phone] Medications Medication SIG (Take, Route, Fr equency, [...] 02/28/2025 Encounters Encounter Location Date [facility] [address] [place] [address] 02/28/2025 Anastacio Amato Plan Of Treatment No Information Progress Notes * Kory HALLDOB:[birth year] (49 yo M)Acc No.[id number]:02/28/2025 Progress Notes Patient: Kory MCLEAN Provider: Pamela Amato DPM :1975 A ge:49 Y S ex:Male Date:02/28/2025 Address:[address] [place] [address] Pcp:Marzena Atkinson Subjective: * Chief Complaints: * [...] enies. C ardiovascular: Pacemaker d enies. M OPERATIONS OFFICER TRUST DEPARTMENT d enies. W PW d enies. C [...] 02/28/2025 Generated for Zoey reeves/Suze/eTransmitting on: 1 01:09 PM EDT
[2025-06-23 13:03] VITALS: BP 128/68; PULSE 80; BMI 35.0
--- NOTE | 2025-06-23 13:03 | MHC.OFFVIS ---
Vital Signs 06/23/25 13:03 Height 5 ft 11 in Weight 251 lb 5.231 oz BMI 35.0 BP 128/68 Blood Pressure Location Lt brachial Position Sitting Pulse 80 Pulse Source Monitor Intake Visit Reasons: MEDICAL REFERRAL COORDINATOR/ Marzena China/ abn stress test Allergies codeine Allergy (Unknown, Verified 06/13/25 10:15) Unknown Medication List - Last Reconciled 06/23/25 by Asa Reese MD blood pressure monitor As directed clonazepam 0.5 mg PO BID PRN fluoxetine 40 mg PO DAILY lidocaine 5% 1 patch topical DAILY PRN omeprazole 40 mg PO DAILY propranolol 10 mg PO BID PRN trazodone 50 - 100 mg (1 - 2 x 50 mg) PO BEDTIME PRN 90 days HPI Comments Details: The patient is a 49-year-old male presenting with chest pain. The patient reports experiencing chest tightening and pressure for several months, which he attributes to stress, as he describes himself as a stress box. He notes a family history of cardiovascular disease, including his father who underwent a triple bypass and his mother who had stents placed. The chest pain is described as intermittent, occurring both at rest and during activity, without a clear pattern of exacerbation. The patient denies current pain but mentions shortness of breath with exertion, which he attributes to his obesity. He has a history of gastroesophageal reflux disease (GERD) and admits to inconsistent use of omeprazole due to concerns about potential side effects. [facility] Medical History Chest pain Gastritis and duodenitis Cough Annual physical exam Acute sinus infection Annual physical exam Colon cancer screening Generalized anxiety disorder Overweight (BMI 25.0-29.9) Allergic rhinitis Acute sinusitis Lightheaded Ingrown toenail Vertigo Cyst of epididymis Foreign body in lower extremity Obstructive sleep apnea Cervical disc disease Irritable bowel syndrome Vitamin D deficiency Obesity (BMI 30-39.9) Insomnia Anxiety and depression Hypercholesterolemia Wrist pain, right Surgical History Status post laparoscopic cholecystectomy History of laparoscopic cholecystectomy History of tonsillectomy Closed fracture distal radius and ulna Family History Father Hypertension CVD (cardiovascular disease) S/P triple vessel bypass Mother Breast cancer Depression Anxiety CVD (cardiovascular disease) Hypertension Paternal Aunt Liver cancer Maternal Aunt Breast cancer Brother No problems noted. Sister In good health Other Mental health disorder Social History (Updated 06/23/25 @ 13:07 by Soo Patiño) Household Members: Family Housing: House Do you presently have visiting nurse or other home services: No Alcohol intake: former Patient Tobacco Use Status: Never used Tobacco e-Cigarette/Vaping Use: Never Used Second Hand Smoke Exposure: No service: No Current occupational status: employed Cognitive needs: No Hearing needs: No Vision needs: Yes Review of Systems Const Reports fatigue and Denies weakness ENT Denies dizziness Card Reports chest pain, Reports chest pain at rest, Reports chest pain with activity, Denies syncope, Denies rapid heart rate, Denies pedal edema, Denies edema, Denies leg edema, Denies lightheadedness, Reports palpitations, Reports dyspnea, Reports dyspnea on exertion and Denies orthopnea Resp Denies cough, Reports dyspnea and Reports dyspnea on exertion GI Denies hematochezia and Denies change in stool character Musc Denies abnormal gait, Denies muscle cramps, Denies muscle weakness, Denies numbness, Denies radiating pain into limb and Denies tingling Neuro Denies abnormal gait, Denies dizziness, Denies syncope, Denies numbness, Denies tingling and Denies weakness Endo Reports fatigue and Reports palpitations Physical Exam Vital Signs: Last Vital Signs Pulse 80 06/23/25 13:03 BP 128/68 06/23/25 13:03 BMI result Body Mass Index 35.0 Const General: comfortable and no acute distress Orientation/consciousness: patient oriented x3 HEENT Other: Unremarkable Head: Yes normal to inspection Neck Neck: Yes normal visual inspection Chest Chest palpation & inspection: normal inspection of the chest Resp Auscultation: clear to auscultation bilaterally Cardio Palpation: normal PMI Heart sounds: S1 normal heart sound present, S2 normal heart sound present, no gallops, no murmurs and no rubs GI Palpation (GI): Soft to palpation Back/Spine/Pelvis Other: unremarkable Skin General skin exam: no rashes or lesions noted Neuro General: patient oriented x3 Extrem General: Yes normal to inspection Psych Mental Status: mental status grossly normal Office Procedures EKG Details: EKG with underlying sinus rhythm at 80/Min; no significant ST-T changes; normal MO and corrected QT. sinus arrhythmia noted. 45347-Gcxqlnvmphvfxlgnk, Complete Assessment & Plan Assessment & Plan (1) Chest pain: Code(s): R07.9 - Chest pain, unspecified Category: Medical Qualifiers: Chest pain type: unspecified Qualified Code(s): R07.9 - Chest pain, unspecified (2) SOB (shortness of breath): Code(s): R06.02 - Shortness of breath Category: Medical Plan In the stress test, he was able to exercise for 8.6 METS on Rich protocol and reported to by 10 minutes chest pressure with shortness of breath but no EKG evidence of ischemia. In the perfusion imaging part, mild, partially reversible distal lateral defect, thought to be artifactual versus small area of ischemia. Symptoms are somewhat atypical but based on the above stress test results we will do a coronary CTA for further evaluation. We will get an echocardiogram for cardiac function assessment. Otherwise, reassured him as much as possible. Follow-up after the above. Discussion Notes I discussed with the patient the need for an echocardiogram to evaluate heart function and a CT scan to further investigate chest pain. I explained that these tests would help rule out significant cardiac issues and provide reassurance. The patient was informed about the low suspicion of significant cardiac problems and the plan to reassess based on test results. Patient was informed and verbally consented to the use of an ambient scribe for clinic note documentation during this visit. Orders: Orders CA echo transthoracic complete Today Asa Reese MD R07.9 - Chest pain, unspecified Basic Metabolic Panel Today Asa Reese MD R07.9 - Chest pain, unspecified CT Cardiac Coronary Angio Today Asa Reese MD I25.10 - Atherosclerotic heart disease of [place] coronary artery without angina pectoris, R07.9 - Chest pain, unspecified Medications: Changed From lidocaine 5% leave on most painful area for up to 12 hrs 1 patch topical DAILY 30 ea 3RF M54.50 - Low back pain, unspecified To lidocaine 5% leave on most painful area for up to 12 hrs 1 patch topical DAILY PRN M54.50 - Low back pain, unspecified Marzena Daugherty MD Patient Instructions: - Schedule and complete the echocardiogram and CT scan as recommended. - Monitor for any new or worsening symptoms and report them promptly. Coding Level of Care Code New Pt Level 4 (40658) Complex EM visit Add On G2211 Diagnoses Chest pain, unspecified type R07.9 Chest pain type: unspecified SOB (shortness of breath) R06.02 CPT Codes EKG - CPT: 82665-Zwtkojpglttjnguey, Complete ([id number])
--- OUTSIDE RECORDS SUMMARY | 2025-06-23 13:10 | XMS_ITS | Patient Health Record ---
Author Organization [facility] Address [address] [place] [address] Care Team Providers Care Imaging Nurse Name Role Phone Marzena Daugherty M.D. Primary [...] Problem Status W/U Status Risk Notes Problem 048239277 Colon cancer screening (Z12.11) Active confirmed Problem Gastritis (7057993) Gastritis (K29.70) Active confirmed Problem 824010346 Gas bloat syndro me (K92.89) Active confirmed Problem 702841404 Gastroesophageal reflux disease, unspecified whether esophagitis present (K21.9) Active confirmed Vital Signs Temperature 98.4 degrees Fahrenheit 10/27/2024 Blood pressure diastolic 00 mm Hg 10/27/2024 Height 71 in 10/27/2024 Blood pressure systolic 000 mm Hg 10/27/2024 Weight 244 lb 8 oz lbs 10/27/2024 BMI 34.10 kg/m2 10/27/2024 Encounters Encounter Location Date Provider Diagnosis [facility] [address] [place] [address] 10/27/2024 Virgilio aLrios Jr Gastroesophageal reflux disease, unspecified whether esophagitis [...] Name:Virgilio aquino Jr, 10/30/2025 10:20:00 AM, [address], [address], [place], [address], Insurance Providers Payer Name Payer Address Payer Phone Subscriber Number Group Number Insured Name Patient Relationship to Insured Coverage Start Date Coverage End Date [employer] [place] [address] [address] [place] [address] [id number] Self - patient is the insured Medical (General) History Medical History History ICD Code Hypertension Hyperlipidemia Gastroesophageal reflux disease, EGD , gastritis, Anxiety/depression Environmental allergies Colonoscopy 2020, normal, ten-year follo wup Surgical History Surgery Date(Month/Year) Cholecystectomy 2020 ORIF wrist 2009 Hospitalization History Reason Date(Month/Year)
--- OUTSIDE RECORDS SUMMARY | 2025-06-23 13:10 | XMS_ITS | Patient Health Record ---
Author Organization [facility] che[place]sea [place] Address [address] [place] [address] Care Team Providers Care Fabrication Lead Name Role Phone Marzena Atkinson Primary Care Provider Yumiko Mora Unavailable [phone] Anastacio Amato Unavailable [phone] Allergies No Known Allergies Reason For Referral [...] Status Risk Notes Problem Acquired hallux valgus (04582866) Hallux valgus (acquired), right foot (M20.11) Active [...] Ordered Date Performed Result Body Sit e 18294-CAO 03/30/2025 N/A 50988-WDW 04/13/2025 N/A 96034-EBEXDTU SKIN/TISSUE 04/13/2025 N/A [id number] 05/04/2025 N/A 16382-[id number] SKIN/TISSUE 05/04/2025 N/A Encounters Encounter Location Date Provider Diagnosis [address] [address] 03/30/2025 Yumiko Begum Ingrown nail L60.0 ; Pain in right foot M79.671 ; Pain in right ankle and joints of right foot M25.571 ; Bursitis of right foot M77.51 and Hallux valgus (acquired), right foot M20.[address] [address] 04/13/2025 Yumiko Begum Ingrown nail L60.0 and Skin ulcer of toe of right foot with fat layer exposed L97.[address] [address] 05/04/2025 Yumiko Begum Ingrown nail L60.0 and Skin ulcer of toe of left foot with fat layer exposed L97.[address] [address] 02/08/2025 Yumiko Begum [address] [address] 02/28/2025 Yumiko Begum [address] [address] 05/02/2025 Yumiko Begum [address] [address] 05/04/2025 [facility] [place] [address] [facility] [address] [place] [address] 05/30/2025 Yumiko Begum Assessments Encounter Date Diagnosis [...] X ray : Foot, right 3V 03/30/2025 [id number] 04/13/2025 [id number] 05/04/2025 [id number] 03/30/2025 [id number] SKIN/TISSUE 05/04/2025 22469-RBYCYZJ SKIN/TISSUE 04/13/2025 Insurance Providers Payer Name Payer Address Payer Phone Subscriber Number Group Number Insured Name Patient Relationship to Insured Coverage Start Date Coverage End Date [employer] Benefits [address] [address] [place] [address] [id number] Self - patient is the insured Medical (General) History Medical History History ICD Code Anxiety Broken bones covid-19 Depression Gall bladder problems sinusitis Chicken pox Joint implants/screws Surgical History Surgery Date(Month/Year) Right wrist 09/12/2019 Gall bladder removal 05/2021
--- OUTSIDE RECORDS SUMMARY | 2025-06-23 13:10 | XMS_ITS | Clinical Summary ---
Author Organization 175 [facility] Address [address] [place] [address] Phone Care Team Providers Care Tetryl Boiling Tub Operator Name Role Phone Zulema Carrera MD Primary Care Provider [phone] Allergies No known active allergies Medications silver [...] rhinitis 11/26/2006 Esophageal reflux 10/16/2006 Asthma 09/19/2005 Surgical History Surgery Date Site/Laterality Comments TONSILLECTOMY [...] Health Maintenance Due Date Last Done Comments Colorectal Cancer Screening: Colonoscopy 1975 Hepatitis B Vaccines (1 of 3 - 19+ 3-dose series) 12/17/1994 Pneumococcal Vaccine: Pediatrics (0 to 5 Years) and At-Risk Patients (6 to 49 Years) (1 of 2 - PCV) 12/17/1994 Cholesterol Screening (Lipid Panel) 08/19/2022 Hepatitis C Screening 08/19/2022 Social Influencers of Health Screening 08/19/2022 Depression Screening 09/21/2024 COVID-19 Vaccine ( season) 2025 09/17/2021, 01/26/2021, 01/05/2021 Influenza Vaccine (#1) 2025 , 07/23/2023, 10/24/2021, Additional history exists DTaP,Tdap,and Td Vaccines (2 - Td or Tdap) 08/14/2025 08/14/2015 RSV Immunization Adult Patients (1 - 1-dose 75+ series) 12/17/2050 HIV Screening Completed 11/26/2006 HIB Vaccines Aged [...] Health Maintenance Results * HIV Screening (11/26/2006) [facility] HIV Screening ABSTRACTED Historical Provider MD HEALTH MAINTENANCE Final Result from Last 3 Months or Most Recently Relevant to Health Maintenance Insurance [place] [address] BENEFIT [facility] Care Teams Tetryl Boiling Tub Operator Relationship Specialty Start Date End Date Zulema Carrera MD [address] [place] [address] Dr Yarbrough [address] [facility] [place] [address] PCP - General Internal Medicine 11/12/20
== END 2025-06-23 13:26 | disposition home or self-care (01) ==
LOC: HO.HCS 12:28
PROVIDERS: PCP Internal Medicine; Visit Provider Internal Medicine
DX: R07.9 Chest pain, unspecified (principal); R06.02 Shortness of breath
CPT/HCPCS: 93010; 99214

== ENCOUNTER → 2025-06-23 12:27 | Outpatient (BNVA) | payer OTHER, SELFPAY | PROVIDERS: PCP Internal Medicine; Visit Provider Internal Medicine | DX: R06.02 Shortness of breath (principal); R07.9 Chest pain, unspecified | CPT/HCPCS: 93005 ==

== ENCOUNTER → 2025-07-06 10:29 | Outpatient (REF) | payer OTHER, SELFPAY ==
--- OUTSIDE RECORDS SUMMARY | 2025-02-28 09:00 | XMS_ITS ---
Author Organization [facility] [place] Address [address] [place] [address] Care Team Providers Care District Captain Name Role Phone ChinaMarzena lewis Primary Care Provider UnavailYumiko Brown Unavailable [phone] Anastacio Amato Unavailable [phone] Medications Medication SIG (Take, Route, Fr equency, [...] 02/28/2025 Encounters Encounter Location Date Provider [facility] [address] [place] [address] 02/28/2025 Anastacio Amato Plan Of Treatment No Information Progress Notes * Kory HALLDOB:[birth year] (49 yo M)Acc No.[id number]:02/28/2025 Progress Notes Patient: Kory MCLEAN Provider: Pamela Amato DPM :1975 A ge:49 Y S ex:Male Date:02/28/2025 Address:[address] [place] [phone] Pcp:Marzena Atkinson Subjective: * Chief Complaints: * [...] enies. C ardiovascular: Pacemaker d enies. M SENIOR DIRECTOR OF STRATEGY d enies. W PW d enies. C [...] 02/28/2025 Generated for Zoey reeves/Suze/eTransmitting on: 1 12:59 PM EDT
--- NOTE | 2025-07-06 10:34 | CA_ITS ---
Transthoracic Echocardiogram Patient (Last, First, Middle): Kory Hall J Gender: M Date of : 1975 Age: 49 Procedure Date: 07/06/2025 Procedure Type: Transthoracic Echocardiogram Location: OP Height: 180.34 cm Weight: 114.76 kg BSA: 2.33 m2 Heart Rate: bpm BP: 130 / 72 mmHg Denture Laboratory Technician: TO/RC Referring MD: Asa Reese MD Symptoms: R07.9 - Chest pain, unspecified Study Quality: Fair/Contrast Conclusions: - 1. Low normal LVEF of 50-55% 2. Interatrial septal aneurysm with PFO 3. Normal cardiac valvular Dopplers 4. No pericardial effusion 5. Upper limits of normal ascending aortic size Findings Procedure Information Contrast agent, definity, is being given per protocol without apparent complications. Left Ventricle Normal left ventricular cavity size. There is normal left ventricular wall thickness. The left ventricular systolic function is low normal. The visually estimated ejection fraction is between 50-55%. Spectral Doppler is indicative of a normal filling pattern. Right Ventricle Normal right ventricular cavity size and systolic function. Atria Both atria are normal in size. There is a highly mobile atrial septum noted. Contrast study for right to left shunting is mildly positive. Contrast study for right to left shunting is moderately positive with Valsalva maneuver. Patent foramen ovale detected using by contrast. Patent foramen ovale detected by bubble study. Aortic Valve Normal aortic valve structure and function. There is no aortic valve stenosis. There is no aortic valve regurgitation. Mitral Valve Normal mitral valve structure and function. There is no mitral valve regurgitation. There is no mitral valve stenosis. Pulmonic Valve The pulmonic valve is likely normal. There is trace pulmonic valve regurgitation. Tricuspid Valve Normal tricuspid valve structure. Tricuspid regurgitation envelope is inadequate for calculation of right ventricular systolic pressure. Normal right atrial pressure. Great Vessels All visible segments of the aorta are normal in size. The pulmonary artery was not well visualized. Small plaque is seen in the sino tubular ridge. Venous The inferior vena cava is normal in size and collapses greater than 50% with inspiration. Pericardium/Pleural There is no evidence of pericardial effusion. Prior Study Comparison No prior study available for comparison. Measurements 2D Linear Measurements IVSd: 1.01 0.6-0.9/0.6-1.0 cm LVIDd: 4.07 3.9-5.3/4.2-5.9 cm LVIDd Index: 1.75 2.4-3.2/2.2-3.1 cm/m2 LVIDs: 2.67 2.0-3.6 cm LVPWd: 0.97 0.7-1.1 cm LA Diam: 3.10 2.7-3.8/3.0-4.0 cm LAIDs Index: 1.33 1.5-2.3 cm/m2 LV Mass: 159.84 67-162/88-224 g LV Mass Index: 68.60 43-95/49-115 g/m2 LVOT Diam: 2.60 3.0+(-)1.3 cm Mitral Valve MV Pk E: 0.85 MV PK A: 0.55 MV Decel Time: 115.00 E/A: 1.60 E'Lateral: 10.80 E'Medial: 3.26 E/E' Med: 26.20 E/E' Lat: 7.90 PHT: 34.00 MVA PHT: 6.47 Decel Bandera: 7.43 Aortic Valve AoV Pk Abdulkadir: 1.21 AoV Mn Abdulkadir: 0.93 AoV VTI: 0.22 AoV Pk Grad: 6.00 Aov Mn Grad: 4.00 NATALIE Cont.VTI: 3.99 LVOT LVOT Pk Abdulkadir: 0.95 LVOT Mn Abdulkadir: 0.64 LVOT VTI: 0.16 LVOT Pk Grad: 4.00 LVOT Mn Grad: 2.00 LVOT Diam: 2.60 LVOT Area: 5.31 Diastolic Function MV Pk E: 0.85 MV Pk A: 0.55 E/A: 1.60 E'Medial: 3.26 E/E' Med: 26.20 E' Laterial: 10.80 E/E' Lat: 7.90 Right Ventricle TAPSE (mm): 20.40 TVS' Abdulkadir: 9.03 Great Vessels Aorta Sinus of Valsalva: 3.80 2.0-3.5 cm Ao Asc: 3.50 2.1-3.4 cm Pulmonary Veins Pulm Vein S/D 2.00 Pulmonary Valve PV Pk Abdulkadir: 0.86 Peak PV Grad: 3.00 Updated in Other Vendor System with Status of Final Marcelo Mckinnon MD electronically signed on 07/06/2025 3:43:11 PM with status of Final
--- OUTSIDE RECORDS SUMMARY | 2025-07-06 13:00 | XMS_ITS | Patient Health Record ---
Author Organization [facility] [place] Address [address] [place] [address] Care Team Providers Care Optical Lens Manufacturing Tech Name Role Phone Marzena Atkinson Primary Care Provider Yumiko Mora Unavailable [phone] Anastacio Amato Unavailable [phone] Allergies No Known Allergies Reason For Referral [...] Status Risk Notes Problem Acquired hallux valgus (36693210) Hallux valgus (acquired), right foot (M20.11) Active [...] Ordered Date Performed Result Body Sit e 07996-YBY 03/30/2025 N/A 10834-SIG 04/13/2025 N/A [id number] SKIN/TISSUE 04/13/2025 N/A [id number] 05/04/2025 N/A 51246-[id number] SKIN/TISSUE 05/04/2025 N/A Encounters Encounter Location Date Provider Diagnosis [address] [address] 03/30/2025 Yumiko Begum Ingrown nail L60.0 ; Pain in right foot M79.671 ; Pain in right ankle and joints of right foot M25.571 ; Bursitis of right foot M77.51 and Hallux valgus (acquired), right foot M20.[address] [address] 04/13/2025 Yumiko Begum Ingrown nail L60.0 and Skin ulcer of toe of right foot with fat layer exposed L97.[address] [address] 05/04/2025 Yumiko Begum Ingrown nail L60.0 and Skin ulcer of toe of left foot with fat layer exposed L97.[address] [address] 02/08/2025 Yumiko Begum [address] [address] 02/28/2025 Yumiko Begum [address] [address] 05/02/2025 Yumiko Begum [address] [address] 05/04/2025 [facility] [place] [address] [facility] [address] [place] [address] 05/30/2025 Yumiko Begum Assessments Encounter Date Diagnosis [...] X ray : Foot, right 3V 03/30/2025 [id number] 04/13/2025 [id number] 05/04/2025 [id number] 03/30/2025 [id number] SKIN/TISSUE 05/04/2025 [id number] SKIN/TISSUE 04/13/2025 Insurance Providers Payer Name Payer Address Payer Phone Subscriber Number Group Number Insured Name Patient Relationship to Insured Coverage Start Date Coverage End Date Blue Benefits [address] [address] [place] [address] [id number] Self - patient is the insured Medical (General) History Medical History History ICD Code Anxiety Broken bones covid-19 Depression Gall bladder problems sinusitis Chicken pox Joint implants/screws Surgical History Surgery Date(Month/Year) Right wrist 09/12/2019 Gall bladder removal 05/2021
--- OUTSIDE RECORDS SUMMARY | 2025-07-06 13:00 | XMS_ITS | Clinical Summary ---
Author Organization 175 [facility] Address [address] [place] [address] Phone Care Team Providers Care Traffic Circuit Engineer Name Role Phone Zulema Carrera MD Primary Care Provider [phone] Allergies No known active allergies Medications silver [...] Health Maintenance Results * HIV Screening (11/26/2006) [facility] HIV Screening ABSTRACTED Historical Provider MD HEALTH MAINTENANCE Final Result from Last 3 Months or Most Recently Relevant to Health Maintenance [place] [address] [address] BENEFIT [facility] Care Teams Traffic Circuit Engineer Relationship Specialty Start Date End Date Zulema Carrera MD [address] [place] [address] Dr Yarbrough [address] [facility] [place] [address] PCP - General Internal Medicine 11/12/20
--- OUTSIDE RECORDS SUMMARY | 2025-07-06 13:00 | XMS_ITS | Patient Health Record ---
Author Organization [facility] Address [address] [place] [address] Care Team Providers Care Quantitative Consultant Name Role Phone Marzena Daugherty M.D. Primary Care Provider Yue Larios JrVirgilio Unavailable Allergies No Known Allergies Reason For Referral No Information Medications Medication SIG (Take, Route, Fr equency, Duration) Notes Start Date End Date Status traZODone HCl 50 MG Oral; Duration: 90 Active clonazePAM 0.5 MG Oral; Duration: 23 Active Omeprazole 40 MG 1 capsule 30 minutes before morning meal Orally Once a day; Duration: 30 day(s) Active Prozac 40 mg 2 tab Oral; Duration: 14 days Active Immunizations Vaccine Route Administration [...] Problem Status W/U Status Risk Notes Problem Colon cancer screening (636711511) Colon cancer screening (Z12.11) Active confirmed Problem Gastritis (9413375) Gastritis (K29.70) Active c onfirmed Problem Abdominal bloating (finding) (173097666) Gas bloat syndrome (K92.89) Active confirmed Problem Gastroesophageal reflux disease (812644339) Gastroesophageal reflux disease, unspecified whether esophagitis present (K21.9) Active confirmed Vital Signs Temperature 98.4 degrees Fahrenheit 10/27/2024 Blood pressure diastolic 00 mm Hg 10/27/2024 Height 71 in 10/27/2024 Blood pressure systolic 000 mm Hg 10/27/2024 Weight 244 lb 8 oz lbs 10/27/2024 BMI 34.10 kg/m2 10/27/2024 Encounters Encounter Location Date Provider Diagnosis [facility] [address] [place] [address] 10/27/2024 Virgilio Larios Jr Gastroesophageal reflux disease, [...] Name:Virgilio aquino Jr, 10/30/2025 10:20:00 AM, [address], [address], [place], [address], Insurance Providers Payer Name Payer Address Payer Phone Subscriber Number Group Number Insured Name Patient Relationship to Insured Coverage Start Date Coverage End Date [employer] [address] [address] [place] [address] [id number] Self - patient is the insured Medical (General) History Medical History History ICD Code Hypertension Hyperlipidemia Gastroesophageal reflux disease, EGD , gastritis, Anxiety/depression Environmental allergies Colonoscopy 2020, normal, ten-year follo wup Surgical History Surgery Date(Month/Year) Cholecystectomy 2020 ORIF wrist 2009 Hospitalization History Reason Date(Month/Year)
== END ==
LOC: HO.CARD 10:29
PROVIDERS: PCP Internal Medicine; Visit Provider Internal Medicine
DX: R07.9 Chest pain, unspecified (principal)
CPT/HCPCS: 93306; Q9957

== ENCOUNTER → 2025-07-06 10:34 | Outpatient (BNV) | payer OTHER, SELFPAY | PROVIDERS: PCP Internal Medicine; Visit Provider Internal Medicine Cardiovascular Disease | DX: I25.3 Aneurysm of heart (principal); Q21.12 Patent foramen ovale | CPT/HCPCS: 93306 ==

== ENCOUNTER 2025-07-18 08:04 | Outpatient (AMB) | payer OTHER, SELFPAY ==
--- OUTSIDE RECORDS SUMMARY | 2025-02-28 09:00 | XMS_ITS ---
Author Organization [facility] Address [address] [place] [address] Care Team Providers Care Drawing Checker Name Role Phone ChinaMarzena lewis Primary Care Provider UnavailYumiko Brown Unavailable [phone] Anastacio Amato Unavailable [phone] Medications Medication SIG (Take, Route, Fr equency, Duration) Notes Start Date End Date Status Propranolol HCl 10 MG 1 tablet on an emp ty stomach Orally every 12 hrs Active clonazePAM 0.5 MG 1 tablet Once a day Active traZODone HCl 50 MG 1 tablet at bedtime as needed Orally Once a day Active FLUoxetine HCl 40 MG 1 capsule Once a day Active Omeprazole 40 MG 1 capsule 1/2 to 1 h our before morning meal Orally Once a day A ctive Social History Tobacco Use: Social History Observation Description Date Details (start date - stop date) Never Smoker NA - NA Tobacco use other than smoking: Question Answer Notes Are you an other tobacco user? No Tobacco Control (Standard) Question Answer Notes Tobacco use: Nonsmoker Additional Findings: Tobacco non-user Current no nsmoker AUDIT-C (Standard) Question Answer Notes Did you have a drink contain ing alcohol in the past year? Yes How often did you have a dri nk containing alcohol in the past year? Declined to specify (0 point) How many drinks did you have on a typical day when you were drinking in the past year? Declined to specify (0 point) How often did you have six o r more drinks on one occasion in the past year? Declined to specify (0 point) Points 0 Interpretation Negative Vital Signs Height 6ft in 02/28/2025 Weight 245 lbs 02/28/2025 BMI 33.22 kg/m2 02/28/2025 Encounters Encounter Location Date Provider [facility] [address] [place] [address] 02/28/2025 Anastacio Amato Plan Of Treatment No Information Progress Notes * Kory HALLDOB:[birth year] (49 yo M)Acc No.[id number]:02/28/2025 Progress Notes Patient: Kory MCLEAN Provider: Pamela Amato DPM :1975 A ge:49 Y S ex:Male Date:02/28/2025 Address:[address] [place] [id number] Pcp:Marzena Atkinson Subjective: * Chief Complaints: * * ROS: G eneral/Constitutional: Nausea d enies. V omiting d enies. H pippa Thirst d enies. L oss appetite d enies. C hills d enies. F atigue d enies.?Fever d enies. N ight Sweats d enies. U nexplained weight loss d enies. U nexplained weight gain d enies. H EENTM: Dentures d enies. D izziness d enies. G lasses/contacts a dmits. R etinopathy d enies. B lurred/double vision d enies. T MJ?denies. D ischarge/drainage d enies. I mplants d enies. S ore throat d enies. D ental implants d enies. H koffi of hearing a dmits. D ifficulty chewing/swallowing/speaking d enies. N ose bleeds d enies. S ore mouth d enies. ? R espiratory: On Oxygen d enies. P neumonia/pleurisy d enies.?Bronchitis d enies. E mphysema d enies. C oughing a dmits. C ough blood?denies. S hortness of breath d enies. W heezing d enies. C ardiovascular: Pacemaker d enies. M LITERACY SPECIALIST d enies. W PW d enies. C HF d enies. H eart attack d enies. S eptal defect d enies. R apid beat d enies. C hest pain d enies. A trial Fib. d enies. M urmur/Palpitations d enies. G astrointestinal: Hemorrhoids d enies. S tomach/Abdominal pain a dmits. D ark blood stool d enies. I rritable bowel d enies. C onstipation d enies. D iarrhea a dmits. H ematology: Swelling d enies. C lots d enies. V aricose Veins d enies. B ruising a dmits. B leeding problem d enies. G enitourinary: Blood urine d enies. F requent/Painfu/urination/bladder control d enies. K idney stones d enies. I nfection (UTI) d enies. N ephropathy d enies. s ex trans dis (STD) d enies. P rostate d enies. M usculoskeletal: Hammertoes d enies. B unions d enies. B ack Pain a dmits. M uscle Cramps/ Resting d enies. M uscle cramps / walking d enies.?Generalized aches and pains d enies. W eakness d enies. I nteg.: Maxwell d enies. S cars a dmits. C orns/calluses?denies. I ngrown nails a dmits. P ainful nails a dmits. O pen Sores d enies. R ashes d enies. N eurologic: Difficulty sleeping a dmits. B rain disorder d enies. N umbness a dmits. B alance trouble d enies. C onfusion d enies. F ainting/blackouts d enies. T ingling a dmits. T remors d enies. * Medical History: A nxiety, Broken bones, Covid-19, Depression, Gall bladder problems, Sinusitis, Chicken pox, Joint implants/screws. * Surgical History: R ight wrist 09/12/2019, Gall bladder removal 05/2021. * Family History: M other: , Foot problems, poor circulation, diagnosed with Unspecified heart disease, Other malignant neoplasm of unspecified site, Diabetic - NIDDM, Unspecified cerebral artery occlusion with cerebral infarction, Unspecified essential hypertension. F ather: alive, diagnosed with Unspecified cerebral artery occlusion with cerebral infarction, Unspecified heart disease. * Social History: T obacco Use: T obacco use other than smoking A re you an other tobacco user? N o Tobacco Control (Standard) T obacco use: N onsmoker A dditional Findings: Tobacco non-user C urrent nonsmoker D rugs/Alcohol: D rugs H ave you used drugs other than those for medical reasons in the past 12 months? N o M iscellaneous: C affeine: yes, frequency:. Marital status: Single. D rug/Alcohol: A AIME-C (Standard) D id you have a drink containing alcohol in the past year? Y es H ow often did you have a drink containing alcohol in the past year? D eclined to specify (0 point) H ow many drinks did you have on a typical day when you were drinking in the past year? D eclined to specify (0 point) H ow often did you have six or more drinks on one occasion in the past year? D eclined to specify (0 point) P oints 0 I nterpretation N egative * Medications: T aking Propranolol HCl 10 MG Tablet 1 tablet on an empty stomach Orally every 12 hrs , Taking clonazePAM 0.5 MG Tablet 1 tablet Once a day , Taking FLUoxetine HCl 40 MG Capsule 1 capsule Once a day , Taking Omeprazole 40 MG Capsule Delayed Release 1 capsule 1/2 to 1 hour before morning meal Orally Once a day , Taking traZODone HCl 50 MG Tablet 1 tablet at bedtime as needed Orally Once a day Objective: * Vitals: H t: 6ft, Wt:245, BMI:33.22, Shoe size: 12W, Ht-cm: 182.88 cm, Wt-k.13 kg. Assessment: Plan: * Treatment: * Images: * The named appointment provid er may or may not be the originator of this progress note, and it is not deemed complete until electronically signed by the appointment provider. Sign off status: Pending * Provider: Pamela Amato DPM Date: 0 02/28/2025 Generated for Zoey reeves/Suze/eTransmitting on: 1 08:18 AM EDT
[2025-07-18 08:10] VITALS: BP 118/88; PULSE 90; BMI 35.8
--- NOTE | 2025-07-18 08:10 | A.OFFVIS_ITS ---
Vital Signs 07/18/25 08:10 Height 5 ft 11 in Weight 256 lb 9.889 oz BMI 35.8 BP 118/88 Blood Pressure Location Lt brachial Position Sitting Pulse 90 Pulse Source Pulse Oximeter Intake Visit Reasons: follow up/ echo/CTA Cyber Policy And Strategy Planner Required: No Allergies codeine Allergy (Unknown, Verified 07/18/25 08:13) Unknown Medication List - Last Reconciled 07/18/25 by Valarie Mendez NP-C blood pressure monitor As directed clonazepam 0.5 mg PO BID PRN 90 days fluoxetine 40 mg PO DAILY lidocaine 5% 1 patch topical DAILY PRN omeprazole 40 mg PO DAILY propranolol 10 mg PO BID PRN trazodone 50 - 100 mg (1 - 2 x 50 mg) PO BEDTIME PRN 90 days HPI HPI follow up/ echo/CTA: Details: Kory is a 49-year-old male with past medical history of obesity, hyperlipidemia, family history of CAD who is being evaluated for heart palpitations and chest discomfort. He recently underwent a echocardiogram and Holter monitor and now presents for follow-up. Today he reports that he does get some random tightness in his chest, mostly in when he is stressed. It is not clearly worsened or brought on by physical activity. He does not feel it is changing with time. He does feel occasional heart palpitations but no lightheadedness, presyncope, syncope, falls. No shortness of breath, PND, orthopnea or edema. 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 He says he does snore but does not have any known witnessed apnea. He says he could not wear a mask at night if he had to. Compliant with meds. [facility] Medical History Chest pain Gastritis and duodenitis Cough Annual physical exam Acute sinus infection Annual physical exam Colon cancer screening Generalized anxiety disorder Overweight (BMI 25.0-29.9) Allergic rhinitis Acute sinusitis Lightheaded Ingrown toenail Vertigo Cyst of epididymis Foreign body in lower extremity Obstructive sleep apnea Cervical disc disease Irritable bowel syndrome Vitamin D deficiency Obesity (BMI 30-39.9) Insomnia Anxiety and depression Hypercholesterolemia Wrist pain, right Surgical History Status post laparoscopic cholecystectomy History of laparoscopic cholecystectomy History of tonsillectomy Closed fracture distal radius and ulna Family History Father Hypertension CVD (cardiovascular disease) S/P triple vessel bypass Mother Breast cancer Depression Anxiety CVD (cardiovascular disease) Hypertension Paternal Aunt Liver cancer Maternal Aunt Breast cancer Brother No problems noted. Sister In good health Other Mental health disorder Social History Household Members: Family Housing: House Do you presently have visiting nurse or other home services: No Alcohol intake: former Patient Tobacco Use Status: Never used Tobacco e-Cigarette/Vaping Use: Never Used Second Hand Smoke Exposure: No service: No Current occupational status: employed Cognitive needs: No Hearing needs: No Vision needs: Yes Review of Systems Const All systems reviewed & are unremarkable except as noted in HPI and below ENT Denies dizziness Card Details: chest tightness Denies chest pain, Denies chest pain at rest, Denies chest pain with activity, Denies rapid heart rate, Denies pedal edema, Denies edema, Denies leg edema, Denies lightheadedness, Denies palpitations, Denies dyspnea, Denies dyspnea on exertion and Denies orthopnea Resp Denies cough, Denies dyspnea and Denies dyspnea on exertion GI Denies hematochezia and Denies change in stool character Musc Denies abnormal gait, Denies limited range of motion, Denies muscle cramps, Denies muscle weakness, Denies numbness, Denies radiating pain into limb, Denies stiffness and Denies tingling Neuro Denies abnormal gait, Denies dizziness, Denies numbness and Denies tingling Endo Denies palpitations Physical Exam Vital Signs: Last Vital Signs Pulse 90 07/18/25 08:10 BP 118/88 07/18/25 08:10 BMI result Body Mass Index 35.8 Const General: cooperative, healthy appearing, comfortable and no acute distress Orientation/consciousness: patient oriented x3 Neck Neck: Yes normal visual inspection Resp Effort & Inspection: normal respiratory effort Auscultation: clear to auscultation bilaterally, no crackles, no rales, no rhonchi and no wheezes Cardio Rate: regular rate Rhythm: regular rhythm Heart sounds: S1 normal heart sound present, S2 normal heart sound present, no g allops, no murmurs and no rubs Neuro General: patient oriented x3 Extrem General: Yes normal to inspection, No no pedal edema and No calf tenderness Psych Appearance: grossly normal Mental Status: mental status grossly normal Speech and movement: Normal speech and movement present Assessment & Plan Assessment & Plan (1) Chest pain: Code(s): R07.9 - Chest pain, unspecified Category: Medical Qualifiers: Chest pain type: unspecified Qualified Code(s): R07.9 - Chest pain, unspecified Plan: Atypical chest discomfort. Cardiac risk factors hypertension, hyperlipidemia, obesity, family history. EKG done last visit showed sinus rhythm with sinus arrhythmia, rate 80. Exercise stress test 05/23/2025 with exercise 7 minutes, reported chest pressure, no EKG changes and nuclear imaging showing mild, partially reversible defect in the distal lateral wall, possibly artifact but can not exclude small area of ischemia. For this reason he had a CTA of the coronary arteries done on 07/13/2025 showing no hemodynamically significant coronary artery disease. Echocardiogram 07/06/2025 showed EF 50-55%, intra- atrial septal aneurysm with PFO. Test results reviewed with him in detail. Informed him his chest discomfort is noncardiac. Signs and symptoms of angina reviewed. Continue with cardiac risk factor modification. (2) PFO with atrial septal aneurysm: Code(s): Q21.12 - Patent foramen ovale; I25.3 - Aneurysm of heart Category: Medical Plan: Echocardiogram with EF 50-55%, intra-atrial septal aneurysm with PFO. For plan repeat echo in 1 year for re-evaluation. Cardiology follow-up 1 year. (3) Generalized anxiety disorder: Comment: Private therapist Code(s): F41.1 - Generalized anxiety disorder Category: Medical Plan: May contribute to his reports of chest tightness. Plan Time spent on chart review, documentation, interview and assessment Orders: Orders CA echo transthoracic complete 50 Weeks I25.3 - Aneurysm of heart, Q21.12 - Patent foramen ovale, R07.9 - Chest pain, unspecified Coding Level of Care Code Est Pt Level 4 (61355) Complex EM visit Add On G2211 Diagnoses Chest pain, unspecified type R07.9 Chest pain type: unspecified PFO with atrial septal aneurysm Q21.12; I25.3 Generalized anxiety disorder F41.1 Time Spent (min) 28
--- OUTSIDE RECORDS SUMMARY | 2025-07-18 08:19 | XMS_ITS | Patient Health Record ---
Author Organization [facility] Address [address] [place] [address] Care Team Providers Care Teacher Public Health Name Role Phone Marzena Daugherty M.D. Primary [...] Status Risk Notes Problem Colon cancer screening (655992694) Colon cancer screening (Z12.11) Active confirmed Problem Gastritis (8192195) Gastritis (K29.70) Active c onfirmed Problem Abdominal bloating (finding) (458174092) Gas bloat syndrome (K92.89) Active confirmed Problem Gastroesophageal reflux disease (616631665) Gastroesophageal reflux disease, unspecified whether esophagitis present (K21.9) Active confirmed Vital Signs Temperature 98.4 degrees Fahrenheit 10/27/2024 Blood pressure diastolic 00 mm Hg 10/27/2024 Height 71 in 10/27/2024 Blood pressure systolic 000 mm Hg 10/27/2024 Weight 244 lb 8 oz lbs 10/27/2024 BMI 34.10 kg/m2 10/27/2024 Encounters Encounter Location Date Provider Diagnosis [facility] [address] [place] [address] 10/27/2024 Virgilio Larios Jr Gastroesophageal reflux disease, [...] [address], [place], [address], Insurance Providers Payer Name Payer Address Payer Phone Subscriber Number Group Number Insured Name Patient Relationship to Insured Coverage Start Date Coverage End Date [employer] [address] [address] [place] [address] [id number] Self - patient is the insured Medical (General) History Medical History History ICD Code Hypertension Hyperlipidemia Gastroesophageal reflux disease, EGD , gastritis, Anxiety/depression Environmental allergies Colonoscopy 2020, normal, ten-year follo wup Surgical History Surgery Date(Month/Year) Cholecystectomy 2020 ORIF wrist 2009 Hospitalization History Reason Date(Month/Year)
--- OUTSIDE RECORDS SUMMARY | 2025-07-18 08:19 | XMS_ITS | Clinical Summary ---
Author Organization [address] [facility] Address [address] [place] [address] Phone Care Team Providers Care Hot Mix Operator Name Role Phone Zulema Carrera MD Primary Care Provider [phone] Allergies No known active allergies Medications silver [...] Health Maintenance Results * HIV Screening (11/26/2006) [facility] HIV Screening ABSTRACTED Historical Provider MD HEALTH MAINTENANCE Final Result from Last 3 Months or Most Recently Relevant to Health Maintenance Insurance [address] [place] [address] BENEFIT [facility] Care Teams Hot Mix Operator Relationship Specialty Start Date End Date Zulema Carrera MD [address] [place] [address] Dr Yarbrough [address] [facility] [place] [address] PCP - General Internal Medicine 11/12/20
--- OUTSIDE RECORDS SUMMARY | 2025-07-18 08:19 | XMS_ITS | Patient Health Record ---
Author Organization [facility] [place] Address [address] [place] [address] Care Team Providers Care Color Depositing Machine Tender Name Role Phone Marzena Atkinson Primary Care Provider Yumiko Mora Unavailable [phone] Anastacio Amato Unavailable [phone] Allergies No Known Allergies Reason For Referral [...] Status Risk Notes Problem Acquired hallux valgus (97933694) Hallux valgus (acquired), right foot (M20.11) Active [...] Ordered Date Performed Result Body Sit e 37629-BVR 03/30/2025 N/A 48918-HTL 04/13/2025 N/A [id number] SKIN/TISSUE 04/13/2025 N/A 82559-DRN 05/04/2025 N/A [id number] SKIN/TISSUE 05/04/2025 N/A Encounters Encounter Location Date Provider Diagnosis [address] [address] 03/30/2025 Yumiko Begum Ingrown nail L60.0 ; Pain in right foot M79.671 ; Pain in right ankle and joints of right foot M25.571 ; Bursitis of right foot M77.51 and Hallux valgus (acquired), right foot M20.[address] [address] 04/13/2025 Yumiko Begum Ingrown nail L60.0 and Skin ulcer of toe of right foot with fat layer exposed L97.[address] [address] 05/04/2025 Yumiko Begum Ingrown nail L60.0 and Skin ulcer of toe of left foot with fat layer exposed L97.[address] [address] 02/08/2025 Yumiko Begum [address] [address] 02/28/2025 Yumiko Begum [address] [address] 05/02/2025 Yumiko Begum [address] [address] 05/04/2025 [facility] [place] [address] [facility] [address] [place] [address] 05/30/2025 Yumiko Begum Assessments Encounter Date Diagnosis [...] X ray : Foot, right 3V 03/30/2025 [id number] 04/13/2025 [id number] 05/04/2025 [id number] 03/30/2025 [id number] SKIN/TISSUE 05/04/2025 [id number] SKIN/TISSUE 04/13/2025 Insurance Providers Payer Name Payer Address Payer Phone Subscriber Number Group Number Insured Name Patient Relationship to Insured Coverage Start Date Coverage End Date Blue Benefits [address] [address] [place] [address] [id number] Self - patient is the insured Medical (General) History Medical History History ICD Code Anxiety Broken bones covid-19 Depression Gall bladder problems sinusitis Chicken pox Joint implants/screws Surgical History Surgery Date(Month/Year) Right wrist 09/12/2019 Gall bladder removal 05/2021
== END 2025-07-18 08:33 | disposition home or self-care (01) ==
LOC: HO.HCS 08:05
PROVIDERS: PCP Internal Medicine; Visit Provider Nurse Practitioner Family
DX: R07.9 Chest pain, unspecified (principal); Q21.12 Patent foramen ovale; I25.3 Aneurysm of heart; F41.1 Generalized anxiety disorder
CPT/HCPCS: 99214

== ENCOUNTER 2025-08-14 14:06 | Outpatient (AMB) | payer OTHER, SELFPAY ==
[2025-08-14 14:34] VITALS: BP 144/92; PULSE 73; TEMP 36.8; O2SAT 96; BMI 35.3
--- NOTE | 2025-08-14 14:34 | MHC.OFFWIV ---
Intake Vital Signs 08/14/25 14:34 Height 5 ft 11 in Weight 253 lb BMI 35.3 BP 144/92 H Blood Pressure Location Lt brachial Position Sitting Pulse 73 Pulse Source Pulse Oximeter Temp 98.2 F Temp Source Oral Pulse Oximetry (%) 96 Oxygen Delivery Method Room Air Intake Visit Reasons: EP Sinus pain/headache, coughing mucus 3+wks Intake Note: Patient presents c/o sinus headache/pain, cough. Patient Tobacco Use Status: Never used Tobacco Allergies codeine Allergy (Unknown, Verified 08/14/25 14:37) Unknown Do you need a note to return to daycare/school/sports/work: No HPI HPI Comments History of Present Illness Details 49 y/o Male patient who presents to the walk in clinic with c/o Chronic Sinusitis for 2 months. Reports Nasal/sinus congestion, and Headaches. Reports that he does have h/o Recurrent sinus infection and usually he gets Z-pack and works well. Patient asking for Z-pack. Reports that he does not like taking Acetaminophen because he afraid of getting adicted to it. [facility] Medical History Chest pain Gastritis and duodenitis Cough Annual physical exam Acute sinus infection Annual physical exam Colon cancer screening Generalized anxiety disorder Overweight (BMI 25.0-29.9) Allergic rhinitis Acute sinusitis Lightheaded Ingrown toenail Vertigo Cyst of epididymis Foreign body in lower extremity Obstructive sleep apnea Cervical disc disease Irritable bowel syndrome Vitamin D deficiency Obesity (BMI 30-39.9) Insomnia Anxiety and depression Hypercholesterolemia Wrist pain, right Surgical History Status post laparoscopic cholecystectomy History of laparoscopic cholecystectomy History of tonsillectomy Closed fracture distal radius and ulna Family History Father Hypertension CVD (cardiovascular disease) S/P triple vessel bypass Mother Breast cancer Depression Anxiety CVD (cardiovascular disease) Hypertension Paternal Aunt Liver cancer Maternal Aunt Breast cancer Brother No problems noted. Sister In good health Other Mental health disorder Social History Household Members: Family Housing: House Do you presently have visiting nurse or other home services: No Alcohol intake: former Patient Tobacco Use Status: Never used Tobacco e-Cigarette/Vaping Use: Never Used Second Hand Smoke Exposure: No service: No Current occupational status: employed Cognitive needs: No Hearing needs: No Vision needs: Yes Review of Systems Const All systems reviewed & are unremarkable except as noted in HPI and below Physical Exam Vital Signs: Last Vital Signs Temp 98.2 F 08/14/25 14:34 Pulse 73 08/14/25 14:34 BP 144/92 H 08/14/25 14:34 Pulse Ox 96 08/14/25 14:34 Oxygen Delivery Method Room Air 08/14/25 14:34 BMI result Body Mass Index 35.3 Const General: no acute distress Nutritional Appearance: obese Orientation/consciousness: patient oriented x3 HEENT Head: Yes normocephalic Ears: external ears normal and TM abnormal with fluid behind the TM bilateral General nose exam: Normal external nose present and Abnormal mucous membranes and turbinates present erythematous Face and sinus: Yes sinus tenderness Mouth: moist mucous membranes Throat: Yes uvula midline Resp Effort & Inspection: normal respiratory effort Auscultation: clear to auscultation bilaterally Cardio Heart sounds: S1 normal heart sound present and S2 normal heart sound present Neuro General: patient oriented x3 Assessment & Plan Assessment & Plan (1) Sinusitis: Code(s): J32.9 - Chronic sinusitis, unspecified Qualifiers: Sinusitis location: maxillary Chronicity: acute Recurrence: non-recurrent Qualified Code(s): J01.00 - Acute maxillary sinusitis, unspecified Plan: Rest and hydrate well with warm fluids.. Advised ENT f/u Ordered Z-pack as requested. Medications: New azithromycin 500 mg PO DAILY 3 tabs 0RF 3 days J32.9 - Chronic sinusitis, unspecified Coding Level of Care Code Est Pt Level 4 (73299) Diagnoses Acute non-recurrent maxillary sinusitis J01.00 Sinusitis location: maxillary Chronicity: acute Recurrence: non-recurrent Time Spent (min) 20
--- OUTSIDE RECORDS SUMMARY | 2025-08-14 19:05 | XMS_ITS | Clinical Summary ---
Author Organization [address] [facility] Address [address] [place] [address] Phone Care Team Providers Care Wearing Apparel Folder Name Role Phone Zulema Carrera MD Primary Care Provider [phone] Allergies No known active allergies Medications silver [...] Health Maintenance Results * HIV Screening (11/26/2006) [facility] HIV Screening ABSTRACTED Historical Provider MD HEALTH MAINTENANCE Final Result from Last 3 Months or Most Recently Relevant to Health Maintenance [place] [place] [address] [facility] Care Teams Wearing Apparel Folder Relationship Specialty Start Date End Date Zulema Carrera MD [address] [place] [address] [address] [facility] [place] [address] PCP - General Internal Medicine 11/12/20
== END 2025-08-14 15:05 | disposition home or self-care (01) ==
PROVIDERS: PCP Internal Medicine; Visit Provider Nurse Practitioner Family
DX: J01.00 Acute maxillary sinusitis, unspecified (principal)